=== PATIENT | male | born 1950 | race Caucasian/White ===

== ENCOUNTER 2017-11-22 06:00 | Inpatient (IN) | payer MEDICARE, OTHER, SELFPAY ==
[2017-11-09 10:30] VITALS: BP 159/97; PULSE 74; RESP 18; TEMP 36.6; O2SAT 96; BMI 44.9
[2017-11-09 11:44] LABS: Hematocrit 48.9 % (40-54); Hemoglobin 16.8 g/dl (13.0-16.5); Mean Corp Hgb Conc 34.4 g/gl (32-36); Mean Corpuscular Hgb 34.2 pg (27.0-32.0); Mean Corpuscular Volume 99.6 fL (80-94); Mean Platelet Vol. 10.1 fl (6.2-12.0); Platelet Count 224 K/mm3 (150-450); RBC Distribution Width CV 13.4 % (11.6-14.6); RBC Distribution Width SD 48.4 fl (35.1-43.9); Red Blood Count 4.91 M/mm3 (4.6-6.2)
[2017-11-09 11:45] LABS: Scan Indicated on CBC? Y/N NO
[2017-11-09 12:05] LABS: Anion Gap 8 (5-15); BUN 19 mg/dL (7-18); BUN/Creat Ratio 18.1 RATIO (10-20); Calcium,Total 10.5 mg/dL (8.5-10.1); Chloride 104 mmol/L (98-107); Creatinine, Serum 1.05 mg/dL (0.70-1.30); EST Glomerular Filtration Rate 75 mL/min (>60); Est Glom Filt Rate - Afr Amer 91 mL/min (>60); Estimated Creatinine Clearance 67.86 ml/min; Glucose 94 mg/dL (74-106); Potassium 3.8 mmol/L (3.5-5.1); Sodium Level 138 mmol/L (136-145)
[2017-11-22] VITALS (12 sets, daily range): BP systolic 149–166; BP diastolic 77–103; PULSE 62–96; RESP 14–16; TEMP 36–36.9; O2SAT 92–100; BMI 44.9
--- NOTE | 2017-11-22 | PROST_PTH ---
PATIENT: CARLOS VILLATORO LOC: [facility] U#:[id number] AGE/SX: 67/M ROOM: [facility]313 RE11/22/[address]: Dr. Benigno Teran MD : 1950 BED: 1 DIS: 11/23/2017 SPEC #: [id number] RECD: 11/22/17 14:27 STATUS: MICHELLE TAY #: [id number] ALONDRA: 11/22/17 00:[address]: Benigno Teran DEPT: SURGICAL PATHOLOGY RECD BY: Joaquín Strauss ENTERED: 11/22/17 14:28 SP TYPE: PROSTATE OTHR DR: Dr. Sara Gonzalez MD Tissues: A - Prostate, NOS B - Adipose tissue C - Lymph node of pelvis, NOS D - Lymph node of pelvis, NOS Procedures: Surgery Specimen Level IV Surgery Specimen Level V Surgery Specimen Level HEADER OPERATION: Laparoscopic robotic assisted radical prostatectomy PRE-OP DIAGNOSIS: Prostate cancer, elevated PSA TISSUE SUBMITTED: A ? Prostate, B ? Fat over prostate, C ? Right pelvic lymph nodes, D ? Left pelvic lymph nodes MICROSCOPIC DIAGNOSIS A. Prostate, radical prostatectomy: Prostatic adenocarcinoma (acinar, not otherwise specified). B. Fat over prostate: Adipose tissue, negative for carcinoma. C. Right pelvic lymph node: Nine out of nine lymph nodes, negative for metastatic carcinoma. Focal calcification lymph nodes. D. Left pelvic lymph node: Three out of three lymph nodes, negative for metastatic carcinoma. Focal calcification. SJ:peggy 11/24/17 COMMENT PROSTATE CANCER (RADICAL) SUMMARY: Procedure ? radical prostatectomy Prostate size ? 4 cm craniocaudally, 4.5 cm transversely and 4.5 cm anterior-posteriorly. Prostate weight ? 58.3 gm Lymph node sampling ? pelvic lymph node dissection Histologic type ? adenocarcinoma (acinar, not otherwise specified) Histologic grade (Yarelis Pattern): Primary pattern - 4 Secondary pattern - 3 Tertiary pattern - 5 Total [place] score - 7 Tumor Quantitation: Proportion (%) of prostate involved by tumor - ~30% Extraprostatic extension ? not identified Seminal vesicle invasion - present, a minute focus (left seminal vesicle) Margins ? margins uninvolved by invasive carcinoma. Treatment effect on carcinoma ? no known presurgical therapy Lymph-Vascular invasion ? not identified Perineural invasion - present Regional lymph nodes - Number examined - 12 Number involved - 0 Distant metastasis ? not applicable Additional pathologic findings ? 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 - Chronic inflammation. Ancillary studies ? not performed PATHOLOGIC STAGE: pT3b pN0 Mx The above summary is in compliance with [employer] (CAP) Cancer Protocols Checklist and [place] Joint Committee on Cancer (AJCC), Staging Manual, 8th Ed. The tumor in the right lobe involves apical portion of the prostate ( slides # 5 & 7) and measures 0.8 x 0.5 cm (measured microscopically) and. Tumor in the left lobe involves apical, middle, basal portion of the prostate (slides # 6, 8, 10, 12, 14, 15, 18 and 20) and measures 2.5 x 1 cm in greatest dimension (measured microscopically). The tumor in the left lobe is also present in the most basal portion of the prostate. Please make reference to previous specimen ([id number]) right prostate, apex, left prostate, apex, left prostate, apex, mid, left prostate, base, core biopsies with diagnosis of prostatic adenocarcinoma and right prostate, mid, core biopsy with diagnosis of focal high-grade prostatic intraepithelial neoplasia. Case has been reviewed in consultation with Dr. Poe who concurs with the above diagnosis. IDC:AM MICROSCOPIC DESCRIPTION Slides are reviewed. GROSS DESCRIPTION A - Received in fixative is one container labeled with the patient's name and designated prostate. The specimen consists of a radical prostatectomy consisting of prostate and bilateral seminal vesicles weighing 58.3 gm. The prostate measures 4 cm cranio-caudally, 4.5 cm transversely and 4.5 cm anterior-posteriorly. The right seminal vesicle measures 2.5 x 1.5 x 1 cm. The right vas deferens measure 4 cm in length and 0.5 cm in diameter. The left seminal vesicle measures 3 x 1.5 x 1 cm and the left vas deferens measure 3 cm in length and 0.5 cm in diameter. The specimen is inked as follows: anterior surface prostate ? yellow, posterior surface prostate and bilateral seminal vesicles and vas deferens ? black, right lateral surface ? blue, anterior surface, right seminal vesicle and vas deferens ? blue, left lateral surface prostate ? green, anterior surface, left seminal vesicle and vas deferens ? green. Sections do not reveal any obvious mass lesion. Ch[employer]ing [employer] sections are submitted in 20 cassettes as follows: 1 ? right vas deferens and seminal vesicle, 2 ? left vas deferens and seminal vesicle, 3 ? apical/urethral resection margin en face, 4 ? bladder base (basal margin en face), 5-8 ? apical portion prostate, 9-14 ? middle portion prostate, 15-20 ? basal portion prostate (19 & 20 contains the most basal portion of prostate). / : 11/23/17 B - Received in fixative is one container labeled with the patient's name and designated fat over prostate. The specimen consists of multiple pieces of adipose tissue that in aggregate measure 4.5 x 4 x 1 cm. No obvious lymph node is identified. The entire specimen is submitted in three cassettes. Sections will be submitted after overnight fixation. / : 11/22/17 C - Received in fixative is one container labeled with the patient's name and designated right pelvic lymph node. The specimen consists of two pieces of yellow adipose tissue measuring in aggregate 6 x 5 x 1.5 cm. Multiple lymph nodes are identified. The entire specimen is submitted in five cassettes as follows: 1 ? one bisected lymph node, 2 ? multiple lymph nodes, 3-5 ? rest of the specimen. / : 11/22/17 D - Received in fixative is one container labeled with the patient's name and designated left pelvic lymph node. The specimen consists of a piece of yellow adipose tissue measuring 3.5 x 3 x 1 cm. Three possible lymph nodes are identified. The entire specimen is submitted in two cassettes as follows: 1 ?bisected lymph node, 2 ? two possible lymph nodes and rest of the specimen. / : 11/22/17 TC:0 CPT: 82740, 13811 x2, 39864
[2017-11-22] MEDS: Cefazolin 2 GM in 0.9% Normal Saline 100 ML IV (07:19)
--- NOTE | 2017-11-22 12:09 | PCM.OPRPT ---
Report of Operation Date of Procedure: 11/22/17 Pre-Operative Diagnosis: PROSTATE CANCER. Post-Operative Diagnosis: SAME Surgery/Procedure Performed:: 1, LAPAROSCOPIC ROBOTIC ASSITED RADICAL PROSTATECTOMY WITH B/L NERVE SPARING. 2. BILATEAL PELVIC LYMPHNODE DISSECTION. 3. EMG MONITORING OF THE PELVIC NERVES AND SPHINCTER. 4. SUTURE SUSPENSION OF THE URETHRA TO PREVENT INCONTINENCE. Description of Surgical Findings:: 67-year-old male who has prostate cancer elected to have a radical prostatectomy to hopefully cure him of cancer he understands the risk that cancer may progress after surgery he may need further treatment such as radiation chemotherapy hormone ablative therapy. We talked about the risk of surgery including the risk of lack loss of erections and bladder control and incontinence. We plan to do nerve sparing surgery and also do a pelvic lymph node dissection. 67-year-old male taken back to the operating room after smooth induction of general anesthesia he was placed supine on the table. He underwent endotracheal tube placement full he is placed supine on the table the abdomen was shaved prepped and draped in usual sterile fashion. First I placed a Torres catheter into the bladder with a 18 [place] Citizen catheter 10 cc in the balloon. Patient is a fairly large male with BMI of 44 so plan to use we used longer bariatric trochars for the robot. Started off by making an incision supraumbilically and using the Veress needle to obtain his pneumoperitoneum. Once the pneumoperitoneum was insufflated then I placed my camera trocar. Then we placed a long robotic trocar on the right side and to long robotic trochars on the left side placed a variceal trocar and the suction trocar. Then we switched the camera trocar to a long trocar and then we docked the robot and proceeded with the dissection. First thing I did was mobilized the sigmoid colon a little bit enough to retracted out of the pelvis I then dissected the right vas deferens and right seminal vesicle vas deferens was identified and traced down all the way behind the bladder and prostate dissected out the vas deferens and then dissected out the right seminal vesicle I then identified the left vas deferens and left seminal vesicle and this was dissected out and transected the vas deferens both sides I then went underneath the prostate pulled up on both vas deferens and incised the tenotomies fascia and created a space underneath the prostate above the rectum all the way to the apex. Then at this point report on the pelvis the sigmoid colon was taken off traction I then in then took down the bladder and then created the space of Retzius. Incised the peritoneum laterally on each wing of the bladder and then transected through the umbilical ligaments and then put the traction of the bladder on traction and then dissected all the tissue above the prostate put in the bladder on traction and then created the space of Retzius until identified the pubic bone and all the landmarks for prostatectomy. I first then cleaned off the fat overlying the prostate this was sent off as a specimen is fat over prostate. Then went to the right pelvic lymph nodes and started off by identifying the borders noted Dennise identified the external iliac vein and identify the pelvic sidewall and then the obturator nerve dissected out the lymph nodes in this space used clips and cauterization to obtain hemostasis significant amount of lymph nodes removed pretty large packet was then handed off for the specimen. I then went to the left side again identified and noted Dennise the left iliac vein was identified the lateral pelvic wall and the arch of the pubic bone and all the way down to the obturator nerve dissected this out completely and removal of the lymph node packet off the lateral sidewall. He did have identifiable lymph nodes in this packet this was sent off as a specimen. I then went up to the prostate incised the lateral pelvic fascia and the prostate dissected the levator muscles off the prostate all the way to the apex and the right side the same thing on the left side I then incised the levator fascia over the dorsal vein complex and dissected the and incised the pubic prostatic ligaments I then placed a [id number] stitch on the dorsal vein complex put several stitches to the dorsal dorsal vein complex to have a nice secured dorsal vein once this was tied down then I pulled back between the bladder and the prostate identified the landmarks between the bladder and prostate dissected between the bladder and the prostate until I got down to the catheter the catheter was then pulled up on traction I then dissected posteriorly between the bladder and prostate releasing the posterior attachments of the bladder to the prostate until I reached the seminal vesicle and vas deferens which were already dissected out I then went to the right side of the prostate incised the levator fascia on top of the prostate then identified the neurovascular bundle running on the lateral aspect of the prostate we placed the EMG monitoring electrodes into the abdomen through the care provided the electrodes were tunneled to some fat in the anterior abdominal wall to hold up the electrodes and then placed in the levator muscles I then stimulated the patient's pelvic lateral sidewall I had a good action potential and identified the plexus of nerves running along the the lateral pelvic pelvic area with the same thing on the right side placed the electrode into the levator muscle and identified the plexus of nerves on the left side and the right side once these were identified and went back to the dissection of the prostate transected to the pedicle identified the neurovascular bundle and dissected this free off the prostate inferiorly working my way out all the way to the apex then went to the left side and incised the prostatic fascia and the left side and then came to the pedicle with clips and again released the neurovascular bundle in the left side all the way up to the apex on the prostate. Then at this point we transected through the dorsal vein minimal bleeding was encountered and then dissected circumferentially around the stump and then transected through the urethral stump and the prostate was extracted and put in Endo Catch bag nerve sparing was very good and is very happy with the burn of the neurovascular bundles on both sides. We then irrigated out the pelvis there is no major bleeding I then completed we checked in the house the sphincter with the electrode and I were able to get the sphincter to coapt and contract stimulation of the electrode proving that there was resulting stimulation and control of the sphincter. I then performed an anastomosis between the bladder and the urethra we did a supra suture suspension to prevent incontinence ran the suspension sutures from the 6 o'clock position to the 12 o'clock position over a catheter the catheter in place and then flushed the bladder there was no leakage. I then pulled back we then brought the bladder flap and I rechecked the bladder flap back back up to the anterior abdominal wall to re-extra peritonealized the bladder and the prostate area putting the bladder back in proper position of the anterior abdominal wall. We then transferred the prostate back to the Delano Rowley in the week which transferred the prostate back to the umbilical trocar we closed our 1012 variceal port with a Delano Rowley stitch and then we extracted the prostate through the umbilicus we then closed the extraction site with [id number] 0 Vicryl stitches interrupted fashion made sure to sweep underneath the make sure that there was no injury to the bowel or catching of any critical structures once we tied down the midline incision where we extracted the prostate then we closed all the incisions with stitches and the patient currently is being awakened from anesthesia he was bladder was flushed and the urine was clear. Take back to PACU in good condition. Type of Anesthesia:: General Drains: TORRES. Estimated Blood Loss (mL): 100 - Admit VTE Documentation VTE Present on Admission: No VTE Mechan Device Prophylaxis: SCD's VTE Pharm Prophylaxis ordered?: No Reason prophylaxis not ordered:: Treatment Not Indicated
[2017-11-22] MEDS: Bupivacaine Mpf 0.5% 30 ML VIAL (12:15)
[2017-11-22] MEDS: Calcium Carbonate 500 MG Tablet PO ×2 (13:58→17:43)
[2017-11-22] MEDS: HYDROcodone Bitartrate/Apap 5/325 Tablet PO ×2 (15:48→22:29)
[2017-11-22] MEDS: Ketorolac 15 MG/ML Vial IV (17:43)
[2017-11-22] MEDS: Lactated Ringers 1,000 ML 150 ML IV (17:44)
[2017-11-22] MEDS: amLODIPine 5 MG Tablet PO (20:13)
[2017-11-22] MEDS: hydroCHLOROthiazide 25 MG Tablet PO (20:14)
[2017-11-22] MEDS: Docusate Sodium 100 MG Capsule 200 MG PO (22:28)
[2017-11-22] MEDS: Ciprofloxacin 500 MG Tablet PO (22:28)
[2017-11-23] MEDS: Ketorolac 15 MG/ML Vial IV ×2 (00:28→05:06)
[2017-11-23] MEDS: Lactated Ringers 1,000 ML 150 ML IV ×2 (00:28→06:30)
[2017-11-23 04:53] VITALS: BP 148/78; PULSE 71; RESP 16; TEMP 36.5; O2SAT 94
[2017-11-23] MEDS: HYDROcodone Bitartrate/Apap 5/325 Tablet PO (04:55)
[2017-11-23] MEDS: Enoxaparin 40 MG/0.4 ML Syringe SC (05:06)
[2017-11-23 07:05] LABS: Hematocrit 45.3 % (40-54); Hemoglobin 14.9 g/dl (13.0-16.5); Mean Corp Hgb Conc 32.9 g/gl (32-36); Mean Corpuscular Volume 103.4 fL (80-94); Platelet Count 194 K/mm3 (150-450); RBC Distribution Width CV 13.4 % (11.6-14.6); RBC Distribution Width SD 49.9 fl (35.1-43.9); Red Blood Count 4.38 M/mm3 (4.6-6.2); White Blood Count 11.7 K/mm3 (4.4-11.0)
[2017-11-23 07:06] LABS: Anion Gap 8 (5-15); BUN 26 mg/dL (7-18); BUN/Creat Ratio 16.8 RATIO (10-20); Calcium,Total 9.2 mg/dL (8.5-10.1); Chloride 107 mmol/L (98-107); Creatinine, Serum 1.55 mg/dL (0.70-1.30); EST Glomerular Filtration Rate 48 mL/min (>60); Est Glom Filt Rate - Afr Amer 58 mL/min (>60); Estimated Creatinine Clearance 45.97 ml/min; Glucose 98 mg/dL (74-106); Potassium 4.3 mmol/L (3.5-5.1); Sodium Level 133 mmol/L (136-145)
--- NOTE | 2017-11-23 07:13 | PCM.DC.URO ---
Discharge Diet: Light diet - advance as tolerated Discharge Activity: May Not Drive, May not drive while taking narcotic pain medications. May shower in (days): 1 May resume sexual activity in: 6 weeks Call your doctor if your incision/area has: Continuous Slow Oozing, Sudden Increased Bleeding, Increased Pain/ Swelling, Increased Redness, Foul Smelling Discharge, Swelling at the incision site Call your doctor if you observe: Fever of 101 or Higher, Inability to have a bowel movement, Shortness of breath, Chest pain, Uncontrolled pain Suture Line Care: Avoid Pulling/Pushing, Avoid Pinching/Bending Catheter: Wells to leg bag, Wells to large bag Drain: [place] Instructions: Discharge Instructions for Radical Prostatectomy Allergies/Adverse Reactions: Allergies Antihistamines - Alkylamine Allergy (Verified 11/09/17 10:13) Other HALLUCINATE Medications to take at Discharge Hydrochlorothiazide [Hctz] 25 mg PO DAILY 07/11/14 Losartan Potassium [Cozaar] 50 mg PO DAILY 07/11/14 Naproxen [Naprosyn] 500 mg PO BID 05/27/17 Ascorbic Acid [Vitamin C] 500 mg PO DAILY@0800 11/09/17 Aspirin E.C. [Ecotrin] 81 mg PO DAILY@0800 11/09/17 Calcium Carbonate [Tums] 200 mg PO TID 11/09/17 Cholecalciferol (Vitamin D3) [Vitamin D3] 5,000 unit PO DAILY 11/09/17 Fish Oil/Dha/Epa [Fish Oil 1,200 mg Fish Oil] 1 each PO DAILY 11/09/17 Ciprofloxacin [Cipro] 500 mg PO BID #14 tab 11/23/17 Docusate Sodium [Colace] 100 mg PO BID #20 cap 11/23/17 Hydrocodone/Acetaminophen [Blaine 5-325 Tablet] 1 ea PO Q4H PRN PRN 5 Days #14 tab 11/23/17 The following prescriptions were given: Hydrocodone/Acetaminophen [Blaine 5-325 Tablet] 1 ea PO Q4H PRN PRN 5 Days #14 tab PRN Reason: Pain Ciprofloxacin [Cipro] 500 mg PO BID #14 tab Docusate Sodium [Colace] 100 mg PO BID #20 cap Primary Care Physician: Sara Gonzalez MD [Primary Care Provider] - Please Follow Up With: Benigno Teran MD When: December 30 at 8:30 am
--- NOTE | 2017-11-23 07:16 | DCINST_ITS ---
Discharge Diet: Light diet - advance as tolerated Discharge Activity: May Not Drive, May not drive while taking narcotic pain medications. May shower in (days): 1 May resume sexual activity in: 6 weeks Call your doctor if your incision/area has: Continuous Slow Oozing, Sudden Increased Bleeding, Increased Pain/ Swelling, Increased Redness, Foul Smelling Discharge, Swelling at the incision site Call your doctor if you observe: Fever of 101 or Higher, Inability to have a bowel movement, Shortness of breath, Chest pain, Uncontrolled pain Suture Line Care: Avoid Pulling/Pushing, Avoid Pinching/Bending Catheter: Wells to leg bag, Wells to large bag Drain: [place] Instructions: Discharge Instructions for Radical Prostatectomy Allergies/Adverse Reactions: Allergies Antihistamines - Alkylamine Allergy (Verified 11/09/17 10:13) Other HALLUCINATE Medications to take at Discharge Hydrochlorothiazide [Hctz] 25 mg PO DAILY 07/11/14 Losartan Potassium [Cozaar] 50 mg PO DAILY 07/11/14 Naproxen [Naprosyn] 500 mg PO BID 05/27/17 Ascorbic Acid [Vitamin C] 500 mg PO DAILY@0800 11/09/17 Aspirin E.C. [Ecotrin] 81 mg PO DAILY@0800 11/09/17 Calcium Carbonate [Tums] 200 mg PO TID 11/09/17 Cholecalciferol (Vitamin D3) [Vitamin D3] 5,000 unit PO DAILY 11/09/17 Fish Oil/Dha/Epa [Fish Oil 1,200 mg Fish Oil] 1 each PO DAILY 11/09/17 Ciprofloxacin [Cipro] 500 mg PO BID #14 tab 11/23/17 Docusate Sodium [Colace] 100 mg PO BID #20 cap 11/23/17 Hydrocodone/Acetaminophen [[place] 5-325 Tablet] 1 ea PO Q4H PRN PRN 5 Days #14 tab 11/23/17 The following prescriptions were given: Hydrocodone/Acetaminophen [[place] 5-325 Tablet] 1 ea PO Q4H PRN PRN 5 Days #14 tab PRN Reason: Pain Ciprofloxacin [Cipro] 500 mg PO BID #14 tab Docusate Sodium [Colace] 100 mg PO BID #20 cap Primary Care Physician: Sara Gonzalez MD [Primary Care Provider] - Please Follow Up With: Benigno Teran MD When: December 30 at 8:30 am
[2017-11-23 07:38] LABS: Scan Indicated on CBC? Y/N NO
[2017-11-23 08:25] VITALS: O2SAT 94
[2017-11-23 09:09] VITALS: BP 143/72; PULSE 76; RESP 18; TEMP 36.5; O2SAT 95
[2017-11-23] MEDS: Docusate Sodium 100 MG Capsule 200 MG PO (09:12)
[2017-11-23] MEDS: hydroCHLOROthiazide 25 MG Tablet PO (09:13)
[2017-11-23] MEDS: Losartan Potassium 50 MG Tablet PO (09:13)
[2017-11-23] MEDS: Ciprofloxacin 500 MG Tablet PO (09:13)
[2017-11-23] MEDS: Ascorbic Acid 500 MG Tablet PO (09:13)
== END 2017-11-23 11:30 | disposition home or self-care (01) | DRG 707 ==
PROVIDERS: Anesthesiology; Admitting Provider Urology; Family Provider Internal Medicine; PCP Internal Medicine; Visit Provider Urology
PROC: 0VT04ZZ Resection of Prostate, Percutaneous Endoscopic Approach (ICD-10-PCS; CPT 55866; principal; 2017-11-22 07:10)
DX: C61 Malignant neoplasm of prostate (principal); Z68.41 Body mass index [BMI] 40.0-44.9, adult; G47.30 Sleep apnea, unspecified; I10 Essential (primary) hypertension; E66.9 Obesity, unspecified; Z71.3 Dietary counseling and surveillance; M19.90 Unspecified osteoarthritis, unspecified site; F17.200 Nicotine dependence, unspecified, uncomplicated; Z86.718 Personal history of other venous thrombosis and embolism
CPT/HCPCS: 36415; 80048; 85027; 86850; 86900; 88304; 88305; 88307; 88309; J7120; A4216; J2405

== ENCOUNTER → 2017-12-28 16:24 | Outpatient (CLI) | payer MEDICARE, OTHER, SELFPAY ==
[2017-12-28 17:21] LABS: PSA,Total- Diagnostic < 0.01 ng/mL (0.0-4.0)
== END ==
PROVIDERS: Family Provider Internal Medicine; PCP Internal Medicine; Visit Provider Urology
DX: R97.20 Elevated prostate specific antigen [PSA] (principal)
CPT/HCPCS: 36415; 84153

== ENCOUNTER 2018-01-12 12:25 | Emergency (ER) | payer MEDICARE, OTHER, SELFPAY ==
--- NOTE | 2018-01-12 12:25 | DT_ITS ---
This patient was seen during an EMR downtime January 08, 2018 - January 15, 2018. This patient may have a combination of paper and electronic documentation or all paper documentation. All documentation is viewable within the e-chart portion of [facility] for each patient visit.
--- NOTE | 2018-01-12 14:00 | US_ITS ---
STUDY: SCROTUM ULTRASOUND REASON FOR EXAM: Male, 67 years old. Right testicular pain and swelling. TECHNIQUE: Ultrasound evaluation of the scrotum was performed with color Doppler and static lopez-scale imaging. COMPARISON: None. FINDINGS: RIGHT TESTICLE INTRATESTICULAR: There is a normal size of the right testicle. The right testicle measures 4.7 x 3.0 x 3.0 cm. There is a homogenous echotexture. There is increased arterial and increased venous vascularity. There is no demonstrated right testicular mass or cyst. EXTRATESTICULAR: The epididymis is enlarged and the epididymal head measures 2.0 x 1.4 x 0.9 cm There is increased vascularity of the epididymis. There is no demonstrated epididymal cystic structure. There is a small hydrocele with septation. There is no demonstrated varicocele. There is no demonstrated extratesticular mass or cyst. LEFT TESTICLE INTRATESTICULAR: There is a normal size of the left testicle. The left testicle measures 4.3 x 2.1 x 2.4 cm. There is a homogenous echotexture. There is normal arterial and normal venous vascularity. There is no demonstrated left testicular mass or cyst. EXTRATESTICULAR: The epididymis is normal in size. The epididymis head measures 1.2 x 1.1 x 0.6 cm. There is normal vascularity of the epididymis. Epididymal cyst measuring 0.5 x 0.4 x 0.3 cm There is small hydrocele. There is no demonstrated varicocele. There is no demonstrated extratesticular mass or cyst. US/Testicular with Arterial Flow IMPRESSION: Right epididymoorchitis. Small bilateral hydroceles. Electronically Signed: Alok Bess MD at 1:55 EDT , Service support ,
--- NOTE | 2018-01-12 14:17 | CT_ITS ---
STUDY: CT ABDOMEN AND PELVIS WITH CONTRAST REASON FOR EXAM: Male, 67 years old. Lower abdominal pain. Recent prostatectomy on 11/2017. RADIATION DOSAGE (If Supplied By Facility): CTDIvol = ( 30.83 ) mGy, DLP = ( 1542.33 ) mGycm TECHNIQUE: Transaxial imaging of the abdomen and pelvis was performed with oral contrast. 100 ml of Isovue 300 contrast was administered intravenously. Coronal and sagittal reconstructions were performed. Individualized dose optimization techniques were used for this CT. COMPARISON: 08/21/2017. FINDINGS: The lung bases are normal. Normal cardiac size. No pericardial fluid. No pleural fluid. The liver, gallbladder, spleen, pancreas and adrenal glands are normal. At least 7 nonobstructing calculi in the right kidney. The dominant calculus is 5 mm. No stones or hydronephrosis in the left kidney. Normal stomach. Normal small intestine. Small diverticula along the sigmoid colon. There are inflammatory changes of the fat in the left side of the sigmoid colon with intramural thickening and diverticula. They are consistent with acute diverticulitis. No mesenteric or retroperitoneal lymphadenopathy. The urinary bladder is compressed from side to side by nonenhancing hypodense mass lesions. The hypodense masses are in between the bladder and the anterior acetabular columns. The nonenhancing mass in the left side measures 7.4 x 4.4 cm. The nonenhancing hypodense mass in the right side measures 6.7 x 3.4 cm. Postsurgical absence of the prostate gland.. There is no pelvic fluid. Normal visualized pelvic arteries. Right inguinal hernia contains only adipose tissue. This is unchanged. Pronounced right-sided disc space height narrowing at L3-L4 and L4-L5 disc space levels are unchanged. No acute osseous abnormality. CT/Abdomen/Pelvis WITH Contrast IMPRESSION: 1. Interval development of 2 lower pelvic sidewall nonenhancing hypodense lesions located in between the bladder and the anterior acetabular columns. They are compressing the bladder from side to side. The right sided lesion measures 6.7 x 3.4 cm. The left-sided lesion measures 7.4 x 4.4 cm. Considering interval prostatectomy, these may represent bilateral lymphoceles rather than lymphadenopathy. These are feasible for CT-guided diagnostic and therapeutic aspiration if desired. 2. Interval development of acute diverticulitis of the left sigmoid colon. 3. At least 7 nonobstructing calculi in the right kidney. The dominant calculus is 5 mm in diameter. 4. No stones or hydronephrosis in the left kidney. Electronically Signed: Marino Sanabria MD at 15:03 EDT , Service support ,
[2018-01-15 09:08] LABS: Mucous, Urine 0 SEEN /hpf (<or=2+); Squamous Epithelial Cells - UA 0 SEEN /hpf (0-5)
[2018-01-15 09:16] LABS: Bacteria RARE /hpf (None Seen); Color, Urine Yellow (Yellow); Glucose, Dipstick NEGATIVE (Normal); Ketone-Dipstick Negative (Negative); Leukocyte Esterase-Dipstick 500 /ul (Negative); Nitrite-Dipstick Positive (Negative); Occult Blood-Urine 250 /ul (Negative); Protein-Dipstick 15 mg/dl (Negative); Red Blood Cells-Urine 10-25 SEEN /hpf (0-5); Urine Bilirubin Dipstick Negative (Negative); Urine Clarity Sl Cldy (Clear); Urine Urobilinogen Normal (Normal); White Blood Cells 50-100 SEEN /hpf (0-5)
[2018-01-15 11:51] LABS: Hemoglobin 14.8 g/dl (13.0-16.5); Red Blood Count 4.36 M/mm3 (4.6-6.2); White Blood Count 11.9 K/mm3 (4.4-11.0)
[2018-01-15 11:52] LABS: Absolute Lymphocyte Count 0.92 X10^3/ul (0.83-4.51); Absolute Neutrophil Count 9.8 X10^3/uL (2.0-7.7); Basophil% 0.3 % (0-1); Eosinophils% 1.4 % (0-5); Hematocrit 43.6 % (40-54); Lymphocyte # 0.92 X10^3/ul (4.0); Lymphocyte % 7.7 % (19-41); Mean Corp Hgb Conc 33.9 g/gl (32-36); Mean Corpuscular Hgb 33.9 pg (27.0-32.0); Mean Platelet Vol. 9.3 fl (6.2-12.0); Monocyte# 0.92 X10^3/uL; Monocyte% 7.7 % (0-10); Neutrophil # 9.78 X10^3/uL (2.7-7.7); Neutrophil % 82.1 % (47-70); POSITIVE COUNT NO; POSITIVE DIFFERENTIAL NO; POSITIVE MORPHOLOGY NO; Platelet Count 271 K/mm3 (150-450); RBC Distribution Width CV 13.7 % (11.6-14.6)
[2018-01-15 11:53] LABS: Basophil# 0.03 X10^3/uL; Eosinophil# 0.17 X10^3/uL
[2018-01-15 21:03] LABS: Anion Gap 9 (5-15); BUN 28 mg/dL (7-18); Calcium,Total 9.5 mg/dL (8.5-10.1); Chloride 108 mmol/L (98-107); Creatinine, Serum 1.22 mg/dL (0.70-1.30); EST Glomerular Filtration Rate 63 mL/min (>60); Est Glom Filt Rate - Afr Amer 76 mL/min (>60); Glucose 92 mg/dL (74-106); Potassium 3.8 mmol/L (3.5-5.1); Sodium Level 140 mmol/L (136-145)
== END 2018-01-12 16:00 | disposition home or self-care (01) ==
LOC: ED 17:18
PROVIDERS: Emergency Provider Emergency Medicine; Family Provider Internal Medicine; PCP Internal Medicine
DX: I89.8 Other specified noninfective disorders of lymphatic vessels and lymph nodes (principal); Z98.890 Other specified postprocedural states; K57.32 Diverticulitis of large intestine without perforation or abscess without bleeding; I10 Essential (primary) hypertension; F17.200 Nicotine dependence, unspecified, uncomplicated; Z87.442 Personal history of urinary calculi; Z85.46 Personal history of malignant neoplasm of prostate; R31.9 Hematuria, unspecified; R35.0 Frequency of micturition
CPT/HCPCS: 36415; 74177; 76870; 80048; 81001; 85025; 93976; 99284; Q9967; A4216

== ENCOUNTER → 2018-01-18 17:44 | Outpatient (CLI) | payer MEDICARE, OTHER, SELFPAY | PROVIDERS: Visit Provider Urology | DX: R82.99 Other abnormal findings in urine (principal) | CPT/HCPCS: 87086; 87088; 87186 ==

== ENCOUNTER → 2018-03-01 10:04 | Outpatient (CLI) | payer MEDICARE, OTHER, SELFPAY ==
[2018-03-01 11:00] LABS: PSA,Total- Diagnostic < 0.01 ng/mL (0.0-4.0)
== END ==
PROVIDERS: Family Provider Internal Medicine; PCP Internal Medicine; Visit Provider Urology
DX: C61 Malignant neoplasm of prostate (principal)
CPT/HCPCS: 36415; 84153

== ENCOUNTER → 2018-09-07 15:02 | Outpatient (CLI) | payer MEDICARE, OTHER, SELFPAY ==
[2018-09-07 16:22] LABS: PSA,Total- Diagnostic < 0.01 ng/mL (0.0-4.0)
== END ==
PROVIDERS: Family Provider Internal Medicine; PCP Internal Medicine; Referring Provider Urology; Visit Provider Urology
DX: C61 Malignant neoplasm of prostate (principal)
CPT/HCPCS: 36415; 84153

== ENCOUNTER → 2019-03-21 | Outpatient (CLI) | payer MEDICARE, OTHER, SELFPAY ==
[2017-11-22 13:48] VITALS: BMI 44.9
[2019-03-21 12:46] LABS: PSA,Total- Diagnostic < 0.01 ng/mL (0.0-4.0)
== END | disposition home or self-care (01) ==
LOC: LAB 11:41
PROVIDERS: Family Provider Internal Medicine; PCP Internal Medicine; Referring Provider Urology; Visit Provider Urology
DX: C61 Malignant neoplasm of prostate (principal)
CPT/HCPCS: 36415; 84153

== ENCOUNTER 2019-05-27 09:15 | Observation (INO) | payer MEDICARE, OTHER, SELFPAY ==
--- NOTE | 2019-04-17 04:42 | HP_ITS ---
Intake Vital Signs 04/17/19 Body Mass Index (BMI) 44.9 04/17/19 Height 5 ft 8 in 04/17/19 Weight: 275 lb 04/17/19 Body Mass Index (BMI) 41.8 04/17/19 Blood Pressure 106/74 04/17/19 Blood Pressure Location Rt brachial 04/17/19 Respiratory Rate 18 04/17/19 Pulse Rate 83 04/17/19 Pulse Source Monitor 04/17/19 Temperature 97.9 F 04/17/19 Pulse Ox 97 04/17/19 Oxygen Delivery Method room air Intake Visit Reasons: Umbilical Hernia Chief Complaint: left knee replacement New Account Interviewer Required: No Is patient in pain?: No (on and off ) Allergies Antihistamines - Alkylamine Allergy (Verified 04/17/19 16:19) Other Medications Hydrochlorothiazide [Hctz] 25 mg PO DAILY 07/11/14 [History Confirmed 04/17/19] Losartan Potassium [Cozaar] 50 mg PO DAILY 07/11/14 [History Confirmed 04/17/19] Naproxen [Naprosyn] 500 mg PO BID 05/27/17 [History Confirmed 04/17/19] Ascorbic Acid [Vitamin C] 500 mg PO DAILY@0800 11/09/17 [History Confirmed 04/17/19] Aspirin E.C. [Ecotrin] 81 mg PO DAILY@0800 11/09/17 [History Confirmed 04/17/19] Cholecalciferol (Vitamin D3) [Vitamin D3] 5,000 unit PO DAILY 11/09/17 [History Confirmed 04/17/19] Fish Oil/Dha/Epa [Fish Oil 1,200 mg Fish Oil] 1 ea PO DAILY 11/09/17 [History Confirmed 04/17/19] [facility] Medical History Ulcer (Acute) Hemorrhoids (Acute) Acid reflux (Acute) Abdominal pain (Acute) Sleep apnea (Acute) Hypertension (Chronic) Rheumatoid arthritis (Acute) Arthritis (Acute) Back problem (Acute) Surgical History Hx of prostatectomy (Acute) History of partial knee replacement (Acute) Achilles rupture, left (Acute) Hx of bilateral cataract extraction (Acute) Family History Father Hypertension Prostate cancer Mother CVA (cerebral vascular accident) Social History (Updated 04/17/19 @ 16:47 by Riley Molina MD) Smoking Status: Current every day smoker alcohol intake: current alcohol intake frequency: holidays/special occasions only substance use type: does not use caffeine: Yes what type of physical activity do you participate in: other frequency: 3-4 times per week seatbelt use: always HPI HPI HPI: CARLOS VILLATORO is a 69 M who presents to the office today for HPI HPI Surgical H&P: Yes HPI: CARLOS VILLATORO is a 69 M who presents to the office today for surgical consultation regarding a ventral incisional hernia located at the umbilicus related to a previous robotic prostatectomy. The patient is kindly referred by Dr. Teran and a written copy of my surgical consult recommendations will return to him. The patient had his prostatectomy approximately January 2018. On January 12, [address] scan suggested possible bilateral groin lymphoceles and a small right renal hernia related to his prostatectomy but by patient report those resolved. The patient notes that he always had a slight defect at the umbilicus but over the past month or so it is significantly enlarged where it constantly protrudes. The patient himself has noted that the skin is thinning significantly. The patient's CT scan of January 12, 2018 also suggested a small right inguinal hernia. The patient is completely asymptomatic of this. It is of pertinence that the patient's body habitus is 275 pounds with a BMI of 44.9. By his report this is typical body weight and he suggests that this is not likely to change He is a routine pipe smoker claims that he is previously tried to cease and that is not been successful. He states that he is previously had a colonoscopy within the past 10 years and it did not have any polyps. He denies any family history of colon cancer He does have sleep apnea and uses a CPAP mask. 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 The patient denies any need for inhaler therapy. ROS General General: Yes weight change; no appetite, fatigue, colon cancer, breast cancer or weakness HEENT HEENT: Yes eye surgery; no difficulty swallowing, eye injury, swollen glands or hoarseness Endo Endocrine: No thyroid disease, diabetes mellitus, thyroid cancer, Hair loss, heat intolerance or cold intolerance Skin Skin: No rash or changing moles Musc Musculoskeletal: Yes back problems, arthritis and rheumatoid arthritis; no gout or joint pain Cardio Cardiovascular: Yes high blood pressure; no murmur, pacemaker, heart disease, atrial fibrillation, heart attack, heart stent, palpitations, shortness of breat with exertion or chest pain Psych Psychiatric: No depression, anxiety or hearing voices Resp Respiratory: No shortness of breath, Yes sleep apnea, No cough, No COPD, No asthma, No emphysema, No wheezing Gastro Gastrointestinal: Yes abdominal pain, No nausea or vomiting, No diarrhea, No constipation, No blood in stool, Yes acid reflux, Yes hemorrhoids, Yes ulcers, No gallbladder problem, No black,tarry stools Skyler Hematologic: Yes blood thinners (ASA 81mg and Fish Oil ), No blood disorders, No bleeding, No anemia, No blood clots Neuro Neurologic: No system reviewed and no additional complaints, except as docu, No as per HPI, No abnormal walking, No abnormal hearing, No abnormal movements, No abnormal speech, No behavioral changes, No burning sensations, No confusion, No seizure-like activity, No unsteadiness, No dizziness, No localized weakness, No frequent falls, No headache(s), No lack of coordination, No loss of vision, No memory loss, No numbness, No other visual disturbances, No radiating pain, No restless legs, No sensory deficit, No fainting, No tingling, No tremor(s), No weakness, No other Exam Const General: cooperative, comfortable, no acute distress Nutritional Appearance: obese morbidly obese [facility] Head: normal to inspection Eyes General: appearance normal, both eyes and all related structures Chest Other: Increased anterior posterior diameter Resp Auscultation: clear to auscultation bilaterally Cardio Rate: regular rate Rhythm: regular rhythm Heart Sounds: no murmurs GI Inspection: normal to inspection Palpation: soft, no hepatosplenomegaly Other: Vertical incision based at the umbilicus. Significant bulging at the umbilicus with a very thin umbilical skin slight erythematous rubor. With supine posturing this is mostly reducible Neuro General: alert, awake Extrem General: no calf tenderness bilaterally Psych Affect: normal affect Assessment & Plan Problems 1. Incisional hernia, without obstruction or gangrene K43.2; K43.91 Plan I have offered the patient a laparoscopic ventral incisional herniorrhaphy with mesh. We have discussed the technique, benefit, risks, alternatives. I have concerns about the thinning skin at the umbilicus placing him at risk for ulceration and then subsequent cellulitis and infection. I have discussed with him his sleep apnea and his ongoing pipe smoking and his body habitus. He is aware that there are no guarantees of success. I do not believe that a ventral ex mesh will be appropriate here because of the patient's body habitus. I would anticipate a laparoscopic approach with hopeful attempt at preperitoneal repair for better fixation. The patient is aware that this could require overnight stay or several days today. I would additionally be prepared to perform a laparoscopic bilateral tap block if indicated. I very much appreciate the kind opportunity of assisting with his surgical care CC: and Parul Molina M.D., F.A.C.S. Coding Level of Care Code 92054 Diagnoses Incisional hernia, without obstruction or gangrene K43.2; K43.91 ??Obstruction and gangrene presence: without obstruction or gangrene 04/17/19 [id number] <Electronically signed by Riley hough MD> Date _ Riley Molina MD I have re-examined the patient. There are no clinical changes since date of exam.
[2019-04-17 16:23] VITALS: BMI 44.9
--- NOTE | 2019-05-21 10:32 | EKG12_ITS ---
Test Reason : PRE-OP Blood Pressure : / mmHG Vent. Rate : 065 BPM Atrial Rate : 065 BPM P-R Int : 264 ms QRS Dur : 102 ms QT Int : 380 ms P-R-T Axes : -05 004 108 degrees QTc Int : 395 ms Sinus rhythm with 1st degree A-V block Nonspecific ST and T wave abnormality Abnormal ECG Confirmed by WILMAN LEA, RODNEY ([id number]), editor continuity and script ALEXANDER FAROOQ ([id number]) on 05/22/2019 8:39:54 AM Referred By: Riley Molina Confirmed By:RODNEY STOVALL MD
[2019-05-21 11:33] LABS: Hematocrit 45.8 % (40-54); Hemoglobin 15.2 g/dL (13.0-16.5); Mean Corp Hgb Conc 33.2 g/dL (32-36); Mean Corpuscular Hgb 33.9 pg (27.0-32.0); Mean Corpuscular Volume 102.2 fL (80-94); Mean Platelet Vol. 9.7 fl (6.2-12.0); Platelet Count 238 K/mm3 (150-450); RBC Distribution Width SD 49.2 fl (35.1-43.9); Red Blood Count 4.48 M/mm3 (4.6-6.2)
[2019-05-21 11:54] LABS: Anion Gap 4 (5-15); BUN 19 mg/dL (7-18); BUN/Creat Ratio 18.1 RATIO (10-20); Calcium,Total 10.1 mg/dL (8.5-10.1); Chloride 108 mmol/L (98-107); Creatinine, Serum 1.05 mg/dL (0.70-1.30); EST Glomerular Filtration Rate 75 mL/min (>60); Est Glom Filt Rate - Afr Amer 91 mL/min (>60); Glucose 93 mg/dL (74-106); Potassium 3.7 mmol/L (3.5-5.1); Sodium Level 139 mmol/L (136-145)
[2019-05-22 09:35] VITALS: BMI 41.8
[2019-05-27] VITALS (11 sets, daily range): BP systolic 130–162; BP diastolic 70–98; PULSE 61–70; RESP 16–18; TEMP 36.1–36.9; O2SAT 95–99; BMI 43.1
[2019-05-27] MEDS: Lactated Ringers 1,000 ML 15 ML IV (06:18)
[2019-05-27] MEDS: Cefazolin 2 GM in 0.9% Normal Saline 100 ML IV (07:17)
--- NOTE | 2019-05-27 07:26 | PCM.HP.BLA ---
Problem List (1) Incisional hernia Status: Acute Qualifiers: History and Physical Date of Admission: 05/27/19 [place]ie Visit Reasons: Update H/P Umbilical Hernia RC 05/27 Chief Complaint: left knee replacement Digital Marketing Consultant Required: No Is patient in pain?: No Allergies Antihistamines - Alkylamine Allergy (Verified 05/22/19 09:35) Other Medications Hydrochlorothiazide [Hctz] 25 mg PO DAILY 07/11/14 [History Confirmed 05/22/19] Losartan Potassium [Cozaar] 50 mg PO DAILY 07/11/14 [History Confirmed 05/22/19] Naproxen [Naprosyn] 500 mg PO BID PRN 05/27/17 [History Confirmed 05/22/19] Ascorbic Acid [Vitamin C] 500 mg PO DAILY@0800 11/09/17 [History Confirmed 05/22/19] Aspirin E.C. [Ecotrin] 81 mg PO DAILY@0800 11/09/17 [History Confirmed 05/22/19] Cholecalciferol (Vitamin D3) [Vitamin D3] 5,000 unit PO DAILY 11/09/17 [History Confirmed 05/22/19] Fish Oil/Dha/Epa [Fish Oil 1,200 mg Fish Oil] 1 ea PO DAILY 11/09/17 [History Confirmed 05/22/19] PFSH Medical History Incisional hernia (Acute) Ulcer (Acute) Hemorrhoids (Acute) Acid reflux (Acute) Abdominal pain (Acute) Sleep apnea (Acute) Hypertension (Chronic) Rheumatoid arthritis (Acute) Arthritis (Acute) Back problem (Acute) Surgical History Hx of prostatectomy (Acute) History of partial knee replacement (Acute) Achilles rupture, left (Acute) Hx of bilateral cataract extraction (Acute) Family History Father Hypertension Prostate cancer Mother CVA (cerebral vascular accident) Social History (Updated 05/22/19 @ 10:08 by Renuka Hui PA-C) Smoking Status: Current every day smoker alcohol intake: current alcohol intake frequency: holidays/special occasions only substance use type: does not use caffeine: Yes what type of physical activity do you participate in: other frequency: 3-4 times per week seatbelt use: always HPI HPI HPI: CARLOS VILLATORO, is a 69 M who presents to the office today for HPI HPI Surgical H&P: Yes HPI: CARLOS VILLATORO is a 69 M who presents to the office today for an update history and physical for an upcoming procedure. Patient denies recent hospitalizations or illnesses. Patient denies change in medications. He notes occasional pain/discomfort at the hernia site. Patient notes some change in bowel habits. Patient has had a previous prostatectomy. Patient's previous history per Dr. Molina: CARLOS VILLATORO is a 69 M who presents to the office today for surgical consultation regarding a ventral incisional hernia located at the umbilicus related to a previous robotic prostatectomy. The patient is kindly referred by Dr. Teran and a written copy of my surgical consult recommendations will return to him. The patient had his prostatectomy approximately January 2018. On January 12, [address] scan suggested possible bilateral groin lymphoceles and a small right renal hernia related to his prostatectomy but by patient report those resolved. The patient notes that he always had a slight defect at the umbilicus but over the past month or so it is significantly enlarged where it constantly protrudes. The patient himself has noted that the skin is thinning significantly. The patient's CT scan of January 12, 2018 also suggested a small right inguinal hernia. The patient is completely asymptomatic of this. It is of pertinence that the patient's body habitus is 275 pounds with a BMI of 44.9. By his report this is typical body weight and he suggests that this is not likely to change He is a routine pipe smoker claims that he is previously tried to cease and that is not been successful. He states that he is previously had a colonoscopy within the past 10 years and it did not have any polyps. He denies any family history of colon cancer He does have sleep apnea and uses a CPAP mask. 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 The patient denies any need for inhaler therapy. ROS General General: Yes weight change; no appetite, fatigue, colon cancer, breast cancer or weakness HEENT HEENT: Yes eye surgery; no difficulty swallowing, eye injury, swollen glands or hoarseness Endo Endocrine: No thyroid disease, diabetes mellitus, thyroid cancer, Hair loss, heat intolerance or cold intolerance Skin Skin: No rash or changing moles Musc Musculoskeletal: Yes back problems, arthritis and rheumatoid arthritis; no gout or joint pain Cardio Cardiovascular: Yes high blood pressure; no murmur, pacemaker, heart disease, atrial fibrillation, heart attack, heart stent, palpitations, shortness of breat with exertion or chest pain Psych Psychiatric: No depression, anxiety or hearing voices Resp Respiratory: No shortness of breath, Yes sleep apnea, No cough, No COPD, No asthma, No emphysema, No wheezing Gastro Gastrointestinal: Yes abdominal pain, No nausea or vomiting, No diarrhea, No constipation, No blood in stool, Yes acid reflux, Yes hemorrhoids, Yes ulcers, No gallbladder problem, No black,tarry stools Skyler Hematologic: Yes blood thinners (ASA 81mg and Fish Oil ), No blood disorders, No bleeding, No anemia, No blood clots Neuro Neurologic: No weakness Exam Const General: cooperative, healthy appearing, comfortable, no acute distress Nutritional Appearance: obese centrally obese [facility] Head: normal to inspection Eyes General: appearance normal, both eyes and all related structures Neck Neck: normal visual inspection Neck mass: No Resp Effort & Inspection: normal respiratory effort Auscultation: clear to auscultation bilaterally Cardio Rate: regular rate Rhythm: regular rhythm Heart Sounds: no murmurs GI Inspection: obesity Palpation: soft, hernia (ventral incisional hernia) Auscultation: normal bowel sounds Skin General: no rashes or lesions noted Neuro General: no focal motor deficits, CN's II-XI intact bilaterally Extrem General: normal to inspection Psych Appearance: grossly normal Affect: normal affect Assessment & Plan Problems 1. Incisional hernia, without obstruction or gangrene K43.[address] Molina will plan to perform a laparoscopic umbilical hernia repair with mesh. Procedure details, risks and benefits were reviewed. He has already had his PAT appointment. Patient has had the opportunity to ask and have questions answered. Patient verbally understands and agrees with the plan. Patient to hold Aspirin and Plavix at least 5 days prior to the procedure. Of note, per Dr. Molina's original plan: The patient is aware that this could require overnight stay or several days today. I would additionally be prepared to perform a laparoscopic bilateral tap block if indicated. Coding Level of Care Code No Charge Diagnoses Incisional hernia, without obstruction or gangrene K43.2 ??Obstruction and gangrene presence: without obstruction or gangrene Comment Update H&P 05/22/19 1008 <Electronically signed by Renuka Hui PA-C> Date Renuka Hui PA-C Cosigner Signature: Date (if applicable) CC: ~ I have re-examined the patient. There are no clinical changes since date of exam.
--- NOTE | 2019-05-27 07:28 | PCM.DC.GS ---
<Riley Molina - Last Filed: 05/27/19 07:28> Discharge Diet: Light diet - advance as tolerated - if you have questions about your diet instructions, please talk to you doctor. Discharge Activity: May Not Drive - for 1 week or while taking narcotic pain medicine. May shower in (days): 1 Lifting Restrictions: 10 pounds Call your doctor if your incision/area has: Continuous Slow Oozing, Sudden Increased Bleeding, Increased Pain/ Swelling, Increased Redness, Foul Smelling Discharge Call your doctor if you observe: Fever of 101 or Higher Suture Line Care: Avoid Pulling/Pushing, Avoid Pinching/Bending Additional Dressing/Incision Instructions:: Change or remove dressing in 4 days. Leave steri-strips in place for 1 week. Allergies/Adverse Reactions: Allergies Antihistamines - Alkylamine Allergy (Verified 05/27/19 06:12) Other HALLUCINATE Medications to take at Discharge Hydrochlorothiazide [Hctz] 25 mg PO DAILY 07/11/14 Losartan Potassium [Cozaar] 50 mg PO DAILY 07/11/14 Naproxen [Naprosyn] 500 mg PO BID PRN 05/27/17 Ascorbic Acid [Vitamin C] 500 mg PO DAILY@0800 11/09/17 Aspirin E.C. [Ecotrin] 81 mg PO DAILY@0800 11/09/17 Cholecalciferol (Vitamin D3) [Vitamin D3] 5,000 unit PO DAILY 11/09/17 Fish Oil/Dha/Epa [Fish Oil 1,200 mg Fish Oil] 1 ea PO DAILY 11/09/17 Hydrocodone Bitart/Apap 5-325 [[place] 5MG-325MG] 1 tab PO Q4H PRN PRN 3 Days #10 tab 05/27/19 The following prescriptions were given: Hydrocodone Bitart/Apap 5-325 [[place] 5MG-325MG] 1 tab PO Q4H PRN PRN 3 Days #10 tab PRN Reason: Pain Transmission Status: Received by [facility]/pharmacy #[id number] Primary Care Physician: Sara Gonzalez MD [Primary Care Provider] - Test Results: Test results from this visit will be discussed in further detail at your follow-up appointment, if applicable. Please Follow Up With: Riley Molina MD - [phone] When: Call to make an appointment to be seen in about 10 days. <Renuka Hui - Last Filed: 05/28/19 09:41> Test Results: Test results from this visit will be discussed in further detail at your follow-up appointment, if applicable.
[2019-05-27] MEDS: Bupivacaine 0.25% 30 ML Vial ×2 (09:19)
[2019-05-27] MEDS: BUPIVACAINE LIPOSOME/PF 20 ML VIAL OPERA.SITE (09:20)
--- NOTE | 2019-05-27 09:21 | OP.PCM_ITS ---
Problem List (1) Incisional hernia Status: Acute Qualifiers: Report of Operation Date of Procedure: 05/27/19 Pre-Operative Diagnosis: Ventral incisional hernia Post-Operative Diagnosis: Ventral incisional hernia, intra-abdominal small bowel and colonic adhesions to the anterior abdominal wall Surgery/Procedure Performed:: Laparoscopic ventral incisional hernia repair with lysis of bowel adhesions and bilateral tap block. Ventralight: Ref [id number], Lot [id number], expiry date 06/03/2020. Secure strap, lot number [id number], expiry date November 2020 Description of Surgical Findings:: Timeout and informed consent was obtained. 69-year-old gentleman was taken out from placement table underwent general endotracheal intubation anesthesia. Ancef 3 g given intravenous preoperatively. The abdomen sterilely prepped and draped. Upon doing so was evidence that he had developed some macerations in the very depths of his umbilicus. I elected then not to make any incision at that site. That area was prepped last. Ioban draping was used. In the left upper quadrant I then used Visiport technology to get clean access to the abdomen. The abdomen was insufflated CO2 to a pressure of 12 mmHg pressure. A 11 mm trocar was placed in the epigastric area 5 Ferrer trocar in the left lower quadrant and 2 5 mm trochars were placed in the right lateral abdomen. There was adhesions of the ileum to the sigmoid colon to each other densely adherent to the anterior abdominal wall suprapubically. I used sharp scissor dissection to free the bowel from the anterior abdominal wall but on careful inspection could not get the small bowel freed from the colon. For fear of causing an enterotomy I made no additional attempt due to the aggressiveness of that infusion. The hernia defect seem to measure approximately 4 to 5 cm in diameter. I used a 2 OV lock suture and I approximated the fascia with a running suture technique and then over locked the V lock. I then utilized a ventral light ST mesh. I placed 4 corner sutures of 2-0 Prolene. Furled meshed placed in the abdomen through the epigastric port unfurled the mesh parachuted the 4 corners using a grainy needle demonstrating good positioning I position the epigastric port the 11 mm port so I could remove it which I did I closed that fascia with a grainy needle and 0 Vicryl. That incision now being covered by the mesh. I used secure strap at 2 cm intervals around the periphery to secure the mesh with additional tacking suture to complete the mesh internally. Good positioning and placement was achieved. I then irrigated the mesh with saline. I made sure the greater omentum to the greatest extent was overlying the small bowel. I now performed a bilateral tap block. I utilized 60 cc of 0.25% Marcaine mixed with 20 cc of Exparel and diluted with an additional 20 cc of saline so as to 100 cc worth of solution. I placed that under laparoscopic visualization bilaterally in the transabdominal was preperitoneal plane. Kitzmiller that I had good positioning of that block. Remainder of the solution was used at the solution was used at the incision sites for comfort. The wounds were closed with interrupted 4 Monocryl subdermal stitches. Steri- Strips Telfa OpSite dressings applied. Sponge and instrument and needle counts reported the surgeon for correct. Blood loss was minimal. The patient tolerated the procedure well was taken to the recovery area in satisfactory condition without apparent complication. Specimens none. Drains none. Blood loss minimal. Riley Molina M.D., F.A.C.S.` Type of Anesthesia:: General Anesthesiologist: Edson Santos
[2019-05-27] MEDS: Docusate Sodium 100 MG Capsule PO ×2 (12:01→21:32)
[2019-05-27] MEDS: hydroCHLOROthiazide 25 MG Tablet PO (12:01)
[2019-05-27] MEDS: Acetaminophen 500 MG Tablet 1000 MG PO ×2 (12:01→17:34)
[2019-05-27] MEDS: Lactated Ringers 1,000 ML 75 ML IV (12:06)
--- NOTE | 2019-05-27 15:00 | NURSING ---
Pt up and ambulated for the first time since surgery. He walked around station about 150feet. Tolerated well. BS+ at this time but denies flatus. Tolerating ice chips and sips, denies Nausea/vomiting.
--- NOTE | 2019-05-27 17:50 | NURSING ---
Pt up and ambulated halls, walked one lap around entire unit, tolerated well without c/o SOB. BS+ no flatus.
--- NOTE | 2019-05-27 18:08 | PN.SURG_ITS ---
Subjective: Notes pain with trying to get OOB No flatus Comfortable at rest - Physical Exam Vitals/I&O's: Vital Signs Temp Pulse Resp BP Pulse Ox 98.4 F 69 16 134/77 H 96 05/27/19 15:00 05/27/19 15:00 05/27/19 15:00 05/27/19 15:00 05/27/19 15:00 Oxygen Flow Rate (L/min) 1 Oxygen Delivery Method Room Air Weight: 283 lb 8.231 oz Body Mass Index (BMI) 43.1 Intake and Output for Last 24 Hours 05/25/19 05/26/19 05/27/19 23:59 23:59 23:59 Intake Total 1110 / 1110 Output Total 350 / 350 Balance 760 / 760 Abdomen: Hypoactive Bowel Sounds, Distended, Tender Current Medications Acetaminophen (Tylenol) 1,000 mg PO Q6 [facility] Last Admin: 05/27/19 17:34 Dose: 1,000 mg Documented by: Aspirin (Ecotrin) 81 mg PO DAILY@0800 [facility] Docusate Sodium (Colace) 100 mg PO BID [facility] Last Admin: 05/27/19 12:01 Dose: 100 mg Documented by: Enoxaparin Sodium (Lovenox) 40 mg SC DAILY [facility] Hydrochlorothiazide (Hctz) 25 mg PO DAILY [facility] Last Admin: 05/27/19 12:01 Dose: 25 mg Documented by: Hydromorphone HCl (Dilaudid Inj) 0.5 mg IV Q3H PRN PRN PRN Reason: Pain Score 6-10/10 Lactated Ringer's () 1,000 mls @ 15 mls/hr IV .Q48H [facility] Stop: 05/29/19 06:54 Last Admin: 05/27/19 12:06 Dose: 75 mls/hr Documented by: Losartan Potassium (Cozaar) 50 mg PO DAILY [facility] Magnesium Oxide (Mag-Ox 400) 400 mg PO DAILY PRN PRN PRN Reason: Constipation Naproxen (Naprosyn) 500 mg PO BID PRN PRN PRN Reason: Pain or Fever Nutritional Formula (Lactose Free) (Ensure Enlive) 120 ml PO 4X/DAY [facility] Last Admin: 05/27/19 17:29 Dose: Not Given Documented by: Ondansetron HCl (Zofran Odt) 4 mg PO Q6H PRN PRN PRN Reason: NAUSEA Medical Necessity - Tobacco Use Smoking Status: Current every day smoker Tobacco Use: Pipe Assessment/Plan All Active Problems (Last Reviewed 05/22/19 @ 09:34 by Ruba Parikh) Incisional hernia (Acute) Hx of prostatectomy (Acute) History of partial knee replacement (Acute) Achilles rupture, left (Acute) Hx of bilateral cataract extraction (Acute) Ulcer (Acute) Hemorrhoids (Acute) Acid reflux (Acute) Abdominal pain (Acute) Sleep apnea (Acute) Rheumatoid arthritis (Acute) Arthritis (Acute) Back problem (Acute) Will allow clears Continue to mobilize
--- NOTE | 2019-05-27 20:10 | NURSING ---
Patient ambulating in tellez with family. Denies needs at this time.
[2019-05-28] MEDS: Acetaminophen 500 MG Tablet 1000 MG PO ×2 (00:16→05:19)
[2019-05-28 02:00] VITALS: BP 126/64; PULSE 68; RESP 18; TEMP 36.6; O2SAT 95
--- NOTE | 2019-05-28 06:14 | PCM.PN.SRG ---
Subjective: Pt is progressing well Positive flatus, comfortable at rest Doing better with walking - Physical Exam Vitals/I&O's: Vital Signs Temp Pulse Resp BP Pulse Ox 97.8 F 68 18 126/64 H 95 05/28/19 02:00 05/28/19 02:00 05/28/19 02:00 05/28/19 02:00 05/28/19 02:00 Oxygen Flow Rate (L/min) 1 Oxygen Delivery Method Room Air Weight: 283 lb 8.231 oz Body Mass Index (BMI) 43.1 Intake and Output for Last 24 Hours 05/26/19 05/27/19 05/28/19 23:59 23:59 23:59 Intake Total 1110 / 1710 1950.00 / 1950.00 Output Total 1000 / 1350 800 / 800 Balance 110 / 360 1150.00 / 1150.00 Lungs: - - clear apices, diminished in bases Abdomen: Soft, Hypoactive Bowel Sounds, Distended, - - dressings dry Current Medications Acetaminophen (Tylenol) 1,000 mg PO Q6 [facility] Last Admin: 05/28/19 05:19 Dose: 1,000 mg Documented by: Aspirin (Ecotrin) 81 mg PO DAILY@0800 [facility] Calcium Carbonate (Tums) 1,000 mg PO Q4H PRN PRN PRN Reason: INDIGESTION Docusate Sodium (Colace) 100 mg PO BID [facility] Last Admin: 05/27/19 21:32 Dose: 100 mg Documented by: Enoxaparin Sodium (Lovenox) 40 mg SC DAILY [facility] Hydrochlorothiazide (Hctz) 25 mg PO DAILY [facility] Last Admin: 05/27/19 12:01 Dose: 25 mg Documented by: Hydromorphone HCl (Dilaudid Inj) 0.5 mg IV Q3H PRN PRN PRN Reason: Pain Score 6-10/10 Lactated Ringer's () 1,000 mls @ 15 mls/hr IV .Q48H [facility] Stop: 05/29/19 06:54 Last Infusion: 05/28/19 05:06 Dose: Infused Documented by: Losartan Potassium (Cozaar) 50 mg PO DAILY [facility] Magnesium Oxide (Mag-Ox 400) 400 mg PO DAILY PRN PRN PRN Reason: Constipation Naproxen (Naprosyn) 500 mg PO BID PRN PRN PRN Reason: Pain or Fever Nutritional Formula (Lactose Free) (Ensure Enlive) 120 ml PO 4X/DAY [facility] Last Admin: 05/27/19 21:33 Dose: 120 ml Documented by: Ondansetron HCl (Zofran Odt) 4 mg PO Q6H PRN PRN PRN Reason: NAUSEA Medical Necessity - Tobacco Use Smoking Status: Current every day smoker Tobacco Use: Pipe Assessment/Plan All Active Problems (Last Reviewed 05/22/19 @ 09:34 by Ruba Parikh) Incisional hernia (Acute) Hx of prostatectomy (Acute) History of partial knee replacement (Acute) Achilles rupture, left (Acute) Hx of bilateral cataract extraction (Acute) Ulcer (Acute) Hemorrhoids (Acute) Acid reflux (Acute) Abdominal pain (Acute) Sleep apnea (Acute) Rheumatoid arthritis (Acute) Arthritis (Acute) Back problem (Acute) Continue to mobilize Advance diet Discharge
[2019-05-28 08:07] VITALS: BP 136/71; PULSE 58; RESP 16; TEMP 36.6; O2SAT 96
[2019-05-28] MEDS: Aspirin E.C. 81 MG Tablet PO (08:09)
[2019-05-28] MEDS: Docusate Sodium 100 MG Capsule PO (08:09)
[2019-05-28] MEDS: Enoxaparin 40 MG/0.4 ML Syringe SC (08:10)
[2019-05-28] MEDS: hydroCHLOROthiazide 25 MG Tablet PO (08:10)
[2019-05-28] MEDS: Losartan Potassium 50 MG Tablet PO (08:10)
--- NOTE | 2019-05-28 10:07 | CASEMGMT ---
Case Management Progress Note: This casualty underwriter went to patient bedside. Introduced self and role. Explained and reviewed AGUIRRE form with patient in regards to current treatment during this hospital stay. Notified patient that outpatient billing is determined by his insurance plan and status is continually reviewed for any condition changes that may warrant inpatient status. Patient stated understanding and signed AGUIRRE form which was placed in patient hard chart. Patient provided a copy, denies any questions or concerns regarding this. Plan for patient DC home today, denies any needs, issues, or concerns with DC. Le Sosa RNCM
[2019-05-28 11:17] VITALS: O2SAT 97
== END 2019-05-28 10:55 | disposition home or self-care (01) ==
LOC: PCU 09:27 → SDC 09:28
PROVIDERS: Admitting Provider Surgery; Family Provider Internal Medicine; PCP Internal Medicine; Referring Provider Surgery; Visit Provider Surgery
PROC: 0WQF4ZZ Repair Abdominal Wall, Percutaneous Endoscopic Approach (ICD-10-PCS; CPT 49654; principal; 2019-05-27 06:55)
DX: K43.2 Incisional hernia without obstruction or gangrene (principal); M06.9 Rheumatoid arthritis, unspecified; G47.30 Sleep apnea, unspecified; I10 Essential (primary) hypertension; K21.9 Gastro-esophageal reflux disease without esophagitis; M19.90 Unspecified osteoarthritis, unspecified site; Z85.46 Personal history of malignant neoplasm of prostate; Z79.899 Other long term (current) drug therapy; Z79.82 Long term (current) use of aspirin; F17.290 Nicotine dependence, other tobacco product, uncomplicated; Z86.718 Personal history of other venous thrombosis and embolism
CPT/HCPCS: 49654; 36415; 80048; 85027; 93005; 94762; 96372; 99218; 99406; J7120; C1781; G0378; G0379; J2405

== ENCOUNTER → 2019-09-18 09:32 | Outpatient (CLI) | payer MEDICARE, OTHER, SELFPAY ==
[2019-05-27 11:49] VITALS: BMI 43.1
[2019-09-18 11:42] LABS: PSA,Total- Diagnostic < 0.01 ng/mL (0.0-4.0)
== END ==
PROVIDERS: PCP Internal Medicine; Referring Provider Urology; Visit Provider Urology
DX: Z85.46 Personal history of malignant neoplasm of prostate (principal)
CPT/HCPCS: 36415; 84153

== ENCOUNTER → 2020-03-23 14:18 | Outpatient (CLI) | payer MEDICARE, OTHER, SELFPAY ==
[2019-05-27 11:49] VITALS: BMI 43.1
[2020-03-23 17:15] LABS: PSA,Total- Diagnostic 0.01 ng/mL (0.0-4.0)
== END ==
PROVIDERS: PCP Internal Medicine; Referring Provider Urology; Visit Provider Urology
DX: R97.20 Elevated prostate specific antigen [PSA] (principal)
CPT/HCPCS: 36415; 84153

== ENCOUNTER → 2020-09-16 13:12 | Outpatient (CLI) | payer MEDICARE, OTHER, SELFPAY ==
[2019-05-27 11:49] VITALS: BMI 43.1
[2020-09-16 14:31] LABS: PSA,Total- Diagnostic 0.01 ng/mL (0.0-4.0)
== END ==
PROVIDERS: PCP Internal Medicine; Referring Provider Urology; Visit Provider Urology
DX: R97.21 Rising PSA following treatment for malignant neoplasm of prostate (principal)
CPT/HCPCS: 36415; 84153

== ENCOUNTER → 2020-11-17 13:06 | Outpatient (CLI) | payer MEDICARE, OTHER, SELFPAY ==
[2019-05-27 11:49] VITALS: BMI 43.1
--- NOTE | 2020-11-17 13:08 | CT_ITS ---
STUDY: LOW DOSE CT LUNG CANCER SCREENING REASON FOR EXAM: Male, 70 years old. CONTINUOUS TOBACCO ABUSE RADIATION DOSAGE (If Supplied By Facility): CTDIvol = ( 3.18 ) mGy, DLP = ( 104.43 ) mGycm TECHNIQUE: No contrast was administered. Low dose technique was utilized (average mAS-38 and kVp 120). 1.25 mm axial source images with a slice interval of 1.25-mm were reconstructed in lung windows. 2.5 mm axial source images with a slice interval of 2.5-mm were reconstructed in lung windows. 5.0 mm axial source images with a slice interval of 5.0-mm were reconstructed in soft tissue windows. Nodule measured using lung windows on PACS and/or independent workstation with automated measurement of minimum and maximum diameter. Nodule measurement reported as average diameter rounded to the nearest whole number. Growth is defined as an increase ins size of greater than 1.5 mm. COMPARISON: None. NODULES: Calcified granuloma in the right lower lobe anteriorly. Emphysema: Minimal increased linear markings at the lung bases suggestive of scarring. Endobronchial lesion: Aorta: Mild atherosclerotic plaque calcification of the aortic arch Coronary arteries: Coronary artery calcification. Heart: Unremarkable Pulmonary artery: Unremarkable Mediastinal nodes: Small mediastinal lymph nodes. Other chest and abdominal findings: CT/Chest without Contrast IMPRESSION: Lung-RADS category 2 - Continue annual screening with LDCT in 12 months. IMPORTANT NOTES FOR USE: ACR Lung-RADS Version 1.1 Assessment Categories Release Date: 2018 Category: Coded 0-4 bases on nodule(s) with highest degree of suspicion. Negative screen is defined as categories 1 and 2; a positive screen is defined as categories 3 and 4. Category 3 and 4A nodules that are unchanged on interval CT should be coded as category 2, and individuals returned to screening in 12 months. Category 4X: Category 3 or 4 nodules with additional imaging findings that increase the suspicion of lung cancer, such as spiculation, GGN that doubles in size in 1 year, enlarged lymph notes, etc. Category Modifiers: S (significant finding unrelated to lung cancer) Electronically Signed: Louie Kearney MD at 13:50 EDT , Service support ,
--- NOTE | 2020-11-17 14:02 | BD_ITS ---
STUDY: DUAL ENERGY X-RAY ABSORPTIOMETRY / DXA REASON FOR EXAM: Male, 70 years old. M81.0. Loss of height. TECHNIQUE: Bone Mineral Density (BMD) measurements of lumbar spine and bilateral hips were obtained. COMPARISON: None. FINDINGS: Lumbar Spine (L1-L4): g/cm2 (1.833) / T-score (4.9) / Z-score (5.4) Findings are suggestive of normal bone density with a low fracture risk. Left Femur Total: g/cm2 (1.214) / T-score (0.8) / Z-score (1.4) Left Femoral Neck: g/cm2 (1.113) / T-score (0.3) / Z-score (1.5) Right Femur Total: g/cm2 (1.214) / T-score (0.8) / Z-score (1.4) Right Femoral Neck: g/cm2 (1.085) / T-score (0.1) / Z-score (1.3) BD/Dexa Bone Density Study IMPRESSION: The patient is considered normal as outlined below according to World [employer] Organization (WHO) criteria with a low fracture risk. Reference Information: The T-score is the number of standard deviations above or below the standard which is normal for young adults at their peak bone mineral density. The World Health Organization (WHO) interprets the T-scores as follows: Above -1 Normal bone density Between -1 and -2.5 Osteopenia Equal to / or below -2.5 Osteoporosis As a practical clinical guideline, osteopenia may be graded as follows: Mild -1 through -1.5 Moderate -1.6 through -2.0 Severe -2.1 through -2.4 The Z-score is the number of standard deviations above or below age-matched controls. A Z-score of less than -1.5 would be considered abnormal. References: 1. NIH Osteoporosis and Related Bone Diseases www osteo.org 2. International Society for Clinical Densitometry www iscd.org 3. National Osteoporosis Foundation www nof.org Electronically Signed: Louie Kearney MD at 14:20 EDT , Service support ,
== END ==
PROVIDERS: PCP Internal Medicine; Referring Provider Internal Medicine; Visit Provider Internal Medicine
DX: M81.0 Age-related osteoporosis without current pathological fracture (principal); Z87.81 Personal history of (healed) traumatic fracture
CPT/HCPCS: 71250; 77080

== ENCOUNTER 2020-11-19 16:04 | Outpatient (RCR) | payer MEDICARE, OTHER, SELFPAY ==
[2019-05-27 11:49] VITALS: BMI 43.1
== END 2021-01-12 23:59 ==
LOC: IMMUN 16:04
PROVIDERS: PCP Internal Medicine; Visit Provider Family Medicine
DX: Z23 Encounter for immunization (principal)
CPT/HCPCS: 0001A; 0002A; 91300

== ENCOUNTER → 2020-12-02 13:03 | Outpatient (CLI) | payer SELFPAY ==
[2019-05-27 11:49] VITALS: BMI 43.1
[2020-12-02 13:13] VITALS: BP 109/83; PULSE 57; RESP 14; O2SAT 97; BMI 45.8
--- NOTE | 2020-12-02 13:15 | CT_ITS ---
STUDY: CARDIAC CALCIUM SCORING - CT CHEST REASON FOR EXAM: Male, 70 years old. SCREENING RADIATION DOSAGE (If Supplied By Facility): CTDIvol = ( 12.19 ) mGy, DLP = ( 243.79 ) mGycm TECHNIQUE: Axial non-enhanced images were acquired through the heart for the sole purpose of measuring coronary artery calcium. Individualized dose optimization techniques were used for this CT. COMPARISON: None. FINDINGS: Visualized surrounding anatomy: Normal. Left Main Coronary Artery: 40.5 Left Anterior Descending Artery: 77.3 Left Circumflex Artery: 94.2 Right Coronary Artery: 2.78 Other: Total Calcium Score: 215 CT/Limited Chest CT w/CCTA IMPRESSION: A Calcium Score of 215 places the patient in the approximate 50-75 percentile, based on the SNELL data calculator. Please go to: www.snell-nhlbi.org/Calcium/input.aspx , for a description of the calculator. Electronically Signed: Joseph Bear MD at 17:21 EDT , Service support ,
--- NOTE | 2020-12-07 18:07 | CA.SCORE ---
Calcium Scoring Coronary Calcium Scoring: High-resolution Computed Tomographic imaging of the chest was performed on [12/02/2020], with particular attention paid to the coronary arteries. Images from the examination were analyzed for the presence and extent of coronary artery calcification , using coronary calcium quantification software. The patient tolerated the procedure well and there were no complications. The results of the coronary calcification analysis are provided below. Left main coronary artery-40.5 Left anterior descending artery 77.3 Left circumflex artery 94.2 Right coronary artery 2.7. Total Agatston score 215. The above places him between 50th and 75th percentile. Conclusion: Moderate nonobstructive coronary artery disease likely. Full assessment of cardiac risk should include an assessment of all conventional risk factors. The scores and percentile rankings reported hear in should be interpreted in that context. Calcium Scoring Interpretation: 0 No identifiable atherosclerotic plaque. Very low cardiovascular disease risk. <5% chance of presence coronary artery disease A Negative Examination 1-10 Minimal Plaque burden. Significant coronary artery disease very unlikely. 11-100 Mild plaque burden. Likely mild or minimal coronary atherosclerosis. 101-400 Moderate plaque burden Moderate non-obstructive coronary artery disease highly likely. Over 400 Extensive plaque burden. High likelihood of at least one significant coronary stenosis (>50% diameter)
--- NOTE | 2020-12-11 08:16 | CA.SCORE ---
Calcium Scoring Coronary Calcium Scoring: High-resolution Computed Tomographic imaging of the chest was performed on [12/02/2020], with particular attention paid to the coronary arteries. Images from the examination were analyzed for the presence and extent of coronary artery calcification , using coronary calcium quantification software. The patient tolerated the procedure well and there were no complications. The results of the coronary calcification analysis are provided below. Left main coronary artery 40.5. Left anterior descending artery 77.3. Left circumflex artery 94.2. Right coronary artery 2.7. Total Agatston score 215. Percentile ranking between 50 and 75%. The above is suggestive of moderate plaque burden and moderate nonobstructive coronary artery disease. A full evaluation of cardiac risk should include an assessment of all conventional risk factors and the scores and percentile rankings reported hearin= should be evaluated in this context. Calcium Scoring Interpretation: 0 No identifiable atherosclerotic plaque. Very low cardiovascular disease risk. <5% chance of presence coronary artery disease A Negative Examination 1-10 Minimal Plaque burden. Significant coronary artery disease very unlikely. 11-100 Mild plaque burden. Likely mild or minimal coronary atherosclerosis. 101-400 Moderate plaque burden Moderate non-obstructive coronary artery disease highly likely. Over 400 Extensive plaque burden. High likelihood of at least one significant coronary stenosis (>50% diameter)
== END ==
PROVIDERS: PCP Internal Medicine; Referring Provider Internal Medicine; Visit Provider Internal Medicine
DX: E78.5 Hyperlipidemia, unspecified (principal)
CPT/HCPCS: 75571; 76380

== ENCOUNTER → 2020-12-31 12:04 | Outpatient (CLI) | payer MEDICARE, OTHER, SELFPAY ==
[2020-12-02 13:13] VITALS: BMI 45.8
--- NOTE | 2020-12-31 12:07 | RAD_ITS ---
STUDY: X-RAY - LEFT HAND REASON FOR EXAM: Male, 70 years old. ARTHRALGIA TECHNIQUE: 3 view(s) of the hand. COMPARISON: None. FINDINGS: Normal radiocarpal articulation. Normal distal radioulnar joint. Normal visualized carpal bones. Intracarpal arthrosis between the scaphoid, trapezium and trapezoid. There is degenerative arthrosis of the carpometacarpal articulation of the thumb with lateral subluxation of the first metacarpus. Normal second through fifth carpometacarpal joints. Normal metacarpi. Normal metacarpophalangeal joint of the thumb. There is degenerative arthrosis of the interphalangeal joint of the thumb with articular joint space narrowing. Normal proximal and distal phalanges of the thumb. There is degenerative arthrosis of the metacarpophalangeal (MCP) joints. There is diffuse articular joint space narrowing of the proximal and distal interphalangeal joints of the second through fifth fingers, but without erosive changes or periarticular soft tissue swelling. Normal phalanges of the second through fifth fingers. The soft tissue structures are unremarkable. RAD/Hand Min 3 Views IMPRESSION: Polyarticular arthrosis, no demonstrated fracture or suspicious osseous lesion, the degenerative changes mirror those in the right hand Electronically Signed: Esau Chin MD at 16:16 EDT , Service support ,
--- NOTE | 2020-12-31 12:08 | RAD_ITS ---
STUDY: X-RAY - RIGHT HAND REASON FOR EXAM: Male, 70 years old. ARTHRALGIA TECHNIQUE: 3 view(s) of the hand. COMPARISON: None. FINDINGS: Normal radiocarpal articulation. Normal distal radioulnar joint. Normal visualized carpal bones. There is significant intercarpal arthrosis between the scaphoid, trapezium, and trapezoid. There is degenerative arthrosis of the carpometacarpal articulation of the thumb with lateral subluxation of the first metacarpus. Normal second through fifth carpometacarpal joints. Normal metacarpi. There is degenerative arthrosis of the metacarpophalangeal (MCP) joints. There is degenerative arthrosis of the interphalangeal joint of the thumb with articular joint space narrowing. Normal proximal and distal phalanges of the thumb. There is degenerative arthrosis of the metacarpophalangeal (MCP) joints. There is diffuse articular joint space narrowing of the proximal and distal interphalangeal joints of the second through fifth fingers, but without erosive changes or periarticular soft tissue swelling. Normal phalanges of the second through fifth fingers. The soft tissue structures are unremarkable. RAD/Hand Min 3 Views IMPRESSION: Polyarticular arthrosis, no demonstrated fracture or suspicious osseous lesion Electronically Signed: Esau Chin MD at 16:08 EDT , Service support ,
== END ==
PROVIDERS: PCP Internal Medicine; Referring Provider Internal Medicine; Visit Provider Internal Medicine
DX: M19.041 Primary osteoarthritis, right hand (principal); M19.042 Primary osteoarthritis, left hand
CPT/HCPCS: 73130

== ENCOUNTER → 2021-03-16 14:47 | Outpatient (CLI) | payer MEDICARE, OTHER, SELFPAY ==
[2020-12-02 13:13] VITALS: BMI 45.8
[2021-03-16 17:17] LABS: PSA,Total- Diagnostic 0.02 ng/mL (0.0-4.0)
== END ==
PROVIDERS: PCP Internal Medicine; Referring Provider Urology; Visit Provider Urology
DX: C61 Malignant neoplasm of prostate (principal)
CPT/HCPCS: 36415; 84153

== ENCOUNTER → 2021-03-26 | Outpatient (CLI) | payer MEDICARE, OTHER, SELFPAY | END | disposition home or self-care (01) | PROVIDERS: PCP Internal Medicine; Referring Provider Internal Medicine; Visit Provider Internal Medicine | DX: R05 Cough (principal) | CPT/HCPCS: 87635; U0005; U0003 ==

== ENCOUNTER 2021-07-16 06:35 | Day surgery (SDC) | payer MEDICARE, OTHER, SELFPAY ==
[2021-07-16] VITALS (7 sets, daily range): BP systolic 112–151; BP diastolic 65–75; PULSE 62–71; RESP 14–18; TEMP 35.9–36.4; O2SAT 95–97; BMI 43.5
[2021-07-16] MEDS: Lactated Ringers 1,000 ML 15 ML IV (07:09)
--- NOTE | 2021-07-16 07:26 | PCM.HP.BLA ---
History and Physical Date of Admission: 07/16/21 Intake Intake Visit Reasons: EGD, NODULE UNDER CHIN Chief Complaint: calcium score screening Allergies Antihistamines - Alkylamine Allergy (Verified 06/16/21 08:17) Other Medications hydrochlorothiazide 25 mg PO DAILY 07/11/14 [History Confirmed 06/16/21] naproxen 500 mg PO BID PRN 05/27/17 [History Confirmed 06/16/21] ascorbic acid (vitamin C) 500 mg PO DAILY@0800 11/09/17 [History Confirmed 06/16/21] aspirin 81 mg PO DAILY@0800 11/09/17 [History Confirmed 06/16/21] cholecalciferol (vitamin D3) 5,000 unit PO DAILY 11/09/17 [History Confirmed 06/16/21] fish oil-dha-epa 1 ea PO DAILY 11/09/17 [History Confirmed 06/16/21] losartan 50 mg tablet 100 mg PO DAILY tab 06/16/21 [History Confirmed 06/16/21] omeprazole 40 mg capsule,delayed release 40 mg PO DAILY #60 cap 06/16/21 [Rx Confirmed 06/16/21] PFSH Medical History Abdominal pain Acid reflux Arthritis Back problem Hemorrhoids Hypertension Incisional hernia Rheumatoid arthritis Seroma after procedure Sleep apnea Ulcer Surgical History Achilles rupture, left History of partial knee replacement Hx of bilateral cataract extraction Hx of prostatectomy S/P ventral herniorrhaphy Family History Father Hypertension Prostate cancer Mother CVA (cerebral vascular accident) Social History alcohol intake: current alcohol intake frequency: holidays/special occasions only substance use type: does not use caffeine: Yes what type of physical activity do you participate in: other frequency: 3-4 times per week seatbelt use: always HPI HPI HPI: CARLOS VILLATORO, is a 71 M who presents to the office today for GERD. Patient has had heartburn for several years and has never had an EGD. Patient is also due for screening colonoscopy as his last one was in 2011. He is not having any blood in his stool. ROS General General: No weight change, appetite, fatigue, colon cancer, breast cancer or weakness HEENT HEENT: No difficulty swallowing, eye injury, eye surgery, swollen glands or hoarseness Endo Endocrine: No thyroid disease, diabetes mellitus, thyroid cancer, Hair loss, heat intolerance or cold intolerance Skin Skin: No rash or changing moles Breast Breast: No left breast lump, right breast lump, nipple discharge, breast pain, abnormal mammogram, abnormal US or breast enlargement Musc Musculoskeletal: Yes back problems and arthritis; No rheumatoid arthritis, gout or joint pain Cardio Cardiovascular: Yes high blood pressure; No murmur, pacemaker, heart disease, atrial fibrillation, heart attack, heart stent, palpitations, shortness of breat with exertion or chest pain Psych Psychiatric: No depression, anxiety or hearing voices Resp Respiratory: No shortness of breath, Yes sleep apnea, Yes cough, No COPD, No asthma, No emphysema and No wheezing Gastro Gastrointestinal: No abdominal pain, No nausea or vomiting, No diarrhea, No constipation, No blood in stool, No acid reflux, Yes hemorrhoids, Yes ulcers, No gallbladder problem and No black,tarry stools Skyler Hematologic: Yes blood thinners, No blood disorders, No bleeding, No anemia and No blood clots Neuro Neurologic: No system reviewed and no additional complaints, except as documented, No as per HPI, No abnormal gait, No abnormal hearing, No abnormal movements, No abnormal speech, No behavioral changes, No burning sensations, No confusion, No convulsions, No disequilibrium, No dizziness, No localized weakness, No frequent falls, No headache(s), No lack of coordination, No loss of vision, No memory loss, No numbness, No other visual disturbances, No radicular pain, No restless legs, No sensory deficit, No syncope, No tingling, No tremor(s), No weakness and No other Exam Const General: cooperative Orientation: alert and oriented x3 HENMT Head: normal to inspection Neck Neck: normal visual inspection and full ROM Chest Chest palpation & inspection: normal inspection of the chest Resp Effort & Inspection: normal respiratory effort Auscultation: clear to auscultation bilaterally Cardio Rate: regular rate Rhythm: regular rhythm GI Inspection: non-distended Palpation: soft and nontender Skin General: no rashes or lesions noted Neuro General: patient alert and patient oriented x3 Extrem General: full ROM Psych Appearance: grossly normal Mental Status: mental status grossly normal Assessment and Plan Assessment and Plan (1) Screen for colon cancer: Status: Acute (2) GERD (gastroesophageal reflux disease): Status: Acute Qualifiers: Esophagitis presence: esophagitis presence not specified Qualified Code(s): K21.9 - Gastro-esophageal reflux disease without esophagitis Orders: Orders: Colonoscopy Today Z12.11 EGD Today K21.9 Plan - Dr. Tahir Hokpins MD: The patient has chronic reflux and I have ordered on the PPI. He should also have EGD for surveillance as he is never had one. I also discussed screening colonoscopy as he will be due this coming year. I explained endoscopy in detail to the patient. I explained the risks including but not limited to stroke or heart attack with anesthesia, perforation of the GI tract, bleeding, infection. I explained that any of these could necessitate further emergency surgery. The patient understands and all questions were answered sufficiently. The patient wishes to proceed with procedure. Tahir Hopkins MD Pager: [facility] [address] [place] [address] [address] [place] [address] Office: I have re-examined the patient. There are no clinical changes since date of exam.
--- NOTE | 2021-07-16 07:30 | IMM_PTH ---
PATIENT: CARLOS VILLATORO LOC: EN U#:[id number] AGE/SX: 71/M ROOM: RE07/16/[address]: Dr. Tahir Hopkins MD : 1950 BED: DIS: 07/16/2021 SPEC #: [id number] RECD: 07/16/21 14:56 STATUS: MICHELLE REQ #: [id number] ALONDRA: 07/16/21 07:[address]: Tahir Hopkins DEPT: IMMUNOHISTOCHEMISTRY RECD BY: Kym Reeder ENTERED: 07/16/21 14:57 SP TYPE: IMMUNO OTHR DR: Dr. Joana Friend MD Tissues: A - Stomach, NOS Procedures: H Pylori (initial) PHYSICIAN & INSTITUTION [facility] [id number] SPECIMEN INFORMATION: Tissue Source: A ? Antrum biopsy Clinical Info: Chronic reflux / screening Specimen Number: [id number] CPT code: 94472 METHODOLOGY: Deparaffinized sections of prefer/formalin-fixed tissue or PAP/DQ stained slides are incubated with monoclonal/polyclonal antibodies/oligonucleotide probes. Localization is made via biotin free immunoperoxidase method. Appropriate controls are performed and reacted as expected. Results on target cell population are indicated in the following table: RESULTS: ANTIBODY / CLONE RESULT Block A H Pylori (polyclonal) negative These tests were developed and their performance characteristics determined by [facility]. They may not have been cleared or approved by the U.S. Food and Drug Administration. The FDA has determined that such clearance or approval is not necessary. INTERPRETATION: A. Antrum biopsy: Negative for Helicobacter pylori organisms. AM:peggy 07/19/2021
--- NOTE | 2021-07-16 07:30 | EGD_PTH ---
PATIENT: CARLOS VILLATORO LOC: EN U#:[id number] AGE/SX: 71/M ROOM: RE07/16/[address]: Dr. Tahir Hopkins MD : 1950 BED: DIS: 07/16/2021 SPEC #: [id number] RECD: 07/16/21 13:25 STATUS: MICHELLE TAY #: [id number] ALONDRA: 07/16/21 07:[address]: Tahir Hopkins DEPT: SURGICAL PATHOLOGY RECD BY: Rashmi Finley ENTERED: 07/16/21 14:03 SP TYPE: EGD BIOPSY OT DR: Dr. Joana Friend MD Tissues: A - Gastric mucous membrane B - Sigmoid colon biopsy Procedures: Surgery Specimen Level IV HEADER OPERATION: Colonoscopy, EGD ([facility]) PRE-OP DIAGNOSIS: Chronic reflux/screening TISSUE SUBMITTED: A - Antrum biopsy for H. pylori and path, B ? Sigmoid polyp MICROSCOPIC DIAGNOSIS A. Gastric antrum, biopsy: Mild chronic gastritis. B. Sigmoid colon polyp, biopsy: Tubular adenoma. AM:peggy 07/19/2021 COMMENT A. The results of immunohistochemistry for Helicobacter pylori will be reported separately ([id number]). MICROSCOPIC DESCRIPTION Slides are reviewed. GROSS DESCRIPTION A - Received in fixative is one container labeled with the patient's name and designated antrum biopsy. The specimen consists of one irregular fragment of light mercer soft tissue that measures 0.5 x 0.3 x 0.1 cm. The specimen is totally submitted in one cassette. B - Received in fixative is one container labeled with the patient's name and designated sigmoid polyp. The specimen consists of one irregular fragment of light mercer soft tissue that measures 0.6 x 0.5 x 0.2 cm. The specimen is totally submitted in one cassette. / AM:peggy 07/16/21 TC:5 CPT: 99204 x2
--- NOTE | 2021-07-16 08:14 | OP.EGD_ITS ---
Patient Name: Nolan Kiran Procedure Date: 07/16/2021 7:30 AM Date of : 1950 Age: 71 Procedure: Upper GI endoscopy Indications: Suspected gastro-esophageal reflux disease, Gastro-esophageal reflux disease Providers: Tahir Hopkins MD Medicines: Monitored Anesthesia Care Patient Profile: This is a 71 year old male. Refer to note in patient chart for documentation of history and physical. Complications: No immediate complications. Estimated blood loss: Minimal. Procedure: Pre-Anesthesia Assessment: - Prior to the procedure, a History and Physical was performed, and patient medications and allergies were reviewed. The patient's tolerance of previous anesthesia was also reviewed. The risks and benefits of the procedure and the sedation options and risks were discussed with the patient. All questions were answered, and informed consent was obtained. Prior Anticoagulants: The patient has taken no previous anticoagulant or antiplatelet agents. After reviewing the risks and benefits, the patient was deemed in satisfactory condition to undergo the procedure. After obtaining informed consent, the endoscope was passed under direct vision. Throughout the procedure, the patient's blood pressure, pulse, and oxygen saturations were monitored continuously. The gastroscope was introduced through the mouth, and advanced to the second part of duodenum. The upper GI endoscopy was accomplished without difficulty. The patient tolerated the procedure well. Scope In: 7:41:05 AM Scope Out: 7:43:20 AM Total Procedure Duration Time 0 hours 2 minutes 15 seconds Findings: The esophagus was normal. Scattered moderate inflammation characterized by adherent blood was found in the gastric antrum. Biopsies were taken with a cold forceps for Helicobacter pylori testing. The examined duodenum was normal. Impression: - Normal esophagus. - Gastritis. Biopsied. - Normal examined duodenum. Recommendation: - Discharge patient to home. - Resume previous diet. - Continue present medications. Procedure Code(s): --- Professional --- 99845, Esophagogastroduodenoscopy, flexible, transoral; with biopsy, single or multiple Diagnosis Code(s): --- Professional --- K29.70, Gastritis, unspecified, without bleeding K21.9, Gastro-esophageal reflux disease without esophagitis CPT copyright 2017 [employer]. All rights reserved. The codes documented in this report are preliminary and upon supervisor estimator and drafter review may be revised to meet current compliance requirements. Tahir Hopkins MD 07/16/2021 8:14:20 AM This report has been signed electronically. Number of Addenda: 0 Note Initiated On: 07/16/2021 7:30 AM
--- NOTE | 2021-07-16 08:14 | OP.CCLET_ITS ---
07/16/2021 Joana Friend Re : Upper GI endoscopy procedure for Nolan Love Phuc This procedure was performed on Friday, July 16, 2021. My impressions and recommendations are as follows: Impressions : - Normal esophagus. - Gastritis. Biopsied. - Normal examined duodenum. Recommendations : - Discharge patient to home. - Resume previous diet. - Continue present medications. My findings are described in the full procedure note, which is enclosed. If I can be of further assistance, please feel free to contact me at Doctor phone number(s): , Work: . Sincerely, Tahir Hopkins MD 07/16/2021 8:14:20 AM This report has been signed electronically.
--- NOTE | 2021-07-16 08:18 | OP.COLON_ITS ---
Patient Name: Nolan Kiran Procedure Date: 07/16/2021 7:44 AM Date of : 1950 Age: 71 Procedure: Colonoscopy Indications: Screening for colorectal malignant neoplasm Providers: Tahir Hopkins MD Medicines: Monitored Anesthesia Care Patient Profile: This is a 71 year old male. Refer to note in patient chart for documentation of history and physical. Last Colonoscopy: none. The patient's first colonoscopy is today. Complications: No immediate complications. Procedure: Pre-Anesthesia Assessment: - Prior to the procedure, a History and Physical was performed, and patient medications and allergies were reviewed. The patient's tolerance of previous anesthesia was also reviewed. The risks and benefits of the procedure and the sedation options and risks were discussed with the patient. All questions were answered, and informed consent was obtained. Prior Anticoagulants: The patient has taken no previous anticoagulant or antiplatelet agents. After reviewing the risks and benefits, the patient was deemed in satisfactory condition to undergo the procedure. After I obtained informed consent, the scope was passed under direct vision. Throughout the procedure, the patient's blood pressure, pulse, and oxygen saturations were monitored continuously. The Colonoscope was introduced through the anus and advanced to the cecum, identified by appendiceal orifice and ileocecal valve. Scope In: 7:46:32 AM Scope Withdrawal Time 0 hours 12 minutes 37 seconds Scope Out: 8:05:29 AM Total Procedure Duration Time 0 hours 18 minutes 57 seconds Findings: A small polyp was found in the sigmoid colon. The polyp was removed with a hot snare. Resection and retrieval were complete. The exam was otherwise without abnormality on direct and retroflexion views. Impression: - One small polyp in the sigmoid colon, removed with a hot snare. Resected and retrieved. - The examination was otherwise normal on direct and retroflexion views. Recommendation: - Discharge patient to home. - Resume previous diet. - Continue present medications. - Await pathology results. - Repeat colonoscopy in 5 years for surveillance. Procedure Code(s): --- Professional --- 03749, Colonoscopy, flexible; with removal of tumor(s), polyp(s), or other lesion(s) by snare technique Diagnosis Code(s): --- Professional --- Z12.11, Encounter for screening for malignant neoplasm of colon D12.5, Benign neoplasm of sigmoid colon CPT copyright 2017 [employer]. All rights reserved. The codes documented in this report are preliminary and upon computer terminal operator review may be revised to meet current compliance requirements. Tahir Hopkins MD 07/16/2021 8:17:37 AM This report has been signed electronically. Number of Addenda: 0 Note Initiated On: 07/16/2021 7:44 AM
--- NOTE | 2021-07-16 08:18 | OP.CCLET_ITS ---
07/16/2021 Joana Friend Re : Colonoscopy procedure for Nolan Love Phuc This procedure was performed on Friday, July 16, 2021. My impressions and recommendations are as follows: Impressions : - One small polyp in the sigmoid colon, removed with a hot snare. Resected and retrieved. - The examination was otherwise normal on direct and retroflexion views. Recommendations : - Discharge patient to home. - Resume previous diet. - Continue present medications. - Await pathology results. - Repeat colonoscopy in 5 years for surveillance. My findings are described in the full procedure note, which is enclosed. If I can be of further assistance, please feel free to contact me at Doctor phone number(s): , Work: . Sincerely, Tahir Hopkins MD 07/16/2021 8:17:37 AM This report has been signed electronically.
== END 2021-07-16 08:57 | disposition home or self-care (01) ==
LOC: EN 06:36 → AC 06:37
PROVIDERS: PCP Internal Medicine; Referring Provider Internal Medicine; Visit Provider Surgery
PROC: 0DJD8ZZ Inspection of Lower Intestinal Tract, Via Natural or Artificial Opening Endoscopic (ICD-10-PCS; CPT 45378; principal; 2021-07-16 07:25)
DX: Z12.11 Encounter for screening for malignant neoplasm of colon (principal); D12.5 Benign neoplasm of sigmoid colon; K29.50 Unspecified chronic gastritis without bleeding; K21.00 Gastro-esophageal reflux disease with esophagitis, without bleeding; I10 Essential (primary) hypertension; M06.9 Rheumatoid arthritis, unspecified; G47.30 Sleep apnea, unspecified; Z79.82 Long term (current) use of aspirin; Z79.899 Other long term (current) drug therapy
CPT/HCPCS: 43239; 45385; 88305; 88342; J7120; J2405

== ENCOUNTER 2021-08-10 17:30 | Outpatient (CLI) | payer MEDICARE, OTHER, SELFPAY | END 2021-08-10 23:59 | disposition short-term general hospital (02) | LOC: LABSPEC 08-11 07:59 | PROVIDERS: PCP Internal Medicine; Visit Provider Internal Medicine | DX: U07.1 COVID-19 (principal) | CPT/HCPCS: 87635; U0003; U0005 ==

== ENCOUNTER 2021-08-14 09:13 | Outpatient (CLI) | payer MEDICARE, OTHER, SELFPAY ==
[2021-08-14 09:20] VITALS: BP 165/85; PULSE 77; RESP 16; TEMP 36.6; O2SAT 97; BMI 43.8
[2021-08-14] MEDS: 0.9% Saline Lock 10 ML Syringe IV (09:30)
[2021-08-14 09:49] VITALS: BP 153/81; PULSE 65; RESP 16; TEMP 37; O2SAT 98
[2021-08-14 10:44] VITALS: BP 138/89; PULSE 58; RESP 16; TEMP 37; O2SAT 100
== END 2021-08-14 23:59 | disposition home or self-care (01) ==
LOC: MS3OUT 09:14 → MS3 09:15
PROVIDERS: PCP Internal Medicine; Referring Provider Nurse Practitioner Adult Health; Visit Provider Nurse Practitioner Adult Health
DX: U07.1 COVID-19 (principal)
CPT/HCPCS: J7050; M0243; A4216; Q0244

== ENCOUNTER → 2021-09-22 13:30 | Outpatient (CLI) | payer MEDICARE, OTHER, SELFPAY ==
[2021-09-22 14:46] LABS: PSA,Total- Diagnostic 0.02 ng/mL (0.0-4.0)
== END ==
PROVIDERS: PCP Internal Medicine; Visit Provider Urology
DX: C61 Malignant neoplasm of prostate (principal)
CPT/HCPCS: 36415; 84153

== ENCOUNTER → 2022-03-22 | Outpatient (CLI) | payer MEDICARE, OTHER, SELFPAY ==
[2022-03-22 12:34] LABS: PSA,Total- Diagnostic 0.04 ng/mL (0.0-4.0)
== END | disposition home or self-care (01) ==
LOC: LAB 11:37
PROVIDERS: PCP Internal Medicine; Referring Provider Registered Nurse; Visit Provider Registered Nurse
DX: C61 Malignant neoplasm of prostate (principal)
CPT/HCPCS: 36415; 84153

== ENCOUNTER → 2022-05-04 | Outpatient (CLI) | payer MEDICARE, OTHER, SELFPAY ==
--- NOTE | 2022-05-04 15:05 | CT_ITS ---
STUDY: LOW DOSE CT LUNG CANCER SCREENING REASON FOR EXAM: Male, 72 years old. Smoking- PIPE SMOKER FOR 40+ YEARS RADIATION DOSAGE (If Supplied By Facility): CTDIvol = ( 3.18 ) mGy, DLP = ( 102.44 ) mGycm TECHNIQUE: No contrast was administered. Low dose technique was utilized (average mAS-38 and kVp 120). 1.25 mm axial source images with a slice interval of 1.25-mm were reconstructed in lung windows. 2.5 mm axial source images with a slice interval of 2.5-mm were reconstructed in lung windows. 5.0 mm axial source images with a slice interval of 5.0-mm were reconstructed in soft tissue windows. COMPARISON: Comparison is made with prior examination dated 11/17/2020. NODULES: Stable calcified granuloma in the right lower lobe. Emphysema: Minimal scarring at the lung bases. Endobronchial lesion: None Aorta: Mild atherosclerotic plaque formation of the aortic arch. CORONARY ARTERIES: Coronary artery calcification is seen. Heart: Unremarkable. Pulmonary artery: Unremarkable. Mediastinal nodes: Small mediastinal lymph nodes. Other chest and abdominal findings: CT/Low Dose CT Lung Screening IMPRESSION: Lung-RADS category 2 - Continue annual screening with LDCT in 12 months. IMPORTANT NOTES FOR USE: ACR Lung-RADS Version 1.1 Assessment Categories Release Date: 2018 Category: Coded 0-4 bases on nodule(s) with highest degree of suspicion. Negative screen is defined as categories 1 and 2; a positive screen is defined as categories 3 and 4. Category 3 and 4A nodules that are unchanged on interval CT should be coded as category 2, and individuals returned to screening in 12 months. Category 4X: Category 3 or 4 nodules with additional imaging findings that increase the suspicion of lung cancer, such as spiculation, GGN that doubles in size in 1 year, enlarged lymph notes, etc. Category Modifiers: S (significant finding unrelated to lung cancer) Electronically Signed: Louie Kearney MD at 15:30 EDT ,
== END | disposition home or self-care (01) ==
LOC: CT 15:04
PROVIDERS: PCP Internal Medicine; Referring Provider Internal Medicine; Visit Provider Internal Medicine
DX: Z12.2 Encounter for screening for malignant neoplasm of respiratory organs (principal); Z87.891 Personal history of nicotine dependence
CPT/HCPCS: 71271

== ENCOUNTER → 2022-07-18 | Outpatient (CLI) | payer MEDICARE, OTHER, SELFPAY ==
--- NOTE | 2022-07-18 17:12 | NEURO ---
NCS and/or EMG Patient Report Ordering Doctor: Lex Mercado DATE OF SERVICE: 07/18/22 Indication: Bilateral hand pain and paresthesias. No associated axial or radicular neck pain. Evaluate for median neuropathy at the wrist. Findings: Nerve conduction studies were performed in the right and left upper extremities. The right median motor study recording the abductor pollicis brevis showed a normal amplitude, prolonged distal latency and normal conduction velocity. The right ulnar motor study recording the abductor digiti minimi showed a normal amplitude, normal distal latency and normal conduction velocity. No conduction block or focal slowing was present across the elbow. The right median sensory response recording digit two was absent. The right ulnar sensory response recording digit five showed a normal amplitude, latency and conduction velocity. The right radial sensory response recording over the extensor snuff box showed a normal amplitude, latency and conduction velocity. The left median motor study recording the abductor pollicis brevis showed a normal amplitude, prolonged distal latency and normal conduction velocity. The left ulnar motor study recording the abductor digiti minimi showed a normal amplitude, normal distal latency and normal conduction velocity. No conduction block or focal slowing was present across the elbow. The left median sensory response recording digit two showed a reduced amplitude, prolonged latency and markedly reduced conduction velocity. The left ulnar sensory response recording digit five showed a normal amplitude, latency and conduction velocity. The left radial sensory response recording over the extensor snuff box showed a normal amplitude, latency and conduction velocity. Right median-ulnar lumbrical / interosseous motor latencies showed a prolonged median latency compared to the ulnar. Needle EMG of the bilateral abductor pollicis brevis muscles was normal. No denervation was seen on either side. On the right motor units were large amplitude and long duration with reduced recruitment. On the left, motor units were normal morphology with slightly reduced recruitment. Impression: This is an abnormal study. 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 The pathophysiology is predominantly demyelination, though there is evidence of secondary sensory axon loss. These findings are compatible with the clinical diagnosis of carpal tunnel syndrome. Meño Moore D.O. Multi Select Codes Neurology Neurology Interp Codes: 47629-57 Musc tst done w/nerv tst lomax (interp) (Qty:2) and 26081-57 Nrv cndj test 11-12 studies (interp)
== END | disposition home or self-care (01) ==
LOC: PSN 15:20
PROVIDERS: PCP Internal Medicine; Referring Provider Student in an Organized Health Care Education/Training Program; Visit Provider Student in an Organized Health Care Education/Training Program
DX: R20.2 Paresthesia of skin (principal); G62.9 Polyneuropathy, unspecified; M79.642 Pain in left hand; M79.641 Pain in right hand
CPT/HCPCS: 95885; 95912

== ENCOUNTER → 2022-08-23 | Outpatient (CLI) | payer MEDICARE, OTHER, SELFPAY ==
[2022-08-23 16:58] LABS: Absolute Lymphocyte Count 1.29 X10^3/uL (0.83-4.51); Basophil# 0.05 X10^3/uL; Basophil% 0.7 % (0-1); Eosinophil# 0.11 X10^3/uL; Eosinophils% 1.5 % (0-5); Hematocrit 46.9 % (40-54); Hemoglobin 15.6 g/dL (13.0-16.5); Lymphocyte # 1.29 X10^3/ul (0.83-4.51); Lymphocyte % 17.7 % (19-41); Mean Corp Hgb Conc 33.3 g/dL (32-36); Mean Corpuscular Hgb 33.8 pg (27.0-32.0); Mean Corpuscular Volume 101.5 fL (80-94); Mean Platelet Vol. 9.3 fl (6.2-12.0); Monocyte# 0.74 X10^3/uL; Monocyte% 10.2 % (0-10); NRBC Flagged by Analyzer 0 % (0-5); Neutrophil # 5.02 X10^3/uL (2.7-7.7); Neutrophil % 68.9 % (47-70); Platelet Count 242 K/mm3 (150-450); RBC Distribution Width CV 13.7 % (11.6-14.6); RBC Distribution Width SD 51.3 fl (35.1-43.9); Red Blood Count 4.62 M/mm3 (4.6-6.2); White Blood Count 7.3 K/mm3 (4.4-11.0)
[2022-08-23 17:25] LABS: Anion Gap 7 (5-15); BUN 18 mg/dL (7-18); BUN/Creat Ratio 15.4 RATIO (10-20); Calcium,Total 9.8 mg/dL (8.5-10.1); Chloride 107 mmol/L (98-107); Creatinine, Serum 1.17 mg/dL (0.70-1.30); EST Glomerular Filtration Rate 65 mL/min (>60); Est Glom Filt Rate - Afr Amer 79 mL/min (>60); Glucose 87 mg/dL (74-106); Potassium 3.9 mmol/L (3.5-5.1); Sodium Level 140 mmol/L (136-145)
== END | disposition home or self-care (01) ==
LOC: LAB 16:26
PROVIDERS: PCP Internal Medicine; Visit Provider Student in an Organized Health Care Education/Training Program
DX: Z01.818 Encounter for other preprocedural examination (principal); Z01.810 Encounter for preprocedural cardiovascular examination
CPT/HCPCS: 36415; 80048; 85025

== ENCOUNTER 2022-08-29 11:00 | Outpatient (RCR) | payer SELFPAY | END 2022-09-06 23:59 | LOC: NS 11:00 | PROVIDERS: PCP Internal Medicine; Visit Provider Specialist | DX: Z71.3 Dietary counseling and surveillance (principal); E66.01 Morbid (severe) obesity due to excess calories; Z68.42 Body mass index [BMI] 45.0-49.9, adult; Z96.651 Presence of right artificial knee joint | CPT/HCPCS: 97802 ==

== ENCOUNTER 2022-09-19 11:09 | Outpatient (RCR) | payer SELFPAY | END 2022-10-04 23:59 | LOC: NS 11:09 | PROVIDERS: PCP Internal Medicine; Visit Provider Specialist | DX: E66.01 Morbid (severe) obesity due to excess calories (principal); Z68.42 Body mass index [BMI] 45.0-49.9, adult; Z96.651 Presence of right artificial knee joint | CPT/HCPCS: 97803 ==

== ENCOUNTER → 2022-09-19 | Outpatient (CLI) | payer MEDICARE, OTHER, SELFPAY ==
[2022-09-19 13:15] LABS: PSA,Total- Diagnostic 0.06 ng/mL (0.0-4.0)
== END | disposition home or self-care (01) ==
LOC: LAB 11:35
PROVIDERS: PCP Internal Medicine; Referring Provider Urology; Visit Provider Urology
DX: C61 Malignant neoplasm of prostate (principal)
CPT/HCPCS: 36415; 84153

== ENCOUNTER → 2023-03-20 | Outpatient (CLI) | payer MEDICARE, OTHER, SELFPAY ==
[2023-03-20 16:07] LABS: PSA,Total- Diagnostic 0.04 ng/mL (0.0-4.0)
== END | disposition home or self-care (01) ==
PROVIDERS: PCP Internal Medicine; Referring Provider Urology; Visit Provider Urology
DX: C61 Malignant neoplasm of prostate (principal)
CPT/HCPCS: 36415; 84153

== ENCOUNTER → 2023-06-01 | Outpatient (CLI) | payer MEDICARE, OTHER, SELFPAY ==
--- NOTE | 2023-06-01 15:54 | CT_ITS ---
STUDY: LOW DOSE CT LUNG CANCER SCREENING REASON FOR EXAM: Male, 73 years old. Smoker for years RADIATION DOSAGE (If Supplied By Facility): CTDIvol = ( 4.02 ) mGy, DLP = ( 139.44 ) mGycm TECHNIQUE: No contrast was administered. Low dose technique was utilized (average mAS-38 and kVp 120). 1.25 mm axial source images with a slice interval of 1.25-mm were reconstructed in lung windows. 2.5 mm axial source images with a slice interval of 2.5-mm were reconstructed in lung windows. 5.0 mm axial source images with a slice interval of 5.0-mm were reconstructed in soft tissue windows. COMPARISON: 05/04/2022 Emphysema: Mild emphysema. No change in a 4 mm noncalcified nodule peripherally in the right lower lobe lungs on image 169 consistent with a noncalcified granuloma. No new noncalcified nodule or mass. Endobronchial lesion: None Aorta: Some calcified plaque in the aortic arch but no aortic aneurysm. CORONARY ARTERIES: Coronary artery calcification is seen. Heart: No cardiomegaly. Pulmonary artery: Normal Mediastinal nodes: Normal Other chest and abdominal findings: Nonobstructing stone in the midsection of right kidney. CT/Low Dose CT Lung Screening IMPRESSION: Lung-RADS category 2 - Continue annual screening with LDCT in 12 months. IMPORTANT NOTES FOR USE: ACR Lung-RADS Version 1.1 Assessment Categories Release Date: 2018 Category: Coded 0-4 bases on nodule(s) with highest degree of suspicion. Negative screen is defined as categories 1 and 2; a positive screen is defined as categories 3 and 4. Category 3 and 4A nodules that are unchanged on interval CT should be coded as category 2, and individuals returned to screening in 12 months. Category 4X: Category 3 or 4 nodules with additional imaging findings that increase the suspicion of lung cancer, such as spiculation, GGN that doubles in size in 1 year, enlarged lymph notes, etc. Category Modifiers: S (significant finding unrelated to lung cancer) Electronically Signed: Cresencio Mane MD at 22:35 EDT ,
== END | disposition home or self-care (01) ==
LOC: CT 15:52
PROVIDERS: PCP Internal Medicine; Referring Provider Internal Medicine; Visit Provider Internal Medicine
DX: F17.210 Nicotine dependence, cigarettes, uncomplicated (principal)
CPT/HCPCS: 71271

== ENCOUNTER 2023-07-24 14:30 | Outpatient (RCR) | payer MEDICARE, OTHER, SELFPAY ==
--- NOTE | 2023-06-12 09:00 | HP.OTEVAL ---
Patient's Visit Information Visit Information Visit Information: CARLOS VILLATORO is a 73 year old M, referred to Occupational Therapy by Dr. Germán Avila MD, with a diagnosis of 1st CMC AO right. 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 pt is right handed. retired. pt states he had difficulty with pain over the years. pt is 3 weeks and 6 days s/p from right CMC arthroplasty Pain right thumb: Current Pain Intensity: 1 Pain Intensity Range: 0 and 2 ROM Wrist: right 45/50 left 70/60 CMC: right 5 left 20 MP: right 15 left 50 IP: right 20 left 65 Strength Resource Manager Forester: right NT left 55# Lateral Pinch: right NT left 18# Tripod Pinch: right NT left 20# Strength Comments: will test later date Sensation Sensation Comments: states tip of thumb numb Quick DASH-Disab of Arm,Shoulder& Hand Quick DASH Score: 90.9075 Goals Goal:100% adherence to protocol: Yes Comment: CMC arthroplasty Goal:Daily scar massage when approriate: Yes Goal:ROM equal to unaffected hand: Yes Goal:Resource Manager Forester/Pinch strength at least 75% of unaffected hand: Yes Goal:No pain with affected hand use: Yes Goal:Full use of affected hand in daily activities including work: Yes Goal:Decrease scar hypersensitivity: Yes Rehabilitation General Assessment: pt is 3 weeks and 6 days s/p from right CMC arthroplasty. Pt demo need skilled OT services 1-2x week for 8 weeks - pt in need of custom orthosis to allow for further healing/support along with ed. on dx and precautions. Today therapist cristal. custom orthosis ( thumb spica) to allow for further healing. ed pt in skin care and precautions- therapist ed. pt on light gentle wrist ROM and supported CMC mp and IP motion only. pt demo understanding and agree to poc. Rehabilitation Potential: Good Anticipated Interventions Anticipated Interventions: A/AAROM/PROM, Strengthening, Scar Care, Triggerpoint Release, Desensitization, Modalities, Orthoses, Joint Protection/Energy Conservation, Ergonomic Education, Education re assistive Equipment, Education re Diagnosis and Home Program Visit Plan Frequency: 1-2x /Week Duration: 2 Months General Plan: initiate AROM of wrist/ supported CMC with MP and IP AROM week- 6 comfort cool thumb brace for day - orthosis for night use- initiate light nursing unit coordinator strength with sponge or putty- week 8 thumb stabilization ex week 10 pinch strength TEXT: Thank you for the opportunity to evaluate your patient. For Medicare and Medicare HMO plans, please review the plan of care and approve it. It will need to be FAXED BACK to us at [phone] for Medicare purposes. Please let me know if there are questions or concerns regarding this plan of care. Physician Signature: Date:
--- NOTE | 2023-07-24 15:14 | HP.OTDCSUM ---
Discharge Summary D/C Summary: It has been my pleasure to treat CARLOS VILLATORO under orders from Dr. Germán Avila MD, for the diagnosis of 1st CMC AO right for a total of 8 visit(s). Please see the following information for a summary of their discharge status. Overall Improvement % Improvement: 80 Objective Objective/Function: right wrist ROM 60/65 right CMC 20* right MP 30* right IP 35* right director bioinformatics strength 40# pt reports he is IND with ADLs adn IADLs. pt states he does still sleep in his orthosis for comfort. pt doing well with his recovery and will continue with his HEP for strengthening. pt agrees with D/C Goals Patient Goals: Regain Mobility and Use Hand/Wrist/Arm Normally Again Goal:100% adherence to protocol: Yes Goal:Daily scar massage when approriate: Yes Goal:ROM equal to unaffected hand: Yes Goal:Associate Professor Of Automation/Pinch strength at least 75% of unaffected hand: Yes Goal:No pain with affected hand use: Yes Goal:Full use of affected hand in daily activities including work: Yes Goal:Decrease scar hypersensitivity: Yes Plan Plan: pinch strength as jana D/C Information Discharge Comments: pt was seen for 12 OT sessions following a right CMC arthroplasty: pt met goals and at this time has been d/c with HEP. pt agrees to POC. d/c sentence: If there are questions or concerns regarding this patient's occupational therapy, please fell free to call me at [phone]. Thank you for the referral of this patient. Sincerely, Wendi Boyer, OTR/L, CHT
== END 2023-07-24 19:00 | disposition home or self-care (01) ==
LOC: OT 14:30
PROVIDERS: PCP Internal Medicine; Visit Provider Specialist
DX: M18.11 Unilateral primary osteoarthritis of first carpometacarpal joint, right hand (principal)
CPT/HCPCS: 97110; 97140; 97166; 97530; 97760

== ENCOUNTER → 2023-09-21 | Outpatient (CLI) | payer MEDICARE, OTHER, SELFPAY ==
[2023-09-21 17:34] LABS: PSA,Total- Diagnostic 0.05 ng/mL (0.0-4.0)
== END | disposition home or self-care (01) ==
LOC: LAB 16:47
PROVIDERS: PCP Internal Medicine; Referring Provider Urology; Visit Provider Urology
DX: C61 Malignant neoplasm of prostate (principal)
CPT/HCPCS: 36415; 84153

== ENCOUNTER → 2024-03-22 | Outpatient (CLI) | payer MEDICARE, OTHER, SELFPAY ==
[2024-03-22 14:42] LABS: PSA,Total- Diagnostic 0.06 ng/mL (0.0-4.0)
== END | disposition home or self-care (01) ==
LOC: LAB 13:51
PROVIDERS: PCP Internal Medicine; Referring Provider Nurse Practitioner; Visit Provider Nurse Practitioner
DX: C61 Malignant neoplasm of prostate (principal)
CPT/HCPCS: 36415; 84153

== ENCOUNTER → 2024-03-27 | Outpatient (CLI) | payer MEDICARE, OTHER, SELFPAY ==
[2024-03-27 10:36] LABS: Calcium,Total 10.5 mg/dL (8.5-10.1); Potassium 4.6 mmol/L (3.5-5.1)
== END | disposition home or self-care (01) ==
LOC: LABSPEC 10:15
PROVIDERS: PCP Internal Medicine; Referring Provider Internal Medicine; Visit Provider Internal Medicine
DX: E87.5 Hyperkalemia (principal); E83.52 Hypercalcemia
CPT/HCPCS: 82310; 84132

== ENCOUNTER 2024-06-03 08:14 | Outpatient (CLI) | payer MEDICARE, OTHER, SELFPAY ==
--- NOTE | 2024-06-03 08:15 | CT_ITS ---
STUDY: LOW DOSE CT LUNG CANCER SCREENING REASON FOR EXAM: Male, 74 years old. Current smoker for 51 years. Prostate cancer. Sleep apnea. RADIATION DOSAGE (If Supplied By Facility): CTDIvol = ( 4.02 ) mGy, DLP = ( 145.97 ) mGycm TECHNIQUE: No contrast was administered. Low dose technique was utilized (average mAS-38 and kVp 120). 1.25 mm axial source images with a slice interval of 1.25-mm were reconstructed in lung windows. 2.5 mm axial source images with a slice interval of 2.5-mm were reconstructed in lung windows. 5.0 mm axial source images with a slice interval of 5.0-mm were reconstructed in soft tissue windows. COMPARISON: Comparison is made with prior study June 01, 2023. NODULES: Stable 4 mm noncalcified nodule in the peripheral lateral aspect of the right lower lobe as seen on axial image #145. Emphysema: Stable mild linear scarring in the right lower lobe. Endobronchial lesion: Aorta: Scattered calcific plaques at the level of the aortic arch. CORONARY ARTERIES: Coronary artery calcification is seen. Heart: Unremarkable Pulmonary artery: Unremarkable Mediastinal nodes: Unremarkable Other chest and abdominal findings: Degenerative changes of the thoracic spine. CT/Low Dose CT Lung Screening IMPRESSION: Lung-RADS category 2 - Continue annual screening with LDCT in 12 months. IMPORTANT NOTES FOR USE: ACR Lung-RADS Version 1.1 Assessment Categories Release Date: 2018 Category: Coded 0-4 bases on nodule(s) with highest degree of suspicion. Negative screen is defined as categories 1 and 2; a positive screen is defined as categories 3 and 4. Category 3 and 4A nodules that are unchanged on interval CT should be coded as category 2, and individuals returned to screening in 12 months. Category 4X: Category 3 or 4 nodules with additional imaging findings that increase the suspicion of lung cancer, such as spiculation, GGN that doubles in size in 1 year, enlarged lymph notes, etc. Category Modifiers: S (significant finding unrelated to lung cancer) Electronically Signed: Louie Kearney MD at 15:06 EDT ,
== END 2024-06-03 23:59 | disposition home or self-care (01) ==
LOC: CT 08:14
PROVIDERS: PCP Internal Medicine; Referring Provider Internal Medicine; Visit Provider Internal Medicine
DX: F17.210 Nicotine dependence, cigarettes, uncomplicated (principal); R91.1 Solitary pulmonary nodule; Z12.2 Encounter for screening for malignant neoplasm of respiratory organs
CPT/HCPCS: 71271

== ENCOUNTER → 2024-08-09 | Outpatient (CLI) | payer MEDICARE, OTHER, SELFPAY ==
--- NOTE | 2024-08-09 12:58 | CDU_ITS ---
Reason For Study: Bilateral Carotid Rt. Velocities/BP Lt. Velocities/BP Prox CCA 108.4/23.7 cm/sec. Prox CCA 99.7/17.5 cm/sec. Mid CCA 81.8/19.2 cm/sec. Mid CCA 85.1/19.4 cm/sec. Dist CCA 55.4/15.7 cm/sec. Dist CCA 54.5/16.0 cm/sec. Prox ICA 38.9/12.7 cm/sec. Prox ICA 24.6/7.5 cm/sec. Mid ICA 30.0/10.2 cm/sec. Mid ICA 37.6/13.4 cm/sec. Dist ICA 65.5/21.5 cm/sec. Dist ICA 45.7/15.3 cm/sec. Rt. ICA/CCA = 0.8. Lt. ICA/CCA = 0.5. Prox ECA 103.4/17.5 cm/sec. Prox ECA 92.4/12.1 cm/sec. Rt. Vert. 42.4/8.4 cm/sec. Lt. Vert. 40.7/15.4 cm/sec. Right Extracranial There is homogeneous, smooth atherosclerotic plaque noted in the right common carotid artery. There is homogeneous, irregular atherosclerotic plaque noted in the right internal carotid artery. There is homogeneous, smooth atherosclerotic plaque noted in the right external carotid artery. Antegrade flow is noted in the right vertebral artery. Left Extracranial There is intimal thickening but no significant atherosclerotic plaque noted in the left common carotid artery. There is heterogeneous, irregular atherosclerotic plaque noted in the left internal carotid artery. There is heterogeneous, irregular atherosclerotic plaque noted in the left external carotid artery. Antegrade flow is noted in the left vertebral artery. Procedure Carotid Duplex 45773. This is a Carotid Duplex examination using B-mode, color flow and specral Doppler. Exam performed in department. VL/Carotid Duplex Ultrasound Interpretation Summary Mild (<50%) stenosis right extracranial internal carotid. Mild (<50%) stenosis left extracranial internal carotid. Patent and antegrade vertebrals bilaterally. Ordering Physician: Joana Friend Referring Physician: Joana Friend Performed By: Edson De La Rosa RVT and Student
== END | disposition home or self-care (01) ==
LOC: CVS 12:57
PROVIDERS: PCP Internal Medicine; Referring Provider Internal Medicine; Visit Provider Internal Medicine
DX: I10 Essential (primary) hypertension (principal); I65.23 Occlusion and stenosis of bilateral carotid arteries
CPT/HCPCS: 93880

== ENCOUNTER → 2024-12-11 | Outpatient (CLI) | payer MEDICARE, OTHER, SELFPAY ==
[2024-12-11 16:23] LABS: Potassium 4.9 mmol/L (3.3-5.1)
== END | disposition home or self-care (01) ==
LOC: LABSPEC 15:08
PROVIDERS: PCP Internal Medicine; Referring Provider Internal Medicine; Visit Provider Internal Medicine
DX: E87.5 Hyperkalemia (principal)
CPT/HCPCS: 84132

== ENCOUNTER → 2025-03-14 | Outpatient (CLI) | payer MEDICARE, OTHER, SELFPAY ==
[2025-03-14 16:13] LABS: PSA,Total- Diagnostic 0.09 ng/mL (0.00-4.00)
== END | disposition home or self-care (01) ==
PROVIDERS: PCP Internal Medicine; Referring Provider Urology; Visit Provider Urology
DX: C61 Malignant neoplasm of prostate (principal)
CPT/HCPCS: 36415; 84153

== ENCOUNTER → 2025-07-07 | Outpatient (CLI) | payer MEDICARE, OTHER, SELFPAY ==
--- NOTE | 2025-07-07 08:28 | CT_ITS ---
PROCEDURE: EXTREMITY LOWER WITHOUT CONTRA 07/07/2025 REASON FOR EXAM: UNILATERAL PRIMARY OSTEOARTHRITIS, RIGHT KNEE TECHNIQUE: Procedure Code: CTELWO Modality: CT Procedure: EXTREMITY LOWER WITHOUT CONTRA Coronal and Sagittal reconstruction series were provided of the right knee. CONTRAST: None One or more dose reduction techniques were used (e.g., Automated exposure control, adjustment of the mA and/or kV according to patient size, use of iterative reconstruction technique). RADIATION DOSE SUMMARY: DLP: 1618 mGycm COMPARISON: None FINDINGS: There is hardware in the medial compartment consistent with a prior partial knee prosthesis. Osteoarthritis is noted in the patellofemoral articulation and lateral compartment. There is no acute fracture or dislocation. Mineralization is normal. Atherosclerotic calcifications are noted. CT/Extremity Lower without Contra IMPRESSION: Hardware in position. Reading Location: [facility]
== END | disposition home or self-care (01) ==
PROVIDERS: PCP Internal Medicine; Referring Provider Specialist; Visit Provider Specialist
DX: M17.11 Unilateral primary osteoarthritis, right knee (principal); M21.161 Varus deformity, not elsewhere classified, right knee
CPT/HCPCS: 73700

== ENCOUNTER → 2025-07-23 | Outpatient (CLI) | payer MEDICARE, OTHER, SELFPAY ==
[2025-07-23 10:44] LABS: Hematocrit 45.9 % (40-54); Hemoglobin 15.4 g/dL (13.0-16.5); Immature Granulocytes Count 0.040 X10^3/uL (0.0-0.0); Mean Corp Hgb Conc 33.6 g/dL (32-36); Mean Corpuscular Volume 100.4 fL (80-94); Mean Platelet Vol. 9.8 fl (6.2-12.0); NRBC Flagged by Analyzer 0 % (0-5); Platelet Count 256 K/mm3 (150-450); RBC Distribution Width CV 13.1 % (11.6-14.6); RBC Distribution Width SD 48.5 fl (35.1-43.9); Red Blood Count 4.57 M/mm3 (4.6-6.2); White Blood Count 8.1 K/mm3 (4.4-11.0)
[2025-07-23 11:17] LABS: Magnesium 2.1 mg/dL (1.5-2.2)
[2025-07-23 11:18] LABS: Albumin, Serum 4.2 g/dL (3.4-4.8); Anion Gap 11 (5-15); BUN 23 mg/dL (4-19); BUN/Creat Ratio 19.7 RATIO (10-20); Calcium,Total 10.6 mg/dL (7.6-11.0); Carbon Dioxide 23.6 mmol/L (21.0-32.0); Chloride 104 mmol/L (98-108); Glucose 90 mg/dL (70-99); Potassium 4.3 mmol/L (3.3-5.1)
== END | disposition home or self-care (01) ==
LOC: LAB 10:20
PROVIDERS: PCP Internal Medicine; Referring Provider Specialist; Visit Provider Specialist
DX: Z01.818 Encounter for other preprocedural examination (principal)
CPT/HCPCS: 36415; 80048; 82040; 83735; 85025; 87081

== ENCOUNTER → 2025-07-29 | Outpatient (CLI) | payer MEDICARE, OTHER, SELFPAY ==
--- NOTE | 2025-07-29 06:37 | ECHOD_ITS ---
Reason For Study Reason For Study: Mobitz I, CAD, Smoker Procedure This was a 2D Doppler, Color Flow transthoracic echocardiogram. The patient is in sinus rhythm. Exam performed in department. Left Ventricle Normal LV size. Moderate concentric left ventricular hypertrophy. Left ventricular systolic function is normal. The left ventricular ejection fraction is 65 %. At least Stage I diastolic dysfunction. No regional wall motion abnormalities noted. Right Ventricle Normal RV size. Normal systolic function. Atria The left atrium is severely enlarged. The right atrium is moderately enlarged. Mitral Valve Normal mitral valve. Mild (1+) mitral valve insufficiency. Tricuspid Valve Normal tricuspid valve. Mild (1+) tricuspid valve insufficiency. Pulmonary artery systolic pressure is 24 mmHg. Aortic Valve Trisinus/trileaflet aortic valve. Mild focal aortic valve thickening. Aortic sclerosis, no stenosis. Pulmonic Valve Normal pulmonic valve. Trivial pulmonic valve insufficiency. Great Vessels Normal sized aortic root. Pericardium/Pleural No pericardial effusion. MMode/2D Measurements & Calculations LVIDd: 3.8 cm IVSd: 1.6 cm Ao root diam: 3.4 cm LVIDs: 2.4 cm LVPWd: 1.3 cm LA dimension: 5.2 cm RVDd: 3.3 cm FS: 37.5 % LAV(MOD-bp): 90.8 ml LVAd ap4: 34.2 cm2 SV(MOD-sp4): 72.2 ml LAV(MOD-bp) Indexed: 42.3 ml/m2 LVLd ap4: 8.8 cm SI(MOD-sp4): 33.6 ml/m2 LAV(MOD-sp2): 84.3 ml EDV(MOD-sp4): 108.9 ml LAV(MOD-sp4): 92.1 ml EDV(sp4-el): 112.9 ml LVAs ap4: 17.0 cm2 LVLs ap4: 6.7 cm ESV(MOD-sp4): 36.8 ml ESV(sp4-el): 36.6 ml EF(MOD-sp4): 66.3 % EF(sp4-el): 67.5 % SV(sp4-el): 76.2 ml LA A4 area: 28.6 cm2 LA dimension(2D): 5.6 cm RA A4 area: 26.3 cm2 TAPSE: 1.9 cm Doppler Measurements & Calculations MV E max alton: 114.8 cm/sec Lat Peak E' Alton: 19.4 cm/sec Med Peak E' Alton: 13.4 cm/sec E/E' lat: 5.9 E/E' med: 8.5 MV V2 max: 124.2 cm/sec Ao V2 max: 140.2 cm/sec LV V1 max: 91.9 cm/sec MV max P.2 mmHg Ao max P.9 mmHg LV V1 max P.4 mmHg MV V2 mean: 67.5 cm/sec Ao V2 mean: 95.2 cm/sec LV V1 mean P.1 mmHg MV mean P.2 mmHg Ao mean P.2 mmHg LV V1 mean: 69.9 cm/sec MV V2 VTI: 34.3 cm Ao V2 VTI: 33.0 cm LV V1 VTI: 21.2 cm AV (velocity ratio): 0.64 PA V2 max: 102.0 cm/sec TR max alton: 229.7 cm/sec TR max P.1 mmHg ECHO/Echo Complete Interpretation Summary The left ventricular ejection fraction is 65 %. Moderate concentric left ventricular hypertrophy. The right atrium is moderately enlarged. The left atrium is severely enlarged. Mild (1+) mitral valve insufficiency. Mild (1+) tricuspid valve insufficiency. Ordering Physician: Joana Friend Referring Physician: Joana Friend Performed By: Nicolas Reeder RCS
--- OUTSIDE RECORDS SUMMARY | 2025-07-29 06:38 | XMS RPT_ITS | CCD ---
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 user; Translations: [Continuous tobacco abuse] 09-28-2020 Episodic Comment on above: not ready until afte r loose weight Residual codes; unclassified (20 sources) Edema of lower extremity; Translations: [Lower extremity edema] 09-27-2021 Episodic Comment on above: this is better Residual codes; unclassified (20 sources) Endocrine finding; Translations: [Abnormal endocrine laboratory test finding] 04-28-2022 Episodic Comment on above: elevated insulin lev el 37 hga1c 5.5 elevated insulin lev el 37 hga1c 5.5 needs GLP-1 and diet change Retinal detachments; defects; vascular occlusion; and retinopathy (20 sources) Arterial retinal branch occlusion; Translations: [Arterial branch occlusion of retina] 09-28-2020 Chronic Rheumatoid arthritis and related disease (9 sources) Rheumatoid arthritis; Translations: [Rheumatoid arthritis, unspecified] 05-27-2019 Chronic Spondylosis; intervertebral disc disorders; other back problems (9 sources) Back problem; Translations: [Dorsopathy, unspecified] 05-27-2019 Episodic Sprains and strains (9 sources) Rupture of left Achilles tendon; Translations: [Strain of left Achilles tendon, initial encounter] 05-27-2019 Episodic Substance-related disorders (20 sources) Smoker; Translations: [Smoker] Onset: 5 04-28-2022 Chronic Unclassified (20 sources) Abnormal heart rhythm Unclassified (20 sources) Arthralgia Unclassified (20 sources) Encounter for well adult exam with abnormal findings (Renamed from Encounter for general adult medical examination with abnormal findings); Translations: [Patient encounter status] 09-28-2020 Comment on above: 09-28-20 [facility]: BMI: 48.5, PSA (Dr. Frost monitors, hx. prostate cancer), hep C negative, MOCA 29/30, cognivue 62, wears bilateral hearing aides, has routine eye exams with Dr. kerns yearly, colonoscopy Unclassified (20 sources) Unclassified (20 sources) Patient encounter status; Translations: [Encounter for hepatitis C virus screening test for high risk patient] 09-09-2020 Unclassified (20 sources) Continuous tobacco abuse Unclassified (20 sources) Weight gain Unclassified (20 sources) Abnormal RBC indices; Translations: [Red blood cell finding] 09-28-2020 Unclassified (20 sources) History of vertebral fracture Unclassified (20 sources) CAD (coronary artery disease) Unclassified (20 sources) BMI 45.0-49.9, adult Unclassified (20 sources) Osteoarthritis, hand Unclassified (20 sources) Exposure to COVID-19 virus Unclassified (14 sources) Stomach upset Unclassified (20 sources) Anal ulcer Unclassified (9 sources) Age more than 65 years; Translations: [Over 65 years old] 08-13-2021 Viral infection (20 sources) Disease caused by 2019-nCoV; Translations: [COVID] Resolved: 2 08-11-2021 Episodic Viral infection (20 sources) Disease caused by 2019-nCoV Past or Other Problems Problem Classification Problem Date Documented Da te Episodic/Chronic Fluid and electrolyte disorders (1 source) Hyperkalemia; Translations: [Hyperkalemia] Onset: 12-16-2024 Episodic Other nutritional; endocrine; and metabolic disorders (20 sources) Obesity; Translations: [Obesity] Resolved: 09-13-2021 09-28-2020 Chronic Unclassified (17 sources) Sinusitis, acute Unclassified (7 sources) BMI 50.0-59.9, adult Unclassified (11 sources) Lower extremity edema Unclassified (4 sources) CTS (carpal tunnel syndrome) Results Test Name Value Interpretation Reference Range Facility PSA,Total- Diagnosticon 08-0 PSA, DIAGNOSTIC 0.09 ng/mL Normal 0.00-4.00 [facility] Comment on above: Result Comment: This test was performed using the [employer] tPSA method. Measured values of a patient??sample can vary depending on the testing procedure used. PSA values determined on patient samples by different testing procedures cannot be used interchangeably. If there is a change in PSA assays while monitoring therapy, sequential testing should be performed to confirm baseline values. Performed By: #### L 501.9940 #### [facility] [address] [place], [address] Potassiumon 12-11-2024 Potassium [Moles/Vol] 4.9 mmol/L Normal 3.3-5.1 [facility] Comment on above: Performed By: #### L 501.5600 #### [facility] [address] [place], [address] Potassium measurement (mass/ volume)Ordered By: Joana Friend on 12-11-2024 Potassium (Unsp spec) [Mass/Vol] 4.9 mmol/L 3.3-5.1 [facility] Carotid Duplex Ultrasoundon 08-09-2024 Carotid Duplex Ultrasound [facility] [address] [place] [address] Carotid Duplex Ultrasound 08/09/24 1317 MR#: [id number] Acct: [id number] Name: NOLAN VILLATORO Rep #: [id number] : 1950 74 From: Abimael Mendoza MD Attending Dr: Dr. Joana Friend MD Status: REG CLI Ordering Dr: Joana Friend MD Date: 08/09/24 Location: [facility] Sex: M C Admitted: Reason For Study: Bilateral Carotid Rt. Velocities/BP Lt. Velocities/BP Prox CCA 108.4/23.7 cm/sec. Prox CCA 99.7/17.5 cm/sec. Mid CCA 81.8/19.2 cm/sec. Mid CCA 85.1/19.4 cm/sec. Dist CCA 55.4/15.7 cm/sec. Dist CCA 54.5/16.0 cm/sec. Prox ICA 38.9/12.7 cm/sec. Prox ICA 24.6/7.5 cm/sec. Mid ICA 30.0/10.2 cm/sec. Mid ICA 37.6/13.4 cm/sec. Dist ICA 65.5/21.5 cm/sec. Dist ICA 45.7/15.3 cm/sec. Rt. ICA/CCA = 0.8. Lt. ICA/CCA = 0.5. Prox ECA 103.4/17.5 cm/sec. Prox ECA 92.4/12.1 cm/sec. Rt. Vert. 42.4/8.4 cm/sec. Lt. Vert. 40.7/15.4 cm/sec. Right Extracranial There is homogeneous, smooth atherosclerotic plaque noted in the right common carotid artery. There is homogeneous, irregular atherosclerotic plaque noted in the right internal carotid artery. There is homogeneous, smooth atherosclerotic plaque noted in the right external carotid artery. Antegrade flow is noted in the right vertebral artery. Left Extracranial There is intimal thickening but no significant atherosclerotic plaque noted in the left common carotid artery. There is heterogeneous, irregular atherosclerotic plaque noted in the left internal carotid artery. There is heterogeneous, irregular atherosclerotic plaque noted in the left external carotid artery. Antegrade flow is noted in the left vertebral artery. Procedure Carotid Duplex 95037. This is a Carotid Duplex examination using B-mode, color flow and specral Doppler. Exam performed in department. VL/Carotid Duplex Ultrasound Interpretation Summary Mild (<50%) stenosis right extracranial internal carotid. Mild (<50%) stenosis left extracranial internal carotid. Patent and antegrade vertebrals bilaterally. Ordering Physician: Joana Friend Referring Physician: Joana Friend Performed By: Edson De La Rosa RVT and Student 08/12/24 1157 Date Abimael Mendoza MD CC: Dr. Joana Friend MD Date Dictated: 08/09/24 1317 Date Transcribed: 08/12/24 115 [place] Bottom Maker: Signed Normal [facility] Low Dose CT Lung Screeningon 06-03-[address] Lung Screening [facility] Imaging Services [address] [place] [id number] Lung Screening MR#: [id number] Acct: [id number] Name: NOLAN VILLATORO Rep #: [id number] : 1950 M 74 From: Louie mustafa MD PCP: Dr. Joana Friend MD Status: [facility] Study: Low Dose CT Lung Screening Date of Exam: 06/03 Exam# [id number] Ordering Dr: Joana Friend MD [id number] STUDY: LOW DOSE CT LUNG CANCER SCREENING REASON FOR EXAM: Male, 74 years old. Current smoker for 51 years. Prostate cancer. Sleep apnea. RADIATION DOSAGE (If Supplied By Facility): CTDIvol = ( 4.02 ) mGy, DLP = ( 145.97 ) mGycm TECHNIQUE: No contrast was administered. Low dose technique was utilized (average mAS-38 and kVp 120). 1.25 mm axial source images with a slice interval of 1.25-mm were reconstructed in lung windows. 2.5 mm axial source images with a slice interval of 2.5-mm were reconstructed in lung windows. 5.0 mm axial source images with a slice interval of 5.0-mm were reconstructed in soft tissue windows. COMPARISON: Comparison is made with prior study June 01, 2023. NODULES: Stable 4 mm noncalcified nodule in the peripheral lateral aspect of the right lower lobe as seen on axial image #145. Emphysema: Stable mild linear scarring in the right lower lobe. Endobronchial lesion: Aorta: Scattered calcific plaques at the level of the aortic arch. CORONARY ARTERIES: Coronary artery calcification is seen. Heart: Unremarkable Pulmonary artery: Unremarkable Mediastinal nodes: Unremarkable Other chest and abdominal findings: Degenerative changes of the thoracic spine. CT/Low Dose CT Lung Screening IMPRESSION: Lung-RADS category 2 - Continue annual screening with LDCT in 12 months. IMPORTANT NOTES FOR USE: ACR Lung-RADS Version 1.1 Assessment Categories Release Date: 2018 Category: Coded 0-4 bases on nodule(s) with highest degree of suspicion. Negative screen is defined as categories 1 and 2; a positive screen is defined as categories 3 and 4. Category 3 and 4A nodules that are unchanged on interval CT should be coded as category 2, and individuals returned to screening in 12 months. Category 4X: Category 3 or 4 nodules with additional imaging findings that increase the suspicion of lung cancer, such as spiculation, GGN that doubles in size in 1 year, enlarged lymph notes, etc. Category Modifiers: S (significant finding unrelated to lung cancer) Electronically Signed: Louie Kearney MD at 15:06 EDT , CC: Dr. Joana Friend MD [place] Bottom Maker: Signed Normal [facility] Basophil percentageOrdered B y: Benigno Frost on 09-21-2023 Basophil percentage 0.05 ng/mL 0.0-4.0 [facility] Comment on above: This test was perfor med using the TPSA assay method for the[employer] chemistry system. Values obtained with differentassay methods cannot be used interchangably.When changing PSA assays in the course of monitoring apatient, additional sequential testing should be carriedout to confirm baseline values. CBC with auto diff ([id number])Or dered By: Meat Stringer on 04-20-2023 Basophils (Bld) [#/Vol] 0.0 10*3/uL Normal 0.0-0.2 [facility] Work Phone: Comment on above: PATIENT WAS FASTINGP ERFORMED BY: CONNER Greenwood[address] [facility] [id number] BY: ES [employer] Kcm1138 [facility] [id number] Basophils/100 WBC (Bld) 0 % Normal [facility]; [facility] Work Phone: Comment on above: PATIENT WAS FASTINGP ERFORMED BY: CONNER Greenwood6370 [facility] [id number] BY: ES [employer] Uma6232 [facility] [id number] Eosinophils (Bld) [#/Vol] 0.1 10*3/uL Normal 0.0-0.4 [facility]; [facility] Work Phone: Comment on above: PATIENT WAS FASTINGP ERFORMED BY: CONNER Greenwood6370 [facility] [id number] BY: ES [employer] Wwz4282 [facility] [id number] Eosinophils/100 WBC (Bld) 2 % Normal [facility]; [facility] Work Phone: Comment on above: PATIENT WAS FASTINGP ERFORMED BY: CONNER Schererlin6370 [facility] [id number] BY: ES [employer] Ebe6086 [facility] [id number] Erythrocyte distribution width (RBC) [Ratio] 12.3 % Normal 11.6-15.4 [facility]; [facility] Work Phone: Comment on above: PATIENT WAS FASTINGP ERFORMED BY: CONNER Schererlin6370 [facility] [id number] BY: ES [employer] Tfe5637 [facility] [id number] Hematocrit (Bld) [Volume fraction] 46.5 % Normal 37.5-51.0 [facility]; [facility] Work Phone: Comment on above: PATIENT WAS FASTINGP ERFORMED BY: CONNER Greenwood6370 [facility] [id number] BY: ES [employer] Drk9773 [facility] [id number] Hemoglobin (Bld) [Mass/Vol] 15.2 g/dL Normal 13.0-17.7 [facility]; [facility] Work Phone: Comment on above: PATIENT WAS FASTINGP ERFORMED BY: CONNER Greenwood6370 [facility] [id number] BY: ES [employer] Oqc7648 [facility] [id number] Immature granulocytes (Bld) [#/Vol] 0.0 10*3/uL Normal 0.0-0.1 [facility]; [facility] Work Phone: Comment on above: PATIENT WAS FASTINGP ERFORMED BY: CONNER Greenwood6370 [facility] [id number] BY: ES [employer] Ouk4055 [facility] [id number] Immature granulocytes/100 WBC (Bld) 1 % Normal [facility]; [facility] Work Phone: Comment on above: PATIENT WAS FASTINGP ERFORMED BY: CONNER Greenwood6370 [facility] [id number] BY: ES [employer] Yok3751 [facility] [id number] Lymphocytes (Bld) [#/Vol] 1.3 10*3/uL Normal 0.7-3.1 [facility]; [facility] Work Phone: Comment on above: PATIENT WAS FASTINGP ERFORMED BY: CONNER Munoz70 [facility] [id number] BY: ES [employer] Obj0262 [facility] [id number] Lymphocytes/100 WBC (Bld) 20 % Normal [facility]; [facility] Work Phone: Comment on above: PATIENT WAS FASTINGP ERFORMED BY: CONNER Schererlin6370 [facility] [id number] BY: ES [employer] Osb7253 [facility] [id number] MCH (RBC) [Entitic mass] 33.0 pg Normal 26.6-33.0 [facility]; [facility] Work Phone: Comment on above: PATIENT WAS FASTINGP ERFORMED BY: CONNER Greenwood6370 [facility] [id number] BY: ES [employer] Wpn1332 [facility] [id number] MCHC (RBC) [Mass/Vol] 32.7 g/dL Normal 31.5-35.7 [facility]; [facility] Work Phone: Comment on above: PATIENT WAS FASTINGP ERFORMED BY: CONNER Greenwood6370 [facility] [id number] BY: ES [employer] Tij5777 [facility] [id number] MCV (RBC) [Entitic vol] 101 fL Abnormal 79-97 [facility]; [facility] Work Phone: Comment on above: PATIENT WAS FASTINGP ERFORMED BY: CONNER Schererlin6370 [facility] [id number] BY: ES [employer] Zre4143 [facility] [id number] Monocytes (Bld) [#/Vol] 0.5 10*3/uL Normal 0.1-0.9 [facility]; [facility] Work Phone: Comment on above: PATIENT WAS FASTINGP ERFORMED BY: CONNER Greenwood[address] [place], [place] [address] [id number] BY: ES [employer] Fri3511 [facility] [id number] Monocytes/100 WBC (Bld) 7 % Normal [facility]; [facility] Work Phone: Comment on above: PATIENT WAS FASTINGP ERFORMED BY: CONNER Greenwood[address] [facility] [id number] BY: ES [employer] Ybe1974 [facility] [id number] Neutrophils (Bld) [#/Vol] 4.5 10*3/uL Normal 1.4-7.0 [facility]; [facility] Work Phone: Comment on above: PATIENT WAS FASTINGP ERFORMED BY: CONNER Greenwood6370 [facility] [id number] BY: ES [employer] Hwd3062 [facility] [id number] Neutrophils/100 WBC (Bld) 70 % Normal [facility]; [facility] Work Phone: Comment on above: PATIENT WAS FASTINGP ERFORMED BY: CONNER Greenwood6370 [facility] [id number] BY: ES [employer] Xyg8488 [facility] [id number] Platelets (Bld) [#/Vol] 224 10*3/uL Normal 150-450 [facility]; [facility] Work Phone: Comment on above: PATIENT WAS FASTINGP ERFORMED BY: CONNER Greenwood6370 [facility] [id number] BY: ES [employer] Gzl6711 [facility] [id number] RBC (Bld) [#/Vol] 4.61 10*6/uL Normal 4.14-5.80 [facility]; [facility] Work Phone: Comment on above: PATIENT WAS FASTINGP ERFORMED BY: CONNER Greenwood6370 [facility] [id number] BY: ES [employer] Kgr8455 [facility] [id number] WBC (Bld) [#/Vol] 6.3 10*3/uL Normal 3.4-10.8 [facility]; [facility] Work Phone: Comment on above: PATIENT WAS FASTINGP ERFORMED BY: CONNER [employer] Infrastructure6370 [facility] [id number] BY: ES [employer] Cxp6985 [facility] [id number] METABOLIC PANEL, COMPREHENSI VE ([id number])Ordered By: Meat Stringer on 04-20-2023 Albumin [Mass/Vol] 4.7 g/dL Normal 3.8-4.8 [facility]; [facility] Work Phone: Comment on above: all these labs to be done with [facility] Cardiac AWP panel; PATIENT WAS FASTINGPERFORMED BY: [employer] Grouplin6370 [facility] [id number] BY: ES [employer] Vqp4453 [facility] [id number]; fu 9- PTH WNL Albumin/Globulin [Mass ratio] 2.1 {ratio} Normal 1.2-2.2 [facility]; [facility] Work Phone: Comment on above: all these labs to be done with [facility] Cardiac AWP panel; PATIENT WAS FASTINGPERFORMED BY: [employer]6370 [facility] [id number] BY: ES [employer] Kar7964 [facility] [id number]; fu 9- PTH WNL ALP [Catalytic activity/Vol] 115 U/L Normal 44-121 [facility]; [facility] Work Phone: Comment on above: all these labs to be done with [facility] Cardiac AWP panel; PATIENT WAS FASTINGPERFORMED BY: [employer]6370 [facility] [id number] BY: ES [employer] Evu0969 [facility] [id number]; fu 05-04 PTH WNL ALT [Catalytic activity/Vol] 23 U/L Normal 0-44 [facility]; [facility] Work Phone: Comment on above: all these labs to be done with [facility] Cardiac AWP panel; PATIENT WAS FASTINGPERFORMED BY: CONNER [employer]6370 [facility] [id number] BY: ES [employer] Eid5868 [facility] [id number]; fu 05-04 PTH WNL AST [Catalytic activity/Vol] 20 U/L Normal 0-40 [facility]; [facility] Work Phone: Comment on above: all these labs to be done with [facility] Cardiac AWP panel; PATIENT WAS FASTINGPERFORMED BY: CONNER [email or web address] Blkoik5221 [facility] [id number] BY: ES [employer] Iyu3567 [facility] [id number]; fu 05-04 PTH WNL Bilirubin [Mass/Vol] 0.4 mg/dL Normal 0.0-1.[address] [facility]; [facility] Work Phone: Comment on above: all these labs to be done with [facility] Cardiac AWP panel; PATIENT WAS FASTINGPERFORMED BY: CONNER [employer]6370 [facility] [id number] BY: ES [employer] Sxg7842 [facility] [id number]; fu 05-04 PTH WNL Calcium [Mass/Vol] 10.5 mg/dL Abnormal 8.6-10.2 Compre [facility]; [facility] Work Phone: Comment on above: all these labs to be done with [facility] Cardiac AWP panel; PATIENT WAS FASTINGPERFORMED BY: CONNER [employer]6370 [facility] [id number] BY: ES [employer] Qid0352 [facility] [id number]; fu 05-04 PTH WNL Chloride [Moles/Vol] 103 mmol/L Normal 96-106 Comp rehensive [facility]; [facility] Work Phone: Comment on above: all these labs to be done with [facility] Cardiac AWP panel; PATIENT WAS FASTINGPERFORMED BY: CONNER Foremost70 [facility] [id number] BY: ES [employer] Zrt5330 [facility] [id number]; fu 05-04 PTH WNL CO2 [Moles/Vol] 20 mmol/L Normal 20-29 Comprehen sive [facility]; [facility] Work Phone: Comment on above: all these labs to be done with [facility] Cardiac AWP panel; PATIENT WAS FASTINGPERFORMED BY: CONNER Foremost70 [facility] [id number] BY: ES [employer] Eci1061 [facility] [id number]; fu 05-04 PTH WNL Creatinine [Mass/Vol] 1.01 mg/dL Normal 0.76-1.27 [facility]; [facility] Work Phone: Comment on above: all these labs to be done with [facility] Cardiac AWP panel; PATIENT WAS FASTINGPERFORMED BY: CONNER [employer]6370 [facility] [id number] BY: ES [employer] Tpy6264 [facility] [id number]; fu 05-04 PTH WNL GFR/1.73 sq M.predicted among non-blacks MDRD (S/P/Bld) [Vol rate/Area] 80 mL/min/{1.73_m2} Normal Comprehensiv e [facility]; [facility] Work Phone: Comment on above: all these labs to be done with [facility] Cardiac AWP panel; PATIENT WAS FASTINGPERFORMED BY: [employer]70 [facility] [id number] BY: ES [employer] Mip5308 [facility] [id number]; fu 05-04 PTH WNL Globulin (S) [Mass/Vol] 2.2 g/dL Normal 1.5-4.5 [facility]; [facility] Work Phone: Comment on above: all these labs to be done with [facility] Cardiac AWP panel; PATIENT WAS FASTINGPERFORMED BY: CONNER Outsparkrenee GreenwoodUylhnx4363 [facility] [id number] BY: ES [employer] Mns8762 [facility] [id number]; fu 05-04 PTH WNL Glucose [Mass/Vol] 83 mg/dL Normal 70-99 [facility]; [facility] Work Phone: Comment on above: all these labs to be done with [facility] Cardiac AWP panel; PATIENT WAS FASTINGPERFORMED BY: CONNER Outsparkrenee GreenwoodRcmbmm2576 [facility] [id number] BY: ES [employer] Hdf6492 [facility] [id number]; fu 05-04 PTH WNL Potassium [Moles/Vol] 4.4 mmol/L Normal 3.5-5.2 [facility]; [facility] Work Phone: Comment on above: all these labs to be done with [facility] Cardiac AWP panel; PATIENT WAS FASTINGPERFORMED BY: CONNER Outsparkrenee SchererGtrurc2745 [facility] [id number] BY: ES [employer] Dcu7880 [facility] [id number]; fu 05-04 PTH WNL Protein [Mass/Vol] 6.9 g/dL Normal 6.0-8.5 [facility]; [facility] Work Phone: Comment on above: all these labs to be done with [facility] Cardiac AWP panel; PATIENT WAS FASTINGPERFORMED BY: CONNER [employer]6370 [facility] [id number] BY: ES [employer] Hoh5036 [facility] [id number]; fu 05-04 PTH WNL Sodium [Moles/Vol] 139 mmol/L Normal 134-144 [facility]; [facility] Work Phone: Comment on above: all these labs to be done with [facility] Cardiac AWP panel; PATIENT WAS FASTINGPERFORMED BY: CONNER CashBetbenny Greenwood[address] [facility] [id number] BY: ES [employer] Tfn9798 [facility] [id number]; fu 05-04 PTH WNL Urea nitrogen [Mass/Vol] 22 mg/dL Normal 8-27 [facility]; [facility] Internal Medicine Work Phone: Comment on above: all these labs to be done with [facility] Cardiac AWP panel; PATIENT WAS FASTINGPERFORMED BY: CONNER Schererlin6370 LucasAngkor [facility]idences[facility] [id number] BY: ES Esoterix Acg1330 [facility] [id number]; fu 05-04 PTH WNL Urea nitrogen/Creatinine [Mass ratio] 22 mg/mg Normal 10-24 [facility]; [facility] Work Phone: Comment on above: all these labs to be done with [facility] Cardiac AWP panel; PATIENT WAS FASTINGPERFORMED BY: CONNER Schererlin6370 LucasAngkor [facility]idencesOur [facility] [id number] BY: ES Esoterix Xru3182 [facility] [id number]; fu 05-04 PTH WNL PARATHORMONE ([id number])Ordered By: Meat Stringer on 04-20-2023 Parathyrin.intact [Mass/Vol] 58 pg/mL Normal 15-65 [facility]; [facility] Work Phone: Comment on above: PATIENT WAS FASTINGP ERFORMED BY: CONNER Outsparkrenee Turcyc2296 LucasAngkor [facility]idencesOur [facility] [id number] BY: ES Esoterix Owi0785 [facility] [id number] URINALYSIS, W/ MICRO ([id number]) Ordered By: Meat Stringer on 04-20-2023 Appearance (U) Clear Normal Comprehens mamadou Internal Medicine; [facility] Work Phone: Comment on above: PATIENT WAS FASTINGP ERFORMED BY: CONNER Greenwood[address] [facility] [id number] BY: ES Esoterix Esf4550 [facility] [id number] Bilirubin Ql (U) Negative Normal Comprehe nsive Internal Medicine; [facility] Work Phone: Comment on above: PATIENT WAS FASTINGP ERFORMED BY: CONNER Greenwood6370 [facility] [id number] BY: ES Esoterix Lhb3798 [facility] [id number] Color (U) Yellow Normal [facility]; [facility] Work Phone: Comment on above: PATIENT WAS FASTINGP ERFORMED BY: CONNER Greenwood6370 [facility] [id number] BY: ES Esoterix Mej1307 [facility] [id number] Glucose Ql (U) Negative Normal Comprehens mamadou Internal Medicine; [facility] Work Phone: Comment on above: PATIENT WAS FASTINGP ERFORMED BY: CONNER Greenwood6370 [facility] [id number] BY: ES Esoterix Thu3831 [facility] [id number] Hemoglobin Ql (U) Negative Normal Compreh ensive Internal Medicine; [facility] Work Phone: Comment on above: PATIENT WAS FASTINGP ERFORMED BY: CONNER Schererlin6370 [address] [facility] [place] [id number] BY: ES Esoterix Cde8027 [facility] [id number] Ketones Ql (U) Negative Normal Comprehens mamadou Internal Medicine; [facility] Work Phone: Comment on above: PATIENT WAS FASTINGP ERFORMED BY: CONNER Sappcorenee SchererMvxugm4667 [facility] [id number] BY: ES Esoterix Pot3368 [facility] [id number] Leukocyte esterase Test strip Ql (U) Negative Normal [facility]; [facility] Work Phone: Comment on above: PATIENT WAS FASTINGP ERFORMED BY: CONNER Labcorenee SchererZyjkcb3611 [facility] [id number] BY: ES Esoterix Qeg6612 [facility] [id number] Microscopic observation LM Nom (Urine sed) MICRON Normal [facility]; [facility] Work Phone: Comment on above: Microscopic follows if indicated. PATIENT WAS FASTINGP ERFORMED BY: CONNER Schererlin6370 [facility] [id number] BY: ES Esoterix Trf2089 [facility] [id number] Microscopic observation LM Nom (Urine sed) See below: Normal [facility]; [facility] Work Phone: Comment on above: Microscopic was dewin cated and was performed. PATIENT WAS FASTINGP ERFORMED BY: CONNER Schererlin6370 [facility] [id number] BY: ES Esoterix Xxa1222 [facility] [id number] Nitrite Ql (U) Negative Normal Comprehens mamadou Internal Medicine; [facility] Work Phone: Comment on above: PATIENT WAS FASTINGP ERFORMED BY: CONNER Labcorenee SchererAtontm4736 [facility] [id number] BY: ES Esoterix Acd6863 [facility] [id number] pH (U) 6.5 [pH] Normal 5.0-7.5 [facility]; [facility] Work Phone: Comment on above: PATIENT WAS FASTINGP ERFORMED BY: CONNER [facility] Kncnni9992 [facility] [id number] BY: ES Esoterix Odp7670 [facility] [id number] Protein Ql (U) Negative Normal Comprehens mamadou Internal Medicine; [facility] Work Phone: Comment on above: PATIENT WAS FASTINGP ERFORMED BY: [facility] Fuqqly5189 [facility] [id number] BY: ES Esoterix Npf3347 [facility] [id number] Specific gravity (U) [Rel density] 1.005 1 Normal 1.005-1.03 0 [facility]; [facility] Work Phone: Comment on above: PATIENT WAS FASTINGP ERFORMED BY: [facility] Zeqedo9799 [facility] [id number] BY: ES Esoterix Kdx2480 [facility] [id number] Urobilinogen (U) [Mass/Vol] 0.2 mg/dL Normal 0.2-1.0 [facility]; [facility] Work Phone: Comment on above: PATIENT WAS FASTINGP ERFORMED BY: [facility] Ogoslw2545 [facility] [id number] BY: ES Esoterix Dgf3195 [facility] [id number] No Panel InformationOrdered By: Benigno Frost on 03-20-2023 Prostate Specific Antigen Total 0.04 ng/mL 0.0-4.0 [facility] Comment on above: This test was perfor med using the TPSA assay method for theSan Diego County Psychiatric HospitalGreenhouse Apps chemistry system. Values obtained with differentassay methods cannot be used interchangably.When changing PSA assays in the course of monitoring apatient, additional sequential testing should be carriedout to confirm baseline values. CBC with auto diff ([id number])Or dered By: Meat Stringer on 12-08-2022 Basophils (Bld) [#/Vol] 0.0 10*3/uL Normal 0.0-0.2 [facility]; [facility] Work Phone: Comment on above: PATIENT WAS FASTINGP ERFORMED BY: CB [facility] Zwjics3282 [address] RoadDublin [place] [id number]; OV 5/15 Basophils/100 WBC (Bld) 0 % Normal [facility]; [facility] Work Phone: Comment on above: PATIENT WAS FASTINGP ERFORMED BY: CB [facility] Mmwjkt9913 [address] RoadDublin [place] [id number]; OV 5/15 Eosinophils (Bld) [#/Vol] 0.1 10*3/uL Normal 0.0-0.4 [facility]; [facility] Work Phone: Comment on above: PATIENT WAS FASTINGP ERFORMED BY: CB [facility] Aafzrl6755 [address] RoadDublin [place] [id number]; OV 5/15 Eosinophils/100 WBC (Bld) 2 % Normal [facility]; [facility] Work Phone: Comment on above: PATIENT WAS FASTINGP ERFORMED BY: CB [facility] Skfmbh0895 [address] RoadDublin [place] [id number]; OV 5/15 Erythrocyte distribution width (RBC) [Ratio] 12.9 % Normal 11.6-15.4 [facility]; [facility] Work Phone: Comment on above: PATIENT WAS FASTINGP ERFORMED BY: CB [facility] Gviszp7656 [address] RoadDublin [place] [id number]; OV 5/15 Hematocrit (Bld) [Volume fraction] 47.8 % Normal 37.5-51.0 [facility]; [facility] Work Phone: Comment on above: PATIENT WAS FASTINGP ERFORMED BY: CB [facility] Crjlhi2082 [address] RoadDublin [place] [id number]; OV 5/15 Hemoglobin (Bld) [Mass/Vol] 16.1 g/dL Normal 13.0-17.7 [facility]; [facility] Work Phone: Comment on above: PATIENT WAS FASTINGP ERFORMED BY: CB [facility] Fpotfs6303 [address] RoadDublin [place] [id number]; OV 5/15 Immature granulocytes (Bld) [#/Vol] 0.1 10*3/uL Normal 0.0-0.1 [facility]; [facility] Work Phone: Comment on above: PATIENT WAS FASTINGP ERFORMED BY: CB [facility] Glvpta4469 [address] RoadDublin [place] [id number]; OV 5/15 Immature granulocytes/100 WBC (Bld) 1 % Normal [facility]; [facility] Work Phone: Comment on above: PATIENT WAS FASTINGP ERFORMED BY: CB [facility] Deamfw1924 [address] RoadDublin [place] [id number]; OV 5/15 Lymphocytes (Bld) [#/Vol] 1.1 10*3/uL Normal 0.7-3.1 [facility]; [facility] Work Phone: Comment on above: PATIENT WAS FASTINGP ERFORMED BY: CB [facility] Dcpiny7090 [address] RoadDublin [place] [id number]; OV 5/15 Lymphocytes/100 WBC (Bld) 16 % Normal [facility]; [facility] Work Phone: Comment on above: PATIENT WAS FASTINGP ERFORMED BY: CB [facility] Yyuxbs4923 [address] RoadDublin [place] [id number]; OV 5/15 MCH (RBC) [Entitic mass] 33.1 pg Abnormal 26.6-33.0 [facility]; [facility] Work Phone: Comment on above: PATIENT WAS FASTINGP ERFORMED BY: CB [facility] Oqvkxr2486 [address] RoadDublin [place] [id number]; OV 5/15 MCHC (RBC) [Mass/Vol] 33.7 g/dL Normal 31.5-35.7 [facility]; [facility] Work Phone: Comment on above: PATIENT WAS FASTINGP ERFORMED BY: CB [facility] Etuhun8037 [address] RoadDublin [place] [id number]; OV 5/15 MCV (RBC) [Entitic vol] 98 fL Abnormal 79-97 [facility]; [facility] Work Phone: Comment on above: PATIENT WAS FASTINGP ERFORMED BY: CB [facility] Wcfunh8951 [address] RoadDublin [place] [id number]; OV 5/15 Monocytes (Bld) [#/Vol] 0.8 10*3/uL Normal 0.1-0.9 [facility]; [facility] Work Phone: Comment on above: PATIENT WAS FASTINGP ERFORMED BY: CB [facility] Shuiog0700 [address] RoadDublin [place] [id number]; OV 5/15 Monocytes/100 WBC (Bld) 11 % Normal [facility]; [facility] Work Phone: Comment on above: PATIENT WAS FASTINGP ERFORMED BY: CB [facility] Fakxfk5639 [address] RoadDublin [place] [id number]; OV 5/15 Neutrophils (Bld) [#/Vol] 5.0 10*3/uL Normal 1.4-7.0 [facility]; [facility] Work Phone: Comment on above: PATIENT WAS FASTINGP ERFORMED BY: CB [facility] Xzukqm2792 [address] RoadDublin [place] [id number]; OV 5/15 Neutrophils/100 WBC (Bld) 70 % Normal [facility]; [facility] Work Phone: Comment on above: PATIENT WAS FASTINGP ERFORMED BY: CB [facility] Ixvqkl4573 [address] RoadDublin [place] [id number]; OV 5/15 Platelets (Bld) [#/Vol] 260 10*3/uL Normal 150-450 [facility]; [facility] Work Phone: Comment on above: PATIENT WAS FASTINGP ERFORMED BY: CB [facility] Kluuej7513 [address] RoadDublin [place] [id number]; OV 5/15 RBC (Bld) [#/Vol] 4.87 10*6/uL Normal 4.14-5.80 [facility] Internal Medicine; [facility] Work Phone: Comment on above: PATIENT WAS FASTINGP ERFORMED BY: CB [facility] Fkhwam6472 [address] RoadDublin [place] [id number]; OV 515 WBC (Bld) [#/Vol] 7.1 10*3/uL Normal 3.4-10.8 [facility] Internal Medicine; [facility] Work Phone: Comment on above: PATIENT WAS FASTINGP ERFORMED BY: CB [facility] Wqxitb0618 [address] RoadDublin [place] [id number]; OV 12/19 METABOLIC PANEL, COMPREHENSI VE ([id number])Ordered By: Meat Stringer on 12-08-2022 Albumin [Mass/Vol] 4.6 g/dL Normal 3.8-4.8 [facility] Internal Medicine; [facility] Work Phone: Comment on above: PATIENT WAS FASTINGP ERFORMED BY: CONNER [facility] Cubzbx7604 [address] RoadDublin [place] [id number] Albumin/Globulin [Mass ratio] 2.2 {ratio} Normal 1.2-2.2 [facility]; [facility] Work Phone: Comment on above: PATIENT WAS FASTINGP ERFORMED BY: CONNER [facility] Bdngtf9003 [address] RoadDublin [place] [id number] ALP [Catalytic activity/Vol] 127 U/L Abnormal 44-121 [facility]; [facility] Work Phone: Comment on above: PATIENT WAS FASTINGP ERFORMED BY: CB [facility] Jcxgjq9743 [address] RoadDublin [place] [id number] ALT [Catalytic activity/Vol] 29 U/L Normal 0-44 [facility]; [facility] Work Phone: Comment on above: PATIENT WAS FASTINGP ERFORMED BY: CB [facility] Ibvtso7311 [address] RoadDublin [place] [id number] AST [Catalytic activity/Vol] 20 U/L Normal 0-40 [facility]; [facility] Work Phone: Comment on above: PATIENT WAS FASTINGP ERFORMED BY: CB [facility] Xxydcu2725 [address] RoadDublin [place] [id number] Bilirubin [Mass/Vol] 0.5 mg/dL Normal 0.0-1.2 Comp rehensive Internal Medicine; [facility] Work Phone: Comment on above: PATIENT WAS FASTINGP ERFORMED BY: CONNER [facility] Lyaqij8091 [address] Roadblin [place] [id number] Calcium [Mass/Vol] 10.8 mg/dL Abnormal 8.6-10.2 [facility] Internal Medicine; [facility] Work Phone: Comment on above: PATIENT WAS FASTINGP ERFORMED BY: [facility] Fjcjdg7712 [address] [facility] Centerin [place] [id number] Chloride [Moles/Vol] 104 mmol/L Normal 96-[address] [facility]; [facility] Work Phone: Comment on above: PATIENT WAS FASTINGP ERFORMED BY: [facility] Yrvxiv8304 [facility] RoadOur Community Hospital [id number] CO2 [Moles/Vol] 23 mmol/L Normal 20-29 [facility]; [facility] Work Phone: Comment on above: PATIENT WAS FASTINGP ERFORMED BY: CONNER [facility] Pqoajn1399 [address] [facility] Centerin [place] [id number] Creatinine [Mass/Vol] 1.28 mg/dL Abnormal 0.76-1.27 [facility]; [facility] Work Phone: Comment on above: PATIENT WAS FASTINGP ERFORMED BY: [facility] Lagecn[address] [facility] [id number] GFR/1.73 sq M.predicted among non-blacks MDRD (S/P/Bld) [Vol rate/Area] 60 mL/min/{1.73_m2} Normal Comprehensiv e Internal Medicine; [facility] Work Phone: Comment on above: PATIENT WAS FASTINGP ERFORMED BY: CONNER [facility] Otnbyi1876 [address] [facility]in [place] [id number] Globulin (S) [Mass/Vol] 2.1 g/dL Normal 1.5-4.5 [facility]; [facility] Work Phone: Comment on above: PATIENT WAS FASTINGP ERFORMED BY: CB [facility] Fupqso9617 [address] RoadDublin [place] [id number] Glucose [Mass/Vol] 83 mg/dL Normal 70-99 [facility] Internal Medicine; [facility] Work Phone: Comment on above: PATIENT WAS FASTINGP ERFORMED BY: CB [facility] Ttsvvr1160 [address] RoadD[address] [place] [id number] Potassium [Moles/Vol] 5.1 mmol/L Normal 3.5-5.2 [facility]; [facility] Work Phone: Comment on above: PATIENT WAS FASTINGP ERFORMED BY: CB [facility] Dxtvlz9533 [address] RoadDublin [place] [id number] Protein [Mass/Vol] 6.7 g/dL Normal 6.0-8.5 [facility] Internal Medicine; [facility] Work Phone: Comment on above: PATIENT WAS FASTINGP ERFORMED BY: CB [facility] Mxnqfb8576 [address] RoadDublin [place] [id number] Sodium [Moles/Vol] 142 mmol/L Normal 134-144 [facility] Internal Medicine; [facility] Work Phone: Comment on above: PATIENT WAS FASTINGP ERFORMED BY: CB [facility] Lgrrpg8821 [address] RoadDublin [place] [id number] Urea nitrogen [Mass/Vol] 17 mg/dL Normal 8-27 [facility]; [facility] Work Phone: Comment on above: PATIENT WAS FASTINGP ERFORMED BY: CB [facility] Prwdas4994 [address] RoadDublin [place] [id number] Urea nitrogen/Creatinine [Mass ratio] 13 mg/mg Normal 10-24 [facility]; [facility] Work Phone: Comment on above: PATIENT WAS FASTINGP ERFORMED BY: CB [facility] Fphhvp4332 [address] RoadDublin [place] [id number] No Panel InformationOrdered By: Dr. Frost on 09-19-2022 Prostate Specific Antigen Total 0.06 ng/mL 0.0-4.0 [facility] Comment on above: This test was perfor med using the TPSA assay method for the[employer] chemistry system. Values obtained with differentassay methods cannot be used interchangably.When changing PSA assays in the course of monitoring apatient, additional sequential testing should be carriedout to confirm baseline values. Absolute lymphocyte countOrd ered By: Dr. Mercado on 08-23-2022 Lymphocytes Auto (Unsp spec) [#/Vol] 1.29 10*3/uL 0.83-4.51 [facility] Basophil percentageOrdered B y: Dr. Mercado on 08-23-2022 Basophils/100 WBC (Bld) 0.7 % 0-1 [facility] Chloride [Moles/Vol] 107 mmol/L 98-107 [facility] Eosinophils/100 WBC (Bld) 1.5 % 0-5 [facility] Glucose [Mass/Vol] 87 mg/dL 74-106 [facility] Neutrophils (Bld) [#/Vol] 5.0 10*3/uL 2.0-7.7 [facility] Neutrophils/100 WBC (Bld) 68.9 % 47-70 [facility] Potassium [Moles/Vol] 3.9 mmol/L 3.5-5.1 [facility] Comment on above: Slight Hemolysis, Re sult may be falsely increased. Sodium [Moles/Vol] 140 mmol/L 136-145 [facility] WBC (Bld) [#/Vol] 7.3 10*3/uL 4.4-11.0 [facility] Blood erythrocytes count (nu mber/volume)Ordered By: Dr. Mercado on 08-23-2022 RBC (Bld) [#/Vol] 4.62 10*6/uL 4.6-6.2 [facility] Blood hemoglobin measurement (mass/volume)Ordered By: Dr. Mercado on 08-23-2022 Hemoglobin (Bld) [Mass/Vol] 15.6 g/dL 13.0-16.5 [facility] Blood lymphocytes/100 leukoc ytesOrdered By: Dr. Mercado on 08-23-2022 Lymphocytes/100 WBC (Bld) 17.7 % 19-41 [facility] Blood monocytes/100 leukocyt esOrdered By: Dr. Mercado on 08-23-2022 Monocytes/100 WBC (Bld) 10.2 % 0-10 [facility] Blood platelet mean volumeOr dered By: Dr. Mercado on 08-23-2022 Platelet mean volume (Bld) [Entitic vol] 9.3 fL 6.2-12.0 [facility] Determination of erythrocyte mean corpuscular volume (MCV)Ordered By: Dr. Mercado on 08-23-2022 MCV (RBC) [Entitic vol] 101.5 fL 80-94 [facility] Hematocrit Auto (Bld) [Volum e fraction]Ordered By: Dr. Mercado on 08-23-2022 Hematocrit (Bld) [Volume fraction] 46.9 % 40-54 [facility] Laboratory - Chemistry and C hemistry - challengeOrdered By: Dr. Mercado on 08-23-2022 CO2 [Moles/Vol] 26.0 mmol/L 21.0-32.0 [facility] Urea nitrogen/Creatinine [Mass ratio] 15.4 mg/mg 10-20 [facility] Laboratory - Hematology and Cell countsOrdered By: Dr. Mercado on 08-23-2022 Erythrocyte distribution width (RBC) [Entitic vol] 51.3 fL 35.1-43.9 [facility] Erythrocyte distribution width (RBC) [Ratio] 13.7 % 11.6-14.6 [facility] Immature granulocytes/100 WBC (Bld) 1.000 % 0.0-0.9 [facility] Comment on above: IG% - Immature Granu locytes (promyelocytes, myelocytes and metamyelocytes) > 1% indicates that a LEFT SHIFT is Present. MCH (RBC) [Entitic mass] 33.8 pg 27.0-32.0 [facility] Nucleated RBC/100 WBC (Bld) [Ratio] 0 % 0-5 [facility] MCHC Auto (RBC) [Mass/Vol]Or dered By: Dr. Mercado on 08-23-2022 MCHC (RBC) [Mass/Vol] 33.3 g/dL 32-36 [facility] No Panel InformationOrdered By: Dr. Mercado on 08-23-2022 Estimated GFR (MDRD) Amer 79 mL/min >60 [facility] Comment on above: GFR Calc Estimated GFR (MDRD) Non-Af Amer 65 mL/min >60 [facility] Comment on above: Non- GFR Calc Platelets bldOrdered By: Dr. Mercado on 08-23-2022 Platelets (Bld) [#/Vol] 242 10*3/uL 150-450 [facility] Serum or plasma calcium mckinley urement (mass/volume)Ordered By: Dr. Mercado on 08-23-2022 Calcium [Mass/Vol] 9.8 mg/dL 8.5-10.1 [facility] Serum or plasma creatinine m easurement (mass/volume)Ordered By: Dr. Mercado on 08-23-2022 Creatinine [Mass/Vol] 1.17 mg/dL 0.70-1.30 [facility] Comment on above: The validity of the calculated GFR & GFRAA in patients over 70 years has not been determined. Clinical correlation is essential. Serum or plasma urea nitroge n measurement (mass/volume)Ordered By: Dr. Mercado on 08-23-2022 Urea nitrogen [Mass/Vol] 18 mg/dL 7-18 [facility] Thin prep Papanicolaou smear with manual screeningOrdered By: Dr. Mercado on 08-23-2022 Thin prep Papanicolaou smear with manual screening 7 5-15 [facility] C-REACT PROT HIGH SENS(hsCRP ) ([id number])Ordered By: Meat Stringer on 07-21-2022 CRP High sensitivity method [Mass/Vol] 2.26 mg/L Normal 0.00-3.00 [facility]; [facility] Work Phone: Comment on above: Relative Risk for Fu ture Cardiovascular Event Low <1.00 Average 1.00 - 3.00 High >3.00 PATIENT WAS FASTINGP ERFORMED BY: [facility]coAncor[facility] Psychiatric HospitalCyydhn1575 [facility] [id number] INSULIN, TOTAL ([id number])Ordere d By: Meat Stringer on 07-21-2022 Insulin Qn 26.1 u[IU]/mL Abnormal 2.6-24.9 Comprehensi ve Internal Medicine; [facility] Work Phone: Comment on above: PATIENT WAS FASTINGP ERFORMED BY: CONNER [facility] Djqfwn7216 [address]Dublin [place] [id number] METABOLIC PANEL, COMPREHENSI VE ([id number])Ordered By: Meat Stringer on 07-21-2022 Albumin [Mass/Vol] 4.4 g/dL Normal 3.8-4.8 [facility] Internal Medicine; [facility] Work Phone: Comment on above: PATIENT WAS FASTINGP ERFORMED BY: CB [facility] Cwatle1095 [address]Dublin [place] [id number] Albumin/Globulin [Mass ratio] 2.1 {ratio} Normal 1.2-2.2 [facility]; [facility] Work Phone: Comment on above: PATIENT WAS FASTINGP ERFORMED BY: CONNER [facility] Pldepa7930 [address] RoadDublin [place] [id number] ALP [Catalytic activity/Vol] 126 U/L Abnormal 44-121 [facility]; [facility] Work Phone: Comment on above: PATIENT WAS FASTINGP ERFORMED BY: CB [facility] Vqeyxn1533 [address] RoadDublin [place] [id number] ALT [Catalytic activity/Vol] 30 U/L Normal 0-44 [facility]; [facility] Work Phone: Comment on above: PATIENT WAS FASTINGP ERFORMED BY: CB [facility] Szsxkz0706 [address] RoadD[address] [place] [id number] AST [Catalytic activity/Vol] 22 U/L Normal 0-40 [facility]; [facility] Work Phone: Comment on above: PATIENT WAS FASTINGP ERFORMED BY: CB [facility] Obniwc3995 [address] RoadD[address] [place] [id number] Bilirubin [Mass/Vol] 0.4 mg/dL Normal 0.0-1.2 [facility]; [facility] Work Phone: Comment on above: PATIENT WAS FASTINGP ERFORMED BY: CB [facility] Iuyrnp9901 [address] [place] [id number] Calcium [Mass/Vol] 10.0 mg/dL Normal 8.6-10.2 [facility]; [facility] Work Phone: Comment on above: PATIENT WAS FASTINGP ERFORMED BY: [facility] Hffvnp1521 [address]Dublin [place] [id number] Chloride [Moles/Vol] 105 mmol/L Normal 96-106 Comp rehensive Internal Medicine; [facility] Work Phone: Comment on above: PATIENT WAS FASTINGP ERFORMED BY: [facility] Zhoves2462 [address] [place] [id number] CO2 [Moles/Vol] 23 mmol/L Normal 20-29 [facility]; [facility] Work Phone: Comment on above: PATIENT WAS FASTINGP ERFORMED BY: LabMcLaren Lapeer Region6[address] RoadCarepartners Rehabilitation Hospitalin [place] [id number] Creatinine [Mass/Vol] 1.07 mg/dL Normal 0.76-1.27 [facility]; [facility] Work Phone: Comment on above: PATIENT WAS FASTINGP ERFORMED BY: [facility] Ywppvl7325 [facility] [place] [id number] GFR/1.73 sq M.predicted among non-blacks MDRD (S/P/Bld) [Vol rate/Area] 75 mL/min/{1.73_m2} Normal Comprehensiv e Internal Medicine; [facility] Work Phone: Comment on above: PATIENT WAS FASTINGP ERFORMED BY: [facility] Tzszta5697 [facility] [place] [id number] Globulin (S) [Mass/Vol] 2.1 g/dL Normal 1.5-4.5 [facility]; [facility] Work Phone: Comment on above: PATIENT WAS FASTINGP ERFORMED BY: [facility] Pwtedt3237 Lucas RoadDublin [place] [id number] Glucose [Mass/Vol] 92 mg/dL Normal 70-99 [facility]; [facility] Work Phone: Comment on above: PATIENT WAS FASTINGP ERFORMED BY: CONNER [facility] Pucboi7560 [address] RoadDublin [place] [id number] Potassium [Moles/Vol] 4.0 mmol/L Normal 3.5-5.2 [facility]; [facility] Work Phone: Comment on above: PATIENT WAS FASTINGP ERFORMED BY: [facility] Glnogy2154 [address] RoadDublin [place] [id number] Protein [Mass/Vol] 6.5 g/dL Normal 6.0-8.5 [facility] Medicine; [facility] Work Phone: Comment on above: PATIENT WAS FASTINGP ERFORMED BY: CONNER [facility] Leykdk3046 Lucas RoadDublin [place] [id number] Sodium [Moles/Vol] 143 mmol/L Normal 134-144 [facility] Internal Medicine; [facility] Work Phone: Comment on above: PATIENT WAS FASTINGP ERFORMED BY: CONNER [facility] Iohekn5596 Lucas RoadDublin [place] [id number] Urea nitrogen [Mass/Vol] 15 mg/dL Normal 8-27 [facility]; [facility] Work Phone: Comment on above: PATIENT WAS FASTINGP ERFORMED BY: CONNER [facility] Ryfuao4363 [address] RoadDublin [place] [id number] Urea nitrogen/Creatinine [Mass ratio] 14 mg/mg Normal 10-24 [facility]; [facility] Work Phone: Comment on above: PATIENT WAS FASTINGP ERFORMED BY: [facility] Kvmjkz5279 [address] RoadDublin [place] [id number] MICROALBUMINOrdered By: Syst em Agricultural Equipment Design Engineer on 07-21-2022 Albumin DL <= 20 mg/L (U) [Mass/Vol] 78.8 ug/mL Normal Comprehensiv e [facility]; [facility] Work Phone: Comment on above: PATIENT WAS FASTINGP ERFORMED BY: [facility] Pudtsc2813 [address] RoadDublin [place] [id number] Albumin/Creatinine (U) [Mass ratio] 39 {mg/g_creat} Abnormal 0-29 [facility]; [facility] Work Phone: Comment on above: Normal: 0 - 29 Moder ately increased: 30 - 300 Severely increased: >300 PATIENT WAS FASTINGP ERFORMED BY: [facility] Xiwmiu8979 [facility] [id number] Creatinine (U) [Mass/Vol] 200.8 mg/dL Normal [facility]; [facility] Work Phone: Comment on above: PATIENT WAS FASTINGP ERFORMED BY: [facility]sparkAlta Vista Regional HospitalFdxbsj5421 [facility] [id number] CALCIUM, IONIZED ([id number])Orde red By: Meat Stringer on 04-18-2022 Calcium.ionized ISE [Mass/Vol] 5.9 mg/dL Abnormal 4.5-5.6 [facility]; [facility] Work Phone: Comment on above: PATIENT WAS FASTINGP ERFORMED BY: [facility] Cfvjys1578 [facility] [id number] CBC WITH MANUAL DIFF ([id number]) Ordered By: Meat Stringer on 04-18-2022 Basophils (Bld) [#/Vol] 0.0 10*3/uL Normal 0.0-0.2 [facility]; [facility] Work Phone: Comment on above: PATIENT WAS FASTINGP ERFORMED BY: OutsparkAncora Psychiatric HospitalSffkdz7960 [facility] [id number] Basophils/100 WBC (Bld) 0 % Normal [facility]; [facility] Work Phone: Comment on above: PATIENT WAS FASTINGP ERFORMED BY: [facility] Tdhyeq0528 [facility] [id number] Eosinophils (Bld) [#/Vol] 0.1 10*3/uL Normal 0.0-0.4 [facility]; [facility] Work Phone: Comment on above: PATIENT WAS FASTINGP ERFORMED BY: [facility] Uneenc3910 [facility] [id number] Eosinophils/100 WBC (Bld) 2 % Normal [facility]; [facility] Work Phone: Comment on above: PATIENT WAS FASTINGP ERFORMED BY: CONNER Greenwood6370 [address] [facility] Hospitalblin [place] [id number] Erythrocyte distribution width (RBC) [Ratio] 12.6 % Normal 11.6-15.4 [facility]; [facility] Work Phone: Comment on above: PATIENT WAS FASTINGP ERFORMED BY: CONNER Sappcorenee GreenwoodLlmifk6017 Lucas RoadCarepartners Rehabilitation Hospitalin [place] [id number] Hematocrit (Bld) [Volume fraction] 46.3 % Normal 37.5-51.0 [facility]; [facility] Work Phone: Comment on above: PATIENT WAS FASTINGP ERFORMED BY: CONNER Greenwood6370 [address] RoadCarepartners Rehabilitation Hospitalin [place] [id number] Hemoglobin (Bld) [Mass/Vol] 15.0 g/dL Normal 13.0-17.7 [facility]; [facility] Work Phone: Comment on above: PATIENT WAS FASTINGP ERFORMED BY: CONNER Esposito Qvjjzd6108 Lucas RoadCarepartners Rehabilitation Hospitalin [place] [id number] Immature granulocytes (Bld) [#/Vol] 0.1 10*3/uL Normal 0.0-0.1 [facility]; [facility] Work Phone: Comment on above: PATIENT WAS FASTINGP ERFORMED BY: CONNER Esposito Byjpbi2737 [address] Roadblin [place] [id number] Immature granulocytes/100 WBC (Bld) 1 % Normal [facility]; [facility] Work Phone: Comment on above: PATIENT WAS FASTINGP ERFORMED BY: CONNER [facility] Tfihoq2919 [address] RoadDublin [place] [id number] Lymphocytes (Bld) [#/Vol] 1.1 10*3/uL Normal 0.7-3.1 [facility]; [facility] Work Phone: Comment on above: PATIENT WAS FASTINGP ERFORMED BY: [facility] Topokb0276 [address] RoadDublin [place] [id number] Lymphocytes/100 WBC (Bld) 13 % Normal [facility]; [facility] Work Phone: Comment on above: PATIENT WAS FASTINGP ERFORMED BY: CONNER Senaitbenny Yukqep1575 [facility] [id number] MCH (RBC) [Entitic mass] 32.6 pg Normal 26.6-33.0 [facility]; [facility] Work Phone: Comment on above: PATIENT WAS FASTINGP ERFORMED BY: CONNER LabMc[facility]6370 [facility] [id number] MCHC (RBC) [Mass/Vol] 32.4 g/dL Normal 31.5-35.7 [facility]; [facility] Work Phone: Comment on above: PATIENT WAS FASTINGP ERFORMED BY: CONNER Schererlin6370 [facility] [id number] MCV (RBC) [Entitic vol] 101 fL Abnormal 79-97 [facility]; [facility] Work Phone: Comment on above: PATIENT WAS FASTINGP ERFORMED BY: CONNER [facility] Yxtwia8656 [facility] [id number] Monocytes (Bld) [#/Vol] 0.8 10*3/uL Normal 0.1-0.9 [facility]; [facility] Work Phone: Comment on above: PATIENT WAS FASTINGP ERFORMED BY: CONNER Lab[facility] Nsbixu0307 [facility] [id number] Monocytes/100 WBC (Bld) 9 % Normal [facility]; [facility] Work Phone: Comment on above: PATIENT WAS FASTINGP ERFORMED BY: CONNER Labdav[facility] Antxdw7830 [facility] [id number] Neutrophils (Bld) [#/Vol] 6.4 10*3/uL Normal 1.4-7.0 [facility]; [facility] Work Phone: Comment on above: PATIENT WAS FASTINGP ERFORMED BY: CONNER LabMc[facility]6370 [facility] [id number] Neutrophils/100 WBC (Bld) 75 % Normal [facility]; [facility] Work Phone: Comment on above: PATIENT WAS FASTINGP ERFORMED BY: CONNER Zahra Schererlin6370 [facility]in [place] [id number] Platelets (Bld) [#/Vol] 225 10*3/uL Normal 150-450 [facility]; [facility] Internal Medicine Work Phone: Comment on above: PATIENT WAS FASTINGP ERFORMED BY: CONNER [facility] Sweslm[address] [facility] [id number] RBC (Bld) [#/Vol] 4.60 10*6/uL Normal 4.14-5.80 [facility] Internal Medicine; [facility] Internal Medicine Work Phone: Comment on above: PATIENT WAS FASTINGP ERFORMED BY: CONNER [facility] Pqcrmr[address] [facility] [id number] WBC (Bld) [#/Vol] 8.5 10*3/uL Normal 3.4-10.8 [facility] Internal Medicine; [facility] Internal Medicine Work Phone: Comment on above: PATIENT WAS FASTINGP ERFORMED BY: CONNER Labbenny Xnyswu2940 [facility] [id number] Metabolic Panel, Comprehensi ve ([id number])Ordered By: Meat Stringer on 04-18-2022 Albumin [Mass/Vol] 4.5 g/dL Normal 3.8-4.8 [facility] Internal Medicine; [facility] Internal Medicine Work Phone: Comment on above: PATIENT WAS FASTINGP ERFORMED BY: CONNER [facility] Qcpylc8770 [facility] [place] [id number] Albumin/Globulin [Mass ratio] 2.3 {ratio} Abnormal 1.2-2.2 [facility] Internal Medicine; [facility] Work Phone: Comment on above: PATIENT WAS FASTINGP ERFORMED BY: CONNER [facility] Tweurt6205 [facility] [place] [id number] ALP [Catalytic activity/Vol] 109 U/L Normal 44-121 [facility]; [facility] Work Phone: Comment on above: PATIENT WAS FASTINGP ERFORMED BY: CB [facility] Wbrrre0636 [address] RoadDublin [place] [id number] ALT [Catalytic activity/Vol] 30 U/L Normal 0-44 [facility]; [facility] Work Phone: Comment on above: PATIENT WAS FASTINGP ERFORMED BY: CB [facility] Npdvsw5447 [address] RoadDublin [place] [id number] AST [Catalytic activity/Vol] 21 U/L Normal 0-40 [facility]; [facility] Work Phone: Comment on above: PATIENT WAS FASTINGP ERFORMED BY: CB [facility] Cztzgd3955 [address] RoadDublin [place] [id number] Bilirubin [Mass/Vol] 0.3 mg/dL Normal 0.0-1.2 Comp rehensive Internal Medicine; [facility] Work Phone: Comment on above: PATIENT WAS FASTINGP ERFORMED BY: CB [facility] Zmsyuh4717 [address] RoadDublin [place] [id number] Calcium [Mass/Vol] 10.6 mg/dL Abnormal 8.6-10.2 [facility] Internal [facility]; [facility] Work Phone: Comment on above: PATIENT WAS FASTINGP ERFORMED BY: [facility] Vrfayx7651 [address] RoadDublin [place] [id number] Chloride [Moles/Vol] 106 mmol/L Normal 96-[address] [facility] hospitalensive Internal Medicine; [facility] Work Phone: Comment on above: PATIENT WAS FASTINGP ERFORMED BY: CB [facility] Rkdyqc0183 [address] RoadDublin [place] [id number] CO2 [Moles/Vol] 23 mmol/L Normal 20-29 [facility] Internal Medicine; [facility] Work Phone: Comment on above: PATIENT WAS FASTINGP ERFORMED BY: CB [facility] Fpdgth1237 [address] RoadDublin [place] [id number] Creatinine [Mass/Vol] 1.07 mg/dL Normal 0.76-1.27 [facility]; [facility] Work Phone: Comment on above: PATIENT WAS FASTINGP ERFORMED BY: CONNER Labcorenee SchererOhvjxa1914 [facility] [place] [id number] GFR/1.73 sq M.predicted among non-blacks MDRD (S/P/Bld) [Vol rate/Area] 75 mL/min/{1.73_m2} Normal Comprehensiv e Internal Medicine; [facility] Work Phone: Comment on above: PATIENT WAS FASTINGP ERFORMED BY: CONNER [facility] Uztzbb[address] [facility] [id number] Globulin (S) [Mass/Vol] 2.0 g/dL Normal 1.5-4.5 [facility]; [facility] Work Phone: Comment on above: PATIENT WAS FASTINGP ERFORMED BY: CONNER [facility] Vcdjhc1697 [address] [facility] [place] [id number] Glucose [Mass/Vol] 101 mg/dL Abnormal 65-99 [facility]; [facility] Work Phone: Comment on above: PATIENT WAS FASTINGP ERFORMED BY: CONNER Labbenny SchererQrfgqu7662 [facility] [place] [id number] Potassium [Moles/Vol] 5.2 mmol/L Normal 3.5-5.2 [facility]; [facility] Work Phone: Comment on above: PATIENT WAS FASTINGP ERFORMED BY: CONNER [facility] Fshouw2951 [facility] [place] [id number] Protein [Mass/Vol] 6.5 g/dL Normal 6.0-8.5 [facility]; [facility] Work Phone: Comment on above: PATIENT WAS FASTINGP ERFORMED BY: CONNER [facility] Kclupf0599 [facility] [place] [id number] Sodium [Moles/Vol] 143 mmol/L Normal 134-144 Compre hensive Internal Medicine; [facility] Work Phone: Comment on above: PATIENT WAS FASTINGP ERFORMED BY: CONNER [facility] Bxtfrr4354 [address] RoadDublin [place] [id number] Urea nitrogen [Mass/Vol] 23 mg/dL Normal 8-27 [facility]; [facility] Work Phone: Comment on above: PATIENT WAS FASTINGP ERFORMED BY: CB [facility] Rktxmb8244 [address] RoadDublin [place] [id number] Urea nitrogen/Creatinine [Mass ratio] 21 mg/mg Normal 10-24 [facility]; [facility] Work Phone: Comment on above: PATIENT WAS FASTINGP ERFORMED BY: CB [facility] Pizqnt5203 [address] RoadDublin [place] [id number] PARATHORMONE ([id number])Ordered By: Meat Stringer on 04-18-2022 Parathyrin.intact [Mass/Vol] 37 pg/mL Normal 15-65 [facility]; [facility] Work Phone: Comment on above: PATIENT WAS FASTINGP ERFORMED BY: [facility] Jzhhzu2556 [address] RoadDublin [place] [id number] TSH (THYROID STIMULATING HOR RACHEL) ([id number])Ordered By: Meat Stringer on 04-18-2022 TSH Qn 1.430 {uIU/mL} Normal 0.450-4.50 0 [facility]; [facility] Work Phone: Comment on above: PATIENT WAS FASTINGP ERFORMED BY: CONNER [facility] Gbqwtz8062 [address] RoadDublin [place] [id number] URINALYSIS ([id number])Ordered By : Meat Stringer on 04-18-2022 Appearance (U) Clear Normal Comprehens mamadou Internal Medicine; [facility] Work Phone: Comment on above: PATIENT WAS FASTINGP ERFORMED BY: CB [facility] Bjqqgs1933 [address] RoadDublin [place] [id number] Bilirubin Ql (U) Negative Normal Comprehe nsive Internal Medicine; [facility] Work Phone: Comment on above: PATIENT WAS FASTINGP ERFORMED BY: CB [facility] Lgnbos2937 [address] RoadDublin [place] [id number] Color (U) Yellow Normal [facility]; [facility] Work Phone: Comment on above: PATIENT WAS FASTINGP ERFORMED BY: CONNER Greenwood6370 [address] RoadDublin [place] [id number] Glucose Ql (U) Negative Normal Comprehens mamadou Internal Medicine; [facility] Work Phone: Comment on above: PATIENT WAS FASTINGP ERFORMED BY: CONNER Greenwood6370 [address] RoadD[address] [place] [id number] Hemoglobin Ql (U) Negative Normal Compreh ensive Internal Medicine; [facility] Work Phone: Comment on above: PATIENT WAS FASTINGP ERFORMED BY: CONNER Greenwood6370 [address] RoadDublin [place] [id number] Ketones Ql (U) Negative Normal Comprehens mamadou Internal Medicine; [facility] Work Phone: Comment on above: PATIENT WAS FASTINGP ERFORMED BY: CONNER Greenwood6370 [address] [facility] HospitalD[facility] [place] [id number] Leukocyte esterase Test strip Ql (U) Negative Normal [facility]; [facility] Work Phone: Comment on above: PATIENT WAS FASTINGP ERFORMED BY: CONNER Greenwood6[address] [facility] HospitalD[facility] [place] [id number] Microscopic observation LM Nom (Urine sed) MICNIP Normal [facility]; [facility] Work Phone: Comment on above: Microscopic not edwin cated and not performed. PATIENT WAS FASTINGP ERFORMED BY: CONNER Schererlin6370 [address] RoadDublin [place] [id number] Nitrite Ql (U) Negative Normal Comprehens mamadou Internal Medicine; [facility] Work Phone: Comment on above: PATIENT WAS FASTINGP ERFORMED BY: CONNER Schererlin6370 [address] RoadDublin [place] [id number] pH (U) 5.5 [pH] Normal 5.0-7.5 [facility]; [facility] Work Phone: Comment on above: PATIENT WAS FASTINGP ERFORMED BY: CONNER Schererlin6370 [address] RoadDuin [place] [id number] Protein Ql (U) Negative Normal Comprehens mamadou Internal Medicine; [facility] Work Phone: Comment on above: PATIENT WAS FASTINGP ERFORMED BY: [facility] Bkhedt3221 [facility] [id number] Specific gravity (U) [Rel density] 1.021 1 Normal 1.005-1.03 0 [facility]; [facility] Work Phone: Comment on above: PATIENT WAS FASTINGP ERFORMED BY: [facility]6370 [facility] [id number] Urobilinogen (U) [Mass/Vol] 0.2 mg/dL Normal 0.2-1.0 [facility]; [facility] Work Phone: Comment on above: PATIENT WAS FASTINGP ERFORMED BY: [facility]6370 [facility] [id number] No Panel Informationon 03-22 Prostate Specific Antigen Total 0.04 ng/mL 0.0-4.0 [facility] Work Phone: Comment on above: This test was perfor med using the TPSA assay method for [employer] chemistry system. Values obtained with differentassay methods cannot be used interchangably.When changing PSA assays in the course of monitoring apatient, additional sequential testing should be carriedout to confirm baseline values. CALCIUM, IONIZED (09345)Orde red By: Meat Stringer on 12-28-2021 Calcium.ionized ISE [Mass/Vol] 6.0 mg/dL Abnormal 4.5-5.6 [facility]; [facility] Work Phone: Comment on above: PATIENT NOT FASTINGP ERFORMED BY: [facility]6370 [facility] [id number]; fu 6-2 db BASIC METABOLIC w/Ionized Ca ++ (05404)Ordered By: Meat Stringer on 09-22-2021 Calcium [Mass/Vol] 10.4 mg/dL Abnormal 8.6-10.2 [facility] Internal Medicine; [facility] Work Phone: Comment on above: PATIENT NOT FASTINGP ERFORMED BY: CONNER Greenwood[address] [facility] [id number] Chloride [Moles/Vol] 106 mmol/L Normal 96-106 Comp rehensive Internal Medicine; [facility] Work Phone: Comment on above: PATIENT NOT FASTINGP ERFORMED BY: CONNER Schererlin[address] [facility] [id number] CO2 [Moles/Vol] 21 mmol/L Normal 20-29 Comprehen [facility]; [facility] Work Phone: Comment on above: PATIENT NOT FASTINGP ERFORMED BY: CONNER Greenwood6370 [facility] [id number] Creatinine [Mass/Vol] 1.10 mg/dL Normal 0.76-1.27 [facility]; [facility] Work Phone: Comment on above: PATIENT NOT FASTINGP ERFORMED BY: CONNER Schererlin6370 [facility] [id number] GFR/1.73 sq M.predicted among blacks CKD-EPI (S/P/Bld) [Vol rate/Area] 79 mL/min/1.73 Normal [facility]; [facility] Work Phone: Comment on above: In accordance with recommendations from the NKF-ASN Task force, [facility] is in the process of updating its eGFR calculation to the 2020 CKD-EPI creatinine equation that estimates kidney function without a race variable. PATIENT NOT FASTINGP ERFORMED BY: CONNER Schererlin6370 [facility] [id number] GFR/1.73 sq M.predicted among non-blacks CKD-EPI (S/P/Bld) [Vol rate/Area] 68 mL/min/1.73 Normal [facility]; [facility] Work Phone: Comment on above: PATIENT NOT FASTINGP ERFORMED BY: CONNER Schererlin6370 [facility] [id number] Glucose [Mass/Vol] 89 mg/dL Normal 65-99 Compre hensive Internal Medicine; [facility] Work Phone: Comment on above: PATIENT NOT FASTINGP ERFORMED BY: CB [facility] Unldfg3704 [address] RoadDublin [place] [id number] Potassium [Moles/Vol] 4.2 mmol/L Normal 3.5-5.2 [facility]; [facility] Work Phone: Comment on above: PATIENT NOT FASTINGP ERFORMED BY: CB [facility] Cahsaq0917 [address] RoadDublin [place] [id number] Sodium [Moles/Vol] 142 mmol/L Normal 134-144 [facility]; [facility] Work Phone: Comment on above: PATIENT NOT FASTINGP ERFORMED BY: CB [facility] Qwzjax7703 [address] RoadDublin [place] [id number] Urea nitrogen [Mass/Vol] 20 mg/dL Normal 8-27 [facility]; [facility] Work Phone: Comment on above: PATIENT NOT FASTINGP ERFORMED BY: CB [facility] Icknql2083 [address] RoadDublin [place] [id number] Urea nitrogen/Creatinine [Mass ratio] 18 mg/mg Normal 10-24 [facility]; [facility] Work Phone: Comment on above: PATIENT NOT FASTINGP ERFORMED BY: CB [facility] Vpywqa6696 [address] RoadDublin [place] [id number] CALCIFEDIOL ([id number])Ordered B y: Meat Stringer on 09-22-2021 25-hydroxyvitamin D [Mass/Vol] 73.1 ng/mL Normal 30.0-100.0 [facility]; [facility] Work Phone: Comment on above: Vitamin D deficiency has been defined by the [place] of[place]icine and an Endocrine Society practice guideline as alevel of serum 25-OH vitamin D less than 20 ng/mL (1,2).The Endocrine Society went on to further define vitamin Dinsufficiency as a level between 21 and 29 ng/mL (2).1. IOM ([place] of Medicine). 2010. Dietary reference intakes for calcium and D. [place]: The National Academies Press.2. Albina MF, Allen TRACEY, Hawa BETANCUR, et al. Evaluation, treatment, and prevention of vitamin D deficiency: an Endocrine Society clinical practice guideline. JCEM. 2010; 96(7):1911-30. PATIENT NOT FASTINGP ERFORMED BY: [facility] Xfdxjd0320 CibiemDublin [place] [id number] CULTURE, VIRUS GENERAL 8573 (58486)Ordered By: Meat Stringer on 09-13-2021 Virus identified Cx Nom (Unsp spec) No virus isolated. Normal [facility]; [facility] Work Phone: Comment on above: PATIENT NOT FASTINGP ERFORMED BY: [place]Bet[place] 809147 [facility] [id number] Information: ANAL ULCER SRC:AU [id number] HgA1C , Office ([id number])Ordere d By: Avani Chavira on 09-13-2021 HbA1c (Bld) [Mass fraction] 5.5 % Normal 4.6 - 7.1 [facility]; [facility] Work Phone: CALCIUM, IONIZED ([id number])Orde red By: Meat Stringer on 09-06-2021 Calcium.ionized ISE [Mass/Vol] 6.0 mg/dL Abnormal 4.5-5.6 [facility]; [facility] Work Phone: Comment on above: PATIENT NOT FASTINGP ERFORMED BY: [facility] Niwbjg9909 [place]ob[place] [id number]; fu 2-7 db PARATHORMONE ([id number])Ordered By: Meat Stringer on 09-06-2021 Parathyrin.intact [Mass/Vol] 24 pg/mL Normal 15-65 [facility]; [facility] Work Phone: Comment on above: PATIENT NOT FASTINGP ERFORMED BY: [facility] Lamdgj9148 CibiemDublin [place] [id number] INHOUSE COVID 19 (ONLY) RAPI D ([id number])Ordered By: REGI North on 08-10-2021 SARS-CoV-2 (COVID-19) RNA GALLO+probe Ql (Unsp spec) Negative Normal [facility]; [facility] Work Phone: ABDIRASHID (ANTINUCLEAR ANTIBODY) ( 70536)Ordered By: Meat Stringer on 06-10-2021 Nuclear Ab Ql (S) Negative Normal Compreh ensive Internal Medicine; [facility] Work Phone: Comment on above: PATIENT NOT FASTINGP ERFORMED BY: Elastra70 [address] [facility] HospitalOpen Kernel LabsAdventHealth [id number] BY: Tech[employer]el [address] [id number] CALCIUM SERUM (10697)Ordered By: Meat Stringer on 06-10-2021 Calcium [Mass/Vol] 10.6 mg/dL Abnormal 8.6-10.2 [facility]; [facility] Work Phone: Comment on above: PATIENT NOT FASTINGP ERFORMED BY: Elastra70 [facility]oAdventHealth [id number] BY: iCook.tw[address] [id number] CCP ANTIBODY (65909)Ordered By: Meat Stringer on 06-10-2021 Cyclic citrullinated peptide IgA+IgG IA Qn 8 {units} Normal 0-19 [facility]; [facility] Work Phone: Comment on above: Negative <20 Weak po sitive 20 - 39 Moderate positive 40 - 59 Strong positive >59 PATIENT NOT FASTINGP ERFORMED BY: Elastra[address] [facility] [id number] BY: iCook.tw[address] [id number] HgA1C , Office (96662)Ordere d By: Geni Suarez on 06-10-2021 HbA1c (Bld) [Mass fraction] 5.5 % Normal 4.6 - 7.1 [facility]; [facility] Work Phone: Methymalonic Acid, Serum (67 306)Ordered By: Meat Stringer on 06-10-2021 Methylmalonate [Moles/Vol] 253 nmol/L Normal 0-378 [facility]; [facility] Work Phone: Comment on above: PATIENT NOT FASTINGP ERFORMED BY: CONNER SanT[place]sti Bxcwmw3267 [address] [facility] [place] [id number] BY: [employer] [id number] Methymalonic Acid, Serum (40048) SPR Normal [facility]; [facility] Work Phone: Comment on above: This test was develo ped and its performance characteristicsdetermined by [email or web address]. It has not been cleared or approvedby the Food and Drug Administration. PATIENT NOT FASTINGP ERFORMED BY: CONNER SanT[place] Tqragx5106 Lucas RoadCarepartners Rehabilitation Hospitalin [place] [id number] BY: [employer] [id number] PARATHORMONE (55717)Ordered By: Meat Stringer on 06-10-2021 Parathyrin.intact [Mass/Vol] 31 pg/mL Normal 15-65 [facility]; [facility] Work Phone: Comment on above: PATIENT NOT FASTINGP ERFORMED BY: CONNER SanT[place] Nqtaqw7511 [facility] [id number] BY: [employer] [id number] RHEUMATOID FACTOR-QUANT (862 08)Ordered By: Meat Stringer on 06-10-2021 Rheumatoid factor Qn [IU]/mL Normal 0.0-13.9 Comp [facility] Internal Medicine; [facility] Work Phone: Comment on above: PATIENT NOT FASTINGP ERFORMED BY: SanTásti Wrscab2050 [address] [facility] [place] [id number] BY: [employer] [id number] T4, FREE (THYROXINE) (55141) Ordered By: Meat Stringer on 06-10-2021 Free T4 [Mass/Vol] 1.37 ng/dL Normal 0.82-1.77 [facility] Internal Medicine; [facility] Work Phone: Comment on above: PATIENT NOT FASTINGP ERFORMED BY: More Design6370 Lucas RoadCarepartners Rehabilitation Hospitalin [place] [id number] BY: [employer]ium [employer] [id number] TSH (52343)Ordered By: Evelyn villarreal Agricultural Equipment Design Engineer on 06-10-2021 TSH Qn 0.846 {uIU/mL} Normal 0.450-4.50 0 [facility]; [facility] Work Phone: Comment on above: PATIENT NOT FASTINGP ERFORMED BY: More Design6370 [address] HeadSproutOur Community Hospital [id number] BY: [employer] [id number] VITAMIN B12 AND FOLATES (826 07)Ordered By: Meat Stringer on 06-10-2021 Cobalamin (Vitamin B12) [Mass/Vol] 578 pg/mL Normal 232-1245 [facility]; [facility] Work Phone: Comment on above: PATIENT NOT FASTINGP ERFORMED BY: More Design[address] [facility] [id number] BY: [employer] [id number] Folate [Mass/Vol] ng/mL Normal Compreh [facility] hospitalive [facility]; [facility] Work Phone: Comment on above: A serum folate grace ntration of less than 3.1 ng/mL isconsidered to represent clinical deficiency. PATIENT NOT FASTINGP ERFORMED BY: More Design[address] [facility] [id number] BY: SanTásti [address] [id number] HEPATIC FUNCTION PANEL (8597 6)Ordered By: Meat Stringer on 06-08-2021 Albumin [Mass/Vol] 4.5 g/dL Normal 3.8-4.8 [facility] Internal Medicine; [facility] Work Phone: Comment on above: PATIENT WAS FASTINGP ERFORMED BY: Elastra70 [address] HeadSproutDublin [place] [id number] ALP [Catalytic activity/Vol] 88 U/L Normal 44-121 [facility]; [facility] Work Phone: Comment on above: Please note refere nce interval change PATIENT WAS FASTINGP ERFORMED BY: CB [facility] Sgyabo6984 Lucas RoadDublin [place] [id number] ALT [Catalytic activity/Vol] 42 U/L Normal 0-44 [facility]; [facility] Work Phone: Comment on above: PATIENT WAS FASTINGP ERFORMED BY: CB [facility] Xtefxw9096 Lucas RoadDublin [place] [id number] AST [Catalytic activity/Vol] 28 U/L Normal 0-40 [facility]; [facility] Work Phone: Comment on above: PATIENT WAS FASTINGP ERFORMED BY: CONNER [facility] Pmfnsy4384 Lucas RoadDublin [place] [id number] Bilirubin [Mass/Vol] 0.4 mg/dL Normal 0.0-1.2 [facility]; [facility] Work Phone: Comment on above: PATIENT WAS FASTINGP ERFORMED BY: CB [facility] Eolqyj3339 Lucas RoadDublin [place] [id number] Bilirubin.direct [Mass/Vol] 0.14 mg/dL Normal 0.00-0.40 [facility]; [facility] Work Phone: Comment on above: PATIENT WAS FASTINGP ERFORMED BY: CB [facility] Gbrcgv4111 Lucas RoadDublin [place] [id number] Protein [Mass/Vol] 6.8 g/dL Normal 6.0-8.5 [facility] Internal Medicine; [facility] Work Phone: Comment on above: PATIENT WAS FASTINGP ERFORMED BY: CB [facility] Wpnncb1170 Lucas RoadDublin [place] [id number] LIPID PANEL (02118)Ordered B y: Meat Stringer on 06-08-2021 Cholesterol [Mass/Vol] 90 mg/dL Abnormal 100-199 [facility]; [facility] Work Phone: Comment on above: do other labs 2 1; PATIENT WAS FASTINGPERFORMED BY: CB [facility] Zbawpa8651 Lucas RoadDublin [place] [id number]; fu 11-4 Cholesterol in HDL [Mass/Vol] 34 mg/dL Abnormal [facility]; [facility] Work Phone: Comment on above: do other labs 2 1; PATIENT WAS FASTINGPERFORMED BY: CB [facility] Vnwbiv1647 Lucas RoadDublin [place] [id number]; fu 11-4 Triglyceride [Mass/Vol] 144 mg/dL Normal 0-149 [facility]; [facility] Work Phone: Comment on above: do other labs 1; PATIENT WAS FASTINGPERFORMED BY: CB [facility] Sanrbr0739 Lucas RoadDublin [place] [id number]; fu 11-4 LIPID PANEL (42825) 25 mg/dL Normal 5-40 Compr ensive Internal Medicine; [facility] Work Phone: Comment on above: do other labs 1; PATIENT WAS FASTINGPERFORMED BY: CB [facility] Tlctzn1263 Lucas RoadDublin [place] [id number]; fu 11-4 LIPID PANEL (76939) 31 mg/dL Normal 0-99 Compr ensive Internal Medicine; [facility] Work Phone: Comment on above: do other labs 2 1; PATIENT WAS FASTINGPERFORMED BY: CB [facility] Jvfmay4241 Lucas RoadDublin [place] [id number]; fu 11-4 LIPID PANEL (55058) 0.9 {ratio} Normal 0.0-3.[address] [facility]; [facility] Work Phone: Comment on above: LDL/HDL Ratio Men Wo men 1/2 Avg.Risk 1.0 1.5 Avg.Risk 3.6 3.2 2X Avg.Risk 6.2 5.0 3X Avg.Risk 8.0 6.1 do other labs 2--2 1; PATIENT WAS FASTINGPERFORMED BY: Ecelles Carson Osrueo2659 [facility]Ad[facility] [id number]; fu 11-4 C-REACT PROT HIGH SENS(hsCRP ) (12594)Ordered By: Meat Stringer on 12-25-2020 CRP High sensitivity method [Mass/Vol] 4.39 mg/L Abnormal 0.00-3.00 [facility]; [facility] Work Phone: Comment on above: Relative Risk for Fu ture Cardiovascular Event Low <1.00 Average 1.00 - 3.00 High >3.00 PATIENT NOT FASTINGP ERFORMED BY: More Design6370 [facility] [id number] CALCIFIDIOL (67840) VIT D 25 Ordered By: Meat Stringer on 09-17-2020 25-Hydroxyvitamin D2+25-Hydroxyvitamin D3 [Mass/Vol] 47.8 ng/mL Normal 30.0-100.0 [facility]; [facility] Work Phone: Comment on above: Vitamin D deficiency has been defined by the [place] ofMedicine and an Endocrine Society practice guideline as alevel of serum 25-OH vitamin D less than 20 ng/mL (1,2).The Endocrine Society went on to further define vitamin Dinsufficiency as a level between 21 and 29 ng/mL (2).1. IOM ([place] of Medicine). 2010. Dietary reference intakes for calcium and D. [place]: The National Academies Press.2. Albina MF, [place], [place] BETANCUR, et al. Evaluation, treatment, and prevention of vitamin D deficiency: an Endocrine Society clinical practice guideline. JCEM. 2010; 96(7):1911-30. PATIENT WAS FASTINGP ERFORMED BY: Ecelles Carson Jxiebj8046 [facility] [id number] CBC WITH MANUAL DIFF (25646) Ordered By: Meat Stringer on 09-17-2020 Basophils (Bld) [#/Vol] 0.0 {x10E3/uL} Normal 0.0-0.2 [facility]; [facility] Work Phone: Comment on above: PATIENT WAS FASTINGP ERFORMED BY: [place] 0811070 [facility] [id number] Information: NURSE DRAW Basophils (Bld) [#/Vol] 0.0 10*3/uL Normal 0.0-0.2 [facility]; [facility] Work Phone: Comment on above: PATIENT WAS FASTINGP ERFORMED BY: [address] [id number] Information: NURSE DRAW Basophils/100 WBC (Bld) 1 % Normal [facility]; [facility] Work Phone: Comment on above: PATIENT WAS FASTINGP ERFORMED BY: [address] [id number] Information: NURSE DRAW Eosinophils (Bld) [#/Vol] 0.1 {x10E3/uL} Normal 0.0-0.4 [facility]; [facility] Work Phone: Comment on above: PATIENT WAS FASTINGP ERFORMED BY: [address] [id number] Information: NURSE DRAW Eosinophils (Bld) [#/Vol] 0.1 10*3/uL Normal 0.0-0.4 [facility]; [facility] Work Phone: Comment on above: PATIENT WAS FASTINGP ERFORMED BY: [address] [id number] Information: NURSE DRAW Eosinophils/100 WBC (Bld) 2 % Normal [facility]; [facility] Work Phone: Comment on above: PATIENT WAS FASTINGP ERFORMED BY: [address] [id number] Information: NURSE DRAW Erythrocyte distribution width (RBC) [Ratio] 12.4 % Normal 11.6-15.4 [facility]; [facility] Work Phone: Comment on above: PATIENT WAS FASTINGP ERFORMED BY: [address] [id number] Information: NURSE DRAW Hematocrit (Bld) [Volume fraction] 44.6 % Normal 37.5-51.0 [facility]; [facility] Work Phone: Comment on above: PATIENT WAS FASTINGP ERFORMED BY: CONNER Esposito Iebbdf7632 [facility] [id number] Information: NURSE DRAW Hemoglobin (Bld) [Mass/Vol] 15.2 g/dL Normal 13.0-17.7 [facility]; [facility] Work Phone: Comment on above: PATIENT WAS FASTINGP ERFORMED BY: [address] [id number] Information: NURSE DRAW Immature granulocytes (Bld) [#/Vol] 0.1 {x10E3/uL} Normal 0.0-0.1 [facility]; [facility] Work Phone: Comment on above: PATIENT WAS FASTINGP ERFORMED BY: [address] [id number] Information: NURSE DRAW Immature granulocytes (Bld) [#/Vol] 0.1 10*3/uL Normal 0.0-0.1 [facility]; [facility] Work Phone: Comment on above: PATIENT WAS FASTINGP ERFORMED BY: [address] [id number] Information: NURSE DRAW Immature granulocytes/100 WBC (Bld) 1 % Normal [facility]; [facility] Work Phone: Comment on above: PATIENT WAS FASTINGP ERFORMED BY: [address] [id number] Information: NURSE DRAW Lymphocytes (Bld) [#/Vol] 1.2 {x10E3/uL} Normal 0.7-3.1 [facility]; [facility] Work Phone: Comment on above: PATIENT WAS FASTINGP ERFORMED BY: [address] [id number] Information: NURSE DRAW Lymphocytes (Bld) [#/Vol] 1.2 10*3/uL Normal 0.7-3.1 [facility]; [facility] Work Phone: Comment on above: PATIENT WAS FASTINGP ERFORMED BY: [address] [id number] Information: NURSE DRAW Lymphocytes/100 WBC (Bld) 19 % Normal [facility]; [facility] Work Phone: Comment on above: PATIENT WAS FASTINGP ERFORMED BY: [address] [id number] Information: NURSE DRAW MCH (RBC) [Entitic mass] 34.3 pg Abnormal 26.6-33.0 [facility]; [facility] Work Phone: Comment on above: PATIENT WAS FASTINGP ERFORMED BY: [address] [id number] Information: NURSE DRAW MCHC (RBC) [Mass/Vol] 34.1 g/dL Normal 31.5-35.7 [facility]; [facility] Work Phone: Comment on above: PATIENT WAS FASTINGP ERFORMED BY: [address] [id number] Information: NURSE DRAW MCV (RBC) [Entitic vol] 101 fL Abnormal 79-97 [facility]; [facility] Work Phone: Comment on above: PATIENT WAS FASTINGP ERFORMED BY: [address] [id number] Information: NURSE DRAW Monocytes (Bld) [#/Vol] 0.6 {x10E3/uL} Normal 0.1-0.9 [facility]; [facility] Work Phone: Comment on above: PATIENT WAS FASTINGP ERFORMED BY: [address] [id number] Information: NURSE DRAW Monocytes (Bld) [#/Vol] 0.6 10*3/uL Normal 0.1-0.9 [facility]; [facility] Work Phone: Comment on above: PATIENT WAS FASTINGP ERFORMED BY: CONNER Carirenee Joan [facility] [id number] Information: NURSE DRAW Monocytes/100 WBC (Bld) 10 % Normal [facility]; [facility] Work Phone: Comment on above: PATIENT WAS FASTINGP ERFORMED BY: CONNER SenaitBenny SchererIlktlp2852 [facility] [id number] Information: NURSE DRAW Neutrophils (Bld) [#/Vol] 4.2 {x10E3/uL} Normal 1.4-7.0 [facility]; [facility] Work Phone: Comment on above: PATIENT WAS FASTINGP ERFORMED BY: CONNER SenaitBenny Sfyxyj8540 [facility] [id number] Information: NURSE DRAW Neutrophils (Bld) [#/Vol] 4.2 10*3/uL Normal 1.4-7.0 [facility]; [facility] Work Phone: Comment on above: PATIENT WAS FASTINGP ERFORMED BY: CONNER SenaitBenny SchererKayabm7202 [facility] [id number] Information: NURSE DRAW Neutrophils/100 WBC (Bld) 67 % Normal [facility]; [facility] Work Phone: Comment on above: PATIENT WAS FASTINGP ERFORMED BY: CONNER SenaitBenny SchererQdkqkm0172 [facility] [id number] Information: NURSE DRAW Platelets (Bld) [#/Vol] 269 {x10E3/uL} Normal 150-450 [facility]; [facility] Work Phone: Comment on above: PATIENT WAS FASTINGP ERFORMED BY: CONNER SenaitBenny Jtyxbe8070 [facility] [id number] Information: NURSE DRAW Platelets (Bld) [#/Vol] 269 10*3/uL Normal 150-450 [facility]; [facility] Work Phone: Comment on above: PATIENT WAS FASTINGP ERFORMED BY: CONNER [facility] Xwyihb4955 [facility] [id number] Information: NURSE DRAW RBC (Bld) [#/Vol] 4.43 {x10E6/uL} Normal 4.14-5.[address] [facility]; [facility] Work Phone: Comment on above: PATIENT WAS FASTINGP ERFORMED BY: [facility]aitSsm Health Care Aczmwa85[address] [id number] Information: NURSE DRAW RBC (Bld) [#/Vol] 4.43 10*6/uL Normal 4.14-5.80 [facility] Internal Medicine; [facility] Work Phone: Comment on above: PATIENT WAS FASTINGP ERFORMED BY: [facility]aitSsm Health Care Pojkdi89[address] [id number] Information: NURSE DRAW WBC (Bld) [#/Vol] 6.2 {x10E3/uL} Normal 3.4-10.8 [facility] Internal Medicine; [facility] Work Phone: Comment on above: PATIENT WAS FASTINGP ERFORMED BY: [facility]aitSsm Health Care Jaeqom45[address] [id number] Information: NURSE DRAW WBC (Bld) [#/Vol] 6.2 10*3/uL Normal 3.4-10.8 [facility] Internal Medicine; [facility] Work Phone: Comment on above: PATIENT WAS FASTINGP ERFORMED BY: [address] [id number] Information: NURSE DRAW HEPATITIS C ANTIBODY (32224) Ordered By: Meat Stringer on 09-17-2020 HCV Ab Signal/Cutoff IA [Rel units/Vol] 0.3 {s/co_ratio} Normal 0.0-0.9 Comprehensiv e Internal Medicine; [facility] Work Phone: Comment on above: Negative: < 0.8 Inde terminate: 0.8 - 0.9 Positive: > 0.9 . The CDC recommends that a positive HCV antibody result be followed up with a HCV Nucleic Acid Amplification test (136448). PATIENT WAS FASTINGP ERFORMED BY: CONNER [employer]6370 [facility] [id number] HGB A1C (46477)Ordered By: S ystem Agricultural Equipment Design Engineer on 09-17-2020 HbA1c (Bld) [Mass fraction] 5.6 % Normal 4.8-5.6 [facility]; [facility] Work Phone: Comment on above: . Prediabetes: 5.7 - 6.4 Diabetes: >6.4 Glycemic control for adults with diabetes: <7.0 PATIENT WAS FASTINGP ERFORMED BY: CONNER [employer]70 [facility] [id number] MICROALBUMINOrdered By: Syst em Agricultural Equipment Design Engineer on 09-17-2020 Albumin DL <= 20 mg/L (U) [Mass/Vol] 16.0 ug/mL Normal Comprehensiv e Internal Medicine; [facility] Work Phone: Comment on above: PATIENT WAS FASTINGP ERFORMED BY: CONNER [employer]6370 [facility] [id number] Albumin/Creatinine (U) [Mass ratio] 9 {mg/g_creat} Normal 0-29 [facility]; [facility] Work Phone: Comment on above: Normal: 0 - 29 Moder ately increased: 30 - 300 Severely increased: >300 PATIENT WAS FASTINGP ERFORMED BY: More [employer]6370 [facility] [id number] Creatinine (U) [Mass/Vol] 187.3 mg/dL Normal [facility]; [facility] Work Phone: Comment on above: PATIENT WAS FASTINGP ERFORMED BY: CONNER [employer]6370 [facility] [id number] Metabolic Panel, Comprehensi ve (16594)Ordered By: Meat Stringer on 09-17-2020 Albumin [Mass/Vol] 4.2 g/dL Normal 3.8-4.8 [facility]pre [facility]; [facility] Work Phone: Comment on above: PATIENT WAS FASTINGP ERFORMED BY: CONNER Zahra Ulghqf5016 [address] RoadDublin [place] [id number] Albumin/Globulin [Mass ratio] 2.0 {ratio} Normal 1.2-2.2 [facility]; [facility] Work Phone: Comment on above: PATIENT WAS FASTINGP ERFORMED BY: CONNER Zahra Schererlin6370 [address] RoadDublin [place] [id number] ALP [Catalytic activity/Vol] 85 [iU]/L Normal 39-117 [facility]; [facility] Work Phone: Comment on above: PATIENT WAS FASTINGP ERFORMED BY: CONNER LabBenny Nnghhy2460 [address] RoadDublin [place] [id number] ALP [Catalytic activity/Vol] 85 U/L Normal 39-117 [facility]; [facility] Work Phone: Comment on above: PATIENT WAS FASTINGP ERFORMED BY: CONNER Zahra Ppiulr2124 [address] RoadDublin [place] [id number] ALT [Catalytic activity/Vol] 39 [iU]/L Normal 0-44 [facility]; [facility] Work Phone: Comment on above: PATIENT WAS FASTINGP ERFORMED BY: CONNER Zahra Sfsmkx7216 [address] RoadDublin [place] [id number] ALT [Catalytic activity/Vol] 39 U/L Normal 0-44 [facility]; [facility] Work Phone: Comment on above: PATIENT WAS FASTINGP ERFORMED BY: CONNER Zahra Lbiekg7345 [address] RoadDublin [place] [id number] AST [Catalytic activity/Vol] 25 [iU]/L Normal 0-40 [facility]; [facility] Work Phone: Comment on above: PATIENT WAS FASTINGP ERFORMED BY: CONNER Zahra Ftvfvl6318 [address] RoadDublin [place] [id number] AST [Catalytic activity/Vol] 25 U/L Normal 0-40 [facility]; [facility] Work Phone: Comment on above: PATIENT WAS FASTINGP ERFORMED BY: CONNER LabBenny SchererCnrrcy7430 [address] RoadDublin [place] [id number] Bilirubin [Mass/Vol] 0.3 mg/dL Normal 0.0-1.2 Comp rehensive Internal Medicine; [facility] Work Phone: Comment on above: PATIENT WAS FASTINGP ERFORMED BY: CB [facility] Qefwud8991 [address] RoadDublin [place] [id number] Calcium [Mass/Vol] 10.4 mg/dL Abnormal 8.6-10.2 [facility] Internal Medicine; [facility] Work Phone: Comment on above: PATIENT WAS FASTINGP ERFORMED BY: [facility] Ksepuy4600 [address] RoadDublin [place] [id number] Chloride [Moles/Vol] 106 mmol/L Normal 96-106 [facility] Centerens[facility] Internal [facility]; [facility] Work Phone: Comment on above: PATIENT WAS FASTINGP ERFORMED BY: [facility] Jejgnp0973 [address] RoadDublin [place] [id number] CO2 [Moles/Vol] 21 mmol/L Normal 20-29 [facility] Internal Medicine; [facility] Work Phone: Comment on above: PATIENT WAS FASTINGP ERFORMED BY: [facility] Rgzqus2302 [address] RoadDublin [place] [id number] Creatinine [Mass/Vol] 1.09 mg/dL Normal 0.76-1.27 [facility]; [facility] Work Phone: Comment on above: PATIENT WAS FASTINGP ERFORMED BY: [facility] Jjtqqb2443 [address] RoadDublin [place] [id number] GFR/1.73 sq M predicted among blacks CKD-EPI (S/P/Bld) [Vol rate/Area] 80 mL/min/1.73 Normal [facility]; [facility] Work Phone: Comment on above: PATIENT WAS FASTINGP ERFORMED BY: [facility] Nbjqmt9631 [address] RoadDublin [place] [id number] GFR/1.73 sq M predicted among non-blacks CKD-EPI (S/P/Bld) [Vol rate/Area] 69 mL/min/1.73 Normal [facility]; [facility] Work Phone: Comment on above: PATIENT WAS FASTINGP ERFORMED BY: CONNER LabCorenee GreenwoodRultoz7860 [address] RoadDublin [place] [id number] Globulin (S) [Mass/Vol] 2.1 g/dL Normal 1.5-4.5 [facility]; [facility] Work Phone: Comment on above: PATIENT WAS FASTINGP ERFORMED BY: CB [facility] Kyzxdl7483 [address] RoadDublin [place] [id number] Glucose [Mass/Vol] 103 mg/dL Abnormal 65-99 [facility] Internal Medicine; [facility] Work Phone: Comment on above: PATIENT WAS FASTINGP ERFORMED BY: CONNER [facility] [id number] [address] RoadDublin [place] [id number] Potassium [Moles/Vol] 4.0 mmol/L Normal 3.5-5.2 [facility]; [facility] Work Phone: Comment on above: PATIENT WAS FASTINGP ERFORMED BY: CON[facility] [id number]Dublin [place] [id number] Protein [Mass/Vol] 6.3 g/dL Normal 6.0-8.5 [facility]; [facility] Work Phone: Comment on above: PATIENT WAS FASTINGP ERFORMED BY: [facility] [id number] [address] RoadDublin [place] [id number] Sodium [Moles/Vol] 142 mmol/L Normal 134-144 [facility]; [facility] Work Phone: Comment on above: PATIENT WAS FASTINGP ERFORMED BY: [facility] Frxwhh1807 [address] RoadDublin [place] [id number] Urea nitrogen [Mass/Vol] 24 mg/dL Normal 8-27 [facility]; [facility] Work Phone: Comment on above: PATIENT WAS FASTINGP ERFORMED BY: [facility] [id number] [address]Dublin [place] [id number] Urea nitrogen/Creatinine [Mass ratio] 22 mg/mg Normal 10-24 [facility]; [facility] Work Phone: Comment on above: PATIENT WAS FASTINGP ERFORMED BY: CONNER Greenwood[address]Dublin [place] [id number] URINALYSIS ([id number])Ordered By : Meat Stringer on 09-17-2020 Appearance (U) Clear Normal Comprehens [facility]; [facility] Work Phone: Comment on above: PATIENT WAS FASTINGP ERFORMED BY: CONNER Greenwood[address]Dublin [place] [id number] Bilirubin Ql (U) Negative Normal Comprehe nsive [facility] Medicine; [facility] Work Phone: Comment on above: PATIENT WAS FASTINGP ERFORMED BY: CONNER Greenwood[address] [place] [id number] Bilirubin Ql (U) Negative Normal Comprehe nsive [facility]; [facility] Work Phone: Comment on above: PATIENT WAS FASTINGP ERFORMED BY: CONNER Greenwood[address]Dublin [place] [id number] Color (U) Yellow Normal [facility]; [facility] Work Phone: Comment on above: PATIENT WAS FASTINGP ERFORMED BY: CONNER [place]wood[address] [place] [id number] Glucose Ql (U) Negative Normal Comprehens [facility]; [facility] Work Phone: Comment on above: PATIENT WAS FASTINGP ERFORMED BY: CONNER Schererlin[address]Dublin [place] [id number] Glucose Ql (U) Negative Normal Comprehens [facility]; [facility] Work Phone: Comment on above: PATIENT WAS FASTINGP ERFORMED BY: CONNER Schererlin[address]Dublin [place] [id number] Hemoglobin Ql (U) Negative Normal Compreh ensive [facility]; [facility] Work Phone: Comment on above: PATIENT WAS FASTINGP ERFORMED BY: CB [facility] [id number]Dublin [place] [id number] Hemoglobin Ql (U) Negative Normal Compreh ensive [facility]; [facility] Work Phone: Comment on above: PATIENT WAS FASTINGP ERFORMED BY: CONNER LabDavidrp Ltqpgu2587 [address] RoadDublin [place] [id number] Ketones Ql (U) Trace Abnormal Comprehens [facility]; [facility] Work Phone: Comment on above: PATIENT WAS FASTINGP ERFORMED BY: CONNER [facility] Mnopaw2[address]Dublin [place] [id number] Leukocyte esterase Test strip Ql (U) Negative Normal [facility]; [facility] Work Phone: Comment on above: PATIENT WAS FASTINGP ERFORMED BY: CONNER [facility] Ckpajz7018 [address] RoadDublin [place] [id number] Leukocyte esterase Test strip Ql (U) Negative Normal [facility]; [facility] Work Phone: Comment on above: PATIENT WAS FASTINGP ERFORMED BY: CON[facility] [id number] [address] RoadDublin [place] [id number] Microscopic observation LM Nom (Urine sed) MICNIP Normal [facility]; [facility] Work Phone: Comment on above: Microscopic not edwin cated and not performed. PATIENT WAS FASTINGP ERFORMED BY: CON[facility] [id number]Dublin [place] [id number] Nitrite Ql (U) Negative Normal Comprehens [facility]; [facility] Work Phone: Comment on above: PATIENT WAS FASTINGP ERFORMED BY: CONNER [facility] [id number] [address] RoadDublin [place] [id number] Nitrite Ql (U) Negative Normal Comprehens [facility]; [facility] Work Phone: Comment on above: PATIENT WAS FASTINGP ERFORMED BY: CONNER [facility] Owylqh0200 [address]Dublin [place] [id number] pH (U) 5.0 [pH] Normal 5.0-7.5 [facility]; [facility] Work Phone: Comment on above: PATIENT WAS FASTINGP ERFORMED BY: CONNER [facility] [id number] [address] RoadDublin [place] [id number] Protein Ql (U) Negative Normal Comprehens [facility]; [facility] Work Phone: Comment on above: PATIENT WAS FASTINGP ERFORMED BY: CONNER [facility] Pmtsvb1936 [address] RoadDublin [place] [id number] Protein Ql (U) Negative Normal Comprehens [facility]; [facility] Work Phone: Comment on above: PATIENT WAS FASTINGP ERFORMED BY: CONNER [facility] Udqmke0479 [address] RoadDublin [place] [id number] Specific gravity (U) [Rel density] 1.025 1 Normal 1.005-1.03 0 [facility]; [facility] Work Phone: Comment on above: PATIENT WAS FASTINGP ERFORMED BY: CONNER [facility] [id number] [address] RoadDublin [place] [id number] Urobilinogen (U) [Mass/Vol] 0.2 mg/dL Normal 0.2-1.0 [facility]; [facility] Work Phone: Comment on above: PATIENT WAS FASTINGP ERFORMED BY: CONNER [facility] Ajtoke32[address]Dublin [place] [id number] Urobilinogen Test strip (U) [Mass/Vol] 0.2 mg/dL Normal 0.2-1.0 Comprehensi [facility]; [facility] Work Phone: Comment on above: PATIENT WAS FASTINGP ERFORMED BY: CONNER [facility] Xtlllz2714 [address] RoadDublin [place] [id number] Vital Signs Date Time Vital Sign Value Performing Clinician Facility 05-04-2023 07:59-0400 Body height 163.83 cm Geni Suarez LPN [facility]; [facility] Work Phone: 05-04-2023 07:59-0400 Body mass index (BMI) [Ratio] 45.69 kg/m2 Geni Suarez FOOD EDITOR [facility]; [facility] Work Phone: 05-04-2023 07:59-0400 Body surface area Derived from formula 2.24 m2 Geni Suarez RICHARD [facility]; [facility] Work Phone: 05-04-2023 07:59-0400 Body temperature 97.9 [degF] Geni Suarez RICHARD [facility]; [facility] Work Phone: 05-04-2023 07:59-0400 Body weight 122.64 kg Geni Suarez FOOD EDITOR [facility]; [facility] Work Phone: 05-04-2023 07:59-0400 Diastolic blood pressure 80 mm[Hg] Geni Suarez RICHARD [facility]; [facility] Work Phone: Comment on above: Patient Position: Sitting; Cuff Location : Left Arm; Cuff Size: Standard 05-04-2023 07:59-0400 Heart rate 65 /min Geni Suarez RICHARD [facility]; [facility] Work Phone: Comment on above: Pattern: Regular 05-04-2023 07:59-0400 Respiratory rate 16 /min Geni Suarez RICHARD [facility]; [facility] Work Phone: Comment on above: Pattern: Unlabored 05-04-2023 07:59-0400 SaO2% (BldA) [Mass fraction] 96 % Geni Suarez RICHARD [facility]; [facility] Work Phone: Comment on above: Room air 05-04-2023 07:59-0400 Systolic blood pressure 128 mm[Hg] Geni Suarez FOOD EDITOR [facility]; [facility] Work Phone: Comment on above: Patient Position: Sitting; Cuff Location : Left Arm; Cuff Size: Standard 12-19-2022 11:31-0400 Body height 163.83 cm Geni Suarez RICHARD [facility]; [facility] Work Phone: 12-19-2022 11:31-0400 Body mass index (BMI) [Ratio] 46.69 kg/m2 Geni Suarez RICHARD [facility]; [facility] Work Phone: 12-19-2022 11:31-0400 Body surface area Derived from formula 2.26 m2 Geni Suarez RICHARD [facility]; [facility] Work Phone: 12-19-2022 11:31-0400 Body temperature 98.1 [degF] Geni Suarez RICHARD [facility]; [facility] Work Phone: 12-19-2022 11:31-0400 Body weight 125.31 kg Geni Suarez RICHARD [facility]; [facility] Work Phone: 12-19-2022 11:31-0400 Diastolic blood pressure 86 mm[Hg] Geni Suarez RICHARD [facility]; [facility] Work Phone: Comment on above: Patient Position: Sitting; Cuff Location : Left Arm; Cuff Size: Standard 12-19-2022 11:31-0400 Heart rate 93 /min Geni Suarez RICHARD [facility]; [facility] Work Phone: Comment on above: Pattern: Regular 12-19-2022 11:31-0400 Respiratory rate 16 /min Geni Suarez RICHARD [facility]; [facility] Work Phone: Comment on above: Pattern: Unlabored 12-19-2022 11:31-0400 SaO2% (BldA) [Mass fraction] 98 % Geni Erick LPN [facility]; [facility] Work Phone: Comment on above: Room air 12-19-2022 11:31-0400 Systolic blood pressure 146 mm[Hg] Geni Roperman RICHARD [facility]; [facility] Work Phone: Comment on above: Patient Position: Sitting; Cuff Location : Left Arm; Cuff Size: Standard 09-19-2022 13:06-0500 Body height 168.[address] Joana Friend Work Phone: [facility] 09-19-2022 13:06-0500 Body weight 130.[address] Joana Friend Work Phone: [facility] 09-19-2022 08:43-0500 Body height 163.83 cm Iva Phillips [facility]; [facility] Work Phone: 09-19-2022 08:43-0500 Body mass index (BMI) [Ratio] 48.5 kg/m2 Iva Phillips [facility]; [facility] Work Phone: 09-19-2022 08:43-0500 Body surface area Derived from formula 2.29 m2 Iva Phillips [facility]; [facility] Work Phone: 09-19-2022 08:43-0500 Body temperature 97 [degF] Iva Phillips [facility]; [facility] Work Phone: Comment on above: Method: Thermal Scan 09-19-2022 08:43-0500 Body weight 130.18 kg Iva Phillips [facility]; [facility] Work Phone: 09-19-2022 08:43-0500 Diastolic blood pressure 74 mm[Hg] Iva Phillips [facility]; [facility] Work Phone: Comment on above: Patient Position: Sitting; Cuff Location : Left Arm; Cuff Size: Standard 09-19-2022 08:43-0500 Heart rate 80 /min Iva Phillips [facility]; [facility] Work Phone: Comment on above: Pattern: Regular 09-19-2022 08:43-0500 Respiratory rate 16 /min Iva Phillips [facility]; [facility] Work Phone: Comment on above: Pattern: Unlabored 09-19-2022 08:43-0500 SaO2% (BldA) [Mass fraction] 98 % Iva Phillips [facility]; [facility] Work Phone: Comment on above: Room air 09-19-2022 08:43-0500 Systolic blood pressure 128 mm[Hg] Iva Phillips [facility]; [facility] Work Phone: Comment on above: Patient Position: Sitting; Cuff Location : Left Arm; Cuff Size: Standard 08-29-2022 12:40-0500 Body height 168.[address] Joana Friend Work Phone: [facility] 08-29-2022 12:40-0500 Body weight 131.[address] Joana Friend Work Phone: [facility] 07-28-2022 07:37-0500 Body height 163.83 cm Joana Friend MD Work Phone: [facility]; [facility] Work Phone: 07-28-2022 07:37-0500 Body mass index (BMI) [Ratio] 48.84 kg/m2 Joana Friend MD Work Phone: [facility]; [facility] Work Phone: 07-28-2022 07:37-0500 Body surface area Derived from formula 2.3 m2 Joana Friend MD Work Phone: [facility]; [facility] Work Phone: 07-28-2022 07:37-0500 Body temperature 97.1 [degF] Joana Friend MD Work Phone: [facility]; [facility] Work Phone: Comment on above: Method: Temporal 07-28-2022 07:37-0500 Body weight 131.09 kg Joana Friend MD Work Phone: [facility]; [facility] Work Phone: 07-28-2022 07:37-0500 Diastolic blood pressure 86 mm[Hg] Joana Friend MD Work Phone: [facility]; [facility] Work Phone: Comment on above: Patient Position: Sitting; Cuff Location : Left Arm; Cuff Size: Standard 07-28-2022 07:37-0500 Heart rate 74 /min Joana Friend MD Work Phone: [facility]; [facility] Work Phone: Comment on above: Pattern: Regular 07-28-2022 07:37-0500 Respiratory rate 16 /min Joana Friend MD Work Phone: [facility]; [facility] Work Phone: Comment on above: Pattern: Unlabored 07-28-2022 07:37-0500 SaO2% (BldA) [Mass fraction] 94 % Joana Friend MD Work Phone: [facility]; [facility] Work Phone: Comment on above: Room air 07-28-2022 07:37-0500 Systolic blood pressure 135 mm[Hg] Joana Friend MD Work Phone: [facility]; [facility] Work Phone: Comment on above: Patient Position: Sitting; Cuff Location : Left Arm; Cuff Size: Standard 04-28-2022 09:47-0400 Body height 163.83 cm Joana Friend MD Work Phone: [facility]; [facility] Work Phone: 04-28-2022 09:47-0400 Body mass index (BMI) [Ratio] 49.01 kg/m2 Joana Friend MD Work Phone: [facility]; [facility] Work Phone: 04-28-2022 09:47-0400 Body surface area Derived from formula 2.3 m2 Joana Friend MD Work Phone: [facility]; [facility] Work Phone: 04-28-2022 09:47-0400 Body temperature 97.9 [degF] Joana Friend MD Work Phone: [facility]; [facility] Work Phone: Comment on above: Method: Oral 04-28-2022 09:47-0400 Body weight 131.54 kg Joana Friend MD Work Phone: [facility]; [facility] Work Phone: 04-28-2022 09:47-0400 Diastolic blood pressure 90 mm[Hg] Joana Friend MD Work Phone: [facility]; [facility] Work Phone: Comment on above: Patient Position: Sitting 04-28-2022 09:47-0400 Heart rate 72 /min Joana Friend MD Work Phone: [facility]; [facility] Work Phone: Comment on above: Pattern: Regular 04-28-2022 09:47-0400 Respiratory rate 16 /min Joana Friend MD Work Phone: [facility]; [facility] Work Phone: 04-28-2022 09:47-0400 SaO2% (BldA) [Mass fraction] 98 % Joana Friend MD Work Phone: [facility]; [facility] Work Phone: Comment on above: Room air 04-28-2022 09:47-0400 Systolic blood pressure 140 mm[Hg] Joana Friend MD Work Phone: [facility]; [facility] Work Phone: Comment on above: Patient Position: Sitting 01-06-2022 09:29-0400 Body height 163.83 cm Joana Friend MD Work Phone: [facility]; [facility] Work Phone: Comment on above: weight from last week. 01-06-2022 09:29-0400 Body mass index (BMI) [Ratio] 47.83 kg/m2 Joana Friend MD Work Phone: [facility]; [facility] Work Phone: Comment on above: weight from last week. 01-06-2022 09:29-0400 Body surface area Derived from formula 2.28 m2 Joana Friend MD Work Phone: [facility]; [facility] Work Phone: Comment on above: weight from last week. 01-06-2022 09:29-0400 Body temperature 97.1 [degF] Joana Friend MD Work Phone: [facility]; [facility] Work Phone: Comment on above: Method: Oral weight from hong car. 01-06-2022 09:29-0400 Body weight 128.37 kg Joana Friend MD Work Phone: [facility]; [facility] Work Phone: Comment on above: weight from last week. 01-06-2022 09:29-0400 Diastolic blood pressure 82 mm[Hg] Joana Friend MD Work Phone: [facility]; [facility] Work Phone: Comment on above: Patient Position: Sitting weight from hong car. 01-06-2022 09:29-0400 Heart rate 85 /min Joana Friend MD Work Phone: [facility]; [facility] Work Phone: Comment on above: Pattern: Regular weight from hong car. 01-06-2022 09:29-0400 Respiratory rate 18 /min Joana Friend MD Work Phone: [facility]; [facility] Work Phone: Comment on above: weight from last week. 01-06-2022 09:29-0400 SaO2% (BldA) [Mass fraction] 97 % Joana Friend MD Work Phone: [facility]; [facility] Work Phone: Comment on above: Room air weight from hong car. 01-06-2022 09:29-0400 Systolic blood pressure 120 mm[Hg] Joana Friend MD Work Phone: [facility]; [facility] Work Phone: Comment on above: Patient Position: Sitting weight from jose webb 09-27-2021 11:24-0500 Body height 163.83 cm REGI North LPN [facility]; [facility] Work Phone: 09-27-2021 11:24-0500 Body mass index (BMI) [Ratio] 49.85 kg/m2 REGI [facility] LPN [facility]; [facility] Work Phone: 09-27-2021 11:24-0500 Body surface area Derived from formula 2.32 m2 REGI North LPN [facility]; [facility] Work Phone: 09-27-2021 11:24-0500 Body temperature 97.8 [degF] REGI North LPN Com[facility]; [facility] Work Phone: Comment on above: Method: Temporal 09-27-2021 11:24-0500 Body weight 133.81 kg REGI [facility] LPN [facility]; [facility] Work Phone: 09-27-2021 11:24-0500 Diastolic blood pressure 84 mm[Hg] REGI [facility] LPN [facility]; [facility] Work Phone: Comment on above: Patient Position: Sitting; Cuff Location : Left Arm; Cuff Size: Large 09-27-2021 11:24-0500 Heart rate 72 /min REGI [facility] LPN [facility]; [facility] Work Phone: Comment on above: Pattern: Regular 09-27-2021 11:24-0500 Respiratory rate 18 /min REGI [facility] LPN Com[facility]; [facility] Work Phone: Comment on above: Pattern: Unlabored 09-27-2021 11:24-0500 SaO2% (BldA) [Mass fraction] 98 % REGI [facility] LPN [facility]; [facility] Work Phone: Comment on above: Room air 09-27-2021 11:24-0500 Systolic blood pressure 122 mm[Hg] REGI North LPN [facility]; [facility] Work Phone: Comment on above: Patient Position: Sitting; Cuff Location : Left Arm; Cuff Size: Large 09-13-2021 09:19-0500 Body height 163.83 cm Avani Chavira CMA [facility]; [facility] Work Phone: 09-13-2021 09:19-0500 Body mass index (BMI) [Ratio] 49.2 kg/m2 Avani Chavira CMA [facility]; [facility] Work Phone: 09-13-2021 09:19-0500 Body surface area Derived from formula 2.31 m2 Avani Chavira CMA [facility]; [facility] Work Phone: 09-13-2021 09:19-0500 Body temperature 97.3 [degF] Avani Chavira CMA [facility]; [facility] Work Phone: Comment on above: Method: Infrared 09-13-2021 09:19-0500 Body weight 132.05 kg Avani Chavira [employer]MENTAL [employer] WORKER [facility]; [facility] Work Phone: 09-13-2021 09:19-0500 Diastolic blood pressure 80 mm[Hg] Avani Chavira ORNAMENTAL IRON WORKER [facility]; [facility] Work Phone: Comment on above: Patient Position: Sitting; Cuff Location : Left Arm; Cuff Size: Standard 09-13-2021 09:19-0500 Heart rate 71 /min Avani Chavira [facility]; [facility] Work Phone: Comment on above: Pattern: Regular 09-13-2021 09:19-0500 Respiratory rate 20 /min Avani Chavira CMA [facility]; [facility] Work Phone: Comment on above: Pattern: Unlabored 09-13-2021 09:19-0500 SaO2% (BldA) [Mass fraction] 94 % Avani Chavira [facility]; [facility] Work Phone: Comment on above: Room air 09-13-2021 09:19-0500 Systolic blood pressure 126 mm[Hg] Avani Chavira ORNAMENTAL [employer] WORKER [facility]; [facility] Work Phone: Comment on above: Patient Position: Sitting; Cuff Location : Left Arm; Cuff Size: Standard 06-10-2021 10:47-0400 Body height 163.83 cm Geni Suarez RICHARD [facility]; [facility] Work Phone: 06-10-2021 10:47-0400 Body mass index (BMI) [Ratio] 48.86 kg/m2 Geni Roperlarisa RAMOS [facility]; [facility] Work Phone: 06-10-2021 10:47-0400 Body surface area Derived from formula 2.3 m2 Geni Suarez RICHARD [facility]; [facility] Work Phone: 06-10-2021 10:47-0400 Body temperature 97.9 [degF] Geni Suarez RICHARD [facility]; [facility] Work Phone: Comment on above: Method: Temporal 06-10-2021 10:47-0400 Body weight 131.15 kg Geni Suarez RICHARD [facility]; [facility] Work Phone: 06-10-2021 10:47-0400 Diastolic blood pressure 90 mm[Hg] Geni Erick RAMOS [facility]; [facility] Work Phone: Comment on above: Patient Position: Sitting; Cuff Location : Left Arm; Cuff Size: Standard 06-10-2021 10:47-0400 Heart rate 71 /min Genitio Suarez RICHARD [facility]; [facility] Work Phone: Comment on above: Pattern: Regular 06-10-2021 10:47-0400 Respiratory rate 16 /min Geni Suarez RICHARD [facility]; [facility] Work Phone: Comment on above: Pattern: Unlabored 06-10-2021 10:47-0400 SaO2% (BldA) [Mass fraction] 97 % Genitio Suarez RICHARD [facility]; [facility] Work Phone: Comment on above: Room air 06-10-2021 10:47-0400 Systolic blood pressure 138 mm[Hg] Geni Suarez LPN [facility]; [facility] Work Phone: Comment on above: Patient Position: Sitting; Cuff Location : Left Arm; Cuff Size: Standard 01-05-2021 09:26-0400 Body height 163.83 cm [facility] LPN [facility]; [facility] Work Phone: 01-05-2021 09:26-0400 Body mass index (BMI) [Ratio] 48.84 kg/m2 REGI [facility] LPN [facility]; [facility] Work Phone: 01-05-2021 09:26-0400 Body surface area Derived from formula 2.3 m2 REGI [facility] LPN [facility]; [facility] Work Phone: 01-05-2021 09:26-0400 Body temperature 97.9 [degF] REGI [facility] LPN [facility]; [facility] Work Phone: Comment on above: Method: Temporal 01-05-2021 09:26-0400 Body weight 131.09 kg [facility] Work Phone: 01-05-2021 09:26-0400 Diastolic blood pressure 80 mm[Hg] [facility] Work Phone: Comment on above: Patient Position: Sitting; Cuff Location : Left Arm; Cuff Size: Large 01-05-2021 09:26-0400 Heart rate 72 /min [facility] Work Phone: Comment on above: Pattern: Regular 01-05-2021 09:26-0400 Respiratory rate 18 /min [facility]; [facility] Work Phone: Comment on above: Pattern: Unlabored 01-05-2021 09:26-0400 SaO2% (BldA) [Mass fraction] 97 % [facility] Work Phone: Comment on above: Room air 01-05-2021 09:26-0400 Systolic blood pressure 140 mm[Hg] [facility] Work Phone: Comment on above: Patient Position: Sitting; Cuff Location : Left Arm; Cuff Size: Large 09-28-2020 12:38-0500 BMI (Body Mass Index) 48.5 kg/m2 [facility] Work Phone: 09-28-2020 12:38-0500 Body weight 130.19 kg [facility] Work Phone: 09-28-2020 12:38-0500 BSA (Body Surface Area) 2.29 m2 [facility] Work Phone: 09-28-2020 12:38-0500 Height 163.83 cm [facility] Work Phone: Encounters Encounter Date Encounter Type Care Provider Facility Start: 07-28-2025 ambulatory Germán Avila Facility: [facility] Start: 03-14-2025 End: 03-14-[address] Joana Friend MD Work Phone: -Laboratory Start: 03-14-2025 End: 03-14-[address] Benigno Frost MD -Laboratory Work Phone: Start: 03-14-2025 End: 03-14-2025 ambulatory Joana Friend Facility:[facility] Start: 12-11-2024 End: 12-11-[address] Joana Friend MD -Laboratory Specimen Work Phone: Start: 12-11-2024 End: 12-11-2024 ambulatory Joana Friend Facility:[facility] Start: 08-09-2024 ambulatory Joana Friend Facility:[place] Start: 08-09-2024 End: 08-09-2024 ambulatory Joana Friend Facility:[facility] Start: 06-03-2024 End: 06-03-2024 ambulatory Joana Friend Facility:[facility] Start: 09-21-2023 End: 09-21-2023 ambulatory [facility] Work Phone: Start: 09-21-2023 End: 09-21-2023 Patient encounter procedure [facility]-Laboratory Work Phone: Start: 07-24-2023 End: 07-24-2023 Discharged Recurring [facility]-Occupational Therapy Work Phone: Start: 06-05-2023 Registered Recurring [facility]-Occupational Therapy Work Phone: Start: 06-05-2023 End: 06-05-2023 Annotation/Addendum Joana Friend MD Work Phone: [facility] Start: 06-01-2023 End: 06-01-2023 ambulatory [facility] Work Phone: Start: 06-01-2023 End: 06-01-2023 Patient encounter procedure [facility]-Cat Scan, [facility] Work Phone: Start: 05-04-2023 End: 05-04-2023 Patient encounter procedure Joana Friend MD Work Phone: [facility] Start: 05-04-2023 End: 05-04-2023 Patient encounter status Geni Suarez RICHARD [facility]; [facility] Work Phone: Comment on above: [facility] physical: PSA (Dr. Frost monitors, hx. prostate cancer), hep C negative, MOCA 29/30, cognivue 64, wears bilateral hearing aides, has routine eye exams with Dr. kerns yearly, colonoscopy 12-21 polyps recheck 5 Start: 05-04-2023 End: 05-04-2023 Preprocedural examination done Joana Friend MD Work Phone: [facility]; [facility] Work Phone: Comment on above: having tendon interp osition in first right carpometacarpal joint done. no issue wiht surgery or blood clots in past. Start: 04-18-2023 End: 04-18-2023 Lab Order Joana Friend MD Work Phone: [facility] Start: 03-20-2023 End: 03-20-2023 ambulatory [facility] Work Phone: Start: 03-20-2023 End: 03-20-2023 Patient encounter procedure [facility]-Laboratory Work Phone: Start: 12-19-2022 ambulatory Joana Friend MD [facility] Internal [facility] Start: 12-19-2022 End: 12-19-2022 Office outpatient visit 25 minutes Joana Friend MD Work Phone: [facility] Start: 12-19-2022 End: 12-19-2022 Patient encounter status Joana Friend MD Work Phone: [facility]; [facility] Work Phone: Comment on above: 01-06-22 AMP 04-28-22 [facility] physical: PSA (Dr. Frost monitors, hx. prostate cancer), hep C negative, MOCA 29/30, cognivue 64, wears bilateral hearing aides, has routine eye exams with Dr. kerns yearly, colonoscopy 12-21 polyps recheck 5 Start: 11-07-2022 End: 11-07-2022 Prescription Refill Joana Friend MD Work Phone: [facility] Start: 09-19-2022 End: 09-19-[address] Joana Friend Work Phone: [facility]-Laboratory Start: 09-19-2022 End: 10-04-[address] Joana Friend Work Phone: [facility] Work Phone: Start: 09-19-2022 End: 10-04-[address] Joana Friend Work Phone: [facility]-Nutritional Services Start: 09-19-2022 End: 09-19-2022 Office outpatient visit 15 minutes Joana Friend MD Work Phone: [facility] Start: 08-29-2022 End: 09-06-[address] Joana Friend Work Phone: [facility]Nutritional Services Start: 08-29-[address] Joana Friend Work Phone: [facility]Nutritional Services Start: 08-23-2022 End: 08-23-[address] Joana Friend Work Phone: [facility] Work Phone: Start: 08-23-2022 End: 08-23-[address] Joana Friend Work Phone: [facility]-Laboratory Start: 07-28-2022 End: 07-28-2022 Office outpatient visit 25 minutes Joana Friend MD Work Phone: [facility] Start: 07-28-2022 End: 07-28-2022 Patient encounter status Joana Friend MD Work Phone: [facility]; [facility] Work Phone: Comment on above: 01-06-22 AMP 04-28-22 [facility] physical: PSA (Dr. Frost monitors, hx. prostate cancer), hep C negative, MOCA 29/30, cognivue 64, wears bilateral hearing aides, has routine eye exams with Dr. kerns yearly, colonoscopy 12-21 polyps recheck 5 Start: 07-18-2022 Non-patient / Non-visit Dr. Limon Work Phone: [facility] Start: 07-18-2022 End: 07-18-[address] Joana Friend Work Phone: [facility]-Pulmonary Services/Neurology Start: 05-04-2022 End: 05-04-2022 ambulatory [facility] Work Phone: Start: 05-04-2022 End: 05-04-2022 Patient encounter procedure [facility] Start: 05-03-2022 End: 05-03-2022 Patient encounter procedure Joana Friend MD Work Phone: [facility] Start: 04-28-2022 End: 05-06-2022 Patient encounter procedure Joana Friend MD Work Phone: [facility] Start: 04-28-2022 End: 05-06-2022 Patient encounter status Joana Friend MD Work Phone: [facility]; [facility] Work Phone: Comment on above: 01-06-22 AMP 04-28-22 [facility] physical: PSA (Dr. Frost monitors, hx. prostate cancer), hep C negative, MOCA 29/30, cognivue 64, wears bilateral hearing aides, has routine eye exams with Dr. kerns yearly, colonoscopy 12-21 polyps recheck 5 Start: 03-27-2022 End: 03-27-2022 Lab Order Joana Friend MD Work Phone: [facility] Start: 2022 End: 2022 Patient encounter procedure [facility]-Laboratory Start: 01-06-2022 End: 01-06-2022 Patient encounter status Joana Friend MD Work Phone: [facility]; [facility] Work Phone: Comment on above: 01-06-22 AMP 09-28-20 [facility] physical: PSA (Dr. Frost monitors, hx. prostate cancer), hep C negative, MOCA 29/30, cognivue 64, wears bilateral hearing aides, has routine eye exams with Dr. kerns yearly, colonoscopy 12-21 polyps recheck 5 Start: 01-06-2022 End: 01-06-2022 Periodic preventive med est patient 65yrs& older Joana Friend MD Work Phone: [facility] Start: 09-27-2021 End: 10-05-2021 Office outpatient visit 40 minutes Joana Friend MD Work Phone: [facility] Start: 09-27-2021 Review Joana Rodríguez Work Phone: [facility] Start: 09-13-2021 End: 09-13-2021 Office outpatient visit 25 minutes Joana Friend MD Work Phone: [facility] Start: 09-13-2021 End: 09-13-2021 Patient encounter status Joana Friend MD Work Phone: [facility] Start: 09-13-2021 Review Joana Rodríguez Work Phone: [facility] Start: 08-13-2021 End: 08-13-2021 Phone Encounter Joana Friend MD Work Phone: [facility] Start: 08-11-2021 End: 08-11-2021 Office outpatient visit 15 minutes Joana Friend MD Work Phone: [facility] Start: 08-10-2021 End: 08-10-2021 Lab Order Joana Friend MD Work Phone: [facility] Start: 06-15-2021 End: 06-15-2021 Office outpatient new 20 minutes Joana Friend MD Work Phone: [facility] Start: 06-10-2021 End: 06-11-2021 Patient encounter status Joana Friend MD Work Phone: [facility]; [facility] Work Phone: Comment on above: 6-21 AMP 2-21 [facility] physical: BMI: 48.5, PSA (Dr. Frost monitors, hx. prostate cancer), hep C negative, MOCA 29/30, cognivue 62, wears bilateral hearing aides, has routine eye exams with Dr. kerns yearly, colonoscopy 2011 repeat 2021 Start: 06-10-2021 End: 06-11-2021 Periodic preventive med est patient 40-64yrs Joana Friend MD Work Phone: [facility] Start: 03-26-2021 End: 03-26-2021 Office outpatient visit 15 minutes Joana Friend MD Work Phone: [facility] Start: 01-05-2021 End: 01-05-2021 Office outpatient visit 25 minutes Joana Friend MD Work Phone: [facility] Start: 01-05-2021 End: 01-05-2021 Patient encounter status [facility]; [facility] Work Phone: Comment on above: 09-28-20 [facility] physic al: BMI: 48.5, PSA (Dr. Frost monitors, hx. prostate cancer), hep C negative, MOCA 29/30, cognivue 62, wears bilateral hearing aides, has routine eye exams with Dr. kerns yearly, colonoscopy 2011 repeat 2021 Start: 12-10-2020 End: 12-10-2020 Office outpatient visit 25 minutes Joana Friend MD Work Phone: [facility] Start: 11-17-2020 End: 11-17-2020 Annotation/Addendum Joana Friend [facility] Start: 10-01-2020 End: 10-01-2020 Phone Encounter Joana Friend [facility] Start: 09-28-2020 End: 10-02-2020 Office outpatient visit 25 minutes Joana Friend [facility] Start: 09-28-2020 End: 10-02-2020 Patient encounter status Joana Friend MD Work Phone: [facility] Start: 09-28-2020 Review Joana Friend [facility] Start: 09-18-2020 End: 09-18-2020 Lab Order Joana Friend [facility] Start: 09-09-2020 End: 09-09-2020 Lab Order Joana Friend [facility] Start: 09-09-2020 End: 09-09-2020 Phone Encounter Joana Friend [facility] Patient encounter status Joana Friend MD Work Phone: [facility]; [facility] Work Phone: Comment on above: 09-28-20 [facility] physic al: BMI: 48.5, PSA (Dr. Parul romero, hx. prostate cancer), hep C negative, MOCA 29/30, cognivue 62, wears bilateral hearing aides, has routine eye exams with Dr. kerns yearly, colonoscopy Patient encounter status Joana Friend MD Work Phone: [facility]; [facility] Work Phone: Comment on above: 01-05-21 AMP 09-28-20 [facility] physical: BMI: 48.5, PSA (Dr. Paurl romero, hx. prostate cancer), hep C negative, MOCA 29/30, cognivue 62, wears bilateral hearing aides, has routine eye exams with Dr. kerns yearly, colonoscopy 2011 repeat 2021 Patient encounter status [facility]; [facility] Work Phone: Comment on above: 01-05-21 AMP 09-28-20 [facility] physical: BMI: 48.5, PSA (Dr. Parul romero, hx. prostate cancer), hep C negative, MOCA 29/30, cognivue 62, wears bilateral hearing aides, has routine eye exams with Dr. kerns yearly, colonoscopy 2011 repeat 2021 Patient encounter status Iva Phillips [facility]; [facility] Work Phone: Comment on above: 01-06-22 AMP 04-28-22 [facility] physical: PSA (Dr. Parul romero, hx. prostate cancer), hep C negative, MOCA 29/30, cognivue 62, wears bilateral hearing aides, has routine eye exams with Dr. kerns yearly, colonoscopy 12-21 polyps recheck 5 Procedures Date Procedure Procedure Detail Performing Clinician Start: 03-14-2025 Assay of prostate specific antigen total Dr. Joana Friend MD Work Phone: Comment on above: This test was performed using the [employer] tPSA method. Measured values of a patient sample can vary depending on the testing procedure used. PSA values determined on patient samples by different testing procedures cannot be used interchangeably. If there is a change in PSA assays while monitoring therapy, sequential testing should be performed to confirm baseline values. Start: 06-01-2023 CT of chest Start: 06-01-2023 End: 06-01-[address] Lung Screening Procedure Note: See Note; NOTES: [facility] Imaging Services [address] [place] [address] Lung Screening MR#: [id number] Acct: [id number] Name: NOLAN VILLATORO Rep #: [id number] : 1950 M 73 From: Cresencio Mane MD PCP: Dr. Joana Friend MD Status: [facility] Study: Low Dose CT Lung Screening Date of Exam: 06/01 Exam# [id number] Ordering Dr: Joana Friend MD [id number] STUDY: LOW DOSE CT LUNG CANCER SCREENING REASON FOR EXAM: Male, 73 years old. Smoker for years RADIATION DOSAGE (If Supplied By Facility): CTDIvol = ( 4.02 ) mGy, DLP = ( 139.44 ) mGycm TECHNIQUE: No contrast was administered. Low dose technique was utilized (average mAS-38 and kVp 120). 1.25 mm axial source images with a slice interval of 1.25-mm were reconstructed in lung windows. 2.5 mm axial source images with a slice interval of 2.5-mm were reconstructed in lung windows. 5.0 mm axial source images with a slice interval of 5.0-mm were reconstructed in soft tissue windows. COMPARISON: 05/04/2022 __ Emphysema: Mild emphysema. No change in a 4 mm noncalcified nodule peripherally in the right lower lobe lungs on image 169 consistent with a noncalcified granuloma. No new noncalcified nodule or mass. Endobronchial lesion: None Aorta: Some calcified plaque in the aortic arch but no aortic aneurysm. CORONARY ARTERIES: Coronary artery calcification is seen. Heart: No cardiomegaly. Pulmonary artery: Normal Mediastinal nodes: Normal Other chest and abdominal findings: Nonobstructing stone in the midsection of right kidney. CT/Low Dose CT Lung Screening IMPRESSION: Lung-RADS category 2 - Continue annual screening with LDCT in 12 months. IMPORTANT NOTES FOR USE: ACR Lung-RADS Version 1.1 Assessment Categories Release Date: 2018 Category: Coded 0-4 bases on nodule(s) with highest degree of suspicion. Negative screen is defined as categories 1 and 2; a positive screen is defined as categories 3 and 4. Category 3 and 4A nodules that are unchanged on interval CT should be coded as category 2, and individuals returned to screening in 12 months. Category 4X: Category 3 or 4 nodules with additional imaging findings that increase the suspicion of lung cancer, such as spiculation, GGN that doubles in size in 1 year, enlarged lymph notes, etc. Category Modifiers: S (significant finding unrelated to lung cancer) Electronically Signed: Cresencio Mane MD at 22:35 EDT , CC: Dr. Joana Friend MD [place] Bottom Maker: Signed Joana Friend MD Work Phone: Start: 07-18-2022 End: 07-18-2022 NCS and/or EMG Patient Procedure Note: See Note; NOTES: [facility] Pulmonary Services/Neurology [address] [place] [address] MR#: [id number] Acct: [id number] Name: NOLAN VILLATORO Rep #: [id number] : 1950 72 From: Hector Moore DO Referring Dr: Lex Mercado DO Status: REG C LI Location: [facility] Date: 07/18/22 Sex: M C NCS and/or EMG Patient Report Ordering Doctor: Lex Mercado DATE OF SERVICE: 07/18/22 Indication: Bilateral hand pain and paresthesias. No associated axial or radicular neck pain. Evaluate for median neuropathy at the wrist. Findings: Nerve conduction studies were performed in the right and left upper extremities. The right median motor study recording the abductor pollicis brevis showed a normal amplitude, prolonged distal latency and normal conduction velocity. The right ulnar motor study recording the abductor digiti minimi showed a normal amplitude, normal distal latency and normal conduction velocity. No conduction block or focal slowing was present across the elbow. The right median sensory response recording digit two was absent. The right ulnar sensory response recording digit five showed a normal amplitude, latency and conduction velocity. The right radial sensory response recording over the extensor snuff box showed a normal amplitude, latency and conduction velocity. The left median motor study recording the abductor pollicis brevis showed a normal amplitude, prolonged distal latency and normal conduction velocity. The left ulnar motor study recording the abductor digiti minimi showed a normal amplitude, normal distal latency and normal conduction velocity. No conduction block or focal slowing was present across the elbow. The left median sensory response recording digit two showed a reduced amplitude, prolonged latency and markedly reduced conduction velocity. The left ulnar sensory response recording digit five showed a normal amplitude, latency and conduction velocity. The left radial sensory response recording over the extensor snuff box showed a normal amplitude, latency and conduction velocity. Right median-ulnar lumbrical / interosseous motor latencies showed a prolonged median latency compared to the ulnar. Needle EMG of the bilateral abductor pollicis brevis muscles was normal. No denervation was seen on either side. On the right motor units were large amplitude and long duration with reduced recruitment. On the left, motor units were normal morphology with slightly reduced recruitment. Impression: This is an abnormal study. 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 The pathophysiology is predominantly demyelination, though there is evidence of secondary sensory axon loss. These findings are compatible with the clinical diagnosis of carpal tunnel syndrome. Meño Moore D.O. Multi Select Codes Neurology Neurology Interp Codes: 44677-82 [facility] [place] done w/nerv tst lomax (interp) (Qty:2) and 43674-71 [facility] test 11-12 studies (interp) 07/18/221717 <Electronically signed by Hector Moore DO> Date __ Hector Moore DO CC: Dr. Meño Moore DO; Dr. Joana Friend MD; Dr. Lex Mercado DO Date Dictated: 07/18/221711 Date Transcribed: 07/18/221711 [place] Bottom Maker: CG Signed Joana Friend MD Work Phone: Start: 05-04-2022 CT of chest Start: 05-04-2022 End: 05-04-[address] Lung Screening Procedure Note: See Note; NOTES: [facility] Imaging Services [address] [place] [address] Lung Screening MR#: [id number] Acct: [id number] Name: NOLAN VILLATORO Rep #: [id number] : 1950 M 72 From: Louie mustafa MD PCP: Dr. Joana Friend MD Status: [facility] Study: Low Dose CT Lung Screening Date of Exam: 05/04 Exam# [id number] Ordering Dr: Joana Friend MD STUDY: LOW DOSE CT LUNG CANCER SCREENING REASON FOR EXAM: Male, 72 years old. Smoking- PIPE SMOKER FOR 40+ YEARS RADIATION DOSAGE (If Supplied By Facility): CTDIvol = ( 3.18 ) mGy, DLP = ( 102.44 ) mGycm TECHNIQUE: No contrast was administered. Low dose technique was utilized (average mAS-38 and kVp 120). 1.25 mm axial source images with a slice interval of 1.25-mm were reconstructed in lung windows. 2.5 mm axial source images with a slice interval of 2.5-mm were reconstructed in lung windows. 5.0 mm axial source images with a slice interval of 5.0-mm were reconstructed in soft tissue windows. COMPARISON: Comparison is made with prior examination dated 11/17/2020. __ NODULES: Stable calcified granuloma in the right lower lobe. Emphysema: Minimal scarring at the lung bases. Endobronchial lesion: None Aorta: Mild atherosclerotic plaque formation of the aortic arch. CORONARY ARTERIES: Coronary artery calcification is seen. Heart: Unremarkable. Pulmonary artery: Unremarkable. Mediastinal nodes: Small mediastinal lymph nodes. Other chest and abdominal findings: CT/Low Dose CT Lung Screening IMPRESSION: Lung-RADS category 2 - Continue annual screening with LDCT in 12 months. IMPORTANT NOTES FOR USE: ACR Lung-RADS Version 1.1 Assessment Categories Release Date: 2018 Category: Coded 0-4 bases on nodule(s) with highest degree of suspicion. Negative screen is defined as categories 1 and 2; a positive screen is defined as categories 3 and 4. Category 3 and 4A nodules that are unchanged on interval CT should be coded as category 2, and individuals returned to screening in 12 months. Category 4X: Category 3 or 4 nodules with additional imaging findings that increase the suspicion of lung cancer, such as spiculation, GGN that doubles in size in 1 year, enlarged lymph notes, etc. Category Modifiers: S (significant finding unrelated to lung cancer) Electronically Signed: Louie Kearney MD at 15:30 EDT , CC: Dr. Joana Friend MD [place] Bottom Maker: Signed Joana Friend MD Work Phone: Start: 08-13-2021 End: 08-13-2021 Virtual Office Visit Comments: See Note; NOTES: [facility] [place] [address] OFFICE VISIT Date of Service: 08/13/21 MR#: [id number] Acct: [id number] Patient: NOLNA VILLATORO Rep #: [id number] : 1950 Provider: GILBERT dawson Age/Sex: 71/M Location: [facility] [place] Status: Signed Intake Intake Visit Reasons: COVID-19 Allergies Antihistamines - Alkylamine Allergy (Verified 08/13/21 12:55) Other [facility] Medical History (Updated 08/13/21 @ 12:40 by Yoana Guerrero NP, [facility]) Abdominal pain Acid reflux Alcohol use Arthritis Back pain Back problem Cancer Cardiology follow-up encounter CPAP (continuous positive airway pressure) dependence Heartburn Hemorrhoids High cholesterol History of echocardiogram History of stress test History of ulceration Hypertension Hypertension Incisional hernia Injury of back Loss of hearing Rheumatoid arthritis Seroma after procedure Sleep apnea Smoker Ulcer Wears dentures Wears glasses Surgical History (Updated 07/14/21 @ 12:11 by Dana Sewell) Achilles rupture, left History of esophagogastroduodenoscopy (EGD) History of partial knee replacement Hx of bilateral cataract extraction Hx of colonoscopy Hx of elbow surgery Hx of prostatectomy Hx of tonsillectomy S/P ventral herniorrhaphy Family History Father Hypertension Prostate cancer Mother CVA (cerebral vascular accident) Social History Smoking Status: Current every day smoker tobacco type: pipe alcohol intake: current alcohol intake frequency: holidays/special occasions only substance use type: does not use caffeine: Yes what type of physical activity do you participate in: other frequency: 3-4 times per week seatbelt use: always HPI HPI Details: Patient was informed that this visit will be billed to patient. This visit was conducted during COVID-19 pandemic. Statement read to the patient: This telehealth visit is being offered during our stay at home measures in response to the pandemic. It is subject to an office visit charge. There are also charges for the monoclonal antibody infusion which may or may not be covered by your insurance. The patient consents to continue. The FDA has authorized the emergency use of monoclonal antibody treatment (bamlanivimab/etesevimab or casirivimab/imdevimab) for mild to moderate COVID-19 in adults and pediatric patients with positive results of direct SARS-Cov-2 viral testing ages 12 and older, at least 40 kg, who are at high risk for progressing to severe COVID-19 and or hospitalization. The significant known and potential risks (allergic reactions, worsening of symptoms after treatment, or side effects from injection including brief pain, bleeding, bruising of the skin, soreness, swelling, possible infection at the infusion site) and benefits (decrease chance of progression to severe COVID-19) of a monoclonal antibody infusion, and the extent to which such potential risks and benefits are unknown. Note that worsening symptoms after treatment may occur but it is unknown whether these symptoms are related to treatment or are due to the progression of COVID-19. Worsening symptoms may include: fever, difficulty breathing, rapid or slow heart rate, tiredness, weakness or confusion. If these symptoms occur, patients are encouraged to seek immediate medical attention. These treatments are still being studied, all possible side effects may not be listed or known at this time. Patients treated with monoclonal antibody infusion should continue to self-isolate and use infection control measures (such as wear mask, isolate, social distance, avoid sharing personal items, clean and disinfect high touch surfaces, and frequent handwashing) according to the CDC guidelines. The fact sheet will be provided prior to the administration of the medication. Oral medications have received authorization from the FDA to treat [id number] COVID-19 in patients at high risk for progression to severe COVID-19. These medications may not be appropriate for all patients and available drug supply may be limited. However, these oral medications may be more effective against the omicron variant. The patient had the option to refuse or accept treatment with monoclonal antibody therapy. The patient was informed that the number of people treated with monoclonal antibody therapy at this time is small. Due to the changes in the virus that causes COVID-19, some monoclonal antibody treatments may not be effective for all forms of the virus (known as variants). This includes the omicron variant. The patient stated understanding of this information communicated and wished to proceed with monoclonal antibody infusion therapy. Symptom onset occurred: COVID + test date: 08/11/21 @ [facility] Sx Onset: 08/07/21 Sx: cough, congestion, sore throat O2: No Age: 71yrs Vaccine: Pfizer x3 Qualifier: HTN ROS ENT ENT: Positive for sore throat Resp Respiratory: Positive for cough and chest congestion Exam Const General: cooperative and no acute distress Resp Effort Inspection: normal respiratory effort and able to speak in complete sentences Neuro General: patient alert, patient awake and patient oriented x3 Cognition: normal cognition Speech: speech normal Psych Mental Status: mental status grossly normal Mood: congruent mood Attitude: cooperative Thought Process: normal Thought Content: normal Judgment: judgment good Details: Details:: Exam was limited due to phone visit with no video. Quality Reporting Tobacco Screening ([facility] 138) Smoking Status: Current every day smoker Coding Level of Care Code New Pt Level 1 Telephone Patient Type New History Problem Focused Exam Problem Focused Medical Decision Making Straight Forward Diagnoses COVID-19 U07.1 Over 65 years old Time Spent (min) 10 Comment [id number] Assessment and Plan Assessment and Plan (1) COVID-19: Status: Acute Plan - Yoana Guerrero COURT ADVOCATE, COURT ADVOCATE-C: The patient remains appropriate for the Monoclonal Antibody Infusion. The patient states understanding of this information communicated and wishes to proceed with monoclonal antibody infusion therapy. Patient agrees to receive either balanivimab/etesvimab or casirivimab/imdevimab upon availability. (2) Over 65 years old: Status: Acute 08/13/21 1307 <Electronically signed by Yoana Guerrero NP COURT ADVOCATE-C> Date __ Yoana Guerrero NP [facility]OCATE-C Cosigner Signature: Date __ (if applicable) CC: MD Joana Mai MD Work Phone: Start: 07-16-2021 End: 07-16-2021 Colonoscopy Report Comments: See Note; NOTES: [facility] Medical Records Department [address] [place] [id number] Colonoscopy Report MR#: [id number] Acct: [id number] Name: NOLAN VILLATORO Rep #: [id number] : 1950 71 From: Tahir Hopkins MD PCP: Dr. Joana Friend MD Status:[facility] Patient Name: Nolan Villatoro Procedure Date: 07/16/2021 7:44 AM Date of : 1950 Age: 71 Procedure: Colonoscopy Indications: Screening for colorectal malignant neoplasm Providers: Tahir Hopkins MD Medicines: Monitored Anesthesia Care Patient Profile: This is a 71 year old male. Refer to note in patient chart for documentation of history and physical. Last Colonoscopy: none. The patient's first colonoscopy is today. Complications: No immediate complications. Procedure: Pre-Anesthesia Assessment: - Prior to the procedure, a History and Physical was performed, and patient medications and allergies were reviewed. The patient's tolerance of previous anesthesia was also reviewed. The risks and benefits of the procedure and the sedation options and risks were discussed with the patient. All questions were answered, and informed consent was obtained. Prior Anticoagulants: The patient has taken no previous anticoagulant or antiplatelet agents. After reviewing the risks and benefits, the patient was deemed in satisfactory condition to undergo the procedure. After I obtained informed consent, the scope was passed under direct vision. Throughout the procedure, the patient's blood pressure, pulse, and oxygen saturations were monitored continuously. The Colonoscope was introduced through the anus and advanced to the cecum, identified by appendiceal orifice and ileocecal valve. Scope In: 7:46:32 AM Scope Withdrawal Time 0 hours 12 minutes 37 seconds Scope Out: 8:05:29 AM Total Procedure Duration Time 0 hours 18 minutes 57 seconds Findings: A small polyp was found in the sigmoid colon. The polyp was removed with a hot snare. Resection and retrieval were complete. The exam was otherwise without abnormality on direct and retroflexion views. Impression: - One small polyp in the sigmoid colon, removed with a hot snare. Resected and retrieved. - The examination was otherwise normal on direct and retroflexion views. Recommendation: - Discharge patient to home. - Resume previous diet. - Continue present medications. - Await pathology results. - Repeat colonoscopy in 5 years for surveillance. Procedure Code(s): --- Professional --- 24950, Colonoscopy, flexible; with removal of tumor(s), polyp(s), or other lesion(s) by snare technique Diagnosis Code(s): --- Professional --- Z12.11, Encounter for screening for malignant neoplasm of colon D12.5, Benign neoplasm of sigmoid colon CPT copyright 2017 [employer]. All rights reserved. The codes documented in this report are preliminary and upon sales secretary review may be revised to meet current compliance requirements. Tahir Hopkins MD 07/16/2021 8:17:37 AM This report has been signed electronically. Number of Addenda: 0 Note Initiated On: 07/16/2021 7:44 AM 07/16/21 0817 Date __ Tahir Hopkins MD Cosigner Signature: Date __ (if indicated) CC: Dr. Tahir Hopkins MD; Dr. Joana Friend MD Date Dictated: 07/16/21 0744 Date Transcribed: [place] Bottom Maker: FRANCK Friend MD Work Phone: Start: 07-16-2021 End: 07-16-2021 EGD Report Comments: See Note; NOTES: [facility] Medical Records Department [address] [place] [address] EGD Report MR#: [id number] Acct: [id number] Name: NOLAN VILLATORO Rep #: [id number] : 1950 71 From: Tahir Hopkins MD PCP: Dr. Joana Friend MD Status:[facility] Patient Name: Nolan Villatoro Procedure Date: 07/16/2021 7:30 AM Date of : 1950 Age: 71 Procedure: Upper GI endoscopy Indications: Suspected gastro-esophageal reflux disease, Gastro-esophageal reflux disease Providers: Tahir Hopkins MD Medicines: Monitored Anesthesia Care Patient Profile: This is a 71 year old male. Refer to note in patient chart for documentation of history and physical. Complications: No immediate complications. Estimated blood loss: Minimal. Procedure: Pre-Anesthesia Assessment: - Prior to the procedure, a History and Physical was performed, and patient medications and allergies were reviewed. The patient's tolerance of previous anesthesia was also reviewed. The risks and benefits of the procedure and the sedation options and risks were discussed with the patient. All questions were answered, and informed consent was obtained. Prior Anticoagulants: The patient has taken no previous anticoagulant or antiplatelet agents. After reviewing the risks and benefits, the patient was deemed in satisfactory condition to undergo the procedure. After obtaining informed consent, the endoscope was passed under direct vision. Throughout the procedure, the patient's blood pressure, pulse, and oxygen saturations were monitored continuously. The gastroscope was introduced through the mouth, and advanced to the second part of duodenum. The upper GI endoscopy was accomplished without difficulty. The patient tolerated the procedure well. Scope In: 7:41:05 AM Scope Out: 7:43:20 AM Total Procedure Duration Time 0 hours 2 minutes 15 seconds Findings: The esophagus was normal. Scattered moderate inflammation characterized by adherent blood was found in the gastric antrum. Biopsies were taken with a cold forceps for Helicobacter pylori testing. The examined duodenum was normal. Impression: - Normal esophagus. - Gastritis. Biopsied. - Normal examined duodenum. Recommendation: - Discharge patient to home. - Resume previous diet. - Continue present medications. Procedure Code(s): --- Professional --- 93612, Esophagogastroduodenoscopy, flexible, transoral; with biopsy, single or multiple Diagnosis Code(s): --- Professional --- K29.70, Gastritis, unspecified, without bleeding K21.9, Gastro-esophageal reflux disease without esophagitis CPT copyright 2017 [employer]. All rights reserved. The codes documented in this report are preliminary and upon sales secretary review may be revised to meet current compliance requirements. Tahir Hopkins MD 07/16/2021 8:14:20 AM This report has been signed electronically. Number of Addenda: 0 Note Initiated On: 07/16/2021 7:30 AM 07/16/21813 Date __ Tahir Hopkins MD Cosigner Signature: Date __ (if indicated) CC: Dr. Tahir Hopkins MD; Dr. Joana Friend MD Date Dictated: 07/16/21729 Date Transcribed: [place] Bottom Maker: AC Signed Joana Friend MD Work Phone: Start: 07-16-2021 End: 07-16-2021 History and Physical Exam Comments: See Note; NOTES: [facility] Medical Records Department [address] [place] [address] History Physical Exam 07/16/21725 MR#: [id number] Acct: [id number] Name: NOLAN VILLATORO Rep #: [id number] : 1950 71 From: Tahir Hopkins MD PCP: Dr. Joana Friend MD Status:[facility] Location: [place] [address] History and Physical Date of Admission: 07/16/21 Intake Intake Visit Reasons: EGD, NODULE UNDER CHIN Chief Complaint: calcium score screening Allergies Antihistamines - Alkylamine Allergy (Verified 06/16/21 08:17) Other Medications hydrochlorothiazide 25 mg PO DAILY 07/11/14 [History Confirmed 06/16/21] naproxen 500 mg PO BID PRN 05/27/17 [History Confirmed 06/16/21] ascorbic acid (vitamin C) 500 mg PO DAILY@0800 11/09/17 [History Confirmed 06/16/21] aspirin 81 mg PO DAILY@0800 11/09/17 [History Confirmed 06/16/21] cholecalciferol (vitamin D3) 5,000 unit PO DAILY 11/09/17 [History Confirmed 06/16/21] fish oil-dha-epa 1 ea PO DAILY 11/09/17 [History Confirmed 06/16/21] losartan 50 mg tablet 100 mg PO DAILY tab 06/16/21 [History Confirmed 06/16/21] omeprazole 40 mg capsule,delayed release 40 mg PO DAILY #60 cap 06/16/21 [Rx Confirmed 06/16/21] PFSH Medical History Abdominal pain Acid reflux Arthritis Back problem Hemorrhoids Hypertension Incisional hernia Rheumatoid arthritis Seroma after procedure Sleep apnea Ulcer Surgical History Achilles rupture, left History of partial knee replacement Hx of bilateral cataract extraction Hx of prostatectomy S/P ventral herniorrhaphy Family History Father Hypertension Prostate cancer Mother CVA (cerebral vascular accident) Social History alcohol intake: current alcohol intake frequency: holidays/special occasions only substance use type: does not use caffeine: Yes what type of physical activity do you participate in: other frequency: 3-4 times per week seatbelt use: always HPI HPI HPI: NOLAN THOMASETTI, is a 71 M who presents to the office today for GERD. Patient has had heartburn for several years and has never had an EGD. Patient is also due for screening colonoscopy as his last one was in 2011. He is not having any blood in his stool. ROS General General: No weight change, appetite, fatigue, colon cancer, breast cancer or weakness HEENT HEENT: No difficulty swallowing, eye injury, eye surgery, swollen glands or hoarseness Endo Endocrine: No thyroid disease, diabetes mellitus, thyroid cancer, Hair loss, heat intolerance or cold intolerance Skin Skin: No rash or changing moles Breast Breast: No left breast lump, right breast lump, nipple discharge, breast pain, abnormal mammogram, abnormal US or breast enlargement Musc Musculoskeletal: Yes back problems and arthritis; No rheumatoid arthritis, gout or joint pain Cardio Cardiovascular: Yes high blood pressure; No murmur, pacemaker, heart disease, atrial fibrillation, heart attack, heart stent, palpitations, shortness of breat with exertion or chest pain Psych Psychiatric: No depression, anxiety or hearing voices Resp Respiratory: No shortness of breath, Yes sleep apnea, Yes cough, No COPD, No asthma, No emphysema and No wheezing Gastro Gastrointestinal: No abdominal pain, No nausea or vomiting, No diarrhea, No constipation, No blood in stool, No acid reflux, Yes hemorrhoids, Yes ulcers, No gallbladder problem and No black,tarry stools Skyler Hematologic: Yes blood thinners, No blood disorders, No bleeding, No anemia and No blood clots Neuro Neurologic: No system reviewed and no additional complaints, except as documented, No as per HPI, No abnormal gait, No abnormal hearing, No abnormal movements, No abnormal speech, No behavioral changes, No burning sensations, No confusion, No convulsions, No disequilibrium, No dizziness, No localized weakness, No frequent falls, No headache(s), No lack of coordination, No loss of vision, No memory loss, No numbness, No other visual disturbances, No radicular pain, No restless legs, No sensory deficit, No syncope, No tingling, No tremor(s), No weakness and No other Exam Const General: cooperative Orientation: alert and oriented x3 HENMT Head: normal to inspection Neck Neck: normal visual inspection and full ROM Chest Chest palpation inspection: normal inspection of the chest Resp Effort Inspection: normal respiratory effort Auscultation: clear to auscultation bilaterally Cardio Rate: regular rate Rhythm: regular rhythm GI Inspection: non-distended Palpation: soft and nontender Skin General: no rashes or lesions noted Neuro General: patient alert and patient oriented x3 Extrem General: full ROM Psych Appearance: grossly normal Mental Status: mental status grossly normal Assessment and Plan Assessment and Plan (1) Screen for colon cancer: Status: Acute (2) GERD (gastroesophageal reflux disease): Status: Acute Qualifiers: Esophagitis presence: esophagitis presence not specified Qualified Code(s): K21.9 - Gastro- esophageal reflux disease without esophagitis Orders: Orders: Colonoscopy Today Z12.11 EGD Today K21.9 Plan - Dr. Tahir Hopkins MD: The patient has chronic reflux and I have ordered on the PPI. He should also have EGD for surveillance as he is never had one. I also discussed screening colonoscopy as he will be due this coming year. I explained endoscopy in detail to the patient. I explained the risks including but not limited to stroke or heart attack with anesthesia, perforation of the GI tract, bleeding, infection. I explained that any of these could necessitate further emergency surgery. The patient understands and all questions were answered sufficiently. The patient wishes to proceed with procedure. Tahir Hopkins MD Pager: [facility] [address] [place] [address] Office: I have re-examined the patient. There are no clinical changes since date of exam. 07/16/21 0726 <Electronically signed by Tahir Hopkins MD> Cosigner Signature (if applicable): CC: Dr. Tahir Hopkins MD; Dr. Joana Friend MD Signed Joana Friend MD Work Phone: Start: 06-16-2021 End: 06-21-2021 Surgery Visit Report Comments: See Note; NOTES: [address] [place] [address] OFFICE VISIT Date of Service: 06/16/21 MR#: [id number] Acct: [id number] Name: NOLAN VILLATORO Rep #: [id number] : 1950 Provider: Dr. Tahir mueller MD Age/Sex: 71/M Location: [facility] Status: Signed Intake Intake Visit Reasons: EGD, NODULE UNDER CHIN Chief Complaint: calcium score screening Allergies Antihistamines - Alkylamine Allergy (Verified 06/16/21 08:17) Other Medications hydrochlorothiazide 25 mg PO DAILY 07/11/14 [History Confirmed 06/16/21] naproxen 500 mg PO BID PRN 05/27/17 [History Confirmed 06/16/21] ascorbic acid (vitamin C) 500 mg PO DAILY@0800 11/09/17 [History Confirmed 06/16/21] aspirin 81 mg PO DAILY@0800 11/09/17 [History Confirmed 06/16/21] cholecalciferol (vitamin D3) 5,000 unit PO DAILY 11/09/17 [History Confirmed 06/16/21] fish oil-dha-epa 1 ea PO DAILY 11/09/17 [History Confirmed 06/16/21] losartan 50 mg tablet 100 mg PO DAILY tab 06/16/21 [History Confirmed 06/16/21] omeprazole 40 mg capsule,delayed release 40 mg PO DAILY #60 cap 06/16/21 [Rx Confirmed 06/16/21] PFSH Medical History Abdominal pain Acid reflux Arthritis Back problem Hemorrhoids Hypertension Incisional hernia Rheumatoid arthritis Seroma after procedure Sleep apnea Ulcer Surgical History Achilles rupture, left History of partial knee replacement Hx of bilateral cataract extraction Hx of prostatectomy S/P ventral herniorrhaphy Family History Father Hypertension Prostate cancer Mother CVA (cerebral vascular accident) Social History alcohol intake: current alcohol intake frequency: holidays/special occasions only substance use type: does not use caffeine: Yes what type of physical activity do you participate in: other frequency: 3-4 times per week seatbelt use: always HPI HPI HPI: NOLAN VILLATORO, is a 71 M who presents to the office today for GERD. Patient has had heartburn for several years and has never had an EGD. Patient is also due for screening colonoscopy as his last one was in 2011. He is not having any blood in his stool. ROS General General: No weight change, appetite, fatigue, colon cancer, breast cancer or weakness HEENT HEENT: No difficulty swallowing, eye injury, eye surgery, swollen glands or hoarseness Endo Endocrine: No thyroid disease, diabetes mellitus, thyroid cancer, Hair loss, heat intolerance or cold intolerance Skin Skin: No rash or changing moles Breast Breast: No left breast lump, right breast lump, nipple discharge, breast pain, abnormal mammogram, abnormal US or breast enlargement Musc Musculoskeletal: Yes back problems and arthritis; No rheumatoid arthritis, gout or joint pain Cardio Cardiovascular: Yes high blood pressure; No murmur, pacemaker, heart disease, atrial fibrillation, heart attack, heart stent, palpitations, shortness of breat with exertion or chest pain Psych Psychiatric: No depression, anxiety or hearing voices Resp Respiratory: No shortness of breath, Yes sleep apnea, Yes cough, No COPD, No asthma, No emphysema and No wheezing Gastro Gastrointestinal: No abdominal pain, No nausea or vomiting, No diarrhea, No constipation, No blood in stool, No acid reflux, Yes hemorrhoids, Yes ulcers, No gallbladder problem and No black,tarry stools Skyler Hematologic: Yes blood thinners, No blood disorders, No bleeding, No anemia and No blood clots Neuro Neurologic: No system reviewed and no additional complaints, except as documented, No as per HPI, No abnormal gait, No abnormal hearing, No abnormal movements, No abnormal speech, No behavioral changes, No burning sensations, No confusion, No convulsions, No disequilibrium, No dizziness, No localized weakness, No frequent falls, No headache(s), No lack of coordination, No loss of vision, No memory loss, No numbness, No other visual disturbances, No radicular pain, No restless legs, No sensory deficit, No syncope, No tingling, No tremor(s), No weakness and No other Exam Const General: cooperative Orientation: alert and oriented x3 HENMT Head: normal to inspection Neck Neck: normal visual inspection and full ROM Chest Chest palpation inspection: normal inspection of the chest Resp Effort Inspection: normal respiratory effort Auscultation: clear to auscultation bilaterally Cardio Rate: regular rate Rhythm: regular rhythm GI Inspection: non-distended Palpation: soft and nontender Skin General: no rashes or lesions noted Neuro General: patient alert and patient oriented x3 Extrem General: full ROM Psych Appearance: grossly normal Mental Status: mental status grossly normal Assessment and Plan Assessment and Plan (1) Screen for colon cancer: Status: Acute (2) GERD (gastroesophageal reflux disease): Status: Acute Qualifiers: Esophagitis presence: esophagitis presence not specified Qualified Code(s): K21.9 - Gastro- esophageal reflux disease without esophagitis Orders: Orders: Colonoscopy Today Z12.11 EGD Today K21.9 Plan - Dr. Tahir Hopkins MD: The patient has chronic reflux and I have ordered on the PPI. He should also have EGD for surveillance as he is never had one. I also discussed screening colonoscopy as he will be due this coming year. I explained endoscopy in detail to the patient. I explained the risks including but not limited to stroke or heart attack with anesthesia, perforation of the GI tract, bleeding, infection. I explained that any of these could necessitate further emergency surgery. The patient understands and all questions were answered sufficiently. The patient wishes to proceed with procedure. Tahir Hopkins MD Pager: [facility] [address] [place] [address], [address] [place] [address] Office: Plan Details Other Medications: New: omeprazole 40 mg PO DAILY 60 caps 2RF Coding Level of Care Code Off vis,new,level 3 Diagnoses Screen for colon cancer Z12.11 GERD (gastroesophageal reflux disease) K21.9 Esophagitis presence: esophagitis presence not specified 06/21/21 1519 <Electronically signed by Tahir Hopkins MD> Date __ Tahir Hopkins MD Cosigner Signature: Date __ (if applicable) CC: MD Joana Mai MD Work Phone: Start: 12-31-2020 End: 12-31-2020 Hand Min 3 Views Comments: See Note; NOTES: [facility] Imaging Services [address] [place] [address] Hand Min 3 Views MR#: [id number] Acct: [id number] Name: NOLAN VILLATORO Rep #: [id number] : 1950 M 70 From: Bj Chin MD PCP: Dr. Joana Friend MD Status: REG CLI Study: Hand Min 3 Views Date of Exam: 12/31/20 Exam# [id number] Ordering Dr: Joana Friend MD STUDY: X-RAY - RIGHT HAND REASON FOR EXAM: Male, 70 years old. ARTHRALGIA TECHNIQUE: 3 view(s) of the hand. COMPARISON: None. FINDINGS: Normal radiocarpal articulation. Normal distal radioulnar joint. Normal visualized carpal bones. There is significant intercarpal arthrosis between the scaphoid, trapezium, and trapezoid. There is degenerative arthrosis of the carpometacarpal articulation of the thumb with lateral subluxation of the first metacarpus. Normal second through fifth carpometacarpal joints. Normal metacarpi. There is degenerative arthrosis of the metacarpophalangeal (MCP) joints. There is degenerative arthrosis of the interphalangeal joint of the thumb with articular joint space narrowing. Normal proximal and distal phalanges of the thumb. There is degenerative arthrosis of the metacarpophalangeal (MCP) joints. There is diffuse articular joint space narrowing of the proximal and distal interphalangeal joints of the second through fifth fingers, but without erosive changes or periarticular soft tissue swelling. Normal phalanges of the second through fifth fingers. The soft tissue structures are unremarkable. 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 Joana Friend MD [place] Bottom Maker: Signed Joana Friend MD Work Phone: Start: 12-11-2020 End: 12-22-[address] Comments: See Note; NOTES: [facility] Imaging Services [address] [place] [address] 12/11/2016 MR#: [id number] Acct: [id number] Name: NOLAN VILLATORO Rep #: [id number] : 1950 70 From: Patrick Robb MD PCP: Dr. Joana Friend MD Status:REG CLI Y Location: CT Calcium Scoring Coronary Calcium Scoring: High-resolution Computed Tomographic imaging of the chest was performed on [12/02/2020], with particular attention paid to the coronary arteries. Images from the examination were analyzed for the presence and extent of coronary artery calcification , using coronary calcium quantification software. The patient tolerated the procedure well and there were no complications. The results of the coronary calcification analysis are provided below. Left main coronary artery 40.5. Left anterior descending artery 77.3. Left circumflex artery 94.2. Right coronary artery 2.7. Total Agatston score 215. Percentile ranking between 50 and 75%. The above is suggestive of moderate plaque burden and moderate nonobstructive coronary artery disease. A full evaluation of cardiac risk should include an assessment of all conventional risk factors and the scores and percentile rankings reported hearin= should be evaluated in this context. Calcium Scoring Interpretation: 0 No identifiable atherosclerotic plaque. Very low cardiovascular disease risk. <5% chance of presence coronary artery disease A Negative Examination 1-10 Minimal Plaque burden. Significant coronary artery disease very unlikely. 11-100 Mild plaque burden. Likely mild or minimal coronary atherosclerosis. 101-400 Moderate plaque burden Moderate non-obstructive coronary artery disease highly likely. Over 400 Extensive plaque burden. High likelihood of at least one significant coronary stenosis (>50% diameter) 12/22/20 9134 <Electronically signed by Patrick Robb MD> Date __ Patrick Robb MD Cosigner Signature (if applicable): Date __ CC: Dr. Joana Friend MD Signed Joana Friend MD Work Phone: Start: 12-07-2020 End: 12-22-[address] Comments: See Note; NOTES: [facility] Imaging Services [address] [address] 12/07/20 1807 MR#: [id number] Acct: [id number] Name: NOLAN VILLATORO Rep #: [id number] : 1950 70 From: Patrick Robb MD PCP: Dr. Joana Friend MD Status:REG CLI Y Location: CT Calcium Scoring Coronary Calcium Scoring: High-resolution Computed Tomographic imaging of the chest was performed on [12/02/2020], with particular attention paid to the coronary arteries. Images from the examination were analyzed for the presence and extent of coronary artery calcification , using coronary calcium quantification software. The patient tolerated the procedure well and there were no complications. The results of the coronary calcification analysis are provided below. Left main coronary artery-40.5 Left anterior descending artery 77.3 Left circumflex artery 94.2 Right coronary artery 2.7. Total Agatston score 215. The above places him between 50th and 75th percentile. Conclusion: Moderate nonobstructive coronary artery disease likely. Full assessment of cardiac risk should include an assessment of all conventional risk factors. The scores and percentile rankings reported hear in should be interpreted in that context. Calcium Scoring Interpretation: 0 No identifiable atherosclerotic plaque. Very low cardiovascular disease risk. <5% chance of presence coronary artery disease A Negative Examination 1-10 Minimal Plaque burden. Significant coronary artery disease very unlikely. 11-100 Mild plaque burden. Likely mild or minimal coronary atherosclerosis. 101-400 Moderate plaque burden Moderate non-obstructive coronary artery disease highly likely. Over 400 Extensive plaque burden. High likelihood of at least one significant coronary stenosis (>50% diameter) 05/18/21 1744 <Electronically signed by Patrick Robb MD> Date __ Patrick Robb MD Cosigner Signature (if applicable): Date __ CC: Dr. Joana Friend MD Signed Joana Friend MD Work Phone: Start: 12-02-2020 End: 12-02-[address] w/CCTA Comments: See Note; NOTES: [facility] Imaging Services [address] [place] [address] w/CCTA MR#: [id number] Acct: [id number] Name: NOLAN VILLATORO Rep #: [id number] : 1950 [facility] From: Joseph Bear MD PCP: Dr. Joana Friend MD Status: [facility] Study: Limited Chest CT w/CCTA Date of Exam: 12/02/20 Exam# [id number] Ordering Dr: Joana Friend MD STUDY: CARDIAC CALCIUM SCORING - CT CHEST REASON FOR EXAM: Male, 70 years old. SCREENING RADIATION DOSAGE (If Supplied By Facility): CTDIvol = ( 12.19 ) mGy, DLP = ( 243.79 ) mGycm TECHNIQUE: Axial non-enhanced images were acquired through the heart for the sole purpose of measuring coronary artery calcium. Individualized dose optimization techniques were used for this CT. COMPARISON: None. __ FINDINGS: Visualized surrounding anatomy: Normal. Left Main Coronary Artery: 40.5 Left Anterior Descending Artery: 77.3 Left Circumflex Artery: 94.2 Right Coronary Artery: 2.78 Other: Total Calcium Score: 215 __ CT/Limited Chest CT w/CCTA IMPRESSION: A Calcium Score of 215 places the patient in the approximate 50-75 percentile, based on the SNELL data calculator. __ Please go to: [email or web address]-nhlbi.org/Calcium/input. aspx , for a description of the calculator. Electronically Signed: Joseph Bear MD at 17:21 EDT , Service support , CC: Dr. Joana Friend MD [place] Bottom Maker: Signed Joana Friend MD Work Phone: Start: 11-17-2020 End: 11-18-2020 Dexa Bone Density Study Comments: See Note; NOTES: [facility] Imaging Services [address] [place] [address] Dexa Bone Density Study MR#: [id number] Acct: [id number] Name: NOLAN VILLATORO Rep #: [id number] : 1950 M 70 From: Louie mustafa MD PCP: Dr. Joana Friend MD Status: [facility] Study: Dexa Bone Density Study Date of Exam: 11/17/20 Exam# [id number] Ordering Dr: Joana Friend MD STUDY: DUAL ENERGY X-RAY ABSORPTIOMETRY / DXA REASON FOR EXAM: Male, 70 years old. M81.0. Loss of height. TECHNIQUE: Bone Mineral Density (BMD) measurements of lumbar spine and bilateral hips were obtained. COMPARISON: None. __ FINDINGS: Lumbar Spine (L1-L4): g/cm2 (1.833) / T-score (4.9) / Z-score (5.4) Findings are suggestive of normal bone density with a low fracture risk. Left Femur Total: g/cm2 (1.214) / T-score (0.8) / Z-score (1.4) Left Femoral Neck: g/cm2 (1.113) / T-score (0.3) / Z-score (1.5) Right Femur Total: g/cm2 (1.214) / T-score (0.8) / Z-score (1.4) Right Femoral Neck: g/cm2 (1.085) / T-score (0.1) / Z-score (1.3) __ BD/Dexa Bone Density Study IMPRESSION: The patient is considered normal as outlined below according to World [employer] Organization (WHO) criteria with a low fracture risk. __ Reference Information: The T-score is the number of standard deviations above or below the standard which is normal for young adults at their peak bone mineral density. The World Health Organization (WHO) interprets the T-scores as follows: Above -1 Normal bone density Between -1 and -2.5 Osteopenia Equal to / or below -2.5 Osteoporosis As a practical clinical guideline, osteopenia may be graded as follows: Mild -1 through -1.5 Moderate -1.6 through -2.0 Severe -2.1 through -2.4 The Z-score is the number of standard deviations above or below age-matched controls. A Z-score of less than -1.5 would be considered abnormal. References: 1. NIH Osteoporosis and Related Bone Diseases www osteo.org 2. International Society for Clinical Densitometry www iscd.org 3. National Osteoporosis Foundation www nof.org Electronically Signed: Louie Kearney MD at 14:20 EDT , Service support , CC: Dr. Joana Friend MD [place] Bottom Maker: Signed Joana Friend MD Work Phone: Start: 11-17-2020 End: 11-18-2020 Chest without Contrast Comments: See Note; NOTES: [facility] Imaging Services [address] [place] [address] Chest without Contrast MR#: [id number] Acct: [id number] Name: NOLAN VILLATORO Rep #: [id number] : 1950 M 70 From: Louie mustafa MD PCP: Dr. Joana Friend MD Status: REG CLI Study: Chest without Contrast Date of Exam: 11/17/20 Exam# [id number] Ordering Dr: Joana Friend MD STUDY: LOW DOSE CT LUNG CANCER SCREENING REASON FOR EXAM: Male, 70 years old. CONTINUOUS TOBACCO ABUSE RADIATION DOSAGE (If Supplied By Facility): CTDIvol = ( 3.18 ) mGy, DLP = ( 104.43 ) mGycm TECHNIQUE: No contrast was administered. Low dose technique was utilized (average mAS-38 and kVp 120). 1.25 mm axial source images with a slice interval of 1.25-mm were reconstructed in lung windows. 2.5 mm axial source images with a slice interval of 2.5-mm were reconstructed in lung windows. 5.0 mm axial source images with a slice interval of 5.0-mm were reconstructed in soft tissue windows. Nodule measured using lung windows on PACS and/or independent workstation with automated measurement of minimum and maximum diameter. Nodule measurement reported as average diameter rounded to the nearest whole number. Growth is defined as an increase ins size of greater than 1.5 mm. COMPARISON: None. __ NODULES: Calcified granuloma in the right lower lobe anteriorly. Emphysema: Minimal increased linear markings at the lung bases suggestive of scarring. Endobronchial lesion: Aorta: Mild atherosclerotic plaque calcification of the aortic arch Coronary arteries: Coronary artery calcification. Heart: Unremarkable Pulmonary artery: Unremarkable Mediastinal nodes: Small mediastinal lymph nodes. Other chest and abdominal findings: CT/Chest without Contrast IMPRESSION: Lung-RADS category 2 - Continue annual screening with LDCT in 12 months. IMPORTANT NOTES FOR USE: ACR Lung-RADS Version 1.1 Assessment Categories Release Date: 2018 Category: Coded 0-4 bases on nodule(s) with highest degree of suspicion. Negative screen is defined as categories 1 and 2; a positive screen is defined as categories 3 and 4. Category 3 and 4A nodules that are unchanged on interval CT should be coded as category 2, and individuals returned to screening in 12 months. Category 4X: Category 3 or 4 nodules with additional imaging findings that increase the suspicion of lung cancer, such as spiculation, GGN that doubles in size in 1 year, enlarged lymph notes, etc. Category Modifiers: S (significant finding unrelated to lung cancer) Electronically Signed: Louie Kearney MD at 13:50 EDT , Service support , CC: Dr. Joana Friend MD [place] Bottom Maker: Signed Joana Friend MD Work Phone: Arthisha baeze surg w/meniscectomy med/lat w/shvg [facility] Comment on above: 07-23-2014 Dr. Hannah baeze surg w/meniscectomy med/lat w/shvg [facility] LPN Comment on above: 07-23-2014 Dr. Hannah baeze surg w/meniscectomy med/lat w/shvg Geni Suarez LPN Comment on above: 07-23-2014 Dr. Hannah baeze surg w/meniscectomy med/lat w/shvg Avani Chavira [facility] Comment on above: 07-23-2014 Dr. Hannah baeze surg w/meniscectomy med/lat w/shvg [facility] LPN Comment on above: 07-23-2014 Dr. Hannah baeze surg w/meniscectomy med/lat w/shvg [facility] LPN Comment on above: 07-23-2014 Dr. Hannah baeze surg w/meniscectomy med/lat w/shvg Frida Rebolledo MA Comment on above: 07-23-2014 Dr. Hannah Diazler Arthrs kne surg w/meniscectomy med/lat w/shvg Iva Manchak [employer] Comment on above: 07-23-[address] Young Arthrs kne surg w/meniscectomy med/lat w/shvg Geni Erick [employer] Comment on above: 07-23-[address] Young Arthrs kne surg w/meniscectomy med/lat w/shvg Geni Erick FO[employer] EDIT[employer] Comment on above: 07-23-[address] Young Arthrt w/exc semilunar crtlg knee medial/lat [facility] Comment on above: 2009 Dr. Young [place] right wrist 2-23 Dr Rogelio Friend MD Work Phone: [place] tunnel right wrist 2- Dr Rogelio Suarez FO[employer] EDIT[employer] Cataract extraction and insertion of intraocular lens [facility] Comment on above: Bilateral. Cataract extraction and insertion of intraocular lens [facility] [employer] Comment on above: Bilateral. Cataract extraction and insertion of intraocular lens Geni Erick FOOD EDITOR Comment on above: Bilateral. Cataract extraction and insertion of intraocular lens Avani Gravius [employer] WORK[employer] Comment on above: Bilateral. Cataract extraction and insertion of intraocular lens [facility] [employer] Comment on above: Bilateral. Cataract extraction and insertion of intraocular lens [facility] [employer] Comment on above: Bilateral. Cataract extraction and insertion of intraocular lens Frida Rebolledo MA Comment on above: Bilateral. Cataract extraction and insertion of intraocular lens Iva Manchak [employer] WORK[employer] Comment on above: Bilateral. Cataract extraction and insertion of intraocular lens Geni Erick FO[employer] EDIT[employer] Comment on above: Bilateral. Cataract extraction and insertion of intraocular lens Geni Erick FO[employer] EDIT[employer] Comment on above: Bilateral. Colonoscopy [facility] Comment on above: 02-07-[address] Cleary [facility] Colon[facility] [employer] Comment on above: 02-07-[address] Cleary [facility] Colonoscopy Geni Erick L PN Comment on above: 02-07-[address] Cleary [facility] Colonoscopy Avani Gravius [employer] WORK[employer] Comment on above: 02-07-[address] Cleary [facility] [employer] Comment on above: 02-07-[address] Cleary [facility] [employer] Comment on above: 02-07-[address] Cleary [facility] Colonoscopy Frida Rebolledo MA Comment on above: 02-07-[address] Cleary [facility] Colonoscopy Iva Manchak [employer] WORK[employer] Comment on above: 02-07-[address] Cleary [facility] Colonoscopy Geni Erick L PN Comment on above: 02-07-[address] Cleary [facility] Colonoscopy Geni Erick L PN Comment on above: 02-07-[address] Cleary [facility] H/O: surgery Hx of prostatectomy History of operative procedure on knee History of partial knee replacement Comment on above: bilateral Repair first abdominal wall hernia [facility] Comment on above: 05-27-2019 Dr. Molina had some complicati ons with seroma after procedure Repair first abdominal wall hernia [facility] [employer] Comment on above: 05-27-2019 Dr. Molina had some complicati ons with seroma after procedure Repair first abdominal wall hernia Geni Erick FOOD EDITOR Comment on above: 05-27-2019 Dr. Molina had some complicati ons with seroma after procedure Repair first abdominal wall hernia Avani Gravius [employer] WORK[employer] Comment on above: 05-27-2019 Dr. Molina had some complicati ons with seroma after procedure Repair first abdominal wall hernia [facility] [employer] Comment on above: 05-27-2019 Dr. Molina had some complicati ons with seroma after procedure Repair first abdominal wall hernia [facility] [employer] Comment on above: 05-27-2019 Dr. Molina had some complicati ons with seroma after procedure Repair first abdominal wall hernia Frida Rebolledo MA Comment on above: 05-27-2019 Dr. Molina had some complicati ons with seroma after procedure Repair first abdominal wall hernia Iva Sabinok [employer]MENTAL [employer] WORKER Comment on above: 05-27-2019 Dr. Molina had some complicati ons with seroma after procedure Repair first abdominal wall hernia Geni Erick FOOD EDITOR Comment on above: 05-27-2019 Dr. Molina had some complicati ons with seroma after procedure Repair first abdominal wall hernia Geni Erick FOOD EDITOR Comment on above: 05-27-2019 Dr. Molina had some complicati ons with seroma after procedure Repair primary open/prq ruptured achilles tendon [facility] Comment on above: age of 43 Repair primary open/prq ruptured achilles tendon [facility] LPN Comment on above: age of 43 Repair primary open/prq ruptured achilles tendon Geni Erick [facility] Comment on above: age of 43 Repair primary open/prq ruptured achilles tendon Avani Chavira CMA Comment on above: age of 43 Repair primary open/prq ruptured achilles tendon [facility] Comment on above: age of 43 Repair primary open/prq ruptured achilles tendon [facility] LPN Comment on above: age of 43 Repair primary open/prq ruptured achilles tendon Frida Rebolledo MA Comment on above: age of 43 Repair primary open/prq ruptured achilles tendon Iva Phillips CMA Comment on above: age of 43 Repair primary open/prq ruptured achilles tendon Geni Erick LPN Comment on above: age of 43 Repair primary open/prq ruptured achilles tendon Geni Erick FOOD EDITOR Comment on above: age of 43 Transurethral prostatectomy [facility] Comment on above: 11-23-2017 Dr. Mack Transurethral prostatectomy [facility]PN Comment on above: 11-23-2017 Dr. Mack Transurethral prostatectomy Geni Suarez LPN Comment on above: 11-23-2017 Dr. Mack Transurethral prostatectomy Avani Chavira CMA Comment on above: 11-23-2017 Dr. Mack Transurethral prostatectomy [facility] LPN Comment on above: 11-23-2017 Dr. Mack Transurethral prostatectomy [facility] LPN Comment on above: 11-23-2017 Dr. Mack Transurethral prostatectomy Frida Rebolledo MA Comment on above: 11-23-2017 Dr. Mack Transurethral prostatectomy Iva Phillips CMA Comment on above: 11-23-2017 Dr. Mack Transurethral prostatectomy Geni Suarez LPN Comment on above: 11-23-2017 Dr. Mack Transurethral prostatectomy Geni Suarez LPN Comment on above: 11-23-2017 Dr. Mack Plan of Treatment Date Care Activity Detail Author Start: 05-04-2023 Procedure Education Eprescribed prescriptions (G8553) [facility]; [facility] Work Phone: Start: 05-04-2023 Urine albumin quantitative MICROALBUMIN: CREATININE RATIO (43180) AND (57516) [facility]; [facility] Work Phone: Start: 05-04-2023 Comprehensive metabolic panel METABOLIC PANEL, COMPREHENSIVE (22573) [facility]; [facility] Work Phone: Start: 05-04-2023 Blood count manual cell count each CBC with auto diff (99291) [facility]; [facility] Work Phone: Start: 04-18-2023 Chemiluminescent assay Parathyroid Hormone-related Peptide (PTH-rP) (72016) [facility]; [facility] Work Phone: Start: 12-19-2022 Comprehensive metabolic panel METABOLIC PANEL, COMPREHENSIVE (75866) [facility]; [facility] Work Phone: Comment on above: all these labs to be done with [facility] Car diac AWP panel Start: 12-19-2022 Procedure Education Eprescribed prescriptions (G8553) [facility]; [facility] Work Phone: Start: 12-19-2022 Urnls dip stick/tablet reagent auto microscopy URINALYSIS, W/ MICRO (06466) [facility]; [facility] Work Phone: Start: 12-19-2022 Blood count manual cell count each CBC with auto diff (73316) [facility]; [facility] Work Phone: Start: 12-19-2022 Assay of parathormone PARATHORMONE (15610) [facility]; [facility] Work Phone: Start: 09-19-2022 Procedure Education Eprescribed prescriptions (G8553) [facility]; [facility] Work Phone: Start: 09-19-2022 Comprehensive metabolic panel METABOLIC PANEL, COMPREHENSIVE (60028) [facility]; [facility] Work Phone: Start: 09-19-2022 Blood count manual cell count each CBC with auto diff (79082) [facility]; [facility] Work Phone: Start: 07-28-2022 Procedure Education Eprescribed prescriptions (G8553) [facility]; [facility] Work Phone: Start: 04-28-2022 Procedure Education Eprescribed prescriptions (G8553) [facility]; [facility] Work Phone: Start: 04-28-2022 C-reactive protein high sensitivity C-REACT PROT HIGH SENS(hsCRP) (14831) [facility]; [facility] Work Phone: Start: 04-28-2022 Urine albumin quantitative MICROALBUMIN: CREATININE RATIO (18778) AND (76371) [facility]; [facility] Work Phone: Start: 04-28-2022 Comprehensive metabolic panel METABOLIC PANEL, COMPREHENSIVE (36760) [facility]; [facility] Work Phone: Start: 04-28-2022 Assay of insulin total INSULIN, TOTAL (86576) [facility]; [facility] Work Phone: Start: 01-06-2022 25 hydroxy includes fractions if performed CALCIFEDIOL (03670) [facility]; [facility] Work Phone: Start: 01-06-2022 Chemiluminescent assay Parathyroid Hormone-related Peptide (PTH-rP) (64935) [facility]; [facility] Work Phone: Start: 01-06-2022 Assay of parathormone PARATHORMONE (63712) [facility]; [facility] Work Phone: Start: 01-06-2022 Basic metabolic panel calcium ionized BASIC METABOLIC w/Ionized Ca++ (05483) [facility]; [facility] Work Phone: Start: 09-27-2021 Calcium ionized CALCIUM, IONIZED (92822) [facility]; [facility] Work Phone: Start: 09-13-2021 Basic metabolic panel calcium ionized BASIC METABOLIC w/Ionized Ca++ (43870) [facility]; [facility] Work Phone: Start: 09-13-2021 25 hydroxy includes fractions if performed CALCIFEDIOL (82189) [facility]; [facility] Work Phone: Start: 09-13-2021 Virus tiss cul inoculation cytopathic effect CULTURE, VIRUS GENERAL 8573 (07393) [facility]; [facility] Work Phone: Start: 09-13-2021 Hemoglobin glycosylated a1c HgA1C , Office (21514) [facility]; [facility] Work Phone: Start: 08-10-2021 [place]oo influenza 2019 Novel Coronavirus (COVID-19), GALLO (71699) [facility]; [facility] Work Phone: Start: 06-15-2021 Assay of parathormone PARATHORMONE (81762) [facility]; [facility] Work Phone: Start: 06-15-2021 Calcium ionized CALCIUM, IONIZED (52689) [facility]; [facility] Work Phone: Start: 03-26-2021 [place] influenza 2019 Novel Coronavirus (COVID-19), GALLO (98062) [facility]; [facility] Medicine Work Phone: Start: 01-05-2021 Lipid panel LIPID PANEL (16850) [facility]; [facility] Work Phone: Comment on above: do other labs 09-28-20 Start: 01-05-2021 Hepatic function panel HEPATIC FUNCTION PANEL (25666) [facility]; [facility] Work Phone: Start: 12-10-2020 C-reactive protein high sensitivity C-REACT PROT HIGH SENS(hsCRP) (17022) [facility]; [facility] Work Phone: Start: 09-28-2020 Assay of free thyroxine T4, FREE (THYROXINE) (52375) [facility]; [facility] Work Phone: Start: 09-28-2020 Free T4 [Mass/Vol] T4, FREE (THYROXINE) (67062) [facility]; [facility] Work Phone: Start: 09-28-2020 Assay of thyroid stimulating hormone tsh TSH (79691) [facility]; [facility] Work Phone: Start: 09-28-2020 TSH Qn TSH (72773) [facility]; [facility] Work Phone: Start: 09-28-2020 Organic acid 1 quantitative Methymalonic Acid, Serum (20238) [facility]; [facility] Work Phone: Start: 09-28-2020 Cobalamin (Vitamin B12) [Mass/Vol] VITAMIN B12 AND FOLATES (55228) [facility]; [facility] Work Phone: Start: 09-28-2020 Cyanocobalamin vitamin b-12 VITAMIN B12 AND FOLATES (62843) [facility]; [facility] Work Phone: Start: 09-28-2020 Calcium [Mass/Vol] CALCIUM SERUM (99988) [facility] Work Phone: Start: 09-28-2020 Calcium total CALCIUM SERUM (68657) [facility] Work Phone: Start: 09-28-2020 Assay of parathormone PARATHORMONE (22442) [facility]; [facility] Work Phone: Start: 09-28-2020 Cyclic citrullinated peptide antibody CCP ANTIBODY (59282) [facility]; [facility] Work Phone: Start: 09-28-2020 Rheumatoid factor quantitative RHEUMATOID FACTOR-QUANT (45338) [facility]; [facility] Work Phone: Start: 09-28-2020 Antinuclear antibodies abdirashid ABDIRASHID (ANTINUCLEAR ANTIBODY) (72819) [facility]; [facility] Work Phone: Start: 09-28-2020 Nuclear Ab IF (S) [Titer] ABDIRASHID (ANTINUCLEAR ANTIBODY) (88166) [facility]; [facility] Work Phone: Start: 09-18-2020 Assay of parathormone PARATHORMONE (67848) [facility]; [facility] Work Phone: Start: 09-18-2020 Calcium ionized CALCIUM, IONIZED (48409) [facility]; [facility] Work Phone: [facility] Work Phone: [facility] Work Phone: [facility] Work Phone: [facility] Work Phone: [facility] Work Phone: [facility] Work Phone: [facility] Work Phone: [facility]; [facility] Work Phone: [facility]; [facility] Work Phone: Immunizations Immunization Date Immunization Notes Care Provider Anum prieto 09-25-2020 zoster vaccine, live [facility]; [facility] Work Phone: Comment on above: [facility] one then second one 09-25-20 04-27-2020 influenza, injectabl e, quadrivalent, preservative free Joana Bonezzi [facility]; [facility] Work Phone: 07-07-2019 pneumococcal polysaccharide vaccine, 23 valent Joana Bonezzi [facility]; [facility] Work Phone: 08-07-2017 pneumococcal conjuga te vaccine, 13 valent Joana Bonezzi [facility]; [facility] Work Phone: 06-07-2014 Influenza virus vaccine [facility] 11-06-2011 zoster vaccine, live [facility]; [facility] Work Phone: Payers Date Payer Category Payer Private Health Insurance [id number] Self-pay [id number] 2021 Unknown [id number] 2012 Medicare [id number] 1950 Unknown [id number] Self-pay SELF PAY BY [facility] REQUEST [id number] Unknown Unknown [id number] Unknown [id number] Unknown [id number] Unknown [id number] Unknown [id number] Unknown [id number] Social History Date Type Detail Facility Alcohol Use Alcohol Use [facility] Work Phone: Comment on above: rarely 12 cups qd Current Work/Study Status: Current Work/Study Status: [facility]; [facility] Work Phone: Exercise History: Exercise History: [facility] Work Phone: Living Situation: Living Situation: [facility]; [facility] Work Phone: Comment on above: to resource [employer] for hospital group and travels, second marriage started 57 yo, was in [employer] To Get Approved For business and tried 60 yo Tobacco Use: Tobacco Use: [facility]; [facility] Work Phone: Current Work/Study Status: Current Work/Study Status: [facility]; [facility] Work Phone: [facility]: [facility] Work [facility]: [facility] Work Phone: Comment on above: to resource [employer] for hospital group and travels, second marriage started 57 yo, was in [employer] To Get Approved For business and tried 60 yo Tobacco Use: Tobacco Use: [facility]; [facility] Work Phone: Start: 08-13-2021 End: 08-13-2021 Tobacco smoking status [facility] Unknown if ever smoked [facility] Start: 05-27-2019 [facility] Start: 1950 Sex Assigned At Male [facility] Start: 08-13-2021 Tobacco smoking status NHIS Smokes tobacco daily (finding) [facility] Medical Equipment Procedure Code Equipment Code Equipment Origin al Text Equipment Identifier Dates Repair, hernia, ventral or umbilical, laparoscopic MESH,VENTRALIGHT ST 7x9 FDA Start: 05-27-2019 Repair, hernia, ventral or umbilical, laparoscopic TACKER,SECURE STRAP FDA Start: 05-27-2019 Repair, hernia, ventral or umbilical, laparoscopic TACKER,SECURE STRAP FDA Start: 05-27-2019 Repair, hernia, ventral or umbilical, laparoscopic MESH,VENTRALIGHT ST 7x9 FDA Start: 05-27-2019 Repair, hernia, ventral or umbilical, laparoscopic TACKER,SECURE STRAP FDA Start: 05-27-2019 Repair, hernia, ventral or umbilical, laparoscopic TACKER,SECURE STRAP FDA Start: 05-27-2019 Repair, hernia, ventral or umbilical, laparoscopic MESH,VENTRALIGHT ST 7x9 FDA Start: 05-27-2019 Repair, hernia, ventral or umbilical, laparoscopic TACKER,SECURE STRAP FDA Start: 05-27-2019 Repair, hernia, ventral or umbilical, laparoscopic TACKER,SECURE STRAP FDA Start: 05-27-2019 Repair, hernia, ventral or umbilical, laparoscopic MESH,VENTRALIGHT ST 7x9 FDA Start: 05-27-2019 Repair, hernia, ventral or umbilical, laparoscopic TACKER,SECURE STRAP FDA Start: 05-27-2019 Repair, hernia, ventral or umbilical, laparoscopic TACKER,SECURE STRAP FDA Start: 05-27-2019 Repair, hernia, ventral or umbilical, laparoscopic MESH,VENTRALIGHT ST 7x9 FDA Start: 05-27-2019 Repair, hernia, ventral or umbilical, laparoscopic TACKER,SECURE STRAP FDA Start: 05-27-2019 Repair, hernia, ventral or umbilical, laparoscopic TACKER,SECURE STRAP FDA Start: 05-27-2019 Repair, hernia, ventral or umbilical, laparoscopic MESH,VENTRALIGHT ST 7x9 FDA Start: 05-27-2019 Repair, hernia, ventral or umbilical, laparoscopic TACKER,SECURE STRAP FDA Start: 05-27-2019 Repair, hernia, ventral or umbilical, laparoscopic TACKER,SECURE STRAP FDA Start: 05-27-2019 Repair, hernia, ventral or umbilical, laparoscopic MESH,VENTRALIGHT ST 7x9 FDA Start: 05-27-2019 Repair, hernia, ventral or umbilical, laparoscopic TACKER,SECURE STRAP FDA Start: 05-27-2019 Repair, hernia, ventral or umbilical, laparoscopic TACKER,SECURE STRAP FDA Start: 05-27-2019 Repair, hernia, ventral or umbilical, laparoscopic MESH,VENTRALIGHT ST 7x9 FDA Start: 05-27-2019 Repair, hernia, ventral or umbilical, laparoscopic TACKER,SECURE STRAP FDA Start: 05-27-2019 Repair, hernia, ventral or umbilical, laparoscopic TACKER,SECURE STRAP FDA Start: 05-27-2019 Repair, hernia, ventral or umbilical, laparoscopic MESH,VENTRALIGHT ST 7x9 FDA Start: 05-27-2019 Repair, hernia, ventral or umbilical, laparoscopic TACKER,SECURE STRAP FDA Start: 05-27-2019 Repair, hernia, ventral or umbilical, laparoscopic TACKER,SECURE STRAP FDA Start: 05-27-2019 SHANELL VALLES LG FDA Start: 11-22-2017 REENAHEMDOROTEO DOWNEY FDA Start: 11-22-2017 REENAHEMDOROTEO DOWNEY FDA Start: 11-22-2017 REENAHEMDOROTEO DOWNEY FDA Start: 11-22-2017 REENAHEMDOROTEO DOWNEY FDA Start: 11-22-2017 REENAHEMDOROTEO DOWNEY FDA Start: 11-22-2017 REENAHEMDOROTEO DOWNEY FDA Start: 11-22-2017 CLIP,HEMOLOCK LG WECK FDA Start: 11-22-2017 CLIP,HEMOLOCK LG WECK FDA Start: 11-22-2017 CLIP,HEMOLOCK LG WECK FDA Start: 11-22-2017 CLIP,HEMOLOCK LG WECK FDA Start: 11-22-2017 CLIP,HEMOLOCK LG WECK FDA Start: 11-22-2017 CLIP,HEMOLOCK LG WECK FDA Start: 11-22-2017 CLIP,HEMOLOCK LG WECK FDA Start: 11-22-2017 CLIP,HEMOLOCK LG WECK FDA Start: 11-22-2017 CLIP,HEMOLOCK LG WECK FDA Start: 11-22-2017 CLIP,HEMOLOCK LG WECK FDA Start: 11-22-2017 CLIP,HEMOLOCK LG WECK FDA Start: 11-22-2017 CLIP,HEMOLOCK LG WECK FDA Start: 11-22-2017 CLIP,HEMOLOCK LG WEMIHAI FDA Start: 11-22-2017 CLIP,HEMOLOCK LG WEMIHAI FDA Start: 11-22-2017 CLIP,HEMOLOCK LG WECK FDA Start: 11-22-2017 CLIP,HEMOLOCK LG WECK FDA Start: 11-22-2017 CLIP,HEMOLOCK LG WEMIHAI FDA Start: 11-22-2017 CLIP,HEMOLOCK LG WECK FDA Start: 11-22-2017 CLIP,HEMOLOCK LG WECK FDA Start: 11-22-2017 CLIP,HEMOLOCK LG WECK FDA Start: 11-22-2017 CLIP,HEMOLOCK LG WEMIHAI FDA Start: 11-22-2017 CLIP,HEMOLOCK LG WECK FDA Start: 11-22-2017 CLIP,HEMOLOCK LG WECK FDA Start: 11-22-2017 CLIP,HEMOLOCK LG WECK FDA Start: 11-22-2017 CLIP,HEMOLOCK LG WEMIHAI FDA Start: 11-22-2017 CLIP,HEMOLOCK LG WECK FDA Start: 11-22-2017 CLIP,HEMOLOCK LG WECK FDA Start: 11-22-2017 CLIP,HEMOLOCK LG WECK FDA Start: 11-22-2017 CLIP,HEMOLOCK LG WECK FDA Start: 11-22-2017 Clinical Notes 09-22-2021 to 10-19-2021 Note Date & Type Note Facility 10-19-2021 Note Patient Outreach (IN [facility]) -- NOLAN VILLATORO ([id number]) 1950 M Date Time Provider Department 10/19/21 CRYSTAL GARCIA During your visit today, we recorded the following information about you: Xiao Hicks Ma 10/19/2021 8:54 AM Signed Care Gap Reviewed: Annual Wellness visit Phone call placed to patient. Pt identified by name and : YES, via phone Outreach Outcome/Action: Unable to reach patient: Left message, LM to confirm PCP/schedule. Remove PCP if no longer seeing Dr. Garcia. Xiao Hicks Ma Allergies As of Date: 10/19/2021 Noted Allergy Reaction ANTIHISTAMINES 07/19/2005 Comments: blurred vision and perspiration Date Reviewed: 07/14/2020 Reviewed by: Manjula Concepcion LPN - Fully Assessed Reason for Visit: PHMA/Care Gap Outreach [2571] Cmt: appointment Prescriptions as of 10/19/2021 - amLODIPine (NORVASC) 2.5 mg tablet Take 1 tablet by mouth once daily. - naproxen (NAPROSYN) 500 mg tablet Take 1 tablet by mouth twice daily as needed. - losartan (COZAAR) 100 mg tablet Take 1 tablet by mouth once daily. Every morning. - hydroCHLOROthiazide (HYDRODIURIL, ESIDRIX) 25 mg tablet Take 1 tablet by mouth once daily. - CPAP On CPAP @ 10 cm of water with humidification. Please provide: Mask (per patient preference) optional chin strap (if indicated) , filters, tubing, humidifier and lifetime supplies. ICD10: G47.33, Z99.89 - ASPIRIN 81 MG TAB Take one (1) tablet daily . 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 Author Type: ? Type: Progress Notes Filed: 10/19/2021 8:54 AM Note Text: Care Gap Reviewed: Annual Wellness visit Phone call placed to patient. Pt identified by name and : YES, via phone Outreach Outcome/Action: Unable to reach patient: Left message, LM to confirm PCP/schedule. Remove PCP if no longer seeing Dr. Garcia. Xiao Hicks Ma [facility] 09-22-2021 Note HNO ID: [id number] Author: Justine Farooq MA Service: ? Author Type: Business Development Sales Executive Type: Progress Notes Filed: 09/22/2021 3:31 PM Note Text: POPULATION HEALTH NAVIGATION OUTREACH Action/FYI Pt currently due to complete care gaps. According to the pt's chart, he is needing to have his BP checked, receive a flu vaccine, and discuss advance directives. Pt is also needing to be scheduled for a wellness exam. He has not been seen since July of 2020. Tried calling the pt but could not reach him. LMOM for return call to my direct line. Will also send a Hyp[employer] 8t message. Pt identified by name and : NO Outreach Outcome/Action Unable to reach patient: Left message Tugendehart message sent Reason for Outreach Care Gap or Scheduling/Wellness visits Payer: Payor: MEDICARE / Plan: MEDICARE A AND B / Product Type: Medicare / Care Gap Reviewed:: Annual Wellness visit Controlling Blood Pressure Flu vaccine Reminder: Reminder note to check Health Maintenance for items below Health Maintenance items due: COVID-19 VACCINE(1) Never done BP CONTROLLED (<130/80) due on 02/20/2019 DEPRESSION SCREENING due on 02/20/2019 INFLUENZA(1) due on 04/07/2021 ANNUAL PCP TEAM CHRONIC DISEASE VISIT due on 07/14/2021 ADVANCE DIRECTIVE DISCUSSION Never done Message Sent to Practice: No Navigation Signature: Justine Farooq MA September 22, 2021 3:24 PM [facility] 09-22-2021 Note Patient Outreach (AM [facility]) -- NOLAN VILLATORO ([id number]) 1950 M Date Time Provider Department 09/22/21 JUSTINE FAROOQG During your visit today, we recorded the following information about you: Justine Farooq MA 09/22/2021 3:31 PM Signed POPULATION HEALTH NAVIGATION OUTREACH Action/FYI Pt currently due to complete care gaps. According to the pt's chart, he is needing to have his BP checked, receive a flu vaccine, and discuss advance directives. Pt is also needing to be scheduled for a wellness exam. He has not been seen since July of 2020. Tried calling the pt but could not reach him. LMOM for return call to my direct line. Will also send a [employer] message. Pt identified by name and : NO Outreach Outcome/Action Unable to reach patient: Left message Tugendehart message sent Reason for Outreach Care Gap or Scheduling/Wellness visits Payer: Payor: MEDICARE / Plan: MEDICARE A AND B / Product Type: Medicare / Care Gap Reviewed:: Annual Wellness visit Controlling Blood Pressure Flu vaccine Reminder: Reminder note to check Health Maintenance for items below Health Maintenance items due: COVID-19 VACCINE(1) Never done BP CONTROLLED (<130/80) due on 02/20/2019 DEPRESSION SCREENING due on 02/20/2019 INFLUENZA(1) due on 04/07/2021 ANNUAL PCP TEAM CHRONIC DISEASE VISIT due on 07/14/2021 ADVANCE DIRECTIVE DISCUSSION Never done Message Sent to Practice: No Navigation Signature: Justine Farooq MA September 22, 2021 3:24 PM Allergies As of Date: 09/22/2021 Noted Allergy Reaction ANTIHISTAMINES 07/19/2005 Comments: blurred vision and perspiration Date Reviewed: 07/14/2020 Reviewed by: Manjula Concepcion LPN - Fully Assessed Reason for Visit: Population Health Navigation Outreach [3910] Cmt: ACO Care Gap Prescriptions as of 09/22/2021 - amLODIPine (NORVASC) 2.5 mg tablet Take 1 tablet by mouth once daily. - naproxen (NAPROSYN) 500 mg tablet Take 1 tablet by mouth twice daily as needed. - losartan (COZAAR) 100 mg tablet Take 1 tablet by mouth once daily. Every morning. - hydroCHLOROthiazide (HYDRODIURIL, ESIDRIX) 25 mg tablet Take 1 tablet by mouth once daily. - CPAP On CPAP @ 10 cm of water with humidification. Please provide: Mask (per patient preference) optional chin strap (if indicated) , filters, tubing, humidifier and lifetime supplies. ICD10: G47.33, Z99.89 - ASPIRIN 81 MG TAB Take one (1) tablet daily . 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] MULTINODULAR GOITER (NONTOXIC) [E04.2] 07/20/2005 Venous insufficiency [I87.2] 06/17/2013 Sleep apnea [G47.30] 06/17/2013 Radiculopathy, lumbar region [M54.16] 07/30/2015 ISMAEL on CPAP [G47.33, Z99.89] 07/30/2015 BMI 45.0-49.9, adult (HCC) [Z68.42] 07/30/2015 Tobacco use disorder [F17.200] 07/30/2015 Prostate cancer (HCC) [C61] 02/20/2018 Encounter Status:Closed by JUSTINE FAROOQ on 09/22/21 [facility] Evaluation note No assessment information [facility] Work Phone: Instructions Name Patient Instructions Indication:Encounter for well adult exam with abnormal findings (Renamed from Encounter for general adult medical examination with abnormal findings) Start: Instruction Type:Provider Instructions for Treatment How to Access Health Information Online using Patient Portal and [employer] Apps Indication:Encounter for well adult exam with abnormal findings (Renamed from Encounter for general adult medical examination with abnormal findings) Start: Instruction Type:Patient Education [facility]; [facility] Work Phone: Instructions* Name Dates Details Patient Instructions Indication:Encounter for well adult exam with abnormal findings (Renamed from Encounter for general adult medical examination with abnormal findings) Start:28-Sep-2020 Instruction Type:Provider Instructions for Treatment How to Access Health Informa tion Online using Patient Portal and [employer] Apps Indication:Encounter for well adult exam with abnormal findings (Renamed from Encounter for general adult medical examination with abnormal findings) Start:28-Sep-2020 Instruction Type:Patient Education [facility]; [facility] Work Phone: Instructions* Name Dates Details Patient Instructions Indication:Encounter for well adult exam with abnormal findings (Renamed from Encounter for general adult medical examination with abnormal findings) Start:28-Sep-2020 Instruction Type:Provider Instructions for Treatment How to Access Health Informa tion Online using Patient Portal and [employer] Apps Indication:Encounter for well adult exam with abnormal findings (Renamed from Encounter for general adult medical examination with abnormal findings) Start:28-Sep-2020 Instruction Type:Patient Education [facility]; [facility] Work Phone: Instructions* Name Dates Details Patient Instructions Indication:Encounter for well adult exam with abnormal findings (Renamed from Encounter for general adult medical examination with abnormal findings) Start:05-Jan-2021 Instruction Type:Provider Instructions for Treatment How to Access Health Informa tion Online using Patient Portal and [employer] Apps Indication:Encounter for well adult exam with abnormal findings (Renamed from Encounter for general adult medical examination with abnormal findings) Start:05-Jan-2021 Instruction Type:Patient Education Patient Instructions Indication:Encounter for well adult exam with abnormal findings (Renamed from Encounter for general adult medical examination with abnormal findings) Start:28-Sep-2020 Instruction Type:Provider Instructions for Treatment How to Access Health Informa tion Online using Patient Portal and [employer] Apps Indication:Encounter for well adult exam with abnormal findings (Renamed from Encounter for general adult medical examination with abnormal findings) Start:28-Sep-2020 Instruction Type:Patient Education [facility]; [facility] Work Phone: Instructions* Name Dates Details Patient Instructions Indication:Impaired fasting glucose Start:10-Jun-2021 Instruction Type:Provider Instructions for Treatment How to Access Health Informa tion Online using Patient Portal and [employer] Apps Indication:Impaired fasting glucose Start:10-Jun-2021 Instruction Type:Patient Education Patient Instructions Indication:Encounter for well adult exam with abnormal findings (Renamed from Encounter for general adult medical examination with abnormal findings) Start:05-Jan-2021 Instruction Type:Provider Instructions for Treatment How to Access Health Informa tion Online using Patient Portal and [employer] Apps Indication:Encounter for well adult exam with abnormal findings (Renamed from Encounter for general adult medical examination with abnormal findings) Start:05-Jan-2021 Instruction Type:Patient Education Patient Instructions Indication:Encounter for well adult exam with abnormal findings (Renamed from Encounter for general adult medical examination with abnormal findings) Start:28-Sep-2020 Instruction Type:Provider Instructions for Treatment How to Access Health Informa tion Online using Patient Portal and [employer] Apps Indication:Encounter for well adult exam with abnormal findings (Renamed from Encounter for general adult medical examination with abnormal findings) Start:28-Sep-2020 Instruction Type:Patient Education [facility]; [facility] Work Phone: Instructions* Name Dates Details Patient Instructions Indication:Impaired fasting glucose Start:10-Jun-2021 Instruction Type:Provider Instructions for Treatment How to Access Health Informa tion Online using Patient Portal and [employer] Apps Indication:Impaired fasting glucose Start:10-Jun-2021 Instruction Type:Patient Education Patient Instructions Indication:Encounter for well adult exam with abnormal findings (Renamed from Encounter for general adult medical examination with abnormal findings) Start:05-Jan-2021 Instruction Type:Provider Instructions for Treatment How to Access Health Informa tion Online using Patient Portal and [employer] Indication:Encounter for well adult exam with abnormal findings (Renamed from Encounter for general adult medical examination with abnormal findings) Start:05-Jan-2021 Instruction Type:Patient Education Patient Instructions Indication:Encounter for well adult exam with abnormal findings (Renamed from Encounter for general adult medical examination with abnormal findings) Start:28-Sep-2020 Instruction Type:Provider Instructions for Treatment How to Access Health Informa tion Online using Patient Portal and [employer] Apps Indication:Encounter for well adult exam with abnormal findings (Renamed from Encounter for general adult medical examination with abnormal findings) Start:28-Sep-2020 Instruction Type:Patient Education [facility]; [facility] Work Phone: instructions* Name Dates Details Patient Instructions Indication:Impaired fasting glucose Start:10-Jun-2021 Instruction Type:Provider Instructions for Treatment How to Access Health Informa tion Online using Patient Portal and [employer] Indication:Impaired fasting glucose Start:10-Jun-2021 Instruction Type:Patient Education Patient Instructions Indication:Encounter for well adult exam with abnormal findings (Renamed from Encounter for general adult medical examination with abnormal findings) Start:05-Jan-2021 Instruction Type:Provider Instructions for Treatment How to Access Health Informa tion Online using Patient Portal and [employer] Indication:Encounter for well adult exam with abnormal findings (Renamed from Encounter for general adult medical examination with abnormal findings) Start:05-Jan-2021 Instruction Type:Patient Education Patient Instructions Indication:Encounter for well adult exam with abnormal findings (Renamed from Encounter for general adult medical examination with abnormal findings) Start:28-Sep-2020 Instruction Type:Provider Instructions for Treatment How to Access Health Informa tion Online using Patient Portal and [employer] Indication:Encounter for well adult exam with abnormal findings (Renamed from Encounter for general adult medical examination with abnormal findings) Start:28-Sep-2020 Instruction Type:Patient Education [facility]; [facility] Work Phone: Instructions* Name Dates Details Patient Instructions Indication:Impaired fasting glucose Start:10-Jun-2021 Instruction Type:Provider Instructions for Treatment How to Access Health Informa tion Online using Patient Portal and [employer] Indication:Impaired fasting glucose Start:10-Jun-2021 Instruction Type:Patient Education Patient Instructions Indication:Encounter for well adult exam with abnormal findings (Renamed from Encounter for general adult medical examination with abnormal findings) Start:05-Jan-2021 Instruction Type:Provider Instructions for Treatment How to Access Health Informa tion Online using Patient Portal and [employer] Indication:Encounter for well adult exam with abnormal findings (Renamed from Encounter for general adult medical examination with abnormal findings) Start:05-Jan-2021 Instruction Type:Patient Education Patient Instructions Indication:Encounter for well adult exam with abnormal findings (Renamed from Encounter for general adult medical examination with abnormal findings) Start:28-Sep-2020 Instruction Type:Provider Instructions for Treatment How to Access Health Informa tion Online using Patient Portal and [employer] Indication:Encounter for well adult exam with abnormal findings (Renamed from Encounter for general adult medical examination with abnormal findings) Start:28-Sep-2020 Instruction Type:Patient Education [facility]; [facility] Work Phone: Instructions* Name Dates Details Patient Instructions Indication:Impaired fasting glucose Start:10-Jun-2021 Instruction Type:Provider Instructions for Treatment How to Access Health Informa tion Online using Patient Portal and [employer] Indication:Impaired fasting glucose Start:10-Jun-2021 Instruction Type:Patient Education Patient Instructions Indication:Encounter for well adult exam with abnormal findings (Renamed from Encounter for general adult medical examination with abnormal findings) Start:05-Jan-2021 Instruction Type:Provider Instructions for Treatment How to Access Health Informa tion Online using Patient Portal and [employer] Indication:Encounter for well adult exam with abnormal findings (Renamed from Encounter for general adult medical examination with abnormal findings) Start:05-Jan-2021 Instruction Type:Patient Education Patient Instructions Indication:Encounter for well adult exam with abnormal findings (Renamed from Encounter for general adult medical examination with abnormal findings) Start:28-Sep-2020 Instruction Type:Provider Instructions for Treatment How to Access Health Informa tion Online using Patient Portal and [employer] Indication:Encounter for well adult exam with abnormal findings (Renamed from Encounter for general adult medical examination with abnormal findings) Start:28-Sep-2020 Instruction Type:Patient Education [facility]; [facility] Work Phone: Instructions* Name Dates Details Patient Instructions Indication:Impaired fasting glucose Start:10-Jun-2021 Instruction Type:Provider Instructions for Treatment How to Access Health Informa tion Online using Patient Portal and [employer] Indication:Impaired fasting glucose Start:10-Jun-2021 Instruction Type:Patient Education Patient Instructions Indication:Encounter for well adult exam with abnormal findings (Renamed from Encounter for general adult medical examination with abnormal findings) Start:05-Jan-2021 Instruction Type:Provider Instructions for Treatment How to Access Health Informa tion Online using Patient Portal and [employer] Indication:Encounter for well adult exam with abnormal findings (Renamed from Encounter for general adult medical examination with abnormal findings) Start:05-Jan-2021 Instruction Type:Patient Education Patient Instructions Indication:Encounter for well adult exam with abnormal findings (Renamed from Encounter for general adult medical examination with abnormal findings) Start:28-Sep-2020 Instruction Type:Provider Instructions for Treatment How to Access Health Informa tion Online using Patient Portal and [employer] Indication:Encounter for well adult exam with abnormal findings (Renamed from Encounter for general adult medical examination with abnormal findings) Start:28-Sep-2020 Instruction Type:Patient Education [facility]; [facility] Work Phone: Instructions* Name Dates Details Patient Instructions Indication:Impaired fasting glucose Start:13-Sep-2021 Instruction Type:Provider Instructions for Treatment How to Access Health Informa tion Online using Patient Portal and [employer] Indication:Impaired fasting glucose Start:13-Sep-2021 Instruction Type:Patient Education Patient Instructions Indication:Impaired fasting glucose Start:10-Jun-2021 Instruction Type:Provider Instructions for Treatment How to Access Health Informa tion Online using Patient Portal and [employer] Indication:Impaired fasting glucose Start:10-Jun-2021 Instruction Type:Patient Education Patient Instructions Indication:Encounter for well adult exam with abnormal findings (Renamed from Encounter for general adult medical examination with abnormal findings) Start:05-Jan-2021 Instruction Type:Provider Instructions for Treatment How to Access Health Informa tion Online using Patient Portal and [employer] Indication:Encounter for well adult exam with abnormal findings (Renamed from Encounter for general adult medical examination with abnormal findings) Start:05-Jan-2021 Instruction Type:Patient Education Patient Instructions Indication:Encounter for well adult exam with abnormal findings (Renamed from Encounter for general adult medical examination with abnormal findings) Start:28-Sep-2020 Instruction Type:Provider Instructions for Treatment How to Access Health Informa tion Online using Patient Portal and [employer] Indication:Encounter for well adult exam with abnormal findings (Renamed from Encounter for general adult medical examination with abnormal findings) Start:28-Sep-2020 Instruction Type:Patient Education [facility]; [facility] Work Phone: Instructions* Name Dates Details Patient Instructions Indication:Impaired fasting glucose Start:13-Sep-2021 Instruction Type:Provider Instructions for Treatment How to Access Health Informa tion Online using Patient Portal and [employer] Indication:Impaired fasting glucose Start:13-Sep-2021 Instruction Type:Patient Education Patient Instructions Indication:Impaired fasting glucose Start:10-Jun-2021 Instruction Type:Provider Instructions for Treatment How to Access Health Informa tion Online using Patient Portal and [employer] Indication:Impaired fasting glucose Start:10-Jun-2021 Instruction Type:Patient Education Patient Instructions Indication:Encounter for well adult exam with abnormal findings (Renamed from Encounter for general adult medical examination with abnormal findings) Start:05-Jan-2021 Instruction Type:Provider Instructions for Treatment How to Access Health Informa tion Online using Patient Portal and [employer] Indication:Encounter for well adult exam with abnormal findings (Renamed from Encounter for general adult medical examination with abnormal findings) Start:05-Jan-2021 Instruction Type:Patient Education Patient Instructions Indication:Encounter for well adult exam with abnormal findings (Renamed from Encounter for general adult medical examination with abnormal findings) Start:28-Sep-2020 Instruction Type:Provider Instructions for Treatment How to Access Health Informa tion Online using Patient Portal and [employer] Indication:Encounter for well adult exam with abnormal findings (Renamed from Encounter for general adult medical examination with abnormal findings) Start:28-Sep-2020 Instruction Type:Patient Education [facility]; [facility] Work Phone: Instructions* Name Dates Details Patient Instructions Indication:Impaired fasting glucose Start:13-Sep-2021 Instruction Type:Provider Instructions for Treatment How to Access Health Informa tion Online using Patient Portal and [employer] Indication:Impaired fasting glucose Start:13-Sep-2021 Instruction Type:Patient Education Patient Instructions Indication:Impaired fasting glucose Start:10-Jun-2021 Instruction Type:Provider Instructions for Treatment How to Access Health Informa tion Online using Patient Portal and [employer] Indication:Impaired fasting glucose Start:10-Jun-2021 Instruction Type:Patient Education Patient Instructions Indication:Encounter for well adult exam with abnormal findings (Renamed from Encounter for general adult medical examination with abnormal findings) Start:05-Jan-2021 Instruction Type:Provider Instructions for Treatment How to Access Health Informa tion Online using Patient Portal and [employer] Indication:Encounter for well adult exam with abnormal findings (Renamed from Encounter for general adult medical examination with abnormal findings) Start:05-Jan-2021 Instruction Type:Patient Education Patient Instructions Indication:Encounter for well adult exam with abnormal findings (Renamed from Encounter for general adult medical examination with abnormal findings) Start:28-Sep-2020 Instruction Type:Provider Instructions for Treatment How to Access Health Informa tion Online using Patient Portal and [employer] Indication:Encounter for well adult exam with abnormal findings (Renamed from Encounter for general adult medical examination with abnormal findings) Start:28-Sep-2020 Instruction Type:Patient Education [facility]; [facility] Work Phone: Instructions* Name Dates Details Patient Instructions Indication:Impaired fasting glucose Start:13-Sep-2021 Instruction Type:Provider Instructions for Treatment How to Access Health Informa tion Online using Patient Portal and [employer] Indication:Impaired fasting glucose Start:13-Sep-2021 Instruction Type:Patient Education Patient Instructions Indication:Impaired fasting glucose Start:10-Jun-2021 Instruction Type:Provider Instructions for Treatment How to Access Health Informa tion Online using Patient Portal and [employer] Indication:Impaired fasting glucose Start:10-Jun-2021 Instruction Type:Patient Education Patient Instructions Indication:Encounter for well adult exam with abnormal findings (Renamed from Encounter for general adult medical examination with abnormal findings) Start:05-Jan-2021 Instruction Type:Provider Instructions for Treatment How to Access Health Informa tion Online using Patient Portal and [employer] Indication:Encounter for well adult exam with abnormal findings (Renamed from Encounter for general adult medical examination with abnormal findings) Start:05-Jan-2021 Instruction Type:Patient Education Patient Instructions Indication:Encounter for well adult exam with abnormal findings (Renamed from Encounter for general adult medical examination with abnormal findings) Start:28-Sep-2020 Instruction Type:Provider Instructions for Treatment How to Access Health Informa tion Online using Patient Portal and [employer] Indication:Encounter for well adult exam with abnormal findings (Renamed from Encounter for general adult medical examination with abnormal findings) Start:28-Sep-2020 Instruction Type:Patient Education [facility]; [facility] Work Phone: Instructions* Name Dates Details Patient Instructions Indication:Lower extremity edema Start:27-Sep-2021 Instruction Type:Provider Instructions for Treatment How to Access Health Informa tion Online using Patient Portal and [employer] Indication:Lower extremity edema Start:27-Sep-2021 Instruction Type:Patient Education Patient Instructions Indication:Impaired fasting glucose Start:13-Sep-2021 Instruction Type:Provider Instructions for Treatment How to Access Health Informa tion Online using Patient Portal and [employer] Indication:Impaired fasting glucose Start:13-Sep-2021 Instruction Type:Patient Education Patient Instructions Indication:Impaired fasting glucose Start:10-Jun-2021 Instruction Type:Provider Instructions for Treatment How to Access Health Informa tion Online using Patient Portal and [employer] Indication:Impaired fasting glucose Start:10-Jun-2021 Instruction Type:Patient Education Patient Instructions Indication:Encounter for well adult exam with abnormal findings (Renamed from Encounter for general adult medical examination with abnormal findings) Start:05-Jan-2021 Instruction Type:Provider Instructions for Treatment How to Access Health Informa tion Online using Patient Portal and [employer] Indication:Encounter for well adult exam with abnormal findings (Renamed from Encounter for general adult medical examination with abnormal findings) Start:05-Jan-2021 Instruction Type:Patient Education Patient Instructions Indication:Encounter for well adult exam with abnormal findings (Renamed from Encounter for general adult medical examination with abnormal findings) Start:28-Sep-2020 Instruction Type:Provider Instructions for Treatment How to Access Health Informa tion Online using Patient Portal and [employer] Indication:Encounter for well adult exam with abnormal findings (Renamed from Encounter for general adult medical examination with abnormal findings) Start:28-Sep-2020 Instruction Type:Patient Education [facility]; [facility] Work Phone: Instructions* Name Dates Details Patient Instructions Indication:Lower extremity edema Start:27-Sep-2021 Instruction Type:Provider Instructions for Treatment How to Access Health Informa tion Online using Patient Portal and [employer] Indication:Lower extremity edema Start:27-Sep-2021 Instruction Type:Patient Education Patient Instructions Indication:Impaired fasting glucose Start:13-Sep-2021 Instruction Type:Provider Instructions for Treatment How to Access Health Informa tion Online using Patient Portal and [employer] Indication:Impaired fasting glucose Start:13-Sep-2021 Instruction Type:Patient Education Patient Instructions Indication:Impaired fasting glucose Start:10-Jun-2021 Instruction Type:Provider Instructions for Treatment How to Access Health Informa tion Online using Patient Portal and [employer] Indication:Impaired fasting glucose Start:10-Jun-2021 Instruction Type:Patient Education Patient Instructions Indication:Encounter for well adult exam with abnormal findings (Renamed from Encounter for general adult medical examination with abnormal findings) Start:05-Jan-2021 Instruction Type:Provider Instructions for Treatment How to Access Health Informa tion Online using Patient Portal and [employer] Indication:Encounter for well adult exam with abnormal findings (Renamed from Encounter for general adult medical examination with abnormal findings) Start:05-Jan-2021 Instruction Type:Patient Education Patient Instructions Indication:Encounter for well adult exam with abnormal findings (Renamed from Encounter for general adult medical examination with abnormal findings) Start:28-Sep-2020 Instruction Type:Provider Instructions for Treatment How to Access Health Informa tion Online using Patient Portal and [employer] Indication:Encounter for well adult exam with abnormal findings (Renamed from Encounter for general adult medical examination with abnormal findings) Start:28-Sep-2020 Instruction Type:Patient Education [facility]; [facility] Work Phone: Instructions* Name Dates Details Patient Instructions Indication:Encounter for well adult exam with abnormal findings (Renamed from Encounter for general adult medical examination with abnormal findings) Start:06-Jan-2022 Instruction Type:Provider Instructions for Treatment How to Access Health Informa tion Online using Patient Portal and [employer] Indication:Encounter for well adult exam with abnormal findings (Renamed from Encounter for general adult medical examination with abnormal findings) Start:06-Jan-2022 Instruction Type:Patient Education Patient Instructions Indication:Lower extremity edema Start:27-Sep-2021 Instruction Type:Provider Instructions for Treatment How to Access Health Informa tion Online using Patient Portal and [employer] Indication:Lower extremity edema Start:27-Sep-2021 Instruction Type:Patient Education Patient Instructions Indication:Impaired fasting glucose Start:13-Sep-2021 Instruction Type:Provider Instructions for Treatment How to Access Health Informa tion Online using Patient Portal and [employer] Indication:Impaired fasting glucose Start:13-Sep-2021 Instruction Type:Patient Education Patient Instructions Indication:Impaired fasting glucose Start:10-Jun-2021 Instruction Type:Provider Instructions for Treatment How to Access Health Informa tion Online using Patient Portal and [employer] Indication:Impaired fasting glucose Start:10-Jun-2021 Instruction Type:Patient Education Patient Instructions Indication:Encounter for well adult exam with abnormal findings (Renamed from Encounter for general adult medical examination with abnormal findings) Start:05-Jan-2021 Instruction Type:Provider Instructions for Treatment How to Access Health Informa tion Online using Patient Portal and [employer] Indication:Encounter for well adult exam with abnormal findings (Renamed from Encounter for general adult medical examination with abnormal findings) Start:05-Jan-2021 Instruction Type:Patient Education Patient Instructions Indication:Encounter for well adult exam with abnormal findings (Renamed from Encounter for general adult medical examination with abnormal findings) Start:28-Sep-2020 Instruction Type:Provider Instructions for Treatment How to Access Health Informa tion Online using Patient Portal and [employer] Indication:Encounter for well adult exam with abnormal findings (Renamed from Encounter for general adult medical examination with abnormal findings) Start:28-Sep-2020 Instruction Type:Patient Education [facility]; [facility] Work Phone: Instructions* Name Dates Details Patient Instructions Indication:Smoker Start:28-Apr-2022 Instruction Type:Provider Instructions for Treatment How to Access Health Informa tion Online using Patient Portal and [employer] Indication:Smoker Start:28-Apr-2022 Instruction Type:Patient Education Patient Instructions Indication:Encounter for well adult exam with abnormal findings (Renamed from Encounter for general adult medical examination with abnormal findings) Start:06-Jan-2022 Instruction Type:Provider Instructions for Treatment How to Access Health Informa tion Online using Patient Portal and [employer] Indication:Encounter for well adult exam with abnormal findings (Renamed from Encounter for general adult medical examination with abnormal findings) Start:06-Jan-2022 Instruction Type:Patient Education Patient Instructions Indication:Lower extremity edema Start:27-Sep-2021 Instruction Type:Provider Instructions for Treatment How to Access Health Informa tion Online using Patient Portal and [employer] Indication:Lower extremity edema Start:27-Sep-2021 Instruction Type:Patient Education Patient Instructions Indication:Impaired fasting glucose Start:13-Sep-2021 Instruction Type:Provider Instructions for Treatment How to Access Health Informa tion Online using Patient Portal and [employer] Indication:Impaired fasting glucose Start:13-Sep-2021 Instruction Type:Patient Education Patient Instructions Indication:Impaired fasting glucose Start:10-Jun-2021 Instruction Type:Provider Instructions for Treatment How to Access Health Informa tion Online using Patient Portal and [employer] Indication:Impaired fasting glucose Start:10-Jun-2021 Instruction Type:Patient Education Patient Instructions Indication:Encounter for well adult exam with abnormal findings (Renamed from Encounter for general adult medical examination with abnormal findings) Start:05-Jan-2021 Instruction Type:Provider Instructions for Treatment How to Access Health Informa tion Online using Patient Portal and [employer] Indication:Encounter for well adult exam with abnormal findings (Renamed from Encounter for general adult medical examination with abnormal findings) Start:05-Jan-2021 Instruction Type:Patient Education Patient Instructions Indication:Encounter for well adult exam with abnormal findings (Renamed from Encounter for general adult medical examination with abnormal findings) Start:28-Sep-2020 Instruction Type:Provider Instructions for Treatment How to Access Health Informa tion Online using Patient Portal and [employer] Indication:Encounter for well adult exam with abnormal findings (Renamed from Encounter for general adult medical examination with abnormal findings) Start:28-Sep-2020 Instruction Type:Patient Education [facility]; [facility] Work Phone: Instructions* Name Dates Details Patient Instructions Indication:Smoker Start:28-Apr-2022 Instruction Type:Provider Instructions for Treatment How to Access Health Informa tion Online using Patient Portal and [employer] Indication:Smoker Start:28-Apr-2022 Instruction Type:Patient Education Patient Instructions Indication:Encounter for well adult exam with abnormal findings (Renamed from Encounter for general adult medical examination with abnormal findings) Start:06-Jan-2022 Instruction Type:Provider Instructions for Treatment How to Access Health Informa tion Online using Patient Portal and [employer] Indication:Encounter for well adult exam with abnormal findings (Renamed from Encounter for general adult medical examination with abnormal findings) Start:06-Jan-2022 Instruction Type:Patient Education Patient Instructions Indication:Lower extremity edema Start:27-Sep-2021 Instruction Type:Provider Instructions for Treatment How to Access Health Informa tion Online using Patient Portal and [employer] Indication:Lower extremity edema Start:27-Sep-2021 Instruction Type:Patient Education Patient Instructions Indication:Impaired fasting glucose Start:13-Sep-2021 Instruction Type:Provider Instructions for Treatment How to Access Health Informa tion Online using Patient Portal and [employer] Indication:Impaired fasting glucose Start:13-Sep-2021 Instruction Type:Patient Education Patient Instructions Indication:Impaired fasting glucose Start:10-Jun-2021 Instruction Type:Provider Instructions for Treatment How to Access Health Informa tion Online using Patient Portal and [employer] Indication:Impaired fasting glucose Start:10-Jun-2021 Instruction Type:Patient Education Patient Instructions Indication:Encounter for well adult exam with abnormal findings (Renamed from Encounter for general adult medical examination with abnormal findings) Start:05-Jan-2021 Instruction Type:Provider Instructions for Treatment How to Access Health Informa tion Online using Patient Portal and [employer] Indication:Encounter for well adult exam with abnormal findings (Renamed from Encounter for general adult medical examination with abnormal findings) Start:05-Jan-2021 Instruction Type:Patient Education Patient Instructions Indication:Encounter for well adult exam with abnormal findings (Renamed from Encounter for general adult medical examination with abnormal findings) Start:28-Sep-2020 Instruction Type:Provider Instructions for Treatment How to Access Health Informa tion Online using Patient Portal and [employer] Indication:Encounter for well adult exam with abnormal findings (Renamed from Encounter for general adult medical examination with abnormal findings) Start:28-Sep-2020 Instruction Type:Patient Education [facility]; [facility] Work Phone: Instructions* Name Dates Details Patient Instructions Indication:Smoker Start:28-Jul-2022 Instruction Type:Provider Instructions for Treatment How to Access Health Informa tion Online using Patient Portal and [employer] Indication:Smoker Start:28-Jul-2022 Instruction Type:Patient Education Patient Instructions Indication:Smoker Start:28-Apr-2022 Instruction Type:Provider Instructions for Treatment How to Access Health Informa tion Online using Patient Portal and [employer] Indication:Smoker Start:28-Apr-2022 Instruction Type:Patient Education Patient Instructions Indication:Encounter for well adult exam with abnormal findings (Renamed from Encounter for general adult medical examination with abnormal findings) Start:06-Jan-2022 Instruction Type:Provider Instructions for Treatment How to Access Health Informa tion Online using Patient Portal and [employer] Indication:Encounter for well adult exam with abnormal findings (Renamed from Encounter for general adult medical examination with abnormal findings) Start:06-Jan-2022 Instruction Type:Patient Education Patient Instructions Indication:Lower extremity edema Start:27-Sep-2021 Instruction Type:Provider Instructions for Treatment How to Access Health Informa tion Online using Patient Portal and [employer] Indication:Lower extremity edema Start:27-Sep-2021 Instruction Type:Patient Education Patient Instructions Indication:Impaired fasting glucose Start:13-Sep-2021 Instruction Type:Provider Instructions for Treatment How to Access Health Informa tion Online using Patient Portal and [employer] Indication:Impaired fasting glucose Start:13-Sep-2021 Instruction Type:Patient Education Patient Instructions Indication:Impaired fasting glucose Start:10-Jun-2021 Instruction Type:Provider Instructions for Treatment How to Access Health Informa tion Online using Patient Portal and [employer] Indication:Impaired fasting glucose Start:10-Jun-2021 Instruction Type:Patient Education Patient Instructions Indication:Encounter for well adult exam with abnormal findings (Renamed from Encounter for general adult medical examination with abnormal findings) Start:05-Jan-2021 Instruction Type:Provider Instructions for Treatment How to Access Health Informa tion Online using Patient Portal and [employer] Indication:Encounter for well adult exam with abnormal findings (Renamed from Encounter for general adult medical examination with abnormal findings) Start:05-Jan-2021 Instruction Type:Patient Education Patient Instructions Indication:Encounter for well adult exam with abnormal findings (Renamed from Encounter for general adult medical examination with abnormal findings) Start:28-Sep-2020 Instruction Type:Provider Instructions for Treatment How to Access Health Informa tion Online using Patient Portal and [employer] Indication:Encounter for well adult exam with abnormal findings (Renamed from Encounter for general adult medical examination with abnormal findings) Start:28-Sep-2020 Instruction Type:Patient Education [facility]; [facility] Work Phone: Instructions* Name Dates Details Patient Instructions Indication:Smoker Start:19-Sep-2022 Instruction Type:Provider Instructions for Treatment How to Access Health Informa tion Online using Patient Portal and [employer] Indication:Smoker Start:19-Sep-2022 Instruction Type:Patient Education Patient Instructions Indication:Smoker Start:28-Jul-2022 Instruction Type:Provider Instructions for Treatment How to Access Health Informa tion Online using Patient Portal and [employer] Indication:Smoker Start:28-Jul-2022 Instruction Type:Patient Education Patient Instructions Indication:Smoker Start:28-Apr-2022 Instruction Type:Provider Instructions for Treatment How to Access Health Informa tion Online using Patient Portal and [employer] Indication:Smoker Start:28-Apr-2022 Instruction Type:Patient Education Patient Instructions Indication:Encounter for well adult exam with abnormal findings (Renamed from Encounter for general adult medical examination with abnormal findings) Start:06-Jan-2022 Instruction Type:Provider Instructions for Treatment How to Access Health Informa tion Online using Patient Portal and [employer] Indication:Encounter for well adult exam with abnormal findings (Renamed from Encounter for general adult medical examination with abnormal findings) Start:06-Jan-2022 Instruction Type:Patient Education Patient Instructions Indication:Lower extremity edema Start:27-Sep-2021 Instruction Type:Provider Instructions for Treatment How to Access Health Informa tion Online using Patient Portal and [employer] Indication:Lower extremity edema Start:27-Sep-2021 Instruction Type:Patient Education Patient Instructions Indication:Impaired fasting glucose Start:13-Sep-2021 Instruction Type:Provider Instructions for Treatment How to Access Health Informa tion Online using Patient Portal and [employer] Indication:Impaired fasting glucose Start:13-Sep-2021 Instruction Type:Patient Education Patient Instructions Indication:Impaired fasting glucose Start:10-Jun-2021 Instruction Type:Provider Instructions for Treatment How to Access Health Informa tion Online using Patient Portal and [employer] Indication:Impaired fasting glucose Start:10-Jun-2021 Instruction Type:Patient Education Patient Instructions Indication:Encounter for well adult exam with abnormal findings (Renamed from Encounter for general adult medical examination with abnormal findings) Start:05-Jan-2021 Instruction Type:Provider Instructions for Treatment How to Access Health Informa tion Online using Patient Portal and [employer] Indication:Encounter for well adult exam with abnormal findings (Renamed from Encounter for general adult medical examination with abnormal findings) Start:05-Jan-2021 Instruction Type:Patient Education Patient Instructions Indication:Encounter for well adult exam with abnormal findings (Renamed from Encounter for general adult medical examination with abnormal findings) Start:28-Sep-2020 Instruction Type:Provider Instructions for Treatment How to Access Health Informa tion Online using Patient Portal and [employer] Indication:Encounter for well adult exam with abnormal findings (Renamed from Encounter for general adult medical examination with abnormal findings) Start:28-Sep-2020 Instruction Type:Patient Education [facility]; [facility] Work Phone: Instructions* Name Dates Details Patient Instructions Indication:Smoker Start:19-Sep-2022 Instruction Type:Provider Instructions for Treatment How to Access Health Informa tion Online using Patient Portal and [employer] Indication:Smoker Start:19-Sep-2022 Instruction Type:Patient Education Patient Instructions Indication:Smoker Start:28-Jul-2022 Instruction Type:Provider Instructions for Treatment How to Access Health Informa tion Online using Patient Portal and [employer] Indication:Smoker Start:28-Jul-2022 Instruction Type:Patient Education Patient Instructions Indication:Smoker Start:28-Apr-2022 Instruction Type:Provider Instructions for Treatment How to Access Health Informa tion Online using Patient Portal and [employer] Indication:Smoker Start:28-Apr-2022 Instruction Type:Patient Education Patient Instructions Indication:Encounter for well adult exam with abnormal findings (Renamed from Encounter for general adult medical examination with abnormal findings) Start:06-Jan-2022 Instruction Type:Provider Instructions for Treatment How to Access Health Informa tion Online using Patient Portal and [employer] Indication:Encounter for well adult exam with abnormal findings (Renamed from Encounter for general adult medical examination with abnormal findings) Start:06-Jan-2022 Instruction Type:Patient Education Patient Instructions Indication:Lower extremity edema Start:27-Sep-2021 Instruction Type:Provider Instructions for Treatment How to Access Health Informa tion Online using Patient Portal and [employer] Indication:Lower extremity edema Start:27-Sep-2021 Instruction Type:Patient Education Patient Instructions Indication:Impaired fasting glucose Start:13-Sep-2021 Instruction Type:Provider Instructions for Treatment How to Access Health Informa tion Online using Patient Portal and [employer] Indication:Impaired fasting glucose Start:13-Sep-2021 Instruction Type:Patient Education Patient Instructions Indication:Impaired fasting glucose Start:10-Jun-2021 Instruction Type:Provider Instructions for Treatment How to Access Health Informa tion Online using Patient Portal and [employer] Indication:Impaired fasting glucose Start:10-Jun-2021 Instruction Type:Patient Education Patient Instructions Indication:Encounter for well adult exam with abnormal findings (Renamed from Encounter for general adult medical examination with abnormal findings) Start:05-Jan-2021 Instruction Type:Provider Instructions for Treatment How to Access Health Informa tion Online using Patient Portal and [employer] Indication:Encounter for well adult exam with abnormal findings (Renamed from Encounter for general adult medical examination with abnormal findings) Start:05-Jan-2021 Instruction Type:Patient Education Patient Instructions Indication:Encounter for well adult exam with abnormal findings (Renamed from Encounter for general adult medical examination with abnormal findings) Start:28-Sep-2020 Instruction Type:Provider Instructions for Treatment How to Access Health Informa tion Online using Patient Portal and [employer] Indication:Encounter for well adult exam with abnormal findings (Renamed from Encounter for general adult medical examination with abnormal findings) Start:28-Sep-2020 Instruction Type:Patient Education [facility]; [facility] Work Phone: Instructions* Name Dates Details Patient Instructions Indication:Smoker Start:19-Dec-2022 Instruction Type:Provider Instructions for Treatment How to Access Health Informa tion Online using Patient Portal and [employer] Indication:Smoker Start:19-Dec-2022 Instruction Type:Patient Education Patient Instructions Indication:Smoker Start:19-Sep-2022 Instruction Type:Provider Instructions for Treatment How to Access Health Informa tion Online using Patient Portal and [employer] Indication:Smoker Start:19-Sep-2022 Instruction Type:Patient Education Patient Instructions Indication:Smoker Start:28-Jul-2022 Instruction Type:Provider Instructions for Treatment How to Access Health Informa tion Online using Patient Portal and [employer] Indication:Smoker Start:28-Jul-2022 Instruction Type:Patient Education Patient Instructions Indication:Smoker Start:28-Apr-2022 Instruction Type:Provider Instructions for Treatment How to Access Health Informa tion Online using Patient Portal and [employer] Indication:Smoker Start:28-Apr-2022 Instruction Type:Patient Education Patient Instructions Indication:Encounter for well adult exam with abnormal findings (Renamed from Encounter for general adult medical examination with abnormal findings) Start:06-Jan-2022 Instruction Type:Provider Instructions for Treatment How to Access Health Informa tion Online using Patient Portal and [employer] Indication:Encounter for well adult exam with abnormal findings (Renamed from Encounter for general adult medical examination with abnormal findings) Start:06-Jan-2022 Instruction Type:Patient Education Patient Instructions Indication:Lower extremity edema Start:27-Sep-2021 Instruction Type:Provider Instructions for Treatment How to Access Health Informa tion Online using Patient Portal and [employer] Indication:Lower extremity edema Start:27-Sep-2021 Instruction Type:Patient Education Patient Instructions Indication:Impaired fasting glucose Start:13-Sep-2021 Instruction Type:Provider Instructions for Treatment How to Access Health Informa tion Online using Patient Portal and [employer] Indication:Impaired fasting glucose Start:13-Sep-2021 Instruction Type:Patient Education Patient Instructions Indication:Impaired fasting glucose Start:10-Jun-2021 Instruction Type:Provider Instructions for Treatment How to Access Health Informa tion Online using Patient Portal and [employer] Indication:Impaired fasting glucose Start:10-Jun-2021 Instruction Type:Patient Education Patient Instructions Indication:Encounter for well adult exam with abnormal findings (Renamed from Encounter for general adult medical examination with abnormal findings) Start:05-Jan-2021 Instruction Type:Provider Instructions for Treatment How to Access Health Informa tion Online using Patient Portal and [employer] Indication:Encounter for well adult exam with abnormal findings (Renamed from Encounter for general adult medical examination with abnormal findings) Start:05-Jan-2021 Instruction Type:Patient Education Patient Instructions Indication:Encounter for well adult exam with abnormal findings (Renamed from Encounter for general adult medical examination with abnormal findings) Start:28-Sep-2020 Instruction Type:Provider Instructions for Treatment How to Access Health Informa tion Online using Patient Portal and [employer] Indication:Encounter for well adult exam with abnormal findings (Renamed from Encounter for general adult medical examination with abnormal findings) Start:28-Sep-2020 Instruction Type:Patient Education [facility]; [facility] Work Phone: Instructions* Name Dates Details Patient Instructions Indication:Smoker Start:19-Dec-2022 Instruction Type:Provider Instructions for Treatment How to Access Health Informa tion Online using Patient Portal and [employer] Indication:Smoker Start:19-Dec-2022 Instruction Type:Patient Education Patient Instructions Indication:Smoker Start:19-Sep-2022 Instruction Type:Provider Instructions for Treatment How to Access Health Informa tion Online using Patient Portal and [employer] Indication:Smoker Start:19-Sep-2022 Instruction Type:Patient Education Patient Instructions Indication:Smoker Start:28-Jul-2022 Instruction Type:Provider Instructions for Treatment How to Access Health Informa tion Online using Patient Portal and [employer] Indication:Smoker Start:28-Jul-2022 Instruction Type:Patient Education Patient Instructions Indication:Smoker Start:28-Apr-2022 Instruction Type:Provider Instructions for Treatment How to Access Health Informa tion Online using Patient Portal and [employer] Indication:Smoker Start:28-Apr-2022 Instruction Type:Patient Education Patient Instructions Indication:Encounter for well adult exam with abnormal findings (Renamed from Encounter for general adult medical examination with abnormal findings) Start:06-Jan-2022 Instruction Type:Provider Instructions for Treatment How to Access Health Informa tion Online using Patient Portal and [employer] Indication:Encounter for well adult exam with abnormal findings (Renamed from Encounter for general adult medical examination with abnormal findings) Start:06-Jan-2022 Instruction Type:Patient Education Patient Instructions Indication:Lower extremity edema Start:27-Sep-2021 Instruction Type:Provider Instructions for Treatment How to Access Health Informa tion Online using Patient Portal and [employer] Indication:Lower extremity edema Start:27-Sep-2021 Instruction Type:Patient Education Patient Instructions Indication:Impaired fasting glucose Start:13-Sep-2021 Instruction Type:Provider Instructions for Treatment How to Access Health Informa tion Online using Patient Portal and [employer] Indication:Impaired fasting glucose Start:13-Sep-2021 Instruction Type:Patient Education Patient Instructions Indication:Impaired fasting glucose Start:10-Jun-2021 Instruction Type:Provider Instructions for Treatment How to Access Health Informa tion Online using Patient Portal and [employer] Indication:Impaired fasting glucose Start:10-Jun-2021 Instruction Type:Patient Education Patient Instructions Indication:Encounter for well adult exam with abnormal findings (Renamed from Encounter for general adult medical examination with abnormal findings) Start:05-Jan-2021 Instruction Type:Provider Instructions for Treatment How to Access Health Informa tion Online using Patient Portal and [employer] Indication:Encounter for well adult exam with abnormal findings (Renamed from Encounter for general adult medical examination with abnormal findings) Start:05-Jan-2021 Instruction Type:Patient Education Patient Instructions Indication:Encounter for well adult exam with abnormal findings (Renamed from Encounter for general adult medical examination with abnormal findings) Start:28-Sep-2020 Instruction Type:Provider Instructions for Treatment How to Access Health Informa tion Online using Patient Portal and [employer] Indication:Encounter for well adult exam with abnormal findings (Renamed from Encounter for general adult medical examination with abnormal findings) Start:28-Sep-2020 Instruction Type:Patient Education [facility]; [facility] Work Phone: Instructions* Name Dates Details Patient Instructions Indication:Smoker Start:04-May-2023 Instruction Type:Provider Instructions for Treatment How to Access Health Informa tion Online using Patient Portal and [employer] Indication:Smoker Start:04-May-2023 Instruction Type:Patient Education Patient Instructions Indication:Smoker Start:19-Dec-2022 Instruction Type:Provider Instructions for Treatment How to Access Health Informa tion Online using Patient Portal and [employer] Indication:Smoker Start:19-Dec-2022 Instruction Type:Patient Education Patient Instructions Indication:Smoker Start:19-Sep-2022 Instruction Type:Provider Instructions for Treatment How to Access Health Informa tion Online using Patient Portal and [employer] Indication:Smoker Start:19-Sep-2022 Instruction Type:Patient Education Patient Instructions Indication:Smoker Start:28-Jul-2022 Instruction Type:Provider Instructions for Treatment How to Access Health Informa tion Online using Patient Portal and [employer] Indication:Smoker Start:28-Jul-2022 Instruction Type:Patient Education Patient Instructions Indication:Smoker Start:28-Apr-2022 Instruction Type:Provider Instructions for Treatment How to Access Health Informa tion Online using Patient Portal and [employer] Indication:Smoker Start:28-Apr-2022 Instruction Type:Patient Education Patient Instructions Indication:Encounter for well adult exam with abnormal findings (Renamed from Encounter for general adult medical examination with abnormal findings) Start:06-Jan-2022 Instruction Type:Provider Instructions for Treatment How to Access Health Informa tion Online using Patient Portal and [employer] Indication:Encounter for well adult exam with abnormal findings (Renamed from Encounter for general adult medical examination with abnormal findings) Start:06-Jan-2022 Instruction Type:Patient Education Patient Instructions Indication:Lower extremity edema Start:27-Sep-2021 Instruction Type:Provider Instructions for Treatment How to Access Health Informa tion Online using Patient Portal and [employer] Indication:Lower extremity edema Start:27-Sep-2021 Instruction Type:Patient Education Patient Instructions Indication:Impaired fasting glucose Start:13-Sep-2021 Instruction Type:Provider Instructions for Treatment How to Access Health Informa tion Online using Patient Portal and [employer] Indication:Impaired fasting glucose Start:13-Sep-2021 Instruction Type:Patient Education Patient Instructions Indication:Impaired fasting glucose Start:10-Jun-2021 Instruction Type:Provider Instructions for Treatment How to Access Health Informa tion Online using Patient Portal and [employer] Indication:Impaired fasting glucose Start:10-Jun-2021 Instruction Type:Patient Education Patient Instructions Indication:Encounter for well adult exam with abnormal findings (Renamed from Encounter for general adult medical examination with abnormal findings) Start:05-Jan-2021 Instruction Type:Provider Instructions for Treatment How to Access Health Informa tion Online using Patient Portal and [employer] Indication:Encounter for well adult exam with abnormal findings (Renamed from Encounter for general adult medical examination with abnormal findings) Start:05-Jan-2021 Instruction Type:Patient Education Patient Instructions Indication:Encounter for well adult exam with abnormal findings (Renamed from Encounter for general adult medical examination with abnormal findings) Start:28-Sep-2020 Instruction Type:Provider Instructions for Treatment How to Access Health Informa tion Online using Patient Portal and [employer] Indication:Encounter for well adult exam with abnormal findings (Renamed from Encounter for general adult medical examination with abnormal findings) Start:28-Sep-2020 Instruction Type:Patient Education [facility]; [facility] Work Phone: Instructions* Name Dates Details Patient Instructions Indication:Smoker Start:04-May-2023 Instruction Type:Provider Instructions for Treatment How to Access Health Informa tion Online using Patient Portal and [employer] Indication:Smoker Start:04-May-2023 Instruction Type:Patient Education Patient Instructions Indication:Smoker Start:19-Dec-2022 Instruction Type:Provider Instructions for Treatment How to Access Health Informa tion Online using Patient Portal and [employer] Indication:Smoker Start:19-Dec-2022 Instruction Type:Patient Education Patient Instructions Indication:Smoker Start:19-Sep-2022 Instruction Type:Provider Instructions for Treatment How to Access Health Informa tion Online using Patient Portal and [employer] Indication:Smoker Start:19-Sep-2022 Instruction Type:Patient Education Patient Instructions Indication:Smoker Start:28-Jul-2022 Instruction Type:Provider Instructions for Treatment How to Access Health Informa tion Online using Patient Portal and [employer] Indication:Smoker Start:28-Jul-2022 Instruction Type:Patient Education Patient Instructions Indication:Smoker Start:28-Apr-2022 Instruction Type:Provider Instructions for Treatment How to Access Health Informa tion Online using Patient Portal and [employer] Indication:Smoker Start:28-Apr-2022 Instruction Type:Patient Education Patient Instructions Indication:Encounter for well adult exam with abnormal findings (Renamed from Encounter for general adult medical examination with abnormal findings) Start:06-Jan-2022 Instruction Type:Provider Instructions for Treatment How to Access Health Informa tion Online using Patient Portal and [employer] Indication:Encounter for well adult exam with abnormal findings (Renamed from Encounter for general adult medical examination with abnormal findings) Start:06-Jan-2022 Instruction Type:Patient Education Patient Instructions Indication:Lower extremity edema Start:27-Sep-2021 Instruction Type:Provider Instructions for Treatment How to Access Health Informa tion Online using Patient Portal and [employer] Indication:Lower extremity edema Start:27-Sep-2021 Instruction Type:Patient Education Patient Instructions Indication:Impaired fasting glucose Start:13-Sep-2021 Instruction Type:Provider Instructions for Treatment How to Access Health Informa tion Online using Patient Portal and [employer] Indication:Impaired fasting glucose Start:13-Sep-2021 Instruction Type:Patient Education Patient Instructions Indication:Impaired fasting glucose Start:10-Jun-2021 Instruction Type:Provider Instructions for Treatment How to Access Health Informa tion Online using Patient Portal and [employer] Indication:Impaired fasting glucose Start:10-Jun-2021 Instruction Type:Patient Education Patient Instructions Indication:Encounter for well adult exam with abnormal findings (Renamed from Encounter for general adult medical examination with abnormal findings) Start:05-Jan-2021 Instruction Type:Provider Instructions for Treatment How to Access Health Informa tion Online using Patient Portal and [employer] Indication:Encounter for well adult exam with abnormal findings (Renamed from Encounter for general adult medical examination with abnormal findings) Start:05-Jan-2021 Instruction Type:Patient Education Patient Instructions Indication:Encounter for well adult exam with abnormal findings (Renamed from Encounter for general adult medical examination with abnormal findings) Start:28-Sep-2020 Instruction Type:Provider Instructions for Treatment How to Access Health Informa tion Online using Patient Portal and [employer] Indication:Encounter for well adult exam with abnormal findings (Renamed from Encounter for general adult medical examination with abnormal findings) Start:28-Sep-2020 Instruction Type:Patient Education [facility] Work Phone: reason for referral (narrative)No [facility] for [facility]: Family History No Family History Records FoundUnknown Family Member Name Dates Details Father Comments:HTN, prostate cance r, CAD 68yo, smoker, very high cholesterol Status:Active Maternal Grandfather Comments: early age unknown Status:Active Maternal Grandmother Comments:Diabetic later in [place] Status:Active Mother Comments:CVA in 70's Status:Active Paternal Grandfather Comments:natural causes Status:Active Paternal Grandmother Comments: young unknown Status:Active Sister 1 Comments:older healthy Status:Active step children (no biological ) Status:Active Unknown Family Member Name Dates Details Father Comments:HTN, prostate cance r, CAD 68yo, smoker, very high cholesterol Status:Active Maternal Grandfather Comments: early age unknown Status:Active Maternal Grandmother Comments:Diabetic later in [place] Status:Active Mother Comments:CVA in 70's Status:Active Paternal Grandfather Comments:natural causes Status:Active Paternal Grandmother Comments: young unknown Status:Active Sister 1 Comments:older healthy Status:Active step children (no biological ) Status:Active Unknown Family Member Name Dates Details Father Comments:HTN, prostate cance r, CAD 68yo, smoker, very high cholesterol Status:Active Maternal Grandfather Comments: early age unknown Status:Active Maternal Grandmother Comments:Diabetic later in [place] Status:Active Mother Comments:CVA in 70's Status:Active Paternal Grandfather Comments:natural causes Status:Active Paternal Grandmother Comments: young unknown Status:Active Sister 1 Comments:older healthy Status:Active step children (no biological ) Status:Active Unknown Family Member Name Dates Details Father Comments:HTN, prostate cance r, CAD 68yo, smoker, very high cholesterol Status:Active Maternal Grandfather Comments: early age unknown Status:Active Maternal Grandmother Comments:Diabetic later in [place] Status:Active Mother Comments:CVA in 70's Status:Active Paternal Grandfather Comments:natural causes Status:Active Paternal Grandmother Comments: young unknown Status:Active Sister 1 Comments:older healthy Status:Active step children (no biological ) Status:Active Unknown Family Member Name Dates Details Father Comments:HTN, prostate cance r, CAD 68yo, smoker, very high cholesterol Status:Active Maternal Grandfather Comments: early age unknown Status:Active Maternal Grandmother Comments:Diabetic later in [place] Status:Active Mother Comments:CVA in 70's Status:Active Paternal Grandfather Comments:natural causes Status:Active Paternal Grandmother Comments: young unknown Status:Active Sister 1 Comments:older healthy Status:Active step children (no biological ) Status:Active Unknown Family Member Name Dates Details Father Comments:HTN, prostate cance r, CAD 68yo, smoker, very high cholesterol Status:Active Maternal Grandfather Comments: early age unknown Status:Active Maternal Grandmother Comments:Diabetic later in [place] Status:Active Mother Comments:CVA in 70's Status:Active Paternal Grandfather Comments:natural causes Status:Active Paternal Grandmother Comments: young unknown Status:Active Sister 1 Comments:older healthy Status:Active step children (no biological ) Status:Active Unknown Family Member Name Dates Details Father Comments:HTN, prostate cance r, CAD 68yo, smoker, very high cholesterol Status:Active Maternal Grandfather Comments: early age unknown Status:Active Maternal Grandmother Comments:Diabetic later in [place] Status:Active Mother Comments:CVA in 70's Status:Active Paternal Grandfather Comments:natural causes Status:Active Paternal Grandmother Comments: young unknown Status:Active Sister 1 Comments:older healthy Status:Active step children (no biological ) Status:Active Unknown Family Member Name Dates Details Father Comments:HTN, prostate cance r, CAD 68yo, smoker, very high cholesterol Status:Active Maternal Grandfather Comments: early age unknown Status:Active Maternal Grandmother Comments:Diabetic later in [place] Status:Active Mother Comments:CVA in 70's Status:Active Paternal Grandfather Comments:natural causes Status:Active Paternal Grandmother Comments: young unknown Status:Active Sister 1 Comments:older healthy Status:Active step children (no biological ) Status:Active Unknown Family Member Name Dates Details Father Comments:HTN, prostate cance r, CAD 68yo, smoker, very high cholesterol Status:Active Maternal Grandfather Comments: early age unknown Status:Active Maternal Grandmother Comments:Diabetic later in [place] Status:Active Mother Comments:CVA in 70's Status:Active Paternal Grandfather Comments:natural causes Status:Active Paternal Grandmother Comments: young unknown Status:Active Sister 1 Comments:older healthy Status:Active step children (no biological ) Status:Active Unknown Family Member Name Dates Details Father Comments:HTN, prostate cance r, CAD 68yo, smoker, very high cholesterol Status:Active Maternal Grandfather Comments: early age unknown Status:Active Maternal Grandmother Comments:Diabetic later in [place] Status:Active Mother Comments:CVA in 70's Status:Active Paternal Grandfather Comments:natural causes Status:Active Paternal Grandmother Comments: young unknown Status:Active Sister 1 Comments:older healthy Status:Active step children (no biological ) Status:Active Unknown Family Member Name Dates Details Father Comments:HTN, prostate cance r, CAD 68yo, smoker, very high cholesterol Status:Active Maternal Grandfather Comments: early age unknown Status:Active Maternal Grandmother Comments:Diabetic later in [place] Status:Active Mother Comments:CVA in 70's Status:Active Paternal Grandfather Comments:natural causes Status:Active Paternal Grandmother Comments: young unknown Status:Active Sister 1 Comments:older healthy Status:Active step children (no biological ) Status:Active Unknown Family Member Name Dates Details Father Comments:HTN, prostate cance r, CAD 68yo, smoker, very high cholesterol Status:Active Maternal Grandfather Comments: early age unknown Status:Active Maternal Grandmother Comments:Diabetic later in [place] Status:Active Mother Comments:CVA in 70's Status:Active Paternal Grandfather Comments:natural causes Status:Active Paternal Grandmother Comments: young unknown Status:Active Sister 1 Comments:older healthy Status:Active step children (no biological ) Status:Active Unknown Family Member Name Dates Details Father Comments:HTN, prostate cance r, CAD 68yo, smoker, very high cholesterol Status:Active Maternal Grandfather Comments: early age unknown Status:Active Maternal Grandmother Comments:Diabetic later in [place] Status:Active Mother Comments:CVA in 70's Status:Active Paternal Grandfather Comments:natural causes Status:Active Paternal Grandmother Comments: young unknown Status:Active Sister 1 Comments:older healthy Status:Active step children (no biological ) Status:Active Unknown Family Member Name Dates Details Father Comments:HTN, prostate cance r, CAD 68yo, smoker, very high cholesterol Status:Active Maternal Grandfather Comments: early age unknown Status:Active Maternal Grandmother Comments:Diabetic later in [place] Status:Active Mother Comments:CVA in 70's Status:Active Paternal Grandfather Comments:natural causes Status:Active Paternal Grandmother Comments: young unknown Status:Active Sister 1 Comments:older healthy Status:Active step children (no biological ) Status:Active Unknown Family Member Name Dates Details Father Comments:HTN, prostate cance r, CAD 68yo, smoker, very high cholesterol Status:Active Maternal Grandfather Comments: early age unknown Status:Active Maternal Grandmother Comments:Diabetic later in [place] Status:Active Mother Comments:CVA in 70's Status:Active Paternal Grandfather Comments:natural causes Status:Active Paternal Grandmother Comments: young unknown Status:Active Sister 1 Comments:older healthy Status:Active step children (no biological ) Status:Active Unknown Family Member Name Dates Details Father Comments:HTN, prostate cance r, CAD 68yo, smoker, very high cholesterol Status:Active Maternal Grandfather Comments: early age unknown Status:Active Maternal Grandmother Comments:Diabetic later in [place] Status:Active Mother Comments:CVA in 70's Status:Active Paternal Grandfather Comments:natural causes Status:Active Paternal Grandmother Comments: young unknown Status:Active Sister 1 Comments:older healthy Status:Active step children (no biological ) Status:Active Unknown Family Member Name Dates Details Father Comments:HTN, prostate cance r, CAD 68yo, smoker, very high cholesterol Status:Active Maternal Grandfather Comments: early age unknown Status:Active Maternal Grandmother Comments:Diabetic later in [place] Status:Active Mother Comments:CVA in 70's Status:Active Paternal Grandfather Comments:natural causes Status:Active Paternal Grandmother Comments: young unknown Status:Active Sister 1 Comments:older healthy Status:Active step children (no biological ) Status:Active Unknown Family Member Name Dates Details Father Comments:HTN, prostate cance r, CAD 68yo, smoker, very high cholesterol Status:Active Maternal Grandfather Comments: early age unknown Status:Active Maternal Grandmother Comments:Diabetic later in [place] Status:Active Mother Comments:CVA in 70's Status:Active Paternal Grandfather Comments:natural causes Status:Active Paternal Grandmother Comments: young unknown Status:Active Sister 1 Comments:older healthy Status:Active step children (no biological ) Status:Active Unknown Family Member Name Dates Details Father Comments:HTN, prostate cance r, CAD 68yo, smoker, very high cholesterol Status:Active Maternal Grandfather Comments: early age unknown Status:Active Maternal Grandmother Comments:Diabetic later in [place] Status:Active Mother Comments:CVA in 70's Status:Active Paternal Grandfather Comments:natural causes Status:Active Paternal Grandmother Comments: young unknown Status:Active Sister 1 Comments:older healthy Status:Active step children (no biological ) Status:Active Unknown Family Member Name Dates Details Father Comments:HTN, prostate cance r, CAD 68yo, smoker, very high cholesterol Status:Active Maternal Grandfather Comments: early age unknown Status:Active Maternal Grandmother Comments:Diabetic later in [place] Status:Active Mother Comments:CVA in 70's Status:Active Paternal Grandfather Comments:natural causes Status:Active Paternal Grandmother Comments: young unknown Status:Active Sister 1 Comments:older healthy Status:Active step children (no biological ) Status:Active Unknown Family Member Name Dates Details Father Comments:HTN, prostate cance r, CAD 68yo, smoker, very high cholesterol Status:Active Maternal Grandfather Comments: early age unknown Status:Active Maternal Grandmother Comments:Diabetic later in [place] Status:Active Mother Comments:CVA in 70's Status:Active Paternal Grandfather Comments:natural causes Status:Active Paternal Grandmother Comments: young unknown Status:Active Sister 1 Comments:older healthy Status:Active step children (no biological ) Status:Active Relationship Condition Age at Onset Recorded Date/T andreina father Hypertension Unknown Malignant neoplasm of prostate Unknown mother Cerebrovascular accident (CVA) Unknown Unknown Family Member Name Dates Details Father Comments:HTN, prostate cance r, CAD 68yo, smoker, very high cholesterol Status:Active Maternal Grandfather Comments: early age unknown Status:Active Maternal Grandmother Comments:Diabetic later in [place] Status:Active Mother Comments:CVA in 70's Status:Active Paternal Grandfather Comments:natural causes Status:Active Paternal Grandmother Comments: young unknown Status:Active Sister 1 Comments:older healthy Status:Active step children (no biological ) Status:Active Unknown Family Member Name Dates Details Father Comments:HTN, prostate cance r, CAD 68yo, smoker, very high cholesterol Status:Active Maternal Grandfather Comments: early age unknown Status:Active Maternal Grandmother Comments:Diabetic later in [place] Status:Active Mother Comments:CVA in 70's Status:Active Paternal Grandfather Comments:natural causes Status:Active Paternal Grandmother Comments: young unknown Status:Active Sister 1 Comments:older healthy Status:Active step children (no biological ) Status:Active Unknown Family Member Name Dates Details Father Comments:HTN, prostate cance r, CAD 68yo, smoker, very high cholesterol Status:Active Maternal Grandfather Comments: early age unknown Status:Active Maternal Grandmother Comments:Diabetic later in [place] Status:Active Mother Comments:CVA in 70's Status:Active Paternal Grandfather Comments:natural causes Status:Active Paternal Grandmother Comments: young unknown Status:Active Sister 1 Comments:older healthy Status:Active step children (no biological ) Status:Active Unknown Family Member Name Dates Details Father Comments:HTN, prostate cance r, CAD 68yo, smoker, very high cholesterol Status:Active Maternal Grandfather Comments: early age unknown Status:Active Maternal Grandmother Comments:Diabetic later in [place] Status:Active Mother Comments:CVA in 70's Status:Active Paternal Grandfather Comments:natural causes Status:Active Paternal Grandmother Comments: young unknown Status:Active Sister 1 Comments:older healthy Status:Active step children (no biological ) Status:Active Unknown Family Member Name Dates Details Father Comments:HTN, prostate cance r, CAD 68yo, smoker, very high cholesterol Status:Active Maternal Grandfather Comments: early age unknown Status:Active Maternal Grandmother Comments:Diabetic later in [place] Status:Active Mother Comments:CVA in 70's Status:Active Paternal Grandfather Comments:natural causes Status:Active Paternal Grandmother Comments: young unknown Status:Active Sister 1 Comments:older healthy Status:Active step children (no biological ) Status:Active Unknown Family Member Name Dates Details Father Comments:HTN, prostate cance r, CAD 68yo, smoker, very high cholesterol Status:Active Maternal Grandfather Comments: early age unknown Status:Active Maternal Grandmother Comments:Diabetic later in [place] Status:Active Mother Comments:CVA in 70's Status:Active Paternal Grandfather Comments:natural causes Status:Active Paternal Grandmother Comments: young unknown Status:Active Sister 1 Comments:older healthy Status:Active step children (no biological ) Status:Active Unknown Family Member Name Dates Details Father Comments:HTN, prostate cance r, CAD 68yo, smoker, very high cholesterol Status:Active Maternal Grandfather Comments: early age unknown Status:Active Maternal Grandmother Comments:Diabetic later in [place] Status:Active Mother Comments:CVA in 70's Status:Active Paternal Grandfather Comments:natural causes Status:Active Paternal Grandmother Comments: young unknown Status:Active Sister 1 Comments:older healthy Status:Active step children (no biological ) Status:Active Unknown Family Member Name Dates Details Father Comments:HTN, prostate cance r, CAD 68yo, smoker, very high cholesterol Status:Active Maternal Grandfather Comments: early age unknown Status:Active Maternal Grandmother Comments:Diabetic later in [place] Status:Active Mother Comments:CVA in 70's Status:Active Paternal Grandfather Comments:natural causes Status:Active Paternal Grandmother Comments: young unknown Status:Active Sister 1 Comments:older healthy Status:Active step children (no biological ) Status:Active Unknown Family Member Name Dates Details Father Comments:HTN, prostate cance r, CAD 68yo, smoker, very high cholesterol Status:Active Maternal Grandfather Comments: early age unknown Status:Active Maternal Grandmother Comments:Diabetic later in [place] Status:Active Mother Comments:CVA in 70's Status:Active Paternal Grandfather Comments:natural causes Status:Active Paternal Grandmother Comments: young unknown Status:Active Sister 1 Comments:older healthy Status:Active step children (no biological ) Status:Active Instructions Name Dates Details Patient Instructions Indication:Encounter for well adult exam with abnormal findings (Renamed from Encounter for general adult medical examination with abnormal findings) Start:28-Sep-2020 Instruction Type:Provider Instructions for Treatment How to Access Health Informa tion Online using Patient Portal and [employer] Indication:Encounter for well adult exam with abnormal findings (Renamed from Encounter for general adult medical examination with abnormal findings) Start:28-Sep-2020 Instruction Type:Patient Education Name Dates Details Patient Instructions Indication:Encounter for well adult exam with abnormal findings (Renamed from Encounter for general adult medical examination with abnormal findings) Start:28-Sep-2020 Instruction Type:Provider Instructions for Treatment How to Access Health Informa tion Online using Patient Portal and [employer] Indication:Encounter for well adult exam with abnormal findings (Renamed from Encounter for general adult medical examination with abnormal findings) Start:28-Sep-2020 Instruction Type:Patient Education Name Dates Details Patient Instructions Indication:Encounter for well adult exam with abnormal findings (Renamed from Encounter for general adult medical examination with abnormal findings) Start:28-Sep-2020 Instruction Type:Provider Instructions for Treatment How to Access Health Informa tion Online using Patient Portal and [employer] Indication:Encounter for well adult exam with abnormal findings (Renamed from Encounter for general adult medical examination with abnormal findings) Start:28-Sep-2020 Instruction Type:Patient Education Name Dates Details Patient Instructions Indication:Encounter for well adult exam with abnormal findings (Renamed from Encounter for general adult medical examination with abnormal findings) Start:28-Sep-2020 Instruction Type:Provider Instructions for Treatment How to Access Health Informa tion Online using Patient Portal and [employer] Indication:Encounter for well adult exam with abnormal findings (Renamed from Encounter for general adult medical examination with abnormal findings) Start:28-Sep-2020 Instruction Type:Patient Education Advance Directives No Advanced Directives Records Found Name Dates Details Immunization Registry [place] - Effective on 09/28/2020. Expiration date unspecified Effective:28-Sep-2020 Name Dates Details Immunization [facility] [place] - Effective on 09/28/2020. Expiration date unspecified Effective:28-Sep-2020 Name Dates Details Immunization [facility] [place] - Effective on 09/28/2020. Expiration date unspecified Effective:28-Sep-2020 Name Dates Details Immunization [facility] [place] - Effective on 09/28/2020. Expiration date unspecified Effective:28-Sep-2020 Name Dates Details Immunization [facility] [place] - Effective on 09/28/2020. Expiration date unspecified Effective:28-Sep-2020 Name Dates Details Immunization [facility] [place] - Effective on 09/28/2020. Expiration date unspecified Effective:28-Sep-2020 Name Dates Details Immunization [facility] [place] - Effective on 09/28/2020. Expiration date unspecified Effective:28-Sep-2020 Name Dates Details Immunization [facility] [place] - Effective on 09/28/2020. Expiration date unspecified Effective:28-Sep-2020 Name Dates Details Immunization [facility] [place] - Effective on 09/28/2020. Expiration date unspecified Effective:28-Sep-2020 Name Dates Details Immunization [facility] [place] - Effective on 09/28/2020. Expiration date unspecified Effective:28-Sep-2020 Name Dates Details Immunization [facility] [place] - Effective on 09/28/2020. Expiration date unspecified Effective:28-Sep-2020 Name Dates Details Immunization [facility] [place] - Effective on 09/28/2020. Expiration date unspecified Effective:28-Sep-2020 Name Dates Details Immunization [facility] [place] - Effective on 09/28/2020. Expiration date unspecified Effective:28-Sep-2020 Name Dates Details Immunization [facility] [place] - Effective on 09/28/2020. Expiration date unspecified Effective:28-Sep-2020 Name Dates Details Immunization [facility] [place] - Effective on 09/28/2020. Expiration date unspecified Effective:28-Sep-2020 Name Dates Details Immunization [facility] [place] - Effective on 09/28/2020. Expiration date unspecified Effective:28-Sep-2020 Name Dates Details Immunization [facility] [place] - Effective on 09/28/2020. Expiration date unspecified Effective:28-Sep-2020 Name Dates Details Immunization [facility] [place] - Effective on 09/28/2020. Expiration date unspecified Effective:28-Sep-2020 Name Dates Details Immunization [facility] [place] - Effective on 09/28/2020. Expiration date unspecified Effective:28-Sep-2020 Advance Directive Response Recorded Date/ Time Advance Directives No July 11:42am Living Will No July 14 1:02pm Power of Dater Assembler No July 14, 2021 1:02pm Name Dates Details Immunization [facility] [place] - Effective on 09/28/2020. Expiration date unspecified Effective:28-Sep-2020 Name Dates Details Immunization [facility] [place] - Effective on 09/28/2020. Expiration date unspecified Effective:28-Sep-2020 Advance Directive Response Recorded Date/ Time Advance Directives No July 10:42am Living Will No July 14 12:02pm Power of Dater Assembler No July 14, 2021 12:02pm Name Dates Details Immunization Registry [place] - Effective on 09/28/2020. Expiration date unspecified Effective:28-Sep-2020 Name Dates Details Immunization [facility] [place] - Effective on 09/28/2020. Expiration date unspecified Effective:28-Sep-2020 Name Dates Details Immunization Registry [place] - Effective on 09/28/2020. Expiration date unspecified Effective:28-Sep-2020 Name Dates Details Immunization Registry [place] - Effective on 09/28/2020. Expiration date unspecified Effective:28-Sep-2020 Name Dates Details Immunization Registry [place] - Effective on 09/28/2020. Expiration date unspecified Effective:28-Sep-2020 Name Dates Details Immunization Registry [place] - Effective on 09/28/2020. Expiration date unspecified Effective:28-Sep-2020 Name Dates Details Immunization Registry [place] - Effective on 09/28/2020. 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 FIRST [facility] JOINT RT HAND / RX HE Chief Complaint Admit Date LABS March 14, 2025 3:0 6pm Additional Source Comments (unrecognized sect ion and content) No Status Records FoundNo Status Records FoundNo Status Records Found INFORMATION SOURCE (unrecogn ized section and content) DATE CREATED AUTHOR 11/02/2021 [facility] DATE CREATED AUTHOR AUTHOR'S ORGANIZ ATION 12/20/2022 [facility] DATE CREATED AUTHOR AUTHOR'S ORGANIZ ATION 05/10/2025 [facility] Goals (unrecognized section and content) Goals may be documented in a n alternate sectionGoals may be documented in an alternate sectionGoals may be documented in an alternate sectionGoals may be documented in an alternate sectionGoals may be documented in an alternate sectionGoals may be documented in an alternate sectionGoals may be documented in an alternate sectionGoals may be documented in an alternate sectionGoals may be documented in an alternate section Care Teams (unrecognized sec tion and content) Team Status: Active Member Role Status Dates Dr. Crystal Garcia MD Family Provider Active Dr. Joana Friend MD Primary Care Provider Active Team Status: Active Member Role Status Dates Dr. Joana Friend MD Primary Care Provider Active Dr. Lex Mercado DO Referring Provider, Other Pr ovider Active Dr. Hector Moore DO Attending Provider Active Team Status: Inactive Member Role Status Dates Dr. Joana Friend MD Primary Care Provider Active Dr. Lex Mercado DO Attending Provider, Referrin g Provider Active Team Status: Active Member Role Status Dates Dr. Joana Friend MD Primary Care Provider Active Dr. Germán Avila MD Attending Provider Active Team Status: Inactive Member Role Status Dates Dr. Joana Friend MD Primary Care Provider Active Dr. Lex Mercado DO Attending Provider Active Team Status: Inactive Member Role Status Dates Dr. Joana Friend MD Primary Care Provider Active Dr. Germán Avila MD Attending Provider Active Team Status: Inactive Member Role Status Dates Dr. Joana Friend MD Primary Care Provider Active Dr. Benigno Frost MD Attending Provider, Referr ing Provider Active Team Status: Inactive Member Role Status Dates Dr. Joana Friend MD Primary Care Provi alexey, Attending Provider, Referring Provider Active Team Status: Active Member Role/Relationship Status Dates Dr. Joana Friend MD Primary Care Provider Active Team Status: Inactive Member Role/Relationship Status Dates Dr. Joana Friend MD Primary Care Provider Active Start: December 11, 2024 End: December 11, 2024 Dr. Joana Friend MD Attending Provider Active Start: December 11, 2024 End: December 11, 2024 Dr. Joana Friend MD Referring Provider Active Start: December 11, 2024 End: December 11, 2024 Team Status: Inactive Member Role/Relationship Status Dates Dr. Joana Friend MD Primary Care Provider Active Start: March 14, 2025 End: March 14, 2025 Dr. Benigno Frost MD Attending Provider Active Start: March 14, 2025 End: March 14, 2025 Dr. Benigno Frost MD Referring Provider Active Start: March 14, 2025 End: March 14, 2025 FOR RECORDS PERTAINING TO PATIENTS WHO ARE OR HAVE BEEN ENROLLED IN A CHEMICAL DEPENDENCY/SUBSTANCEABUSE PROGRAM, SOME INFORMATION MAY BE OMITTED. This clinical summary was aggregated from multiple sources. Caution should be exercised in using it in the provision of clinical care. This summary normalizes information from multiple sources, and as a consequence, information in this document may materially change the coding, format and clinical context of patient data. In addition, data may be omitted in some cases. CLINICAL DECISIONS SHOULD BE BASED ON THE PRIMARY CLINICAL RECORDS. [facility] [employer] [facility]. provides no warranty or guarantee of the accuracy or completeness of information in this document.
--- NOTE | 2025-07-29 12:19 | STRESSREP_ITS ---
Stress Test Report Date: 07/29/2025 Procedure: Pharmacologic stress nuclear imaging study Indications: Abnormal ECG/preop evaluation Consent: Per the patient Procedure: The patient underwent pharmacologic (Regadenoson 0.4mg ) evaluation with a peak heart rate of 75 beats per minute (51%predicted maximal heart rate) and a peak blood pressure of 138/62 mmHg. The baseline ECG demonstrated sinus rhythm with Mobitz type I second-degree AV block. Right bundle branch block. Nonspecific ST changes. The peak pharmacologic ECG was nondiagnostic secondary to baseline abnormalities. There were no cardiac dysrhythmias pretest, during pharmacologic infusion, or recovery. There was no complaint of chest discomfort during pharmacologic infusion or recovery. The patient was injected with 15.0 millicuries of technetium 99m Cardiolite and subsequently rest SPECT Cardiolite nuclear imaging was obtained in the horizontal long, vertical long, and short axis views. The patient underwent pharmacologic (Regadenoson) evaluation. The patient was injected with 44.7 millicuries of technetium 99m Cardiolite and subsequently stress SPECT Cardiolite nuclear imaging was obtained in the horizontal long, vertical long, and short axis views. A gated Cardiolite study at peak stress was obtained. The examination was stopped secondary to completion of protocol. Rest and stress SPECT Cardiolite nuclear imaging status post realignment, normalization, and attenuation correction demonstrate mildly reduced perfusion of the anterior wall post pharmacological stress. There is end systolic thickening and brightening. The gated Cardiolite study demonstrates myocardial thickening and inward wall motion. The reported LVEF is 68%. Impression: 1. Pharmacologic (Regadenoson) evaluation 2. Peak pharmacologic ECG nondiagnostic secondary to baseline abnormalities. 3. Baseline sinus rhythm with second-degree type I AV block. Right bundle branch block. 5. Mildly reduced perfusion of the anterior wall post pharmacological stress, suggestive of ischemia. 6. The gated Cardiolite study reports an LVEF of 68%. This note was generated with [employer] software. It may contain incorrect words, spelling, and punctuation that were not noted in checking the note before signing.
== END | disposition home or self-care (01) ==
LOC: CVS 06:34
PROVIDERS: PCP Internal Medicine; Referring Provider Internal Medicine; Visit Provider Internal Medicine
DX: I44.1 Atrioventricular block, second degree (principal); I25.10 Atherosclerotic heart disease of native coronary artery without angina pectoris; F17.200 Nicotine dependence, unspecified, uncomplicated
CPT/HCPCS: 78452; 93017; 93225; 93226; 93306; A9500; A4216; J2785